=== PATIENT | female | born 1970 | race Caucasian/White ===

== ENCOUNTER → 2020-07-13 14:25 | Outpatient (BNVA) | payer OTHER, SELFPAY | PROVIDERS: PCP Internal Medicine; Visit Provider Physician Assistant | DX: Z76.89 Persons encountering health services in other specified circumstances (principal) ==

== ENCOUNTER → 2020-08-09 13:21 | Outpatient (BNVA) | payer OTHER, SELFPAY | PROVIDERS: PCP Internal Medicine; Referring Provider Internal Medicine; Visit Provider Dietitian, Registered | DX: Z76.89 Persons encountering health services in other specified circumstances (principal) ==

== ENCOUNTER 2020-08-15 14:36 | Outpatient (REF) | payer OTHER, SELFPAY | END 2020-08-15 14:37 | disposition home or self-care (01) | LOC: HO.LAB 14:36 | PROVIDERS: PCP Nurse Anesthetist, Certified Registered; Visit Provider Internal Medicine | DX: Z20.828 Contact with and (suspected) exposure to other viral communicable diseases (principal) | CPT/HCPCS: C9803; U0003 ==

== ENCOUNTER → 2020-08-30 13:36 | Outpatient (BNVA) | payer OTHER, SELFPAY | PROVIDERS: Absent Provider Physician Assistant; PCP Internal Medicine; Referring Provider Internal Medicine; Visit Provider Physician Assistant | DX: Z76.89 Persons encountering health services in other specified circumstances (principal) ==

== ENCOUNTER → 2020-09-20 08:12 | Outpatient (BNVA) | payer OTHER, SELFPAY | PROVIDERS: PCP Internal Medicine; Visit Provider Physician Assistant | DX: Z76.89 Persons encountering health services in other specified circumstances (principal) ==

== ENCOUNTER 2021-04-27 12:58 | Inpatient (IN) | payer OTHER, SELFPAY ==
[2021-04-27] VITALS (7 sets, daily range): BP systolic 129; BP diastolic 90; PULSE 88–105; RESP 20; TEMP 35.7; O2SAT 91–98; BMI 46.4
--- NOTE | ~2021-04-27 | XR_ITS ---
EXAMINATION: XR CHEST CLINICAL INFORMATION: Cough, SOB and chest pain. COMPARISON: Chest 12/03/2018 CT chest 02/05/2018 TECHNIQUE: 2 views of the chest were obtained. FINDINGS: There is right upper lobe opacification likely atelectasis with ipsilateral mediastinal shift. Otherwise visualized right lung and the left lung is clear. No pleural effusion seen. The diaphragms are symmetrical and seen in position as previously visualized. Heart size and vascularity is normal. No gross bony abnormality. XR/XR chest 2V IMPRESSION: Loss of right lung volume secondary to right upper lobe atelectasis. Similar findings were seen on the CT chest 02/05/2018. Correlate with clinical exam.
--- NOTE | ~2021-04-27 | CT_ITS ---
EXAMINATION: CT ANGIOGRAM OF THE CHEST WITH AND WITHOUT CONTRAST (CT PULMONARY ANGIOGRAM FOR PE) CLINICAL INFORMATION: Chest pain, shortness of breath. Leukocytosis. Cough. Evaluate for pulmonary embolism. COMPARISON: Most recent chest radiograph dated 03/28/2021. Chest CT dated 02/05/2018. TECHNIQUE: Prior to contrast administration, noncontrast localization images were obtained. Subsequently, multidetector volumetric imaging was performed from the thoracic inlet to below the diaphragms following the administration of 71 mL Omnipaque 350 intravenous contrast. No contrast reaction reported Sagittal, coronal, and MIP oblique sagittal reformatted images were obtained on the CT workstation, uploaded to PACS, and reviewed. This CT examination was performed using dose optimization techniques as appropriate, variously including the following: *Automated exposure control *Adjustment of mA and/or kV according to patient size (this includes techniques or standardized protocols for targeted exams where dose is matched to indication/reason for exam; i.e. extremities or head) *Use of iterative reconstruction technique Total exam dose-length product 406 mGy-cm FINDINGS: QUALITY OF STUDY/CONTRAST BOLUS: Satisfactory. PULMONARY ARTERIES: No central or segmental pulmonary emboli. THORACIC AORTA: No aneurysm or dissection. LUNG: Complete collapse of the right upper lobe is redemonstrated with associated atelectasis. Compensatory expansion of the right middle and lower lobes. No new airspace consolidation. No pulmonary nodule or mass. PLEURA: No pleural effusion or pneumothorax. MEDIASTINUM: Normal heart size. No pericardial effusion. No hilar or mediastinal lymphadenopathy. No evidence of septal bowing or right heart strain. CHEST WALL/AXILLA: No axillary or internal mammary lymphadenopathy. OSSEOUS STRUCTURES: No acute or suspicious osseous abnormality. UPPER ABDOMEN: Unremarkable. No reflux of contrast into the hepatic veins to suggest elevated right heart pressures. CT/CT angio chest PE protocol IMPRESSION: 1. No central or segmental pulmonary embolism. 2. Complete collapse of the right upper lobe is redemonstrated, unchanged when compared to prior examinations. 3. No new pulmonary nodule, mass, or airspace consolidation. VTE: negative
--- NOTE | 2021-04-27 13:14 | ECG_ITS ---
Test Reason : SOB Blood Pressure : / mmHG Vent. Rate : 095 BPM Atrial Rate : 095 BPM P-R Int : 142 ms QRS Dur : 084 ms QT Int : 378 ms P-R-T Axes : 066 076 062 degrees QTc Int : 475 ms Normal sinus rhythm Normal ECG When compared with ECG of 03-DEC-2018 11:46, No significant change was found Referred By: Aimee Paez Electronically Signed By:Markie Gambino
--- NOTE | 2021-04-27 13:26 | ED.SOB ---
HPI - SOB/Dyspnea General Chief Complaint: Dyspnea Stated Complaint: chest pain, sob Time Seen by Provider: 04/27/21 13:09 Source: patient Mode of arrival: ambulatory History of Present Illness HPI Narrative: 50-year-old female with a past medical history of asthma, COPD, DVT, PE, to the ED complaining of worsening exertional SOB x1 week. Also reports productive cough, and chest tightness. Was seen at PCP yesterday prescribed 10 mg of prednisone b.i.d. and Zithromax and without relief. Denies fever, chills, recent travel, LE edema, calf pain, abdominal pain MD elicited complaint: shortness of breath and cough Related Data Home Medications Medication Instructions Recorded Confirmed albuterol sulfate 90 mcg/actuation 2 puff INHALATION Q6H PRN 07/12/20 04/27/21 aerosol inhaler metformin 500 mg/5 mL oral solution 1,000 mg PO BID ml 07/12/20 04/27/21 azithromycin 1 tab PO DIRECTED 04/27/21 04/27/21 empagliflozin [Jardiance] 1 tab PO DAILY 04/27/21 04/27/21 bizkybmmiyr-sxcwtkcyl-tgtzhwyx 1 puff PO DAILY 04/27/21 04/27/21 [Trelegy Ellipta] furosemide 1 tab PO DAILY PRN 04/27/21 04/27/21 montelukast 1 tab PO DAILY 04/27/21 04/27/21 prednisone 1 tab PO BID 04/27/21 04/27/21 Allergies Allergy/AdvReac Type Severity Reaction Status Date / Time onion Allergy Unknown Itching Uncoded 07/12/20 08:23 strawberry Allergy Unknown Hives Uncoded 07/12/20 08:23 bee AdvReac Severe Anaphylaxis Uncoded 07/13/20 15:22 Review of Systems Review of Systems: Constitutional: No Fever, No Chills, No Fatigue, No Malaise ENT/Mouth: No Ear Pain, No Nasal Congestion, No sore throat, No Rhinorrhea Eyes: No Eye Pain, No Swelling, No Redness, No Discharge, No Vision Changes Cardiovascular: + Chest Pain, + SOB, + Dyspnea on Exertion, No Orthopnea, No Edema Respiratory: + Cough, + Sputum, + Wheezing, No Dyspnea Gastrointestinal: No Nausea, No Vomiting, No Abdominal pain Genitourinary: No Dysuria, No Urinary Frequency, No Hematuria Musculoskeletal: No joint pain, No Myalgias, No Joint Swelling Skin: No Skin Lesions, No rash Neuro: No Weakness, No Numbness, No Headache Yes all other systems are reviewed and are negative [facility] Past Medical History Attestation statement: The following information was validated with the patient. Medical History (Updated 04/27/21 @ 17:21 by RONY Leyva) Asthma COPD (chronic obstructive pulmonary disease) DVT (deep venous thrombosis) Pulmonary embolism VTE (venous thromboembolism) Surgical History Hx of section Hx of section Family History Family History Father No problems noted. Mother No problems noted. Son No problems noted. Son No problems noted. Daughter No problems noted. Daughter No problems noted. Sister No problems noted. Social History Social History (Updated 07/13/20 @ 15:38 by Holly Quach PA-C) Alcohol intake: current Alcohol intake frequency: a few times a week Smoked in Last 30 Days: Yes Use of substances other than those prescribed or required for medical reasons: No Advance Directives: Yes Advance Directives Information Provided: Yes Advance Directives on File: No Physical Exam Vital Signs: Vital Signs: Last Vital Signs Temp 96.3 F L 04/27/21 13:00 Pulse 93 04/27/21 16:00 Resp 20 04/27/21 16:00 BP 129/90 H 04/27/21 13:00 Pulse Ox 98 04/27/21 16:00 Body Mass Index 46.4 Const: General: cooperative, healthy appearing, alert and awake Orientation/consciousness: patient oriented x3 Limitations: no limitations HENMT: Head: Yes normal to inspection Ears: hearing grossly normal bilaterally General nose exam: Normal external nose present Face and sinus: Yes normal facial exam Eyes: General: appearance normal, both eyes and all related structures EOM: EOMs intact bilaterally Neck: Neck: Yes normal visual inspection and Yes no meningeal signs Resp: Effort & Inspection: normal respiratory effort Auscultation: wheezes expiratory wheezes and throughout Cardio: Rate: regular rate Heart sounds: S1 normal heart sound present and S2 normal heart sound present GI: Inspection: Yes normal to inspection Palpation (GI): Soft to palpation and nontender Skin: Rashes: no rashes Wounds: no wounds Neuro: General: patient oriented x3 and no meningeal signs Gait exam (Neuro): Normal gait present Extrem: General: Yes normal to inspection, Yes no pedal edema and Yes no calf tenderness Course Course Course Narrative: XR chest 2V IMPRESSION: Loss of right lung volume secondary to right upper lobe atelectasis. Similar findings were seen on the CT chest 02/05/2018. Correlate with clinical exam. -1425--leukocytosis of 18.9 likely from prednisone > Still low concern for severe sepsis. Will obtain lactic/blood cultures and CTA to r/o PE/underlying infectious etiology as has only been on prednisone x 1 day. - troponin/BNP negative -1536-lactic 3.1 likely from albuterol use. Empiric IV Ceftriaxone ordered -1700--on re-evaluation patient satting 88-89% on RA. Reports does have p.r.n. O2 at home 2.5 L. Now satting 91% on NC. Still diffuse expiatory wheeze throughout. Additional hour long neb ordered, plan to admit. 175-CT angio chest PE protocol IMPRESSION: 1. No central or segmental pulmonary embolism. 2. Complete collapse of the right upper lobe is redemonstrated, unchanged when compared to prior examinations. 3. No new pulmonary nodule, mass, or airspace consolidation. VTE: negative -1800--pt admitted for further management MDM - SOB/Dyspnea MDM Narrative Medical decision making narrative: 50-year-old female with a past medical history of asthma, COPD, DVT, PE, to the ED complaining of worsening exertional SOB x1 week. Also reports productive cough, and chest tightness. On exam mildly tachycardic likely from albuterol use, NAD, nontoxic appearing, expiratory wheeze throughout, no pedal edema or calf tenderness. Concern for asthma/COPD exacerbation vs pneumonia. Rule out ACS. Lower concern for PE/DVT. Low concern for severe sepsis Plan: EKG, labs, CXR, DuoNeb, Solu-Medrol, magnesium, reassess Medical Records Attestation: I reviewed the patient's medical records. Lab Data Attestation: I reviewed the patient's lab results. Result diagrams: 04/27/21 13:33 07/17/21 13:33 Labs: Lab Results 04/27/21 04/27/21 04/27/21 Range/Units 13:33 13:33 13:33 WBC 18.9 H (4.8-10.8) X10*3/uL RBC 5.66 H (4.20-5.50) X10*6/uL Hgb 14.5 (12.0-16.0) g/dl Hct 43.8 (37-47) % MCV 77.4 L (80-98) fL MCH 25.6 L (27.0-33.0) pg MCHC 33.1 (31.0-35.0) g/dl RDW 14.2 (11.0-16.0) % Plt Count 506 H (160-400) X10*3/uL MPV 9.9 (9.4-12.3) fL Immature Gran % (Auto) 0.5 H (0.0-0.4) % Neut % (Auto) 67.6 (45-73) % Lymph % (Auto) 25.9 (20-40) % Carolina % (Auto) 5.4 (2-11) % Eos % (Auto) 0.3 (0-4) % Baso % (Auto) 0.3 (0-2) % Lymph # (Auto) 4.9 (1.2-4.9) X10*3/uL [place] # (Auto) 1.0 (0.1-1.2) X10*3/uL Eos # (Auto) 0.1 (0.0-0.4) X10*3/uL Baso # (Auto) 0.1 (0.0-0.2) X10*3/uL Abs Immat Gran (auto) 0.10 H (0.00-0.03) X10*3/uL Absolute Neuts (auto) 12.7 H (2.0-8.3) X10*3/uL Absolute Nucleated RBC 0.000 (0.0-0.012) X10*3/uL Nucleated RBC % (auto) 0.0 (0.0-0.2) /100WBC PT (9.9-13.0) SEC INR (0.9-1.1) APTT (24.1-38.0) SEC D-Dimer NG/ML Sodium 135 (135-145) mmol/L Potassium 4.1 (3.3-5.1) mmol/L Chloride 98 (96-108) mmol/L Carbon Dioxide 19 L (22-29) mmol/L Anion Gap 22 H (12-20) BUN 19 H (9-16) mg/dL Creatinine 0.96 (0.5-1.4) mg/dL Estim Creat Clear Calc 75.7 Estimated GFR > 60 Random Glucose 262 H (60-115) mg/dL Lactic Acid (0.5-2.0) mmol/L Lactic Acid Fup @ 2Hr (0.5-2.0) mmol/L Calcium 10.3 H (8.4-10.2) mg/dL Magnesium 2.1 (1.6-2.6) mg/dL Total Bilirubin 0.6 (0.0-1.0) mg/dL Direct Bilirubin 0.2 (0.0-0.5) mg/dL AST 7 (5-31) U/L ALT 10 (0-31) U/L Alkaline Phosphatase 119 H (39-117) U/L Troponin I High Sens < 3.5 (<3.5-17.0) ng/L B-Natriuretic Peptide < 10 (<100) pg/mL Total Protein 8.1 H (6.5-8.0) g/dL Albumin 4.4 (3.5-5.0) g/dL COVID-19 (ALEJANDRA) (Negative) COVID-19 Clin Com 04/27/21 04/27/21 04/27/21 Range/Units 13:33 14:48 14:48 WBC (4.8-10.8) X10*3/uL RBC (4.20-5.50) X10*6/uL Hgb (12.0-16.0) g/dl Hct (37-47) % MCV (80-98) fL MCH (27.0-33.0) pg MCHC (31.0-35.0) g/dl RDW (11.0-16.0) % Plt Count (160-400) X10*3/uL MPV (9.4-12.3) fL Immature Gran % (Auto) (0.0-0.4) % Neut % (Auto) (45-73) % Lymph % (Auto) (20-40) % Carolina % (Auto) (2-11) % Eos % (Auto) (0-4) % Baso % (Auto) (0-2) % Lymph # (Auto) (1.2-4.9) X10*3/uL Carolina # (Auto) (0.1-1.2) X10*3/uL Eos # (Auto) (0.0-0.4) X10*3/uL Baso # (Auto) (0.0-0.2) X10*3/uL Abs Immat Gran (auto) (0.00-0.03) X10*3/uL Absolute Neuts (auto) (2.0-8.3) X10*3/uL Absolute Nucleated RBC (0.0-0.012) X10*3/uL Nucleated RBC % (auto) (0.0-0.2) /100WBC PT 12.2 (9.9-13.0) SEC INR 1.1 (0.9-1.1) APTT 35.2 (24.1-38.0) SEC D-Dimer < 200 NG/ML Sodium (135-145) mmol/L Potassium (3.3-5.1) mmol/L Chloride (96-108) mmol/L Carbon Dioxide (22-29) mmol/L Anion Gap (12-20) BUN (9-16) mg/dL Creatinine (0.5-1.4) mg/dL Estim Creat Clear Calc Estimated GFR Random Glucose (60-115) mg/dL Lactic Acid 3.1 H* (0.5-2.0) mmol/L Lactic Acid Fup @ 2Hr (0.5-2.0) mmol/L Calcium (8.4-10.2) mg/dL Magnesium (1.6-2.6) mg/dL Total Bilirubin (0.0-1.0) mg/dL Direct Bilirubin (0.0-0.5) mg/dL AST (5-31) U/L ALT (0-31) U/L Alkaline Phosphatase (39-117) U/L Troponin I High Sens (<3.5-17.0) ng/L B-Natriuretic Peptide (<100) pg/mL Total Protein (6.5-8.0) g/dL Albumin (3.5-5.0) g/dL COVID-19 (ALEJANDRA) Negative (Negative) COVID-19 Clin Com See Note 04/27/21 Range/Units 17:36 WBC (4.8-10.8) X10*3/uL RBC (4.20-5.50) X10*6/uL Hgb (12.0-16.0) g/dl Hct (37-47) % MCV (80-98) fL MCH (27.0-33.0) pg MCHC (31.0-35.0) g/dl RDW (11.0-16.0) % Plt Count (160-400) X10*3/uL MPV (9.4-12.3) fL Immature Gran % (Auto) (0.0-0.4) % Neut % (Auto) (45-73) % Lymph % (Auto) (20-40) % Carolina % (Auto) (2-11) % Eos % (Auto) (0-4) % Baso % (Auto) (0-2) % Lymph # (Auto) (1.2-4.9) X10*3/uL Carolina # (Auto) (0.1-1.2) X10*3/uL Eos # (Auto) (0.0-0.4) X10*3/uL Baso # (Auto) (0.0-0.2) X10*3/uL Abs Immat Gran (auto) (0.00-0.03) X10*3/uL Absolute Neuts (auto) (2.0-8.3) X10*3/uL Absolute Nucleated RBC (0.0-0.012) X10*3/uL Nucleated RBC % (auto) (0.0-0.2) /100WBC PT (9.9-13.0) SEC INR (0.9-1.1) APTT (24.1-38.0) SEC D-Dimer NG/ML Sodium (135-145) mmol/L Potassium (3.3-5.1) mmol/L Chloride (96-108) mmol/L Carbon Dioxide (22-29) mmol/L Anion Gap (12-20) BUN (9-16) mg/dL Creatinine (0.5-1.4) mg/dL Estim Creat Clear Calc Estimated GFR Random Glucose (60-115) mg/dL Lactic Acid (0.5-2.0) mmol/L Lactic Acid Fup @ 2Hr 1.9 (0.5-2.0) mmol/L Calcium (8.4-10.2) mg/dL Magnesium (1.6-2.6) mg/dL Total Bilirubin (0.0-1.0) mg/dL Direct Bilirubin (0.0-0.5) mg/dL AST (5-31) U/L ALT (0-31) U/L Alkaline Phosphatase (39-117) U/L Troponin I High Sens (<3.5-17.0) ng/L B-Natriuretic Peptide (<100) pg/mL Total Protein (6.5-8.0) g/dL Albumin (3.5-5.0) g/dL COVID-19 (ALEJANDRA) (Negative) COVID-19 Clin Com ECG Data Attestation: I personally reviewed and interpreted this ECG as follows: ECG interpretation date: 04/27/21 ECG interpretation time: 13:28 Interpretation: EKG normal sinus rhythm with a rate of 92, T-wave inversions in leads 3 and AVF. Nonischemic/no STEMI Discharge Plan Discharge Clinical Impression: Acute exacerbation of chronic obstructive airways disease Patient Disposition: Admitted As Inpatient
[2021-04-27] MEDS: methylPREDNISolone Sod Succ 125 MG/2 ML VIAL IVPUSH (13:38)
[2021-04-27] MEDS: Magnesium Sulfate/H2O 2 GM/50 ML PIGGYBACK IV (13:40)
[2021-04-27 13:41] LABS: MANUAL DIFF FLAG NO
[2021-04-27 13:42] LABS: Basophils Absolute Auto 0.1 X10*3/uL (0.0-0.2); Basophils Percent Auto 0.3 % (0-2); Eosinophils Absolute Auto 0.1 X10*3/uL (0.0-0.4); Eosinophils Percent Auto 0.3 % (0-4); Hematocrit 43.8 % (37-47); Hemoglobin 14.5 g/dl (12.0-16.0); Imm Gran Pct Auto 0.5 % (0.0-0.4); Lymphocytes Absolute Auto 4.9 X10*3/uL (1.2-4.9); Lymphocytes Percent Auto 25.9 % (20-40); Mean Corpuscular HGB Conc 33.1 g/dl (31.0-35.0); Mean Corpuscular Hemoglobin 25.6 pg (27.0-33.0); Mean Corpuscular Volume 77.4 fL (80-98); Mean Platelet Volume 9.9 fL (9.4-12.3); Monocytes Percent Auto 5.4 % (2-11); Neutrophils Absolute Auto 12.7 X10*3/uL (2.0-8.3); Neutrophils Percent Auto 67.6 % (45-73); Platelet Count 506 X10*3/uL (160-400); Red Blood Count 5.66 X10*6/uL (4.20-5.50); Red Cell Distribution Width 14.2 % (11.0-16.0); White Blood Count 18.9 X10*3/uL (4.8-10.8)
[2021-04-27] MEDS: Albuterol/Iprat 2.5/0.5MG 3 ML AMPUL.NEB INHALE (13:57)
[2021-04-27 13:59] LABS: COVID-19 Test Negative (Negative); IDNOW Serial# 9DD0AD1C
[2021-04-27 14:20] LABS: B Type Natriuretic Peptide < 10 pg/mL (<100); Troponin-I High Sensitivity < 3.5 ng/L (<3.5-17.0)
[2021-04-27 14:25] LABS: Alanine Aminotransferase 10 U/L (0-31); Albumin Level 4.4 g/dL (3.5-5.0); Alkaline Phosphatase 119 U/L (39-117); Anion Gap 22 (12-20); Aspartate Amino Transferase 7 U/L (5-31); Bilirubin Direct 0.2 mg/dL (0.0-0.5); Bilirubin Total 0.6 mg/dL (0.0-1.0); Blood Urea Nitrogen 19 mg/dL (9-16); Calcium 10.3 mg/dL (8.4-10.2); Carbon Dioxide 19 mmol/L (22-29); Chloride 98 mmol/L (96-108); Creatinine Clr Calc Pharmacy 75.7; Estimated Glomerular Filt Rate > 60; Glucose Random 262 mg/dL (60-115); Magnesium 2.1 mg/dL (1.6-2.6); Potassium 4.1 mmol/L (3.3-5.1); Sodium 135 mmol/L (135-145); Total Protein 8.1 g/dL (6.5-8.0)
[2021-04-27 15:14] LABS: INTERNATIONAL NORM RATIO 1.1 (0.9-1.1); Prothrombin Time 12.2 SEC (9.9-13.0)
[2021-04-27 15:17] LABS: Partial Thromboplastin Time 35.2 SEC (24.1-38.0)
[2021-04-27] MEDS: Albuterol Sulfate (0.083%) 2.5 MG/3 ML VIAL.NEB 10 MG INHALE (15:17)
[2021-04-27 15:22] LABS: D Dimer < 200 NG/ML
[2021-04-27 15:29] LABS: Lactic Acid 3.1 mmol/L (0.5-2.0)
[2021-04-27] MEDS: cefTRIAXone sodium 1 GM in 0.9 % Sodium Chloride 50 ML IV (15:59)
[2021-04-27 17:04] LABS: Reflex Lactate? Lactic Acid Added
[2021-04-27] MEDS: iohexoL 350 MG/ML 100 ML INFUS..BTL IV (17:18)
[2021-04-27 18:01] LABS: ~Lactic Acid-LAB USE ONLY 1.9 mmol/L (0.5-2.0)
[2021-04-27] MEDS: Albuterol Sulfate (0.083%) 2.5 MG/3 ML VIAL.NEB INHALE (18:29)
[2021-04-28] VITALS (11 sets, daily range): BP systolic 114–149; BP diastolic 61–92; PULSE 83–104; RESP 18–20; TEMP 36–36.8; O2SAT 91–96; BMI 46.5
[2021-04-28] MEDS: 0.9 % Sodium Chloride Flush 3 ML SYRINGE IVFLUSH ×4 (00:29→21:40)
[2021-04-28] MEDS: methylPREDNISolone Sod Succ 40 MG/ML VIAL IVPUSH ×3 (00:29→23:08)
[2021-04-28] MEDS: Enoxaparin Sodium 40 MG/0.4 ML SYRINGE SUBCUT (00:29)
[2021-04-28 01:00] LABS: Glucose, Whole Blood 356 mg/dL (60-115)
[2021-04-28] MEDS: Insulin Lispro 100 UNIT/ML 3 ML VIAL SUBCUT ×5 (03:52→21:39)
[2021-04-28 03:53] LABS: Glucose, Whole Blood 276 mg/dL (60-115)
[2021-04-28 05:16] LABS: MANUAL DIFF FLAG NO
[2021-04-28 05:24] LABS: Basophils Percent Auto 0.1 % (0-2); Hematocrit 43.4 % (37-47); Hemoglobin 14.2 g/dl (12.0-16.0); Imm Gran Abs Auto 0.08 X10*3/uL (0.00-0.03); Imm Gran Pct Auto 0.5 % (0.0-0.4); Lymphocytes Absolute Auto 1.8 X10*3/uL (1.2-4.9); Mean Corpuscular HGB Conc 32.7 g/dl (31.0-35.0); Mean Corpuscular Hemoglobin 25.5 pg (27.0-33.0); Mean Corpuscular Volume 77.9 fL (80-98); Mean Platelet Volume 10.3 fL (9.4-12.3); Monocytes Absolute Auto 0.2 X10*3/uL (0.1-1.2); Monocytes Percent Auto 1.5 % (2-11); Neutrophils Absolute Auto 14.4 X10*3/uL (2.0-8.3); Neutrophils Percent Auto 86.9 % (45-73); Platelet Count 494 X10*3/uL (160-400); Red Blood Count 5.57 X10*6/uL (4.20-5.50); Red Cell Distribution Width 14.4 % (11.0-16.0); White Blood Count 16.5 X10*3/uL (4.8-10.8)
--- NOTE | 2021-04-28 05:44 | P.HPHOSP_ITS ---
History of Present Illness Date of Service: 04/27/21 Chief Complaint: Shortness of breath This is a 50-year-old female with past medical history of COPD/asthma, diabetes, history of PE DVT, not on anticoagulation, presents to the hospital with complaints of shortness of breath. Patient reports that her symptoms started about a week ago. Patient was treated with prednisone and azithromycin by her PCP with no relief. Patient is coughing, bringing minimal phlegm, denies any fever but has chills, denies any headache change in vision chest pain, no abdominal pain nausea but has some diarrhea about 1-2 days 1 episode daily. Has significant wheezing. She is also complaining of urinary frequency with no urgency or dysuria. Patient denies any lower extremity edema. On arrival to the ED patient vitals significant for temp of 96.3?, heart rate of 105, respiratory rate of 20, blood pressure 129/90, satting 92% on 3 L of nasal cannula patient reports that she is usually on p.r.n. oxygen 2 L at home but was not using it much previous to this episode. Labs on arrival significant for WBC count of 18.9, lactic acid of 3.1 that resolved, otherwise unremarkable Patient received methylprednisone in the ED and will be admitted for further management [facility] Medical History Asthma COPD (chronic obstructive pulmonary disease) DVT (deep venous thrombosis) Pulmonary embolism VTE (venous thromboembolism) Family History Father No problems noted. Mother No problems noted. Son No problems noted. Son No problems noted. Daughter No problems noted. Daughter No problems noted. Sister No problems noted. Surgical History Hx of section Hx of section Social History Household Members: Children Housing: House Do you presently have visiting nurse or other home services: No Alcohol intake: current Alcohol intake frequency: a few times a week Patient Tobacco Use Status: Current everyday Tobacco user Tobacco use type: Cigarette Cigarette Packs Per Day: 0.5 Cigarettes Per Day: 4 Years Smoked: 30 Smoked in Last 30 Days: Yes e-Cigarette/Vaping Use: Never Used Patient Interested in Nicotine Replacement: No Patient Given Instructions on How to Stop Smoking: No Second Hand Smoke Exposure: No Use of substances other than those prescribed or required for medical reasons: Yes Substance Use Type: Marijuana Substance Use Frequency: Recent Binge Last Used Substance: Days (ago) Currently Displaying Signs/Symptoms of Drug Intoxication Withdrawal: No Any prior treatment program specific to substance use: No Have you been hit, kicked, punched, or otherwise hurt by someone within the past year? If so, by whom?: No Do you feel safe in your current relationship?: No Current Relationship Is there a partner from a previous relationship who is making you feel unsafe now?: No Are you made to feel afraid or neglected: No Spiritual Healthcare Practices: no Gnosticism Healthcare Practices: no Cultural Healthcare Practices: no Advance Directives: Yes Advance Directives Information Provided: Yes Advance Directives on File: No Advance Directives Date on File: 04/28/21 Do you have thoughts of harming others: None Do you have a plan to hurt others: No Plan Recently lost weight without trying: No Eating poorly because of decreased appetite: Yes Nutrition Risks: No Nutritional Risk Patient : No : No Poor oral hygiene: No Meds Allergies Allergy/AdvReac Type Severity Reaction Status Date / Time onion Allergy Unknown Itching Uncoded 07/12/20 08:23 strawberry Allergy Unknown Hives Uncoded 07/12/20 08:23 bee AdvReac Severe Anaphylaxis Uncoded 07/13/20 15:22 Active Medications: Current Medications Generic Name Dose Route Start Last Admin Trade Name Freq PRN Reason Stop Dose Admin Acetaminophen 650 mg 04/27/21 21:38 Acetaminophen 325 Mg Tablet PO Q6H PRN Pain, Mild (Pain Scale 1-3) Albuterol/Ipratropium 3 ml 04/28/21 08:00 Albuterol/Iprat 2.5/0.5mg 3 Ml Ampul.Neb INHALE RQ4H WHILE AWAKE ERIC Albuterol/Ipratropium 3 ml 04/27/21 21:38 Albuterol/Iprat 2.5/0.5mg 3 Ml Ampul.Neb INHALE RQ4H PRN Shortness of Breath/Wheezing Docusate Sodium 100 mg 04/27/21 21:38 Docusate Sodium 100 Mg Capsule PO DAILY PRN Constipation Enoxaparin Sodium 40 mg 04/27/21 22:00 04/28/21 00:29 Enoxaparin Sodium 40 Mg/0.4 Ml Syringe SUBCUT 40 mg Q24H ERIC Administration Furosemide 20 mg 04/27/21 21:38 Furosemide 20 Mg Tablet PO DAILY PRN Edema Protocol Insulin Human Lispro 0 unit 04/28/21 07:30 04/28/21 03:52 Insulin Lispro 100 Unit/Ml 3 Ml Vial SUBCUT 6 unit QIDACHS ERIC Administration Protocol Methylprednisolone Sodium Succinate 40 mg 04/27/21 23:00 04/28/21 00:29 Methylprednisolone Sod Succ 40 Mg/Ml Vial IVPUSH 40 mg Q12H ERIC Administration Montelukast Sodium 10 mg 04/28/21 09:00 Montelukast Sodium 10 Mg Tablet PO DAILY [facility] Nicotine 7 mg 04/28/21 09:00 Nicotine 7 Mg Patch.Td24 TRANSDERMA DAILY [facility] Sodium Chloride 3 ml 04/28/21 00:00 04/28/21 00:29 0.9 % Sodium Chloride Flush 3 Ml Syringe IVFLUSH 3 ml QSHIFT [facility] Administration Home Medications Medication Instructions Recorded Confirmed Last Taken Type albuterol sulfate 90 mcg/actuation 2 puff INHALATION Q6H PRN 07/12/20 04/27/21 Unknown History aerosol inhaler metformin 500 mg/5 mL oral solution 1,000 mg PO BID ml 07/12/20 04/27/21 Unknown History azithromycin 1 tab PO DIRECTED 04/27/21 04/27/21 Unknown History empagliflozin [Jardiance] 1 tab PO DAILY 04/27/21 04/27/21 Unknown History kcgwhckzluh-wpnwfcsqc-cnqaavau 1 puff PO DAILY 04/27/21 04/27/21 Unknown History [Trelegy Ellipta] furosemide 1 tab PO DAILY PRN 04/27/21 04/27/21 Unknown History montelukast 1 tab PO DAILY 04/27/21 04/27/21 Unknown History prednisone 1 tab PO BID 04/27/21 04/27/21 Unknown History Physical Exam Vital Signs and Narrative: Vital Signs: Last Vital Signs Temp 98.2 F 04/28/21 03:54 Pulse 102 H 04/28/21 03:54 Resp 18 04/28/21 03:54 BP 145/88 H 04/28/21 03:54 Pulse Ox 91 L 04/28/21 03:54 Body Mass Index 46.5 Const: General: cooperative and no acute distress Orientation/consciousness: patient oriented x3 Eyes: General: appearance normal, both eyes and all related structures Resp: Other: Patient sitting up in bed, has tachypnea Cardio: Rate: regular rate Rhythm: regular rhythm GI: Palpation (GI): Soft to palpation Auscultation: normal bowel sounds Skin: General skin exam: no rashes or lesions noted Neuro: General: patient oriented x3 Cognition (Neuro): normal cognition Extrem: General: Yes normal to inspection and Yes no pedal edema Results Labs CBC and Chem 7: 04/28/21 04:16 04/27/21 13:33 Labs: Laboratory Results - last 24 hr 04/27/21 04/27/21 04/27/21 13:33 13:33 13:33 MCV 77.4 L MCH 25.6 L MCHC 33.1 RDW 14.2 Plt Count 506 H MPV 9.9 Immature Gran % (Auto) 0.5 H Neut % (Auto) 67.6 Lymph % (Auto) 25.9 [place] % (Auto) 5.4 Eos % (Auto) 0.3 Baso % (Auto) 0.3 Lymph # (Auto) 4.9 [place] # (Auto) 1.0 Eos # (Auto) 0.1 Baso # (Auto) 0.1 Abs Immat Gran (auto) 0.10 H Absolute Neuts (auto) 12.7 H Absolute Nucleated RBC 0.000 Nucleated RBC % (auto) 0.0 PT INR APTT D-Dimer Anion Gap 22 H Estim Creat Clear Calc 75.7 Estimated GFR > 60 POC Glucose Random Glucose 262 H Lactic Acid Lactic Acid Fup @ 2Hr Calcium 10.3 H Magnesium 2.1 Total Bilirubin 0.6 Direct Bilirubin 0.2 AST 7 ALT 10 Alkaline Phosphatase 119 H Troponin I High Sens < 3.5 B-Natriuretic Peptide < 10 Total Protein 8.1 H Albumin 4.4 COVID-19 (ALEJANDRA) COVID-19 Clin Com 04/27/21 04/27/21 04/27/21 13:33 14:48 14:48 MCV MCH MCHC RDW Plt Count MPV Immature Gran % (Auto) Neut % (Auto) Lymph % (Auto) [place] % (Auto) Eos % (Auto) Baso % (Auto) Lymph # (Auto) [place] # (Auto) Eos # (Auto) Baso # (Auto) Abs Immat Gran (auto) Absolute Neuts (auto) Absolute Nucleated RBC Nucleated RBC % (auto) PT 12.2 INR 1.1 APTT 35.2 D-Dimer < 200 Anion Gap Estim Creat Clear Calc Estimated GFR POC Glucose Random Glucose Lactic Acid 3.1 H* Lactic Acid Fup @ 2Hr Calcium Magnesium Total Bilirubin Direct Bilirubin AST ALT Alkaline Phosphatase Troponin I High Sens B-Natriuretic Peptide Total Protein Albumin COVID-19 (ALEJANDRA) Negative COVID-19 Clin Com See Note 04/27/21 04/28/21 04/28/21 17:36 00:56 03:49 MCV MCH MCHC RDW Plt Count MPV Immature Gran % (Auto) Neut % (Auto) Lymph % (Auto) [place] % (Auto) Eos % (Auto) Baso % (Auto) Lymph # (Auto) [place] # (Auto) Eos # (Auto) Baso # (Auto) Abs Immat Gran (auto) Absolute Neuts (auto) Absolute Nucleated RBC Nucleated RBC % (auto) PT INR APTT D-Dimer Anion Gap Estim Creat Clear Calc Estimated GFR POC Glucose 356 H* 276 H Random Glucose Lactic Acid Lactic Acid Fup @ 2Hr 1.9 Calcium Magnesium Total Bilirubin Direct Bilirubin AST ALT Alkaline Phosphatase Troponin I High Sens B-Natriuretic Peptide Total Protein Albumin COVID-19 (ALEJANDRA) COVID-19 Clin Com 04/28/21 04:16 MCV 77.9 L MCH 25.5 L MCHC 32.7 RDW 14.4 Plt Count 494 H MPV 10.3 Immature Gran % (Auto) 0.5 H Neut % (Auto) 86.9 H Lymph % (Auto) 11.0 L [place] % (Auto) 1.5 L Eos % (Auto) 0.0 Baso % (Auto) 0.1 Lymph # (Auto) 1.8 [place] # (Auto) 0.2 Eos # (Auto) 0.0 Baso # (Auto) 0.0 Abs Immat Gran (auto) 0.08 H Absolute Neuts (auto) 14.4 H Absolute Nucleated RBC 0.000 Nucleated RBC % (auto) 0.0 PT INR APTT D-Dimer Anion Gap Estim Creat Clear Calc Estimated GFR POC Glucose Random Glucose Lactic Acid Lactic Acid Fup @ 2Hr Calcium Magnesium Total Bilirubin Direct Bilirubin AST ALT Alkaline Phosphatase Troponin I High Sens B-Natriuretic Peptide Total Protein Albumin COVID-19 (ALEJANDRA) COVID-19 Clin Com Imaging Radiologist's Impressions: Impressions Chest X-Ray 04/27/21 13:13 IMPRESSION: Loss of right lung volume secondary to right upper lobe atelectasis. Similar findings were seen on the CT chest 02/05/2018. Correlate with clinical exam. Chest CTA 04/27/21 14:28 IMPRESSION: 1. No central or segmental pulmonary embolism. 2. Complete collapse of the right upper lobe is redemonstrated, unchanged when compared to prior examinations. 3. No new pulmonary nodule, mass, or airspace consolidation. VTE: negative Assessment and Plan (1) Asthma with COPD with exacerbation: Status: Acute (2) Lactic acidosis: Status: Acute (3) Acute respiratory failure with hypoxia: Status: Acute This is a 50-year-old female with past medical history of COPD/asthma presents the hospital with shortness of breath # asthma/COPD exacerbation - failed outpatient therapy with prednisone and azithromycin - has minimal sputum production, no evidence of pneumonia, COVID-19 negative - will start her on IV Solu-Medrol 40 b.i.d. - DuoNeb p.r.n. and scheduled - monitor respiratory status # acute hypoxic respiratory failure - most likely secondary to COPD/asthma exacerbation - no evidence of pneumonia, less likely to be PE, no COVID infection - patient on 3 L of oxygen - titrate oxygen as required # lactic acidosis - most likely secondary to hypoxia - resolved with IV fluids # leukocytosis - most likely secondary to prednisone use - patient does not have any evidence of infection, minimal sputum production, received azithromycin for COPD - will not start her on antibiotics - follow CBC # urinary frequency - most likely secondary to her diabetes - UA with reflex culture # diabetes - hold oral anti hyperglycemic - start low-dose sliding scale - diabetic diet DVT prophylaxis: Lovenox Quality Stroke Does the patient have a stroke diagnosis?: No VTE Prior VTE?: No VTE Risk Level:: Medical - moderate - high VTE Device Contraindication: Treatment Not Indicated VTE Drug Contraindication: N/A - Med Ordered
[2021-04-28 05:56] LABS: Anion Gap 19 (12-20); Blood Urea Nitrogen 18 mg/dL (9-16); Calcium 9.5 mg/dL (8.4-10.2); Carbon Dioxide 18 mmol/L (22-29); Chloride 103 mmol/L (96-108); Creatinine Clr Calc Pharmacy 93.2; Estimated Glomerular Filt Rate > 60; Glucose Random 259 mg/dL (60-115); Sodium 135 mmol/L (135-145)
[2021-04-28] MEDS: Montelukast Sodium 10 MG TABLET PO (07:25)
[2021-04-28] MEDS: Acetaminophen 325 MG TABLET 650 MG PO (07:25)
[2021-04-28 07:30] LABS: Glucose, Whole Blood 195 mg/dL (60-115)
[2021-04-28] MEDS: Albuterol/Iprat 2.5/0.5MG 3 ML AMPUL.NEB INHALE ×4 (07:52→19:44)
[2021-04-28 09:01] LABS: Glucose Urine UA >=1000 MG/DL (NEG); Leukocyte Esterase Urine NEG (NEG); Nitrite Urine NEG (NEG); Urine Blood NEG (NEG); Urine Ketones 5 MG/DL (NEG); Urine Protein NEG (NEG-TRACE)
--- NOTE | 2021-04-28 09:02 | HO.PM.IMPN ---
Subjective Subjective Date of Service: 04/28/21 Interval History: sob Review of Systems Shortness of breath seems to be improving, has some dry cough otherwise denies any chest pain. Still feeling short of breath with sentnces ,also sob with mild walking Physical Exam Vital Signs: Vital Signs: Last Vital Signs Temp 96.8 F 04/28/21 07:05 Pulse 93 04/28/21 07:58 Resp 20 04/28/21 07:05 BP 125/88 04/28/21 07:05 Pulse Ox 93 04/28/21 07:05 Body Mass Index 46.5 Physical exam: Cvs: rrr, [id number] , no murmur res: breath sound diminshed at bases ,has wheezing abd: no rebound or guarding ,nt, bs present. ext pulses present , no cyanosis neuro: axo3 , nonfocal. Objective Data Current Medications Generic Name Dose Route Start Last Admin Trade Name Freq PRN Reason Stop Dose Admin Acetaminophen 650 mg 04/27/21 21:38 04/28/21 07:25 Acetaminophen 325 Mg Tablet PO 650 mg Q6H PRN Administration Pain, Mild (Pain Scale 1-3) Albuterol/Ipratropium 3 ml 04/28/21 08:00 04/28/21 07:52 Albuterol/Iprat 2.5/0.5mg 3 Ml Ampul.Neb INHALE 3 ml RQ4H WHILE AWAKE ERIC Administration Albuterol/Ipratropium 3 ml 04/27/21 21:38 Albuterol/Iprat 2.5/0.5mg 3 Ml Ampul.Neb INHALE RQ4H PRN Shortness of Breath/Wheezing Docusate Sodium 100 mg 04/27/21 21:38 Docusate Sodium 100 Mg Capsule PO DAILY PRN Constipation Enoxaparin Sodium 40 mg 04/27/21 22:00 04/28/21 00:29 Enoxaparin Sodium 40 Mg/0.4 Ml Syringe SUBCUT 40 mg Q24H ERIC Administration Furosemide 20 mg 04/27/21 21:38 Furosemide 20 Mg Tablet PO DAILY PRN Edema Protocol Insulin Human Lispro 0 unit 04/28/21 07:30 04/28/21 07:36 Insulin Lispro 100 Unit/Ml 3 Ml Vial SUBCUT 2 unit QIDACHS ERIC Administration Protocol Methylprednisolone Sodium Succinate 40 mg 04/27/21 23:00 04/28/21 00:29 Methylprednisolone Sod Succ 40 Mg/Ml Vial IVPUSH 40 mg Q12H ERIC Administration Montelukast Sodium 10 mg 04/28/21 09:00 04/28/21 07:25 Montelukast Sodium 10 Mg Tablet PO 10 mg DAILY ERIC Administration Nicotine 7 mg 04/28/21 09:00 Nicotine 7 Mg Patch.Td24 TRANSDERMA DAILY [facility] Sodium Chloride 3 ml 04/28/21 00:00 04/28/21 07:38 0.9 % Sodium Chloride Flush 3 Ml Syringe IVFLUSH 3 ml QSHIFT ERIC Administration Labs CBC & Chem 7: 04/28/21 04:16 04/28/21 04:16 Labs: Laboratory Results - last 24 hr 04/27/21 04/27/21 04/27/21 13:33 13:33 13:33 WBC 18.9 H RBC 5.66 H Hgb 14.5 Hct 43.8 MCV 77.4 L MCH 25.6 L MCHC 33.1 RDW 14.2 Plt Count 506 H MPV 9.9 Immature Gran % (Auto) 0.5 H Neut % (Auto) 67.6 Lymph % (Auto) 25.9 [place] % (Auto) 5.4 Eos % (Auto) 0.3 Baso % (Auto) 0.3 Lymph # (Auto) 4.9 [place] # (Auto) 1.0 Eos # (Auto) 0.1 Baso # (Auto) 0.1 Abs Immat Gran (auto) 0.10 H Absolute Neuts (auto) 12.7 H Absolute Nucleated RBC 0.000 Nucleated RBC % (auto) 0.0 PT INR APTT D-Dimer Sodium 135 Potassium 4.1 Chloride 98 Carbon Dioxide 19 L Anion Gap 22 H BUN 19 H Creatinine 0.96 Estim Creat Clear Calc 75.7 Estimated GFR > 60 POC Glucose Random Glucose 262 H Lactic Acid Lactic Acid Fup @ 2Hr Calcium 10.3 H Magnesium 2.1 Total Bilirubin 0.6 Direct Bilirubin 0.2 AST 7 ALT 10 Alkaline Phosphatase 119 H Troponin I High Sens < 3.5 B-Natriuretic Peptide < 10 Total Protein 8.1 H Albumin 4.4 COVID-19 (ALEJANDRA) COVID-19 Clin Com 04/27/21 04/27/21 04/27/21 13:33 14:48 14:48 WBC RBC Hgb Hct MCV MCH MCHC RDW Plt Count MPV Immature Gran % (Auto) Neut % (Auto) Lymph % (Auto) [place] % (Auto) Eos % (Auto) Baso % (Auto) Lymph # (Auto) [place] # (Auto) Eos # (Auto) Baso # (Auto) Abs Immat Gran (auto) Absolute Neuts (auto) Absolute Nucleated RBC Nucleated RBC % (auto) PT 12.2 INR 1.1 APTT 35.2 D-Dimer < 200 Sodium Potassium Chloride Carbon Dioxide Anion Gap BUN Creatinine Estim Creat Clear Calc Estimated GFR POC Glucose Random Glucose Lactic Acid 3.1 H* Lactic Acid Fup @ 2Hr Calcium Magnesium Total Bilirubin Direct Bilirubin AST ALT Alkaline Phosphatase Troponin I High Sens B-Natriuretic Peptide Total Protein Albumin COVID-19 (ALEJANDRA) Negative COVID-19 [employer] Com See Note 04/27/21 04/28/21 04/28/21 17:36 00:56 03:49 WBC RBC Hgb Hct MCV MCH MCHC RDW Plt Count MPV Immature Gran % (Auto) Neut % (Auto) Lymph % (Auto) [place] % (Auto) Eos % (Auto) Baso % (Auto) Lymph # (Auto) [place] # (Auto) Eos # (Auto) Baso # (Auto) Abs Immat Gran (auto) Absolute Neuts (auto) Absolute Nucleated RBC Nucleated RBC % (auto) PT INR APTT D-Dimer Sodium Potassium Chloride Carbon Dioxide Anion Gap BUN Creatinine Estim Creat Clear Calc Estimated GFR POC Glucose 356 H* 276 H Random Glucose Lactic Acid Lactic Acid Fup @ 2Hr 1.9 Calcium Magnesium Total Bilirubin Direct Bilirubin AST ALT Alkaline Phosphatase Troponin I High Sens B-Natriuretic Peptide Total Protein Albumin COVID-19 (ALEJANDRA) COVID-19 [employer] Com 04/28/21 04/28/21 04/28/21 04:16 04:16 07:05 WBC 16.5 H RBC 5.57 H Hgb 14.2 Hct 43.4 MCV 77.9 L MCH 25.5 L MCHC 32.7 RDW 14.4 Plt Count 494 H MPV 10.3 Immature Gran % (Auto) 0.5 H Neut % (Auto) 86.9 H Lymph % (Auto) 11.0 L [place] % (Auto) 1.5 L Eos % (Auto) 0.0 Baso % (Auto) 0.1 Lymph # (Auto) 1.8 [place] # (Auto) 0.2 Eos # (Auto) 0.0 Baso # (Auto) 0.0 Abs Immat Gran (auto) 0.08 H Absolute Neuts (auto) 14.4 H Absolute Nucleated RBC 0.000 Nucleated RBC % (auto) 0.0 PT INR APTT D-Dimer Sodium 135 Potassium 5.0 D Chloride 103 Carbon Dioxide 18 L Anion Gap 19 BUN 18 H Creatinine 0.78 Estim Creat Clear Calc 93.2 Estimated GFR > 60 POC Glucose 195 H Random Glucose 259 H Lactic Acid Lactic Acid Fup @ 2Hr Calcium 9.5 D Magnesium Total Bilirubin Direct Bilirubin AST ALT Alkaline Phosphatase Troponin I High Sens B-Natriuretic Peptide Total Protein Albumin COVID-19 (ALEJANDRA) COVID-19 Clin Com Quality Stroke Does the patient have a stroke diagnosis?: No VTE Prior VTE?: No VTE Risk Level:: Medical - moderate - high VTE Device Contraindication: Treatment Not Indicated VTE Drug Contraindication: N/A - Med Ordered Assessment and Plan (1) Acute respiratory failure with hypoxia: Status: Acute (2) Asthma with COPD with exacerbation: Status: Acute Assessment and Plan: 50-year-old female with past medical history of COPD/asthma presents the hospital with shortness of breath 1. asthma/COPD exacerbation- failed outpatient therapy with prednisone and azithromycin has minimal sputum production, no evidence of pneumonia, COVID-19 negative continue on IV Solu-Medrol 40 b.i.d., DuoNeb p.r.n. and scheduled monitor respiratory status 2. acute hypoxic respiratory failure- most likely secondary to COPD/asthma exacerbation - no evidence of pneumonia, less likely to be PE, no COVID infection - patient on 3 L of oxygen - titrate oxygen as required 3. leukocytosis: improving - most likely secondary to prednisone use - patient does not have any evidence of infection, minimal sputum production, received azithromycin for COPD blood culture ending , ua neg 4. urinary frequency - most likely secondary to her diabetes - UA neg 5. diabetes: uncontrolled sec to steriod? - hold oral anti hyperglycemic - start sliding scale - diabetic diet
[2021-04-28 09:03] LABS: Appearance Urine CLEAR; Color Urine YELLOW
[2021-04-28 09:17] LABS: RBC Urine 0 /HPF (0); Squamous Epithelial Cell Urine 2+ /LPF; WBC Urine 0 /HPF (0-4)
[2021-04-28 11:24] LABS: Glucose, Whole Blood 272 mg/dL (60-115)
--- NOTE | 2021-04-28 12:24 | MHC.CM.PN ---
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 PT REPORTS SHE DOES HAVE AN O2 CONCENTRATOR AT HOME AND WEARS THE OXYGEN AT NIGHT. PT DENIES ANY OTHER DME AND STATES SHE HAS NO HOME SERVICES. PT COMPLETED A HCP TODAY NAMING HER DAUGHTER, CINTHIA DOW ([phone]) AND HER SON, MONTY KELLY ([phone]) HER PRIMARY AND ALTERNATE AGENTS RESPECTIVELY. PT CONFIRMS THE PCP LISTED, ADAM PERAZA, IS ACCURATE. CURRENT DC PLAN IS HOME WITH NO SERVICES PT WILL SELF ARRANGE TRANSPORT HOME
[2021-04-28 16:13] LABS: Glucose, Whole Blood 303 mg/dL (60-115)
[2021-04-28 20:18] LABS: Glucose, Whole Blood 377 mg/dL (60-115)
[2021-04-29] VITALS (10 sets, daily range): BP systolic 125–160; BP diastolic 75–85; PULSE 82–111; RESP 18–22; TEMP 36.3–36.6; O2SAT 93–95
[2021-04-29] MEDS: Albuterol/Iprat 2.5/0.5MG 3 ML AMPUL.NEB INHALE ×4 (07:21→20:07)
[2021-04-29 07:22] LABS: Glucose, Whole Blood 241 mg/dL (60-115)
[2021-04-29] MEDS: Insulin Lispro 100 UNIT/ML 3 ML VIAL SUBCUT ×4 (09:07→21:21)
[2021-04-29] MEDS: Montelukast Sodium 10 MG TABLET PO (09:07)
[2021-04-29] MEDS: 0.9 % Sodium Chloride Flush 3 ML SYRINGE IVFLUSH ×3 (09:08→21:23)
[2021-04-29] MEDS: predniSONE 20 MG TABLET 40 MG PO (09:16)
[2021-04-29 11:19] LABS: Glucose, Whole Blood 294 mg/dL (60-115)
[2021-04-29] MEDS: Magnesium Sulfate/D5W 1 GM/100 ML PIGGYBACK IV (13:33)
[2021-04-29] MEDS: LORazepam 0.5 MG TABLET PO (14:42)
--- NOTE | 2021-04-29 15:15 | MHC.CM.PN ---
per rounds dc plan home no services no anticipated dc date at this time
[2021-04-29 16:10] LABS: ABG HCO3 21 mmol/L (22-26); ABG pCO2 34 mmHg (32-45); ABG pCO2 TC 34 mmHg (32-45); ABG pO2 81 mmHg (83-108); ABG pO2 TC 82 (83-108)
[2021-04-29 16:13] LABS: Glucose, Whole Blood 264 mg/dL (60-115)
--- NOTE | 2021-04-29 17:27 | HO.PM.IMPN ---
Subjective Subjective Date of Service: 04/29/21 Interval History: Still short of breath, denies any chest pain or abdominal pain . Review of Systems Asthma exacerbation Physical Exam Vital Signs: Vital Signs: Last Vital Signs Temp 97.8 F 04/29/21 15:30 Pulse 111 H 04/29/21 15:30 Resp 22 H 04/29/21 15:30 BP 143/85 H 04/29/21 15:30 Pulse Ox 93 04/29/21 15:30 Body Mass Index 46.5 physical exam: Cvs: rrr, [id number] , no murmur res: breath sound diminshed at bases ,has wheezing abd: no rebound or guarding ,nt, bs present. ext pulses present , no cyanosis neuro: axo3 , nonfoca Objective Data Current Medications Generic Name Dose Route Start Last Admin Trade Name Freq PRN Reason Stop Dose Admin Acetaminophen 650 mg 04/27/21 21:38 04/28/21 07:25 Acetaminophen 325 Mg Tablet PO 650 mg Q6H PRN Administration Pain, Mild (Pain Scale 1-3) Albuterol/Ipratropium 3 ml 04/28/21 08:00 04/29/21 14:52 Albuterol/Iprat 2.5/0.5mg 3 Ml Ampul.Neb INHALE 3 ml RQ4H WHILE AWAKE ERIC Administration Albuterol/Ipratropium 3 ml 04/27/21 21:38 Albuterol/Iprat 2.5/0.5mg 3 Ml Ampul.Neb INHALE RQ4H PRN Shortness of Breath/Wheezing Docusate Sodium 100 mg 04/27/21 21:38 Docusate Sodium 100 Mg Capsule PO DAILY PRN Constipation Enoxaparin Sodium 40 mg 04/27/21 22:00 04/28/21 21:40 Enoxaparin Sodium 40 Mg/0.4 Ml Syringe SUBCUT Not Given Q24H ERIC Furosemide 20 mg 04/27/21 21:38 Furosemide 20 Mg Tablet PO DAILY PRN Edema Protocol Insulin Human Lispro 0 unit 04/28/21 07:30 04/29/21 16:40 Insulin Lispro 100 Unit/Ml 3 Ml Vial SUBCUT 6 unit QIDACHS ERIC Administration Protocol Methylprednisolone Sodium Succinate 40 mg 04/29/21 18:00 Methylprednisolone Sod Succ 40 Mg/Ml Vial IVPUSH Q12H ERIC Montelukast Sodium 10 mg 04/28/21 09:00 04/29/21 09:07 Montelukast Sodium 10 Mg Tablet PO 10 mg DAILY ERIC Administration Nicotine 7 mg 04/28/21 09:00 04/29/21 09:10 Nicotine 7 Mg Patch.Td24 TRANSDERMA Not Given DAILY [facility] Sodium Chloride 3 ml 04/28/21 00:00 04/29/21 14:43 0.9 % Sodium Chloride Flush 3 Ml Syringe IVFLUSH 3 ml QSHIFT ERIC Administration Labs CBC & Chem 7: 04/28/21 04:16 04/28/21 04:16 Labs: Laboratory Results - last 24 hr 04/28/21 04/29/21 04/29/21 20:09 07:18 11:09 O2 Saturation ABG pH at Pt Temp ABG pH (Temp Correct) ABG pCO2 at Pt Temp ABG pCO2 (Temp Corrct ABG pO2 at Pt Temp ABG pO2 (Temp Correct ABG HCO3 ABG Base Excess (Actual) POC Glucose 377 H* 241 H 294 H 04/29/21 04/29/21 16:00 16:09 O2 Saturation 95.0 ABG pH at Pt Temp 7.40 ABG pH (Temp Correct) 7.40 ABG pCO2 at Pt Temp 34 ABG pCO2 (Temp Corrct 34 ABG pO2 at Pt Temp 81 L ABG pO2 (Temp Correct 82 L ABG HCO3 21 L ABG Base Excess (Actual) -2.0 POC Glucose 264 H Microbiology Microbiology Results: Microbiology 04/27/21 14:48 Blood Culture - Preliminary Blood - Venous No growth after 48 hours. 04/27/21 15:32 Blood Culture - Preliminary Blood - Venous No growth after 24 hours. Quality Stroke Does the patient have a stroke diagnosis?: No VTE Prior VTE?: No VTE Risk Level:: Medical - moderate - high VTE Device Contraindication: Treatment Not Indicated VTE Drug Contraindication: N/A - Med Ordered Assessment and Plan (1) Acute respiratory failure with hypoxia: Status: Acute (2) Asthma with COPD with exacerbation: Status: Acute Assessment and Plan: 50-year-old female with past medical history of COPD/asthma presents the hospital with shortness of breath 1. asthma/COPD exacerbation- failed outpatient therapy with prednisone and azithromycin has minimal sputum production, no evidence of pneumonia, COVID-19 negative continue on IV Solu-Medrol 40 b.i.d., DuoNeb p.r.n. and scheduled, add magnesiu, , incentive spirometry, chest physio. monitor respiratory status 2. acute hypoxic respiratory failure- most likely secondary to COPD/asthma exacerbation - no evidence of pneumonia, less likely to be PE, no COVID infection - patient on 3 L of oxygen - titrate oxygen as required 3. leukocytosis: improving - most likely secondary to prednisone use - patient does not have any evidence of infection, minimal sputum production, received azithromycin for COPD blood culture ending , ua neg 4. urinary frequency - most likely secondary to her diabetes - UA neg 5. diabetes: uncontrolled sec to steriod? - hold oral anti hyperglycemic - start sliding scale - diabetic diet
[2021-04-29 18:19] LABS: ABG Refer to POC result
[2021-04-29] MEDS: methylPREDNISolone Sod Succ 40 MG/ML VIAL IVPUSH (18:20)
[2021-04-29 20:58] LABS: Glucose, Whole Blood 342 mg/dL (60-115)
[2021-04-29] MEDS: Enoxaparin Sodium 40 MG/0.4 ML SYRINGE SUBCUT (21:21)
[2021-04-30] VITALS (9 sets, daily range): BP systolic 126–148; BP diastolic 68–86; PULSE 84–114; RESP 16–20; TEMP 36.1–36.9; O2SAT 91–94
[2021-04-30] MEDS: methylPREDNISolone Sod Succ 40 MG/ML VIAL IVPUSH (06:21)
[2021-04-30 07:23] LABS: Glucose, Whole Blood 208 mg/dL (60-115)
--- NOTE | 2021-04-30 08:03 | P.PNIM_ITS ---
Subjective Subjective Date of Service: 04/30/21 Interval History: asthma exacerbation, parainfluenza infection Review of Systems Has Shortness of breath, cough Denies any chest pain or abdominal pain or nausea or vomiting. Denies any urinary complaints Physical Exam Vital Signs: Vital Signs: Last Vital Signs Temp 97.2 F 04/30/21 07:49 Pulse 90 04/30/21 07:49 Resp 20 04/30/21 07:49 BP 140/86 H 04/30/21 07:49 Pulse Ox 92 04/30/21 07:49 Body Mass Index 46.5 Physical exam: Constitutional: Still short of breath talking in short sentences, short of breath with minimal talking. Cvs: rrr, [id number] , no murmur res: breath sound diminshed at bases ,has wheezing abd: no rebound or guarding ,nt, bs present. ext pulses present , no cyanosis neuro: axo3 , nonfoca Objective Data Current Medications Generic Name Dose Route Start Last Admin Trade Name Freq PRN Reason Stop Dose Admin Acetaminophen 650 mg 04/27/21 21:38 04/28/21 07:25 Acetaminophen 325 Mg Tablet PO 650 mg Q6H PRN Administration Pain, Mild (Pain Scale 1-3) Albuterol/Ipratropium 3 ml 04/28/21 08:00 04/29/21 20:07 Albuterol/Iprat 2.5/0.5mg 3 Ml Ampul.Neb INHALE 3 ml RQ4H WHILE AWAKE ERIC Administration Albuterol/Ipratropium 3 ml 04/27/21 21:38 Albuterol/Iprat 2.5/0.5mg 3 Ml Ampul.Neb INHALE RQ4H PRN Shortness of Breath/Wheezing Docusate Sodium 100 mg 04/27/21 21:38 Docusate Sodium 100 Mg Capsule PO DAILY PRN Constipation Enoxaparin Sodium 40 mg 04/27/21 22:00 04/29/21 21:21 Enoxaparin Sodium 40 Mg/0.4 Ml Syringe SUBCUT 40 mg Q24H ERIC Administration Furosemide 20 mg 04/27/21 21:38 Furosemide 20 Mg Tablet PO DAILY PRN Edema Protocol Insulin Human Lispro 0 unit 04/28/21 07:30 04/29/21 21:21 Insulin Lispro 100 Unit/Ml 3 Ml Vial SUBCUT 8 unit QIDACHS ERIC Administration Protocol Methylprednisolone Sodium Succinate 40 mg 04/29/21 18:00 04/30/21 06:21 Methylprednisolone Sod Succ 40 Mg/Ml Vial IVPUSH 40 mg Q12H ERIC Administration Montelukast Sodium 10 mg 04/28/21 09:00 04/29/21 09:07 Montelukast Sodium 10 Mg Tablet PO 10 mg DAILY ERIC Administration Nicotine 7 mg 04/28/21 09:00 04/29/21 09:10 Nicotine 7 Mg Patch.Td24 TRANSDERMA Not Given DAILY [facility] Sodium Chloride 3 ml 04/28/21 00:00 04/29/21 21:23 0.9 % Sodium Chloride Flush 3 Ml Syringe IVFLUSH 3 ml QSHIFT [facility] Administration Labs CBC & Chem 7: 04/28/21 04:16 04/28/21 04:16 Labs: Laboratory Results - last 24 hr 04/29/21 04/29/21 04/29/21 11:09 16:00 16:09 O2 Saturation 95.0 ABG pH at Pt Temp 7.40 ABG pH (Temp Correct) 7.40 ABG pCO2 at Pt Temp 34 ABG pCO2 (Temp Corrct 34 ABG pO2 at Pt Temp 81 L ABG pO2 (Temp Correct 82 L ABG HCO3 21 L ABG Base Excess (Actual) -2.0 POC Glucose 294 H 264 H 04/29/21 04/30/21 20:52 07:14 O2 Saturation ABG pH at Pt Temp ABG pH (Temp Correct) ABG pCO2 at Pt Temp ABG pCO2 (Temp Corrct ABG pO2 at Pt Temp ABG pO2 (Temp Correct ABG HCO3 ABG Base Excess (Actual) POC Glucose 342 H 208 H Microbiology Microbiology Results: Microbiology 04/27/21 15:32 Blood Culture - Preliminary Blood - Venous No growth after 48 hours. 04/27/21 14:48 Blood Culture - Preliminary Blood - Venous No growth after 48 hours. Quality Stroke Does the patient have a stroke diagnosis?: No VTE Prior VTE?: No VTE Risk Level:: Medical - moderate - high VTE Device Contraindication: Treatment Not Indicated VTE Drug Contraindication: N/A - Med Ordered Assessment and Plan (1) Acute respiratory failure with hypoxia: Status: Acute (2) Asthma with COPD with exacerbation: Status: Acute Assessment and Plan: Day-3 50-year-old female with past medical history of COPD/asthma presents the [facility] with shortness of breath 1. asthma/COPD exacerbation- failed outpatient therapy with prednisone and azithromycin has minimal sputum production, no evidence of pneumonia, COVID-19 negative. parainfluenza continue on IV Solu-Medrol 40 b.i.d., DuoNeb p.r.n. and scheduled, incentive spirometry, chest physio. monitor respiratory status 2. acute hypoxic respiratory failure- most likely secondary to COPD/asthma exacerbation - no evidence of pneumonia, less likely to be PE, no COVID infection - patient on 3 L of oxygen - titrate oxygen as required 3. leukocytosis: improving - most likely secondary to prednisone use - patient does not have any evidence of infection, minimal sputum production, received azithromycin for COPD blood culture neg@48hrs , ua neg 4. urinary frequency - most likely secondary to her diabetes - UA neg 5. diabetes: uncontrolled sec to steriod? - hold oral anti hyperglycemic - start sliding scale - diabetic diet will adjust fs , give 1 dose lantus , Hba1c levels
[2021-04-30] MEDS: Albuterol/Iprat 2.5/0.5MG 3 ML AMPUL.NEB INHALE ×3 (08:16→19:43)
[2021-04-30] MEDS: Insulin Lispro 100 UNIT/ML 3 ML VIAL SUBCUT ×5 (08:34→21:49)
[2021-04-30] MEDS: 0.9 % Sodium Chloride Flush 3 ML SYRINGE IVFLUSH ×3 (08:35→21:51)
[2021-04-30] MEDS: Montelukast Sodium 10 MG TABLET PO (08:35)
[2021-04-30] MEDS: Albuterol Sulfate (0.083%) 2.5 MG/3 ML VIAL.NEB 10 MG INHALE (09:12)
[2021-04-30] MEDS: Magnesium Sulfate/H2O 2 GM/50 ML PIGGYBACK IV (10:14)
[2021-04-30] MEDS: Doxycycline Hyclate 100 MG in 0.9 % Sodium Chloride 250 ML 166.67 MG IV ×2 (10:14→21:49)
[2021-04-30] MEDS: methylPREDNISolone Sod Succ 40 MG/ML VIAL 80 MG IVPUSH ×2 (10:15→16:57)
[2021-04-30 11:11] LABS: Adenovirus PCR Not Detected (Not Detect.); Bordetella parapertussis PCR Not Detected (Not Detect.); Bordetella pertussis PCR Not Detected (Not Detect.); Chlamydia pneumoniae PCR Not Detected (Not Detect.); Coronavirus 229E PCR Not Detected (Not Detect.); Coronavirus HKU1 PCR Not Detected (Not Detect.); Coronavirus NL63 PCR Not Detected (Not Detect.); Coronavirus OC43 PCR Not Detected (Not Detect.); Human metapneumovirus PCR Not Detected (Not Detect.); Influenza A PCR Not Detected (Not Detect.); Influenza B PCR Not Detected (Not Detect.); Mycoplasma pneumoniae PCR Not Detected (Not Detect.); Parainfluenza 1 PCR Not Detected (Not Detect.); Parainfluenza 2 PCR Not Detected (Not Detect.); RSV PCR Not Detected (Not Detect.); Rhino/Enterovirus PCR Not Detected (Not Detect.); SARS-CoV-2 PCR Not Detected (Not Detect.)
[2021-04-30 11:22] LABS: Glucose, Whole Blood 354 mg/dL (60-115)
--- NOTE | 2021-04-30 12:15 | PM.CNPUL ---
History of Present Illness History of Present Illness Consult date: 04/30/21 Chief complaint: COPD Exacerbation Narrative: This is a 50-year-old female with past medical history of COPD/asthma, diabetes, history of PE DVT, not on anticoagulation, presents to the hospital with complaints of shortness of breath. Patient reports that her symptoms started about a week ago. Patient was treated with prednisone and azithromycin by her PCP with no relief. Patient is coughing, bringing minimal phlegm, denies any fever but has chills, denies any headache change in vision chest pain, no abdominal pain nausea but has some diarrhea about 1-2 days 1 episode daily. Has significant wheezing. She is also complaining of urinary frequency with no urgency or dysuria. Patient denies any lower extremity edema. On arrival to the ED patient vitals significant for temp of 96.3?, heart rate of 105, respiratory rate of 20, blood pressure 129/90, satting 92% on 3 L of nasal cannula patient reports that she is usually on p.r.n. oxygen 2 L at home but was not using it much previous to this episode. She had a CTA that was personally reviewed by me demonstrating a persistent right upper lobe apical segment atelectasis of unclear etiology. Otherwise no evidence of any thromboembolic disease or parenchymal involvement. The patient has been on Solu-Medrol and nebulized therapy for the last several days and she has not seen any significant improvement. She continues on the oxygen supplementation. At this point she continues to show evidence of respiratory distress using accessory muscles and significant wheezing throughout. Review of Systems Constitutional: Constitutional: Reports fatigue, Denies fever(s) and Denies night sweats ENT: Denies change in voice, Denies lip swelling, Denies mouth pain, Reports nasal congestion, Reports nasal discharge and Denies tongue swelling Cardiovascular: Cardiovascular: Denies chest pain and Reports dyspnea Respiratory: Respiratory: Reports chest congestion, Reports cough, Denies hemoptysis, Reports dyspnea and Reports wheezing Gastrointestinal: Gastrointestinal: Denies abdominal pain Musculoskeletal: Musculoskeletal: Denies no additional musculoskeletal complaints Neurologic: Denies Neuro-related abnormal movements Psychiatric: Psychiatric: Denies no additional psychiatric complaints Endocrine: Endocrine: Reports fatigue Hematologic/Lymphatic: Hematologic/Lymphatic: Denies easy bleeding and Denies lymphadenopathy Allergic/Immunologic: Allergic/Immunologic: Denies lip swelling, Denies tongue swelling and Reports wheezing [facility] Past Medical History Medical History (Updated 04/30/21 @ 12:20 by Jack Elizalde MD) Asthma Atelectasis COPD (chronic obstructive pulmonary disease) DVT (deep venous thrombosis) Pulmonary embolism VTE (venous thromboembolism) Family History Family History Father No problems noted. Mother No problems noted. Son No problems noted. Son No problems noted. Daughter No problems noted. Daughter No problems noted. Sister No problems noted. Surgical History Surgical History Hx of section Hx of section Social History Social History Household Members: Children Housing: House Do you presently have visiting nurse or other home services: No Alcohol intake: current Alcohol intake frequency: a few times a week Patient Tobacco Use Status: Current everyday Tobacco user Tobacco use type: Cigarette Cigarette Packs Per Day: 0.5 Cigarettes Per Day: 4 Years Smoked: 30 Smoked in Last 30 Days: Yes e-Cigarette/Vaping Use: Never Used Patient Interested in Nicotine Replacement: No Patient Given Instructions on How to Stop Smoking: No Second Hand Smoke Exposure: No Use of substances other than those prescribed or required for medical reasons: Yes Substance Use Type: Marijuana Substance Use Frequency: Recent Binge Last Used Substance: Days (ago) Currently Displaying Signs/Symptoms of Drug Intoxication Withdrawal: No Any prior treatment program specific to substance use: No Have you been hit, kicked, punched, or otherwise hurt by someone within the past year? If so, by whom?: No Do you feel safe in your current relationship?: No Current Relationship Is there a partner from a previous relationship who is making you feel unsafe now?: No Are you made to feel afraid or neglected: No Spiritual Healthcare Practices: no Restorationist Healthcare Practices: no Cultural Healthcare Practices: no Advance Directives: Yes Advance Directives Information Provided: Yes Advance Directives on File: No Advance Directives Date on File: 04/28/21 Do you have thoughts of harming others: None Do you have a plan to hurt others: No Plan Recently lost weight without trying: No Eating poorly because of decreased appetite: Yes Nutrition Risks: No Nutritional Risk Patient : No : No Poor oral hygiene: No service: No Current occupational status: employed Meds Allergies Allergy/AdvReac Type Severity Reaction Status Date / Time onion Allergy Unknown Itching Uncoded 07/12/20 08:23 strawberry Allergy Unknown Hives Uncoded 07/12/20 08:23 bee AdvReac Severe Anaphylaxis Uncoded 07/13/20 15:22 Active Medications: Current Medications Generic Name Dose Route Start Last Admin Trade Name Freq PRN Reason Stop Dose Admin Acetaminophen 650 mg 04/27/21 21:38 04/28/21 07:25 Acetaminophen 325 Mg Tablet PO 650 mg Q6H PRN Administration Pain, Mild (Pain Scale 1-3) Albuterol/Ipratropium 3 ml 04/28/21 08:00 04/30/21 11:00 Albuterol/Iprat 2.5/0.5mg 3 Ml Ampul.Neb INHALE Not Given RQ4H WHILE AWAKE [facility] Albuterol/Ipratropium 3 ml 04/27/21 21:38 Albuterol/Iprat 2.5/0.5mg 3 Ml Ampul.Neb INHALE RQ4H PRN Shortness of Breath/Wheezing Docusate Sodium 100 mg 04/27/21 21:38 Docusate Sodium 100 Mg Capsule PO DAILY PRN Constipation Enoxaparin Sodium 40 mg 04/27/21 22:00 04/29/21 21:21 Enoxaparin Sodium 40 Mg/0.4 Ml Syringe SUBCUT 40 mg Q24H ERIC Administration Furosemide 20 mg 04/27/21 21:38 Furosemide 20 Mg Tablet PO DAILY PRN Edema Protocol Doxycycline Hyclate 100 mg/ 250 mls @ 166.67 mls/hr 04/30/21 08:45 04/30/21 11:51 Sodium Chloride IV Infused Q12H ERIC Infusion Insulin Human Lispro 0 unit 04/28/21 07:30 04/30/21 11:28 Insulin Lispro 100 Unit/Ml 3 Ml Vial SUBCUT 10 unit QIDACHS ERIC Administration Protocol Methylprednisolone Sodium Succinate 80 mg 04/30/21 08:45 04/30/21 10:15 Methylprednisolone Sod Succ 40 Mg/Ml Vial IVPUSH 80 mg Q8H ERIC Administration Montelukast Sodium 10 mg 04/28/21 09:00 04/30/21 08:35 Montelukast Sodium 10 Mg Tablet PO 10 mg DAILY ERIC Administration Nicotine 7 mg 04/28/21 09:00 04/30/21 09:19 Nicotine 7 Mg Patch.Td24 TRANSDERMA Not Given DAILY [facility] Sodium Chloride 3 ml 04/28/21 00:00 04/30/21 08:35 0.9 % Sodium Chloride Flush 3 Ml Syringe IVFLUSH 3 ml QSHIFT [facility] Administration Home Medications Medication Instructions Recorded Confirmed Last Taken Type albuterol sulfate 90 mcg/actuation 2 puff INHALATION Q6H PRN 07/12/20 04/27/21 Unknown History aerosol inhaler metformin 500 mg/5 mL oral solution 1,000 mg PO BID ml 07/12/20 04/27/21 Unknown History azithromycin 1 tab PO DIRECTED 04/27/21 04/27/21 Unknown History empagliflozin [Jardiance] 1 tab PO DAILY 04/27/21 04/27/21 Unknown History ssayumzzcfa-qenqukvng-doahhtsj 1 puff PO DAILY 04/27/21 04/27/21 Unknown History [Trelegy Ellipta] furosemide 1 tab PO DAILY PRN 04/27/21 04/27/21 Unknown History montelukast 1 tab PO DAILY 04/27/21 04/27/21 Unknown History prednisone 1 tab PO BID 04/27/21 04/27/21 Unknown History Physical Exam Vital Signs: Vital Signs: Last Vital Signs Temp 97.4 F 04/30/21 11:29 Pulse 114 H 04/30/21 11:29 Resp 20 04/30/21 11:29 BP 139/81 04/30/21 11:29 Pulse Ox 91 L 04/30/21 11:29 Body Mass Index 46.5 Const: General: alert and in distress mild Neck: Neck: Yes normal visual inspection, Yes full ROM and Yes no lymphadenopathy Chest: Chest palpation & inspection: normal inspection of the chest Resp: Auscultation: rhonchi, wheezes and diminished lung sounds Cardio: Rate: regular rate Rhythm: regular rhythm Heart sounds: S1 normal heart sound present and S2 normal heart sound present GI: Palpation (GI): Soft to palpation and nontender Auscultation: normal bowel sounds Skin: General skin exam: rashes and/or lesions noted Results Laboratory Findings CBC and BMP: 04/28/21 04:16 04/28/21 04:16 ABG, PT/INR, D-dimer: PT/INR, D-dimer PT 12.2 SEC (9.9-13.0) 04/27/21 14:48 INR 1.1 (0.9-1.1) 04/27/21 14:48 D-Dimer < 200 NG/ML 04/27/21 14:48 Abnormal lab findings: Abnormal Labs 04/27/21 04/27/21 04/27/21 13:33 13:33 14:48 WBC 18.9 H RBC 5.66 H MCV 77.4 L MCH 25.6 L Plt Count 506 H Immature Gran % (Auto) 0.5 H Neut % (Auto) Lymph % (Auto) [place] % (Auto) Abs Immat Gran (auto) 0.10 H Absolute Neuts (auto) 12.7 H ABG pO2 at Pt Temp ABG pO2 (Temp Correct ABG HCO3 Carbon Dioxide 19 L Anion Gap 22 H BUN 19 H POC Glucose Random Glucose 262 H Lactic Acid 3.1 H* Calcium 10.3 H Alkaline Phosphatase 119 H Total Protein 8.1 H Urine Glucose (UA) 04/28/21 04/28/21 04/28/21 00:56 03:49 04:16 WBC 16.5 H RBC 5.57 H MCV 77.9 L MCH 25.5 L Plt Count 494 H Immature Gran % (Auto) 0.5 H Neut % (Auto) 86.9 H Lymph % (Auto) 11.0 L [place] % (Auto) 1.5 L Abs Immat Gran (auto) 0.08 H Absolute Neuts (auto) 14.4 H ABG pO2 at Pt Temp ABG pO2 (Temp Correct ABG HCO3 Carbon Dioxide Anion Gap BUN POC Glucose 356 H* 276 H Random Glucose Lactic Acid Calcium Alkaline Phosphatase Total Protein Urine Glucose (UA) 04/28/21 04/28/21 04/28/21 04:16 07:05 08:52 WBC RBC MCV MCH Plt Count Immature Gran % (Auto) Neut % (Auto) Lymph % (Auto) [place] % (Auto) Abs Immat Gran (auto) Absolute Neuts (auto) ABG pO2 at Pt Temp ABG pO2 (Temp Correct ABG HCO3 Carbon Dioxide 18 L Anion Gap BUN 18 H POC Glucose 195 H Random Glucose 259 H Lactic Acid Calcium Alkaline Phosphatase Total Protein Urine Glucose (UA) >=1000 H 04/28/21 04/28/21 04/28/21 11:04 16:05 20:09 WBC RBC MCV MCH Plt Count Immature Gran % (Auto) Neut % (Auto) Lymph % (Auto) [place] % (Auto) Abs Immat Gran (auto) Absolute Neuts (auto) ABG pO2 at Pt Temp ABG pO2 (Temp Correct ABG HCO3 Carbon Dioxide Anion Gap BUN POC Glucose 272 H 303 H 377 H* Random Glucose Lactic Acid Calcium Alkaline Phosphatase Total Protein Urine Glucose (UA) 04/29/21 04/29/21 04/29/21 07:18 11:09 16:00 WBC RBC MCV MCH Plt Count Immature Gran % (Auto) Neut % (Auto) Lymph % (Auto) [place] % (Auto) Abs Immat Gran (auto) Absolute Neuts (auto) ABG pO2 at Pt Temp 81 L ABG pO2 (Temp Correct 82 L ABG HCO3 21 L Carbon Dioxide Anion Gap BUN POC Glucose 241 H 294 H Random Glucose Lactic Acid Calcium Alkaline Phosphatase Total Protein Urine Glucose (UA) 04/29/21 04/29/21 04/30/21 16:09 20:52 07:14 WBC RBC MCV MCH Plt Count Immature Gran % (Auto) Neut % (Auto) Lymph % (Auto) [place] % (Auto) Abs Immat Gran (auto) Absolute Neuts (auto) ABG pO2 at Pt Temp ABG pO2 (Temp Correct ABG HCO3 Carbon Dioxide Anion Gap BUN POC Glucose 264 H 342 H 208 H Random Glucose Lactic Acid Calcium Alkaline Phosphatase Total Protein Urine Glucose (UA) 04/30/21 11:13 WBC RBC MCV MCH Plt Count Immature Gran % (Auto) Neut % (Auto) Lymph % (Auto) [place] % (Auto) Abs Immat Gran (auto) Absolute Neuts (auto) ABG pO2 at Pt Temp ABG pO2 (Temp Correct ABG HCO3 Carbon Dioxide Anion Gap BUN POC Glucose 354 H* Random Glucose Lactic Acid Calcium Alkaline Phosphatase Total Protein Urine Glucose (UA) Microbiology: Microbiology 04/27/21 15:32 Blood - Venous Blood Culture - Preliminary No growth after 48 hours. 04/27/21 14:48 Blood - Venous Blood Culture - Preliminary No growth after 48 hours. Assessment and Plan (1) Acute respiratory failure with hypoxia: Status: Acute (2) Asthma with COPD with exacerbation: Status: Acute (3) Bronchitis: Status: Acute (4) Atelectasis: Status: Acute Increase Solumedrol Start Doxy 1 hr neb treatment Magnesium 2gm x 1 Continue Duone q4 hours respiratory viral panel Will need to have an outpt bronchoscopy to address RUL atelectasis Procedures Date of Service Date of Service: 04/30/21
[2021-04-30 12:24] LABS: Parainfluenza 4 PCR Not Detected (Not Detect.)
[2021-04-30 12:29] LABS: Parainfluenza 3 PCR Detected (Not Detect.)
[2021-04-30] MEDS: Insulin Glargine,Hum.rec.anlog 100 UNIT/ML 10 ML VIAL 8 UNIT SUBCUT (15:13)
[2021-04-30 16:25] LABS: Glucose, Whole Blood 287 mg/dL (60-115)
[2021-04-30 20:20] LABS: Glucose, Whole Blood 416 mg/dL (60-115)
[2021-04-30] MEDS: Enoxaparin Sodium 40 MG/0.4 ML SYRINGE SUBCUT (21:49)
[2021-05-01] VITALS (10 sets, daily range): BP systolic 114–155; BP diastolic 62–91; PULSE 86–115; RESP 18–20; TEMP 36.1–36.8; O2SAT 87–95
[2021-05-01] MEDS: methylPREDNISolone Sod Succ 40 MG/ML VIAL 80 MG IVPUSH ×3 (01:42→16:23)
[2021-05-01 06:57] LABS: Anion Gap 15 (12-20); Blood Urea Nitrogen 17 mg/dL (9-16); Calcium 9.8 mg/dL (8.4-10.2); Carbon Dioxide 24 mmol/L (22-29); Chloride 101 mmol/L (96-108); Creatinine Clr Calc Pharmacy 93.2; Estimated Glomerular Filt Rate > 60; Glucose Random 307 mg/dL (60-115); Potassium 5.5 mmol/L (3.3-5.1); Sodium 134 mmol/L (135-145)
[2021-05-01] MEDS: Albuterol/Iprat 2.5/0.5MG 3 ML AMPUL.NEB INHALE ×4 (07:09→18:33)
[2021-05-01 07:18] LABS: Glucose, Whole Blood 295 mg/dL (60-115)
[2021-05-01] MEDS: Insulin Lispro 100 UNIT/ML 3 ML VIAL SUBCUT ×6 (07:45→19:56)
[2021-05-01 08:13] LABS: Estimated Average Glucose 272 mg/dL; Hemoglobin A1c % 11.1 %
--- NOTE | 2021-05-01 08:43 | P.PNPL_ITS ---
Subjective Subjective Date of Service: 05/01/21 Principal diagnosis: copd excarbation Interval history: Patient is gradually improving, but still not back to baseline . During the night she had increased shortness of breath on getting out of bed and walking. Still dependent on oxygen. Has been afebrile. Cough mostly nonproductive. Objective Data Labs CBC & Chem 7: 04/28/21 04:16 05/01/21 05:22 Labs: Laboratory Results - last 24 hr 04/30/21 04/30/21 04/30/21 10:49 11:13 16:09 Sodium Potassium Chloride Carbon Dioxide Anion Gap BUN Creatinine Estim Creat Clear Calc Estimated GFR POC Glucose 354 H* 287 H Random Glucose Estimat Average Glucose Hemoglobin A1c % Calcium Respiratory Panel [place] See Note Adenovirus (Rapid PCR) Not Detected B.pert (TEM-PCR) Not Detected B.parapertussis DNA PCR Not Detected C. pneumoniae DNA (PCR) Not Detected Coronavirus OC43 (PCR) Not Detected Coronavirus HKU1 (PCR) Not Detected Coronavirus 229E (PCR) Not Detected Coronavirus NL63 (PCR) Not Detected Human Metapneumovir PCR Not Detected Influenza A (RT-PCR) Not Detected Influenza B (RT-PCR) Not Detected M. pneumoniae (PCR) Not Detected Parainfluenza 1 (PCR) Not Detected Parainfluenza 2 (PCR) Not Detected Parainfluenza 3 (PCR) Detected A Parainfluenza 4 (PCR) Not Detected RSV (PCR) Not Detected Entero/Rhino (PCR) Not Detected SARS-CoV-2 RNA (RT-PCR) Not Detected 04/30/21 05/01/21 05/01/21 20:15 05:22 05:22 Sodium 134 L Potassium 5.5 H Chloride 101 Carbon Dioxide 24 Anion Gap 15 BUN 17 H Creatinine 0.78 Estim Creat Clear Calc 93.2 Estimated GFR > 60 POC Glucose 416 H* Random Glucose 307 H Estimat Average Glucose 272 Hemoglobin A1c % 11.1 Calcium 9.8 Respiratory Panel [place] Adenovirus (Rapid PCR) B.pert (TEM-PCR) B.parapertussis DNA PCR C. pneumoniae DNA (PCR) Coronavirus OC43 (PCR) Coronavirus HKU1 (PCR) Coronavirus 229E (PCR) Coronavirus NL63 (PCR) Human Metapneumovir PCR Influenza A (RT-PCR) Influenza B (RT-PCR) M. pneumoniae (PCR) Parainfluenza 1 (PCR) Parainfluenza 2 (PCR) Parainfluenza 3 (PCR) Parainfluenza 4 (PCR) RSV (PCR) Entero/Rhino (PCR) SARS-CoV-2 RNA (RT-PCR) 05/01/21 06:59 Sodium Potassium Chloride Carbon Dioxide Anion Gap BUN Creatinine Estim Creat Clear Calc Estimated GFR POC Glucose 295 H Random Glucose Estimat Average Glucose Hemoglobin A1c % Calcium Respiratory Panel [place] Adenovirus (Rapid PCR) B.pert (TEM-PCR) B.parapertussis DNA PCR C. pneumoniae DNA (PCR) Coronavirus OC43 (PCR) Coronavirus HKU1 (PCR) Coronavirus 229E (PCR) Coronavirus NL63 (PCR) Human Metapneumovir PCR Influenza A (RT-PCR) Influenza B (RT-PCR) M. pneumoniae (PCR) Parainfluenza 1 (PCR) Parainfluenza 2 (PCR) Parainfluenza 3 (PCR) Parainfluenza 4 (PCR) RSV (PCR) Entero/Rhino (PCR) SARS-CoV-2 RNA (RT-PCR) Microbiology Microbiology Results: Microbiology 04/27/21 15:32 Blood - Venous Blood Culture - Preliminary No growth after 48 hours. 04/27/21 14:48 Blood - Venous Blood Culture - Preliminary No growth after 48 hours. Review of Systems Review of Systems Yes all other systems are reviewed and are negative Physical Exam Vital Signs: Vital Signs: Last Vital Signs Temp 97.0 F 05/01/21 08:00 Pulse 115 H 05/01/21 08:00 Resp 20 05/01/21 08:00 BP 142/91 H 05/01/21 08:00 Pulse Ox 92 05/01/21 08:00 Body Mass Index 46.5 Const: General: comfortable, no acute distress, alert and awake Orientation/consciousness: patient oriented x3 HENMT: Head: Yes normal to inspection General nose exam: No nasal polyps present and No nasal discharge present Face and sinus: Yes sinuses nontender Mouth: oropharynx normal Throat: Yes posterior oropharynx normal Eyes: General: appearance normal, both eyes and all related structures Neck: Neck: Yes normal visual inspection, Yes no lymphadenopathy, Yes trachea midline and Yes no JVD Thyroid: Thyroid normal Chest: Chest palpation & inspection: normal inspection of the chest, normal palpation of entire chest wall and no tenderness Resp: Effort & Inspection: prolonged expiratory phase Auscultation: wheezes (still has a few exp. wheewzes , especially over the Lt chest ) and diminished lung sounds Cardio: Palpation: normal PMI Rate: regular rate Rhythm: regular rhythm Heart sounds: no gallops and no murmurs Peripheral pulses: Peripheral pulses 2+ throughout GI: Palpation (GI): Soft to palpation, nontender, No hepatosplenomegaly present and no masses Auscultation: normal bowel sounds Back/Spine/Pelvis: Thoracic/Lumbar Spine: thoracic and lumbar spine normal to inspection Skin: General skin exam: no rashes or lesions noted Neuro: General: patient oriented x3 and no focal motor deficits Cranial nerves: Yes CN's II-XII intact bilaterally Extrem: General: Yes normal to inspection, Yes no clubbing, cyanosis or edema and Yes no calf tenderness Psych: Appearance: grossly normal and well kempt Speech and movement: N ormal speech and movement present Insight: Fair insight present (Psych) Procedures Date of Service Date of Service: 05/01/21 Assessment and Plan Assessment and plan (1) Asthma with COPD with exacerbation: Problem details: Patient is being treated for acute exacerbation of COPD. Status: Acute Assessment and Plan: Patient is gradually improving but not back to her baseline yet, Recommend that Solu-Medrol may be reduced to 40 mg q.8 hours today, and change to oral prednisone by tomorrow. Wean off O2 as tolerated, but should be assessed for home oxygen before discharge. She should have outpatient follow-up after the discharge. Time Spent With Patient Time: Total time spent is greater than 50% in coordination of care (as documented) at patient's floor/unit and/or counseling patient: Time with patient: 15 - 24 minutes Progress Note: Quality Stroke Does the patient have a stroke diagnosis?: No
[2021-05-01] MEDS: 0.9 % Sodium Chloride Flush 3 ML SYRINGE IVFLUSH ×3 (09:11→19:56)
[2021-05-01] MEDS: Montelukast Sodium 10 MG TABLET PO (09:11)
[2021-05-01] MEDS: Doxycycline Hyclate 100 MG in 0.9 % Sodium Chloride 250 ML 166.67 MG IV ×2 (09:12→19:55)
[2021-05-01 11:56] LABS: Glucose, Whole Blood 371 mg/dL (60-115)
--- NOTE | 2021-05-01 13:38 | HO.PM.IMPN ---
Subjective Subjective Date of Service: 05/01/21 Interval History: still sob Cardiovascular Cardiovascular: Reports no additional cardiovascular complaints Gastrointestinal Gastrointestinal: Reports no additional gastrointestinal complaints Physical Exam Vital Signs: Vital Signs: Last Vital Signs Temp 97.1 F 05/01/21 12:00 Pulse 101 H 05/01/21 12:00 Resp 20 05/01/21 12:00 BP 119/78 05/01/21 12:00 Pulse Ox 93 05/01/21 12:00 Body Mass Index 46.5 General: AO X 3, no acute distress Resp: wheeze CVS: S1,S2,RRR GI: soft, non tender, non distended Neuro: motor grossly intact Psych: appropriate affect Objective Data Current Medications Generic Name Dose Route Start Last Admin Trade Name Freq PRN Reason Stop Dose Admin Acetaminophen 650 mg 04/27/21 21:38 04/28/21 07:25 Acetaminophen 325 Mg Tablet PO 650 mg Q6H PRN Administration Pain, Mild (Pain Scale 1-3) Albuterol/Ipratropium 3 ml 04/28/21 08:00 05/01/21 10:59 Albuterol/Iprat 2.5/0.5mg 3 Ml Ampul.Neb INHALE 3 ml RQ4H WHILE AWAKE ERIC Administration Albuterol/Ipratropium 3 ml 04/27/21 21:38 Albuterol/Iprat 2.5/0.5mg 3 Ml Ampul.Neb INHALE RQ4H PRN Shortness of Breath/Wheezing Docusate Sodium 100 mg 04/27/21 21:38 Docusate Sodium 100 Mg Capsule PO DAILY PRN Constipation Enoxaparin Sodium 40 mg 04/27/21 22:00 04/30/21 21:49 Enoxaparin Sodium 40 Mg/0.4 Ml Syringe SUBCUT 40 mg Q24H ERIC Administration Furosemide 20 mg 04/27/21 21:38 Furosemide 20 Mg Tablet PO DAILY PRN Edema Protocol Doxycycline Hyclate 100 mg/ 250 mls @ 166.67 mls/hr 04/30/21 08:45 05/01/21 11:19 Sodium Chloride IV Infused Q12H ERIC Infusion Insulin Human Lispro 0 unit 04/28/21 07:30 05/01/21 12:20 Insulin Lispro 100 Unit/Ml 3 Ml Vial SUBCUT 10 unit QIDACHS ERIC Administration Protocol Methylprednisolone Sodium Succinate 80 mg 04/30/21 08:45 07/21/21 09:12 Methylprednisolone Sod Succ 40 Mg/Ml Vial IVPUSH 80 mg Q8H ERIC Administration Montelukast Sodium 10 mg 04/28/21 09:00 05/01/21 09:11 Montelukast Sodium 10 Mg Tablet PO 10 mg DAILY ERIC Administration Nicotine 7 mg 04/28/21 09:00 05/01/21 09:27 Nicotine 7 Mg Patch.Td24 TRANSDERMA Not Given DAILY [facility] Sodium Chloride 3 ml 04/28/21 00:00 05/01/21 09:11 0.9 % Sodium Chloride Flush 3 Ml Syringe IVFLUSH 3 ml QSHIFT ERIC Administration Labs CBC & Chem 7: 04/28/21 04:16 05/01/21 05:22 Labs: Laboratory Results - last 24 hr 04/30/21 04/30/21 05/01/21 16:09 20:15 05:22 Sodium 134 L Potassium 5.5 H Chloride 101 Carbon Dioxide 24 Anion Gap 15 BUN 17 H Creatinine 0.78 Estim Creat Clear Calc 93.2 Estimated GFR > 60 POC Glucose 287 H 416 H* Random Glucose 307 H Estimat Average Glucose Hemoglobin A1c % Calcium 9.8 05/01/21 05/01/21 05/01/21 05:22 06:59 11:30 Sodium Potassium Chloride Carbon Dioxide Anion Gap BUN Creatinine Estim Creat Clear Calc Estimated GFR POC Glucose 295 H 371 H* Random Glucose Estimat Average Glucose 272 Hemoglobin A1c % 11.1 Calcium Quality Stroke Does the patient have a stroke diagnosis?: No VTE Prior VTE?: No VTE Risk Level:: Medical - moderate - high VTE Device Contraindication: Treatment Not Indicated VTE Drug Contraindication: N/A - Med Ordered Assessment and Plan (1) Acute respiratory failure with hypoxia: Status: Acute (2) Asthma with COPD with exacerbation: Status: Acute Assessment and Plan: 50-year-old female with past medical history of COPD/asthma presents the hospital with shortness of breath acute hypoxic respiratory failure due to copd exacerbation due to paraflu continue steroids, bronchodilators, doxy, wean o2 atelectasis - pulm following, plan for outpatient bronch diabetes: uncontrolled insulin
[2021-05-01] MEDS: Insulin Glargine,Hum.rec.anlog 100 UNIT/ML 10 ML VIAL 10 UNIT SUBCUT (13:55)
[2021-05-01 16:22] LABS: Glucose, Whole Blood 330 mg/dL (60-115)
[2021-05-01] MEDS: Docusate Sodium 100 MG CAPSULE PO (18:53)
[2021-05-01 19:43] LABS: Glucose, Whole Blood 425 mg/dL (60-115)
[2021-05-01] MEDS: Enoxaparin Sodium 40 MG/0.4 ML SYRINGE SUBCUT (19:54)
[2021-05-02] VITALS (10 sets, daily range): BP systolic 124–159; BP diastolic 71–83; PULSE 72–114; RESP 18–20; TEMP 36.1–36.6; O2SAT 90–95
[2021-05-02] MEDS: methylPREDNISolone Sod Succ 40 MG/ML VIAL 80 MG IVPUSH ×3 (00:19→16:45)
[2021-05-02 06:57] LABS: Hematocrit 47.1 % (37-47); Hemoglobin 15.1 g/dl (12.0-16.0); Mean Corpuscular HGB Conc 32.1 g/dl (31.0-35.0); Mean Corpuscular Hemoglobin 25.3 pg (27.0-33.0); Mean Corpuscular Volume 78.8 fL (80-98); Mean Platelet Volume 10.5 fL (9.4-12.3); Platelet Count 459 X10*3/uL (160-400); Red Blood Count 5.98 X10*6/uL (4.20-5.50); Red Cell Distribution Width 14.6 % (11.0-16.0); White Blood Count 17.4 X10*3/uL (4.8-10.8)
[2021-05-02 07:12] LABS: Glucose, Whole Blood 332 mg/dL (60-115)
[2021-05-02 07:14] LABS: Anion Gap 15 (12-20); Blood Urea Nitrogen 23 mg/dL (9-16); Carbon Dioxide 25 mmol/L (22-29); Chloride 101 mmol/L (96-108); Creatinine Clr Calc Pharmacy 88.7; Estimated Glomerular Filt Rate > 60; Glucose Fasting 344 mg/dL (60-99); Potassium 5.4 mmol/L (3.3-5.1); Sodium 136 mmol/L (135-145)
[2021-05-02] MEDS: Doxycycline Hyclate 100 MG in 0.9 % Sodium Chloride 250 ML 166.67 MG IV ×2 (07:34→21:40)
[2021-05-02] MEDS: Insulin Glargine,Hum.rec.anlog 100 UNIT/ML 10 ML VIAL 10 UNIT SUBCUT (07:35)
[2021-05-02] MEDS: 0.9 % Sodium Chloride Flush 3 ML SYRINGE IVFLUSH ×2 (07:35→16:49)
[2021-05-02] MEDS: Insulin Lispro 100 UNIT/ML 3 ML VIAL SUBCUT ×5 (07:36→21:42)
[2021-05-02] MEDS: Montelukast Sodium 10 MG TABLET PO (07:37)
[2021-05-02] MEDS: Albuterol/Iprat 2.5/0.5MG 3 ML AMPUL.NEB INHALE ×4 (08:38→21:18)
[2021-05-02] MEDS: bisacodyL 5 MG TABLET.DR 10 MG PO (10:02)
[2021-05-02] MEDS: polyethylene glycoL 3350 17 GM POWD.PACK PO (10:03)
[2021-05-02 11:17] LABS: Glucose, Whole Blood 402 mg/dL (60-115)
--- NOTE | 2021-05-02 11:25 | HO.PM.IMPN ---
Subjective Subjective Date of Service: 05/02/21 Interval History: sob Cardiovascular Cardiovascular: Reports no additional cardiovascular complaints Respiratory Respiratory: Reports no additional respiratory complaints Physical Exam Vital Signs: Vital Signs: Last Vital Signs Temp 97.0 F 05/02/21 11:13 Pulse 108 H 05/02/21 11:13 Resp 20 05/02/21 11:13 BP 124/75 05/02/21 11:13 Pulse Ox 92 05/02/21 11:13 Body Mass Index 46.5 General: AO X 3, sob Resp: wheeze CVS: S1,S2,RRR GI: soft, non tender, non distended Neuro: motor grossly intact Psych: appropriate affect Objective Data Current Medications Generic Name Dose Route Start Last Admin Trade Name Freq PRN Reason Stop Dose Admin Acetaminophen 650 mg 04/27/21 21:38 04/28/21 07:25 Acetaminophen 325 Mg Tablet PO 650 mg Q6H PRN Administration Pain, Mild (Pain Scale 1-3) Albuterol/Ipratropium 3 ml 04/28/21 08:00 05/02/21 11:23 Albuterol/Iprat 2.5/0.5mg 3 Ml Ampul.Neb INHALE 3 ml RQ4H WHILE AWAKE ERIC Administration Albuterol/Ipratropium 3 ml 04/27/21 21:38 Albuterol/Iprat 2.5/0.5mg 3 Ml Ampul.Neb INHALE RQ4H PRN Shortness of Breath/Wheezing Docusate Sodium 100 mg 04/27/21 21:38 05/01/21 18:53 Docusate Sodium 100 Mg Capsule PO 100 mg DAILY PRN Administration Constipation Enoxaparin Sodium 40 mg 04/27/21 22:00 05/01/21 19:54 Enoxaparin Sodium 40 Mg/0.4 Ml Syringe SUBCUT 40 mg Q24H ERIC Administration Furosemide 20 mg 04/27/21 21:38 Furosemide 20 Mg Tablet PO DAILY PRN Edema Protocol Doxycycline Hyclate 100 mg/ 250 mls @ 166.67 mls/hr 04/30/21 08:45 05/02/21 09:47 Sodium Chloride IV Infused Q12H ERIC Infusion Insulin Glargine 10 unit 05/01/21 13:45 05/02/21 07:35 Insulin Glargine,Hum.Rec.Anlog 100 Unit/Ml 10 Ml Vial SUBCUT 10 unit DAILY ERIC Administration Insulin Human Lispro 0 unit 04/28/21 07:30 05/02/21 07:36 Insulin Lispro 100 Unit/Ml 3 Ml Vial SUBCUT 4 unit QIDACHS [facility] Administration Protocol Insulin Human Lispro 5 unit 05/01/21 16:30 05/02/21 07:36 Insulin Lispro 100 Unit/Ml 3 Ml Vial SUBCUT 5 unit QIDAS [facility] Administration Methylprednisolone Sodium Succinate 80 mg 04/30/21 08:45 05/02/21 07:33 Methylprednisolone Sod Succ 40 Mg/Ml Vial IVPUSH 80 mg Q8H ERIC Administration Montelukast Sodium 10 mg 04/28/21 09:00 05/02/21 07:37 Montelukast Sodium 10 Mg Tablet PO 10 mg DAILY ERIC Administration Nicotine 7 mg 04/28/21 09:00 05/02/21 07:37 Nicotine 7 Mg Patch.Td24 TRANSDERMA Not Given DAILY [facility] Sodium Chloride 3 ml 04/28/21 00:00 05/02/21 07:35 0.9 % Sodium Chloride Flush 3 Ml Syringe IVFLUSH 3 ml QSHIFT [facility] Administration Labs CBC & Chem 7: 05/02/21 05:30 05/02/21 05:30 Labs: Laboratory Results - last 24 hr 05/01/21 05/01/21 05/01/21 11:30 16:16 19:36 WBC RBC Hgb Hct MCV MCH MCHC RDW Plt Count MPV Absolute Nucleated RBC Nucleated RBC % (auto) Sodium Potassium Chloride Carbon Dioxide Anion Gap BUN Creatinine Estim Creat Clear Calc Estimated GFR POC Glucose 371 H* 330 H 425 H* Fasting Glucose Calcium 05/02/21 05/02/21 05/02/21 05:30 05:30 07:00 WBC 17.4 H RBC 5.98 H Hgb 15.1 Hct 47.1 H MCV 78.8 L MCH 25.3 L MCHC 32.1 RDW 14.6 Plt Count 459 H MPV 10.5 Absolute Nucleated RBC 0.000 Nucleated RBC % (auto) 0.0 Sodium 136 Potassium 5.4 H Chloride 101 Carbon Dioxide 25 Anion Gap 15 BUN 23 H Creatinine 0.82 Estim Creat Clear Calc 88.7 Estimated GFR > 60 POC Glucose 332 H Fasting Glucose 344 H Calcium 10.0 05/02/21 11:10 WBC RBC Hgb Hct MCV MCH MCHC RDW Plt Count MPV Absolute Nucleated RBC Nucleated RBC % (auto) Sodium Potassium Chloride Carbon Dioxide Anion Gap BUN Creatinine Estim Creat Clear Calc Estimated GFR POC Glucose 402 H* Fasting Glucose Calcium Quality Stroke Does the patient have a stroke diagnosis?: No VTE Prior VTE?: No VTE Risk Level:: Medical - moderate - high VTE Device Contraindication: Treatment Not Indicated VTE Drug Contraindication: N/A - Med Ordered Assessment and Plan (1) Acute respiratory failure with hypoxia: Status: Acute (2) Asthma with COPD with exacerbation: Status: Acute Assessment and Plan: 50-year-old female with past medical history of COPD/asthma presents the hospital with shortness of breath acute hypoxic respiratory failure due to copd exacerbation due to paraflu still sob and wheezing continue steroids, bronchodilators, doxy, wean o2 atelectasis - pulm following, plan for outpatient bronch diabetes: uncontrolled basal bolus insulin
[2021-05-02 16:21] LABS: Glucose, Whole Blood 342 mg/dL (60-115)
[2021-05-02] MEDS: Insulin Lispro 100 UNIT/ML 3 ML VIAL 7 UNIT SUBCUT ×2 (16:44→21:42)
[2021-05-02 19:44] LABS: Glucose, Whole Blood 345 mg/dL (60-115)
[2021-05-02] MEDS: Enoxaparin Sodium 40 MG/0.4 ML SYRINGE SUBCUT (21:40)
[2021-05-02] MEDS: Insulin Glargine,Hum.rec.anlog 100 UNIT/ML 10 ML VIAL 15 UNIT SUBCUT (21:41)
[2021-05-03] VITALS (7 sets, daily range): BP systolic 108–160; BP diastolic 67–86; PULSE 72–112; RESP 18–20; TEMP 35.9–36.7; O2SAT 91–94
[2021-05-03 06:24] LABS: Hematocrit 45.7 % (37-47); Hemoglobin 14.8 g/dl (12.0-16.0); Mean Corpuscular HGB Conc 32.4 g/dl (31.0-35.0); Mean Corpuscular Hemoglobin 25.4 pg (27.0-33.0); Mean Corpuscular Volume 78.4 fL (80-98); Mean Platelet Volume 10.2 fL (9.4-12.3); Platelet Count 414 X10*3/uL (160-400); Red Blood Count 5.83 X10*6/uL (4.20-5.50); Red Cell Distribution Width 14.5 % (11.0-16.0); White Blood Count 18.5 X10*3/uL (4.8-10.8)
[2021-05-03 06:54] LABS: Anion Gap 16 (12-20); Blood Urea Nitrogen 17 mg/dL (9-16); Calcium 9.8 mg/dL (8.4-10.2); Carbon Dioxide 26 mmol/L (22-29); Chloride 102 mmol/L (96-108); Creatinine Clr Calc Pharmacy 94.4; Estimated Glomerular Filt Rate > 60; Glucose Fasting 269 mg/dL (60-99); Potassium 4.8 mmol/L (3.3-5.1); Sodium 139 mmol/L (135-145)
[2021-05-03] MEDS: Albuterol/Iprat 2.5/0.5MG 3 ML AMPUL.NEB INHALE ×4 (07:21→19:56)
[2021-05-03 07:30] LABS: Glucose, Whole Blood 240 mg/dL (60-115)
[2021-05-03] MEDS: Insulin Lispro 100 UNIT/ML 3 ML VIAL 7 UNIT SUBCUT ×4 (07:40→21:01)
[2021-05-03] MEDS: Insulin Lispro 100 UNIT/ML 3 ML VIAL SUBCUT ×4 (07:40→20:50)
[2021-05-03] MEDS: 0.9 % Sodium Chloride Flush 3 ML SYRINGE IVFLUSH ×2 (08:21→17:29)
[2021-05-03] MEDS: Doxycycline Hyclate 100 MG in 0.9 % Sodium Chloride 250 ML 166.67 MG IV ×2 (08:40→20:47)
[2021-05-03] MEDS: Insulin Glargine,Hum.rec.anlog 100 UNIT/ML 10 ML VIAL 15 UNIT SUBCUT ×2 (08:44→20:51)
[2021-05-03] MEDS: Montelukast Sodium 10 MG TABLET PO (08:44)
[2021-05-03] MEDS: methylPREDNISolone Sod Succ 40 MG/ML VIAL 80 MG IVPUSH ×2 (08:45→16:40)
--- NOTE | 2021-05-03 10:54 | P.PNIM_ITS ---
Subjective Subjective Date of Service: 05/03/21 Interval History: still sob Cardiovascular Cardiovascular: Reports no additional cardiovascular complaints Gastrointestinal Gastrointestinal: Reports no additional gastrointestinal complaints Physical Exam Vital Signs: Vital Signs: Last Vital Signs Temp 96.8 F 05/03/21 10:48 Pulse 112 H 05/03/21 10:48 Resp 20 05/03/21 10:48 BP 147/69 H 05/03/21 10:48 Pulse Ox 92 05/03/21 10:48 Body Mass Index 46.5 General: AO X 3, sob Resp: wheeze CVS: S1,S2,RRR GI: soft, non tender, non distended Neuro: motor grossly intact Psych: appropriate affect Objective Data Current Medications Generic Name Dose Route Start Last Admin Trade Name Freq PRN Reason Stop Dose Admin Acetaminophen 650 mg 04/27/21 21:38 04/28/21 07:25 Acetaminophen 325 Mg Tablet PO 650 mg Q6H PRN Administration Pain, Mild (Pain Scale 1-3) Albuterol/Ipratropium 3 ml 04/28/21 08:00 05/03/21 07:21 Albuterol/Iprat 2.5/0.5mg 3 Ml Ampul.Neb INHALE 3 ml RQ4H WHILE AWAKE ERIC Administration Albuterol/Ipratropium 3 ml 04/27/21 21:38 Albuterol/Iprat 2.5/0.5mg 3 Ml Ampul.Neb INHALE RQ4H PRN Shortness of Breath/Wheezing Docusate Sodium 100 mg 04/27/21 21:38 05/01/21 18:53 Docusate Sodium 100 Mg Capsule PO 100 mg DAILY PRN Administration Constipation Enoxaparin Sodium 40 mg 04/27/21 22:00 05/02/21 21:40 Enoxaparin Sodium 40 Mg/0.4 Ml Syringe SUBCUT 40 mg Q24H ERIC Administration Furosemide 20 mg 04/27/21 21:38 Furosemide 20 Mg Tablet PO DAILY PRN Edema Protocol Doxycycline Hyclate 100 mg/ 250 mls @ 166.67 mls/hr 04/30/21 08:45 05/03/21 08:40 Sodium Chloride IV 166.67 mls/hr Q12H ERIC Administration Insulin Glargine 15 unit 05/02/21 21:00 05/03/21 08:44 Insulin Glargine,Hum.Rec.Anlog 100 Unit/Ml 10 Ml Vial SUBCUT 15 unit BID ERCI Administration Insulin Human Lispro 0 unit 04/28/21 07:30 05/03/21 07:40 Insulin Lispro 100 Unit/Ml 3 Ml Vial SUBCUT 4 unit QIDACHS REPLACED BY [facility] Administration Protocol Insulin Human Lispro 7 unit 05/02/21 16:30 05/03/21 07:40 Insulin Lispro 100 Unit/Ml 3 Ml Vial SUBCUT 7 unit QIDAS REPLACED BY [facility] Administration Methylprednisolone Sodium Succinate 80 mg 04/30/21 08:45 05/03/21 08:45 Methylprednisolone Sod Succ 40 Mg/Ml Vial IVPUSH 80 mg Q8H ERIC Administration Montelukast Sodium 10 mg 04/28/21 09:00 05/03/21 08:44 Montelukast Sodium 10 Mg Tablet PO 10 mg DAILY ERIC Administration Nicotine 7 mg 04/28/21 09:00 05/03/21 09:55 Nicotine 7 Mg Patch.Td24 TRANSDERMA Not Given DAILY REPLACED BY [facility] Sodium Chloride 3 ml 04/28/21 00:00 05/03/21 08:21 0.9 % Sodium Chloride Flush 3 Ml Syringe IVFLUSH 3 ml QSHIFT REPLACED BY [facility] Administration Labs CBC & Chem 7: 05/03/21 05:49 05/03/21 05:49 Labs: Laboratory Results - last 24 hr 05/02/21 05/02/21 05/02/21 11:10 16:17 19:38 WBC RBC Hgb Hct MCV MCH MCHC RDW Plt Count MPV Absolute Nucleated RBC Nucleated RBC % (auto) Sodium Potassium Chloride Carbon Dioxide Anion Gap BUN Creatinine Estim Creat Clear Calc Estimated GFR POC Glucose 402 H* 342 H 345 H Fasting Glucose Calcium 05/03/21 05/03/21 05/03/21 05:49 05:49 07:12 WBC 18.5 H RBC 5.83 H Hgb 14.8 Hct 45.7 MCV 78.4 L MCH 25.4 L MCHC 32.4 RDW 14.5 Plt Count 414 H MPV 10.2 Absolute Nucleated RBC 0.000 Nucleated RBC % (auto) 0.0 Sodium 139 Potassium 4.8 Chloride 102 Carbon Dioxide 26 Anion Gap 16 BUN 17 H Creatinine 0.77 Estim Creat Clear Calc 94.4 Estimated GFR > 60 POC Glucose 240 H Fasting Glucose 269 H Calcium 9.8 Microbiology Microbiology Results: Microbiology 04/27/21 15:32 Blood Culture - Final Blood - Venous No growth after 5 days. 04/27/21 14:48 Blood Culture - Final Blood - Venous No growth after 5 days. Quality Stroke Does the patient have a stroke diagnosis?: No VTE Prior VTE?: No VTE Risk Level:: Medical - moderate - high VTE Device Contraindication: Treatment Not Indicated VTE Drug Contraindication: N/A - Med Ordered Assessment and Plan (1) Acute respiratory failure with hypoxia: Status: Acute (2) Asthma with COPD with exacerbation: Status: Acute Assessment and Plan: 50-year-old female with past medical history of COPD/asthma presents the hospital with shortness of breath acute hypoxic respiratory failure due to copd exacerbation due to paraflu still sob and wheezing continue steroids, bronchodilators, doxy, wean o2 atelectasis - pulm following, plan for outpatient bronch pulm following diabetes: uncontrolled basal bolus insulin
[2021-05-03 11:30] LABS: Glucose, Whole Blood 331 mg/dL (60-115)
[2021-05-03 16:24] LABS: Glucose, Whole Blood 285 mg/dL (60-115)
[2021-05-03 20:12] LABS: Glucose, Whole Blood 348 mg/dL (60-115)
[2021-05-03] MEDS: Enoxaparin Sodium 40 MG/0.4 ML SYRINGE SUBCUT (20:49)
[2021-05-04] VITALS (10 sets, daily range): BP systolic 115–137; BP diastolic 68–84; PULSE 82–111; RESP 16–19; TEMP 36–37; O2SAT 90–96
[2021-05-04] MEDS: 0.9 % Sodium Chloride Flush 3 ML SYRINGE IVFLUSH ×2 (00:17→08:12)
[2021-05-04] MEDS: methylPREDNISolone Sod Succ 40 MG/ML VIAL 80 MG IVPUSH ×2 (00:17→08:03)
[2021-05-04] MEDS: Albuterol/Iprat 2.5/0.5MG 3 ML AMPUL.NEB INHALE ×4 (07:10→19:52)
[2021-05-04 07:48] LABS: Glucose, Whole Blood 280 mg/dL (60-115)
[2021-05-04] MEDS: Montelukast Sodium 10 MG TABLET PO (08:03)
[2021-05-04] MEDS: Insulin Lispro 100 UNIT/ML 3 ML VIAL 7 UNIT SUBCUT ×4 (08:04→21:53)
[2021-05-04] MEDS: Insulin Lispro 100 UNIT/ML 3 ML VIAL SUBCUT ×4 (08:04→21:52)
[2021-05-04] MEDS: Insulin Glargine,Hum.rec.anlog 100 UNIT/ML 10 ML VIAL 15 UNIT SUBCUT (08:04)
[2021-05-04] MEDS: Doxycycline Hyclate 100 MG in 0.9 % Sodium Chloride 250 ML 166.67 MG IV ×2 (09:30→21:52)
--- NOTE | 2021-05-04 10:13 | HO.PM.IMPN ---
Subjective Subjective Date of Service: 05/04/21 Interval History: much improved, still wheezy and sob on minimal exertion Cardiovascular Cardiovascular: Reports no additional cardiovascular complaints Gastrointestinal Gastrointestinal: Reports no additional gastrointestinal complaints Physical Exam Vital Signs: Vital Signs: Last Vital Signs Temp 97.8 F 05/04/21 08:00 Pulse 111 H 05/04/21 08:00 Resp 16 05/04/21 08:00 BP 115/75 05/04/21 08:00 Pulse Ox 92 05/04/21 08:00 Body Mass Index 46.5 General: AO X 3, sob Resp: wheeze CVS: S1,S2,RRR GI: soft, non tender, non distended Neuro: motor grossly intact Psych: appropriate affect Objective Data Current Medications Generic Name Dose Route Start Last Admin Trade Name Rockyq PRN Reason Stop Dose Admin Acetaminophen 650 mg 04/27/21 21:38 04/28/21 07:25 Acetaminophen 325 Mg Tablet PO 650 mg Q6H PRN Administration Pain, Mild (Pain Scale 1-3) Albuterol/Ipratropium 3 ml 04/28/21 08:00 05/04/21 07:10 Albuterol/Iprat 2.5/0.5mg 3 Ml Ampul.Neb INHALE 3 ml RQ4H WHILE AWAKE ERIC Administration Albuterol/Ipratropium 3 ml 04/27/21 21:38 Albuterol/Iprat 2.5/0.5mg 3 Ml Ampul.Neb INHALE RQ4H PRN Shortness of Breath/Wheezing Docusate Sodium 100 mg 04/27/21 21:38 05/01/21 18:53 Docusate Sodium 100 Mg Capsule PO 100 mg DAILY PRN Administration Constipation Enoxaparin Sodium 40 mg 04/27/21 22:00 05/03/21 20:49 Enoxaparin Sodium 40 Mg/0.4 Ml Syringe SUBCUT 40 mg Q24H ERIC Administration Furosemide 20 mg 04/27/21 21:38 Furosemide 20 Mg Tablet PO DAILY PRN Edema Protocol Doxycycline Hyclate 100 mg/ 250 mls @ 166.67 mls/hr 04/30/21 08:45 05/04/21 09:30 Sodium Chloride IV 166.67 mls/hr Q12H ERIC Administration Insulin Glargine 15 unit 05/02/21 21:00 05/04/21 08:04 Insulin Glargine,Hum.Rec.Anlog 100 Unit/Ml 10 Ml Vial SUBCUT 15 unit BID ERIC Administration Insulin Human Lispro 0 unit 04/28/21 07:30 05/04/21 08:04 Insulin Lispro 100 Unit/Ml 3 Ml Vial SUBCUT 6 unit QIDACHS [facility] Administration Protocol Insulin Human Lispro 7 unit 05/02/21 16:30 05/04/21 08:04 Insulin Lispro 100 Unit/Ml 3 Ml Vial SUBCUT 7 unit QIDAS [facility] Administration Methylprednisolone Sodium Succinate 80 mg 04/30/21 08:45 05/04/21 08:03 Methylprednisolone Sod Succ 40 Mg/Ml Vial IVPUSH 80 mg Q8H ERIC Administration Montelukast Sodium 10 mg 04/28/21 09:00 05/04/21 08:03 Montelukast Sodium 10 Mg Tablet PO 10 mg DAILY ERIC Administration Nicotine 7 mg 04/28/21 09:00 05/04/21 08:11 Nicotine 7 Mg Patch.Td24 TRANSDERMA Not Given DAILY [facility] Sodium Chloride 3 ml 04/28/21 00:00 05/04/21 08:12 0.9 % Sodium Chloride Flush 3 Ml Syringe IVFLUSH 3 ml QSHIFT [facility] Administration Labs CBC & Chem 7: 05/03/21 05:49 05/03/21 05:49 Labs: Laboratory Results - last 24 hr 05/03/21 05/03/21 05/03/21 11:05 16:09 20:04 POC Glucose 331 H 285 H 348 H 05/04/21 07:15 POC Glucose 280 H Quality Stroke Does the patient have a stroke diagnosis?: No VTE Prior VTE?: No VTE Risk Level:: Medical - moderate - high VTE Device Contraindication: Treatment Not Indicated VTE Drug Contraindication: N/A - Med Ordered Assessment and Plan (1) Acute respiratory failure with hypoxia: Status: Acute (2) Asthma with COPD with exacerbation: Status: Acute Assessment and Plan: 50-year-old female with past medical history of COPD/asthma presents the hospital with shortness of breath acute hypoxic respiratory failure due to copd exacerbation due to paraflu still wheezy but improving continue steroids - will change to prednisone, bronchodilators, doxy, wean o2 atelectasis - pulm following, plan for outpatient bronch diabetes: uncontrolled basal bolus insulin
[2021-05-04 11:41] LABS: Glucose, Whole Blood 273 mg/dL (60-115)
[2021-05-04 17:12] LABS: Glucose, Whole Blood 310 mg/dL (60-115)
[2021-05-04 20:15] LABS: Glucose, Whole Blood 390 mg/dL (60-115)
[2021-05-04] MEDS: Enoxaparin Sodium 40 MG/0.4 ML SYRINGE SUBCUT (21:52)
[2021-05-04] MEDS: Insulin Glargine,Hum.rec.anlog 100 UNIT/ML 10 ML VIAL 20 UNIT SUBCUT (21:53)
[2021-05-04] MEDS: Docusate Sodium 100 MG CAPSULE PO (22:05)
[2021-05-05] VITALS: BP 121/71; PULSE 95; RESP 16; TEMP 36.1; O2SAT 95
[2021-05-05 04:00] VITALS: BP 117/64; PULSE 82; RESP 16; TEMP 36; O2SAT 95
[2021-05-05] MEDS: Albuterol/Iprat 2.5/0.5MG 3 ML AMPUL.NEB INHALE ×2 (07:06→13:32)
[2021-05-05 07:09] VITALS: PULSE 90; O2SAT 94
[2021-05-05 07:50] LABS: Glucose, Whole Blood 170 mg/dL (60-115)
[2021-05-05 08:00] VITALS: BP 98/67; PULSE 102; RESP 17; TEMP 36.1; O2SAT 95
[2021-05-05] MEDS: Insulin Glargine,Hum.rec.anlog 100 UNIT/ML 10 ML VIAL 20 UNIT SUBCUT (08:24)
[2021-05-05] MEDS: Insulin Lispro 100 UNIT/ML 3 ML VIAL 7 UNIT SUBCUT ×2 (08:25→12:10)
[2021-05-05] MEDS: Insulin Lispro 100 UNIT/ML 3 ML VIAL SUBCUT ×2 (08:25→12:09)
[2021-05-05] MEDS: 0.9 % Sodium Chloride Flush 3 ML SYRINGE IVFLUSH ×2 (08:26)
[2021-05-05] MEDS: predniSONE 20 MG TABLET 40 MG PO (08:27)
[2021-05-05] MEDS: Montelukast Sodium 10 MG TABLET PO (08:27)
[2021-05-05] MEDS: Doxycycline Hyclate 100 MG in 0.9 % Sodium Chloride 250 ML 166.67 MG IV (08:46)
--- NOTE | 2021-05-05 09:36 | PM.DS ---
DS: Providers Provider Date of Service: 05/05/21 Date of admission: 04/27/21 21:35 Primary care physician: Paramjit Marr MD Consults: 04/30/21 08:02 Consult to Pulmonology Routine Consulting Provider: Chetna Armando Reason for consultation: Acute hypoxemic respiratory failure due to asthma exacerbation. Has provider been notified: No DS: Diagnosis Discharge Diagnosis (1) Acute respiratory failure with hypoxia: Status: Acute (2) Asthma with COPD with exacerbation: Status: Acute DS: Medications Discharge Medications Home Medications: Home Medications Medication Instructions Recorded Confirmed albuterol sulfate 90 mcg/actuation 2 puff INHALATION Q6H PRN 07/12/20 04/27/21 aerosol inhaler metformin 500 mg/5 mL oral solution 1,000 mg PO BID ml 07/12/20 04/27/21 Jardiance 1 tab PO DAILY 04/27/21 04/27/21 Trelegy Ellipta 1 puff PO DAILY 04/27/21 04/27/21 furosemide 1 tab PO DAILY PRN 04/27/21 04/27/21 montelukast 1 tab PO DAILY 04/27/21 04/27/21 Previous Rx's Medication Instructions Recorded doxycycline hyclate 100 mg PO BID #6 tab 05/05/21 prednisone 40 mg PO DAILY #10 tab 05/05/21 DS: Summary Hospital Course Hospital Course: patient was admitted for acute hypoxic repsiratory failure due to copd/asthma exacerbation due to parainfluenza infection. she was given sterdoids, bronchodilators, and doxycyline. patients symptoms slowly improved over the next several days. she is now feeling much better and will be discharged on 3 more days of doxycyline and 5 days of prednisone. patient normally uses oxygen at night only, but at time of discharge she is requiring 2L continuos. Time Spent with Patient Time attestation: Total time spent providing and/or coordinating discharge services: Discharge coordination time: Greater than 30 minutes Quality: Stroke Does the patient have a stroke diagnosis?: No Physical Exam Vital Signs: Vital Signs: Last Vital Signs Temp 96.9 F 05/05/21 08:00 Pulse 102 H 05/05/21 08:00 Resp 17 05/05/21 08:00 BP 98/67 05/05/21 08:00 Pulse Ox 95 05/05/21 08:00 Body Mass Index 46.5 General: AO X 3, no acute distress Resp: mild wheeze CVS: S1,S2,RRR GI: soft, non tender, non distended Neuro: motor grossly intact Psych: appropriate affect DS: Data Data Completed and Pending Labs on day of discharge: Laboratory Results - last 24 hr 05/04/21 05/04/21 05/04/21 11:15 17:08 19:47 POC Glucose 273 H 310 H 390 H* 05/05/21 07:44 POC Glucose 170 H Discharge Plan Discharge Patient Disposition: Home Health Service Discharge Diagnosis: copd Referrals: Paramjit Marr MD [Primary Care Provider] - 1 Week Discharge Medications: New doxycycline hyclate 100 mg tablet 100 mg PO BID Qty: 6 RF: 0 prednisone 20 mg tablet 40 mg PO DAILY Qty: 10 RF: 0 Continued montelukast 10 mg tablet 1 tab PO DAILY RF: 0 furosemide 20 mg tablet 1 tab PO DAILY PRN (Reason: Edema) RF: 0 Jardiance 10 mg tablet 1 tab PO DAILY RF: 0 Trelegy Ellipta 100-62.5-25 mcg blister with device 1 puff PO DAILY RF: 0 metformin 500 mg/5 mL solution 1,000 mg PO BID RF: 0 albuterol sulfate [ProAir HFA] 90 mcg/actuation HFA aerosol inhaler 2 puff inhalation Q6H PRN (Reason: Wheezing) RF: 0 Discontinued azithromycin 250 mg tablet 1 tab PO DIRECTED RF: 0 prednisone 20 mg tablet 1 tab PO BID RF: 0 Discharge Orders: Discharge Order (Routine); Ordered 05/05/21 Ordered By: Vivek Huffman Diet: advance to usual diet Activity on Discharge: As tolerated Stand Alone Forms: Patient Portal Discharge page Care Plan Goals: recovery Health Concerns: copd Plan of Treatment: jason gaffney Assessment: see above
[2021-05-05 10:04] VITALS: PULSE 107; O2SAT 90
[2021-05-05 11:44] LABS: Glucose, Whole Blood 245 mg/dL (60-115)
[2021-05-05 12:00] VITALS: RESP 18
--- NOTE | 2021-05-05 12:16 | MHC.CM.PN ---
PT CLEARED TO DC HOME TODAY WITH VNA AND CONTINUOUS OXYGEN. PT REPORTS SHE WOULD LIKE A REFERRAL TO [facility]. SHE HAS A PORTABLE O2 TANK IN THE ROOM PROVIDED BY RT. PTS CAR IS IN THE ED PARKING LOT.
== END 2021-05-05 14:34 | disposition home health service (06) | DRG 140 ==
LOC: HO.ED 17:21 → HO.EDOVER 21:55 → HO.IMC 22:16 → HO.S3 05-03 17:24
PROVIDERS: Hospitalist; Internal Medicine; Physician Assistant; Admitting Provider Internal Medicine; Emergency Provider Emergency Medicine; PCP Internal Medicine; Visit Provider Internal Medicine
DX: J44.1 Chronic obstructive pulmonary disease with (acute) exacerbation (principal); J96.01 Acute respiratory failure with hypoxia; E87.2 Acidosis; J45.901 Unspecified asthma with (acute) exacerbation; Z99.81 Dependence on supplemental oxygen; B34.8 Other viral infections of unspecified site; D72.829 Elevated white blood cell count, unspecified; J44.0 Chronic obstructive pulmonary disease with (acute) lower respiratory infection; J20.9 Acute bronchitis, unspecified; J98.11 Atelectasis; Z20.822 Contact with and (suspected) exposure to COVID-19; Z86.711 Personal history of pulmonary embolism; Z86.718 Personal history of other venous thrombosis and embolism; Z79.52 Long term (current) use of systemic steroids; Z79.84 Long term (current) use of oral hypoglycemic drugs; Z79.899 Other long term (current) drug therapy
CPT/HCPCS: 36415; 36600; 71046; 71275; 80048; 80076; 81001; 81003; 82803; 82947; 83036; 83605; 83735; 83880; 84484; 85025; 85027; 85379; 85610; 85730; 87040; 87633; 87635; 93005; 94640; 94644; 99285; J0696; J1650; J2920; J2930; J3475; Q9967

== ENCOUNTER → 2021-05-07 13:26 | Outpatient (BNVA) | payer OTHER, SELFPAY | PROVIDERS: PCP Internal Medicine; Visit Provider Internal Medicine ==

== ENCOUNTER 2021-05-08 15:11 | Inpatient (IN) | payer OTHER, SELFPAY ==
--- NOTE | ~2021-05-08 | XR_ITS ---
EXAMINATION: XR CHEST CLINICAL INFORMATION: Shortness of breath COMPARISON: April 27, 2021 TECHNIQUE: AP portable view of the chest was obtained. FINDINGS: There is again noted to be consolidation of the right upper lobe with loss of volume and mediastinal shift to the right. No other focus of disease is appreciated. Heart normal size. No evidence of pulmonary edema. No pneumothorax or pleural effusion. XR/XR chest 1V IMPRESSION: Continued right upper lobe collapse.
[2021-05-08 15:24] VITALS: BP 125/84; PULSE 114; RESP 22; TEMP 37; O2SAT 96; BMI 42.2
--- NOTE | 2021-05-08 15:27 | ECG_ITS ---
Test Reason : SOB Blood Pressure : / mmHG Vent. Rate : 107 BPM Atrial Rate : 107 BPM P-R Int : 120 ms QRS Dur : 080 ms QT Int : 352 ms P-R-T Axes : 080 077 064 degrees QTc Int : 469 ms Sinus tachycardia Otherwise normal ECG When compared with ECG of 27-APR-2021 14:07, No significant change was found Referred By: Aimee Paez Electronically Signed By:MIKA REDMAN
--- NOTE | 2021-05-08 15:31 | ED_ITS ---
HPI - SOB/Dyspnea General Chief Complaint: Dyspnea Stated Complaint: DIFF BREATHING Time Seen by Provider: 05/08/21 15:15 Source: patient Mode of arrival: ambulatory History of Present Illness HPI Narrative: 50-year-old female with a past medical history of asthma, COPD, DVT, PE, recently discharged from our facility for acute hypoxic respiratory failure due to COPD/asthma exacerbation due to parainfluenza infection currently on 40 mg prednisone daily presenting to the ED c/o persistent/worsening SOB requiring 4L NC continuously. At baseline patient uses O2 at night only. Patient had follow-up with pulmonology yesterday, is scheduled for bronchoscopy tomorrow at 8:00 a.m. patient reports productive cough of phlegm and exertional dyspnea. Denies fever, chills, chest pain, abdominal pain, LE edema, calf pain MD elicited complaint: shortness of breath Related Data Home Medications Medication Instructions Recorded Confirmed albuterol sulfate 90 mcg/actuation 2 puff INHALATION Q6H PRN 07/12/20 05/08/21 aerosol inhaler (ProAir HFA) empagliflozin 10 mg tablet 1 tab PO DAILY 04/27/21 05/08/21 (Jardiance) fluticasone fur. 100 mcg-umeclid 1 puff PO DAILY 04/27/21 05/08/21 62.5 mcg-vilant 25 mcg inhalat.powder (Trelegy Ellipta) furosemide 20 mg tablet 1 tab PO DAILY PRN 04/27/21 05/08/21 montelukast 10 mg tablet 1 tab PO DAILY 04/27/21 05/08/21 metformin 500 mg tablet 2 tab PO BID 05/08/21 05/08/21 Previous Rx's Medication Instructions Recorded prednisone 20 mg tablet 40 mg PO DAILY #10 tab 05/05/21 ipratropium 0.5 mg-albuterol 3 mg 3 ml INHALATION Q4-6H PRN 14 Days 05/07/21 (2.5 mg base)/3 mL nebulization #180 ml soln Allergies Allergy/AdvReac Type Severity Reaction Status Date / Time onion Allergy Unknown Itching Uncoded 07/12/20 08:23 strawberry Allergy Unknown Hives Uncoded 07/12/20 08:23 bee AdvReac Severe Anaphylaxis Uncoded 07/13/20 15:22 Review of Systems Review of Systems: Constitutional: No Fever, No Chills, No Fatigue, No Malaise ENT/Mouth: No Ear Pain, No Nasal Congestion, No sore throat, No Rhinorrhea Cardiovascular: No Chest Pain, + SOB, + Dyspnea on Exertion, No Orthopnea, No Edema, No Palpitations Respiratory: + Cough, + Sputum, + Wheezing, + Dyspnea Gastrointestinal: No Nausea, No Vomiting, No Diarrhea, No Constipation, No Abdominal pain Genitourinary: No Dysuria, No Urinary Frequency Musculoskeletal: No joint pain, No Myalgias Skin: No Skin Lesions, No rash Neuro: No Weakness, No Numbness, No Paresthesias, No Dizziness, No Headache PMFSH Past Medical History Attestation statement: The following information was validated with the patient. Medical History (Updated 05/07/21 @ 14:03 by Chetna Armando MD) Asthma Atelectasis COPD (chronic obstructive pulmonary disease) Diabetes mellitus DVT (deep venous thrombosis) Pulmonary embolism VTE (venous thromboembolism) Surgical History Hx of section Hx of section Family History Family History Father No problems noted. Mother No problems noted. Son No problems noted. Son No problems noted. Daughter No problems noted. Daughter No problems noted. Sister No problems noted. Social History Social History Household Members: Children Housing: House Do you presently have visiting nurse or other home services: No Alcohol intake: current Alcohol intake frequency: a few times a week Patient Tobacco Use Status: Current everyday Tobacco user Tobacco use type: Cigarette Cigarette Packs Per Day: 0.5 Cigarettes Per Day: 4 Years Smoked: 30 e-Cigarette/Vaping Use: Never Used Second Hand Smoke Exposure: No Substance Use Type: Marijuana Advance Directives: Yes Advance Directives on File: Yes Advance Directives Date on File: 04/28/21 service: No Current occupational status: employed Physical Exam Vital Signs: Vital Signs: Last Vital Signs Temp 98.6 F 05/08/21 15:24 Pulse 101 H 05/08/21 16:54 Resp 22 H 05/08/21 15:24 BP 125/84 05/08/21 15:24 Pulse Ox 96 05/08/21 15:24 Oxygen Flow Rate 4 05/08/21 15:24 Body Mass Index 42.2 Const: General: cooperative Orientation/consciousness: patient oriented x3 Limitations: no limitations HENMT: Head: Yes normal to inspection Ears: hearing grossly normal bilaterally General nose exam: Normal external nose present Face and sinus: Yes normal facial exam Eyes: General: appearance normal, both eyes and all related structures EOM: EOMs intact bilaterally Neck: Neck: Yes normal visual inspection Resp: Effort & Inspection: tachypneic Auscultation: wheezes expiratory wheezes, inspiratory wheezes and throughout Cardio: Rate: regular rate and tachycardic Heart sounds: S1 normal heart sound present and S2 normal heart sound present GI: Inspection: Yes normal to inspection Palpation (GI): Soft to palpation, nontender, no guarding and not rigid Skin: Rashes: no rashes Wounds: no wounds Neuro: General: patient oriented x3 and tone normal Extrem: General: Yes normal to inspection, Yes no pedal edema and Yes no calf tenderness Course Course Course Narrative: -1705--leukocytosis of 28.1 and a likely from prednisone use 2.8 likely from albuterol. Still low concern for severe sepsis. -glucose elevated at 498 > IVF, subcu insulin, and acetone ordered, no AG -troponin negative XR chest 1V IMPRESSION: Continued right upper lobe collapse MDM - SOB/Dyspnea MDM Narrative Medical decision making narrative: 50-year-old female with a past medical history of asthma, COPD, DVT, PE, recently discharged from our facility for acute hypoxic respiratory failure due to COPD/asthma exacerbation due to parainfluenza infection currently on 40 mg prednisone daily presenting to the ED c/o persistent/worsening SOB requiring 4L NC continuously. On exam tachycardic, tachypneic, diffuse inspiratory and expiratory wheeze throughout, no pedal edema/calf tenderness. Concern for acute on chronic respiratory failure due to asthma/COPD exacerbation vs pneumonia vs viral syndrome. Lower concern for PE/CHF. Low concern for severe sepsis Plan: EKG, labs, CXR, COVID-19 testing, magnesium, DuoNebs, admission Differential Diagnosis Differential diagnosis: Likely acute exacerbation of chronic obstructive airways disease, congestive heart failure and asthma with exacerbation Medical Records Attestation: I reviewed the patient's medical records. Lab Data Attestation: I reviewed the patient's lab results. Result diagrams: 05/08/21 16:14 05/08/21 16:14 Labs: Lab Results 05/08/21 05/08/21 05/08/21 Range/Units 16:13 16:14 16:14 WBC 20.1 H (4.8-10.8) X10*3/uL RBC 5.53 H (4.20-5.50) X10*6/uL Hgb 14.2 (12.0-16.0) g/dl Hct 43.4 (37-47) % MCV 78.5 L (80-98) fL MCH 25.7 L (27.0-33.0) pg MCHC 32.7 (31.0-35.0) g/dl RDW 14.3 (11.0-16.0) % Plt Count 310 D (160-400) X10*3/uL MPV 11.4 (9.4-12.3) fL Immature Gran % (Auto) 1.1 H (0.0-0.4) % Neut % (Auto) 77.0 H (45-73) % Lymph % (Auto) 17.7 L (20-40) % Mcduffie % (Auto) 3.9 (2-11) % Eos % (Auto) 0.1 (0-4) % Baso % (Auto) 0.2 (0-2) % Lymph # (Auto) 3.6 (1.2-4.9) X10*3/uL Mcduffie # (Auto) 0.8 (0.1-1.2) X10*3/uL Eos # (Auto) 0.0 (0.0-0.4) X10*3/uL Baso # (Auto) 0.0 (0.0-0.2) X10*3/uL Abs Immat Gran (auto) 0.22 H (0.00-0.03) X10*3/uL Absolute Neuts (auto) 15.5 H (2.0-8.3) X10*3/uL Absolute Nucleated RBC 0.000 (0.0-0.012) X10*3/uL Nucleated RBC % (auto) 0.0 (0.0-0.2) /100WBC PT 11.8 (9.9-13.0) SEC INR 1.0 (0.9-1.1) Sodium (135-145) mmol/L Potassium (3.3-5.1) mmol/L Chloride (96-108) mmol/L Carbon Dioxide (22-29) mmol/L Anion Gap (12-20) BUN (9-16) mg/dL Creatinine (0.5-1.4) mg/dL Estim Creat Clear Calc Estimated GFR Random Glucose (60-115) mg/dL Lactic Acid (0.5-2.0) mmol/L Calcium (8.4-10.2) mg/dL Magnesium (1.6-2.6) mg/dL Total Bilirubin (0.0-1.0) mg/dL Direct Bilirubin (0.0-0.5) mg/dL AST (5-31) U/L ALT (0-31) U/L Alkaline Phosphatase (39-117) U/L Troponin I High Sens 3.9 (<3.5-17.0) ng/L B-Natriuretic Peptide < 10 (<100) pg/mL Total Protein (6.5-8.0) g/dL Albumin (3.5-5.0) g/dL 05/08/21 05/08/21 Range/Units 16:14 16:14 WBC (4.8-10.8) X10*3/uL RBC (4.20-5.50) X10*6/uL Hgb (12.0-16.0) g/dl Hct (37-47) % MCV (80-98) fL MCH (27.0-33.0) pg MCHC (31.0-35.0) g/dl RDW (11.0-16.0) % Plt Count (160-400) X10*3/uL MPV (9.4-12.3) fL Immature Gran % (Auto) (0.0-0.4) % Neut % (Auto) (45-73) % Lymph % (Auto) (20-40) % Mcduffie % (Auto) (2-11) % Eos % (Auto) (0-4) % Baso % (Auto) (0-2) % Lymph # (Auto) (1.2-4.9) X10*3/uL Mcduffie # (Auto) (0.1-1.2) X10*3/uL Eos # (Auto) (0.0-0.4) X10*3/uL Baso # (Auto) (0.0-0.2) X10*3/uL Abs Immat Gran (auto) (0.00-0.03) X10*3/uL Absolute Neuts (auto) (2.0-8.3) X10*3/uL Absolute Nucleated RBC (0.0-0.012) X10*3/uL Nucleated RBC % (auto) (0.0-0.2) /100WBC PT (9.9-13.0) SEC INR (0.9-1.1) Sodium 135 (135-145) mmol/L Potassium 4.0 (3.3-5.1) mmol/L Chloride 101 (96-108) mmol/L Carbon Dioxide 22 (22-29) mmol/L Anion Gap 16 (12-20) BUN 17 H (9-16) mg/dL Creatinine 0.81 (0.5-1.4) mg/dL Estim Creat Clear Calc 88.1 Estimated GFR > 60 Random Glucose 498 H* (60-115) mg/dL Lactic Acid 2.8 H* (0.5-2.0) mmol/L Calcium 8.9 D (8.4-10.2) mg/dL Magnesium 2.6 (1.6-2.6) mg/dL Total Bilirubin 0.6 (0.0-1.0) mg/dL Direct Bilirubin 0.3 (0.0-0.5) mg/dL AST 10 D (5-31) U/L ALT 31 (0-31) U/L Alkaline Phosphatase 85 D (39-117) U/L Troponin I High Sens (<3.5-17.0) ng/L B-Natriuretic Peptide (<100) pg/mL Total Protein 6.2 L D (6.5-8.0) g/dL Albumin 3.6 (3.5-5.0) g/dL ECG Data Attestation: I personally reviewed and interpreted this ECG as follows: ECG interpretation date: 05/08/21 ECG interpretation time: 15:47 Prior ECG tracings: available for review Interpretation: EKG sinus tachycardia rate of 107. Nonischemic/no STEMI. QTC 469 Discharge Plan Discharge Prescriptions: No Action montelukast 10 mg tablet 1 tab PO DAILY RF: 0 furosemide 20 mg tablet 1 tab PO DAILY PRN (Reason: Edema) RF: 0 Jardiance 10 mg tablet 1 tab PO DAILY RF: 0 Trelegy Ellipta 100-62.5-25 mcg blister with device 1 puff PO DAILY RF: 0 prednisone 20 mg tablet 40 mg PO DAILY Qty: 10 RF: 0 metformin 500 mg tablet 2 tab PO BID RF: 0 albuterol sulfate [ProAir HFA] 90 mcg/actuation HFA aerosol inhaler 2 puff inhalation Q6H PRN (Reason: Wheezing) RF: 0 ipratropium-albuterol 0.5 mg-3 mg(2.5 mg base)/3 mL solution for nebulization 3 ml inhalation Q4-6H PRN (Reason: wheezing/resp distress) 14 Days Qty: 180 RF: 4
[2021-05-08] MEDS: Magnesium Sulfate/H2O 2 GM/50 ML PIGGYBACK IV (15:43)
--- NOTE | 2021-05-08 15:56 | PHA.MEDREC ---
Pharmacy Consult ? Medication Reconciliation Pharmacy has completed the medication reconciliation. Patient does not have a recent fill history for Jardiance, last filled 07/2020 for a 90 day supply. She reports still taking it but did not take it the morning. Thank you, Naomi Dillard
[2021-05-08 16:22] LABS: MANUAL DIFF FLAG NO
[2021-05-08 16:28] LABS: Basophils Percent Auto 0.2 % (0-2); Eosinophils Percent Auto 0.1 % (0-4); Hematocrit 43.4 % (37-47); Hemoglobin 14.2 g/dl (12.0-16.0); Imm Gran Abs Auto 0.22 X10*3/uL (0.00-0.03); Imm Gran Pct Auto 1.1 % (0.0-0.4); Lymphocytes Absolute Auto 3.6 X10*3/uL (1.2-4.9); Lymphocytes Percent Auto 17.7 % (20-40); Mean Corpuscular HGB Conc 32.7 g/dl (31.0-35.0); Mean Corpuscular Hemoglobin 25.7 pg (27.0-33.0); Mean Corpuscular Volume 78.5 fL (80-98); Mean Platelet Volume 11.4 fL (9.4-12.3); Monocytes Absolute Auto 0.8 X10*3/uL (0.1-1.2); Monocytes Percent Auto 3.9 % (2-11); Neutrophils Absolute Auto 15.5 X10*3/uL (2.0-8.3); Platelet Count 310 X10*3/uL (160-400); Red Blood Count 5.53 X10*6/uL (4.20-5.50); Red Cell Distribution Width 14.3 % (11.0-16.0); White Blood Count 20.1 X10*3/uL (4.8-10.8)
[2021-05-08 16:34] LABS: Prothrombin Time 11.8 SEC (9.9-13.0)
[2021-05-08] MEDS: Albuterol/Iprat 2.5/0.5MG 3 ML AMPUL.NEB INHALE (16:49)
[2021-05-08 16:54] VITALS: PULSE 101; O2SAT 92
[2021-05-08 16:59] LABS: B Type Natriuretic Peptide < 10 pg/mL (<100); Troponin-I High Sensitivity 3.9 ng/L (<3.5-17.0)
[2021-05-08 17:01] LABS: Alanine Aminotransferase 31 U/L (0-31); Albumin Level 3.6 g/dL (3.5-5.0); Alkaline Phosphatase 85 U/L (39-117); Anion Gap 16 (12-20); Aspartate Amino Transferase 10 U/L (5-31); Bilirubin Direct 0.3 mg/dL (0.0-0.5); Bilirubin Total 0.6 mg/dL (0.0-1.0); Blood Urea Nitrogen 17 mg/dL (9-16); Calcium 8.9 mg/dL (8.4-10.2); Carbon Dioxide 22 mmol/L (22-29); Chloride 101 mmol/L (96-108); Creatinine Clr Calc Pharmacy 88.1; Estimated Glomerular Filt Rate > 60; Glucose Random 498 mg/dL (60-115); Lactic Acid 2.8 mmol/L (0.5-2.0); Magnesium 2.6 mg/dL (1.6-2.6); Sodium 135 mmol/L (135-145); Total Protein 6.2 g/dL (6.5-8.0)
[2021-05-08] MEDS: Albuterol Sulfate (0.083%) 2.5 MG/3 ML VIAL.NEB 5 MG INHALE (17:10)
[2021-05-08] MEDS: 0.9 % Sodium Chloride 1,000 ML 999 ML IVCONT (17:15)
[2021-05-08 17:17] VITALS: BP 117/73; PULSE 110; RESP 26; O2SAT 98
[2021-05-08] MEDS: Insulin Lispro 100 UNIT/ML 3 ML VIAL SUBCUT ×2 (17:21→20:04)
[2021-05-08 17:25] LABS: Influenza A PCR NEGATIVE (Negative); Influenza B PCR NEGATIVE (Negative); Resp Syncy Virus RNA Qual PCR NEGATIVE (Negative); SARS COV2 PCR INHOUSE NEGATIVE (Negative)
[2021-05-08 17:59] LABS: Acetone, serum QL Negative (Negative)
[2021-05-08 18:18] LABS: Glucose, Whole Blood 353 mg/dL (60-115)
[2021-05-08 18:19] LABS: Reflex Lactate? Lactic Acid Added
[2021-05-08 19:02] VITALS: BP 113/69; PULSE 106; RESP 18; TEMP 37.4; O2SAT 90
[2021-05-08 19:10] LABS: ~Lactic Acid-LAB USE ONLY 1.3 mmol/L (0.5-2.0)
[2021-05-08 20:59] LABS: Glucose, Whole Blood 336 mg/dL (60-115)
[2021-05-08 21:18] VITALS: BP 117/78; PULSE 99; RESP 20; O2SAT 92
[2021-05-09] VITALS (17 sets, daily range): BP systolic 110–136; BP diastolic 63–92; PULSE 84–110; RESP 16–24; TEMP 35.9–37.1; O2SAT 92–98
--- NOTE | 2021-05-09 06:53 | P.HPHOSP_ITS ---
History of Present Illness Date of Service: 05/08/21 Chief Complaint: Shortness of breath This is a 50-year-old female with past medical history of , diabetes, history of PE/DVT, presents to the hospital with complaints of shortness of breath. Patient reports that after her discharge on 05/05 she remained short of breath, did not feel that her symptoms improved at all, she was in the kitchen today, had a significant bout of coughing and that caused her significant dizziness, her family was concerned and sent her to the ED. She is planned for bronchoscopy at 7:00 a.m. this morning. Denies any fever or chills, chest pain, no abdominal pain nausea or vomiting, no diarrhea constipation, no urinary symptoms and no lower extremity edema. On arrival to the ED patient hemodynamically stable, satting 94% on her baseline 3 L of oxygen Labs are significant for WBC count of 20, glucose of 498, lactic acid of 2.8 which resolved after fluids, otherwise unremarkable. Chest x-ray shows continued upper lobe collapse Admitted for further management Review of Systems Review of Systems: Review of system otherwise negative except as mentioned above FOR[facility]LY [facility] Medical History Asthma Atelectasis COPD (chronic obstructive pulmonary disease) Diabetes mellitus DVT (deep venous thrombosis) Pulmonary embolism VTE (venous thromboembolism) Family History Father No problems noted. Mother No problems noted. Son No problems noted. Son No problems noted. Daughter No problems noted. Daughter No problems noted. Sister No problems noted. Surgical History Hx of section Hx of section Social History Household Members: Children Housing: House Do you presently have visiting nurse or other home services: No Alcohol intake: current Alcohol intake frequency: a few times a week Patient Tobacco Use Status: Current everyday Tobacco user Tobacco use type: Cigarette Cigarette Packs Per Day: 0.5 Cigarettes Per Day: 4 Years Smoked: 30 e-Cigarette/Vaping Use: Never Used Second Hand Smoke Exposure: No Substance Use Type: Marijuana Advance Directives: Yes Advance Directives on File: Yes Advance Directives Date on File: 04/28/21 service: No Current occupational status: employed Meds Allergies Allergy/AdvReac Type Severity Reaction Status Date / Time onion Allergy Unknown Itching Uncoded 07/12/20 08:23 strawberry Allergy Unknown Hives Uncoded 07/12/20 08:23 bee AdvReac Severe Anaphylaxis Uncoded 07/13/20 15:22 Active Medications: Current Medications Generic Name Dose Route Start Last Admin Trade Name Freq PRN Reason Stop Dose Admin Pharmacy Consult 1 each 05/08/21 15:27 Consult Rx Perform Med Rec MISCELLANE ONCE PRN Consult order Home Medications Medication Instructions Recorded Confirmed Last Taken Type albuterol sulfate 90 mcg/actuation 2 puff INHALATION Q6H PRN 07/12/20 05/08/21 05/08/21 History aerosol inhaler (ProAir HFA) empagliflozin 10 mg tablet 1 tab PO DAILY 04/27/21 05/08/21 Unknown History (Jardiance) fluticasone fur. 100 mcg-umeclid 1 puff PO DAILY 04/27/21 05/08/21 05/08/21 History 62.5 mcg-vilant 25 mcg inhalat.powder (Trelegy Ellipta) furosemide 20 mg tablet 1 tab PO DAILY PRN 04/27/21 05/08/21 05/08/21 History montelukast 10 mg tablet 1 tab PO DAILY 04/27/21 05/08/21 05/08/21 History metformin 500 mg tablet 2 tab PO BID 05/08/21 05/08/21 05/08/21 History Physical Exam Vital Signs and Narrative: Vital Signs: Last Vital Signs Temp 98.7 F 05/09/21 03:16 Pulse 87 05/09/21 04:22 Resp 16 05/09/21 04:22 BP 136/76 05/09/21 04:22 Pulse Ox 94 05/09/21 04:22 Oxygen Flow Rate 4 05/08/21 15:24 Body Mass Index 42.2 Const: General: cooperative and no acute distress Orientation/consciousness: patient oriented x3 Eyes: General: appearance normal, both eyes and all related structures Resp: Other: Has significant wheezing, continuous cough Effort & Inspection: normal respiratory effort and able to speak in complete sentences Cardio: Rate: regular rate Rhythm: regular rhythm GI: Palpation (GI): Soft to palpation Auscultation: normal bowel sounds Skin: General skin exam: no rashes or lesions noted Neuro: General: patient oriented x3 Cognition (Neuro): normal cognition Extrem: General: Yes normal to inspection and Yes no pedal edema Results Labs CBC and Chem 7: 05/08/21 16:14 05/08/21 16:14 Labs: Laboratory Results - last 24 hr 05/08/21 05/08/21 05/08/21 16:13 16:14 16:14 MCV 78.5 L MCH 25.7 L MCHC 32.7 RDW 14.3 Plt Count 310 D MPV 11.4 Immature Gran % (Auto) 1.1 H Neut % (Auto) 77.0 H Lymph % (Auto) 17.7 L Foster % (Auto) 3.9 Eos % (Auto) 0.1 Baso % (Auto) 0.2 Lymph # (Auto) 3.6 Foster # (Auto) 0.8 Eos # (Auto) 0.0 Baso # (Auto) 0.0 Abs Immat Gran (auto) 0.22 H Absolute Neuts (auto) 15.5 H Absolute Nucleated RBC 0.000 Nucleated RBC % (auto) 0.0 PT 11.8 INR 1.0 Anion Gap Estim Creat Clear Calc Estimated GFR POC Glucose Random Glucose Lactic Acid Lactic Acid Fup @ 2Hr Calcium Magnesium Total Bilirubin Direct Bilirubin AST ALT Alkaline Phosphatase Troponin I High Sens 3.9 B-Natriuretic Peptide < 10 Total Protein Albumin Acetone, Qual Coronavirus (PCR) Influenza Type A (PCR) Influenza Type B (PCR) RSV RNA Qual (PCR) 05/08/21 05/08/21 05/08/21 16:14 16:14 16:14 MCV MCH MCHC RDW Plt Count MPV Immature Gran % (Auto) Neut % (Auto) Lymph % (Auto) Foster % (Auto) Eos % (Auto) Baso % (Auto) Lymph # (Auto) Foster # (Auto) Eos # (Auto) Baso # (Auto) Abs Immat Gran (auto) Absolute Neuts (auto) Absolute Nucleated RBC Nucleated RBC % (auto) PT INR Anion Gap 16 Estim Creat Clear Calc 88.1 Estimated GFR > 60 POC Glucose Random Glucose 498 H* Lactic Acid 2.8 H* Lactic Acid Fup @ 2Hr Calcium 8.9 D Magnesium 2.6 Total Bilirubin 0.6 Direct Bilirubin 0.3 AST 10 D ALT 31 Alkaline Phosphatase 85 D Troponin I High Sens B-Natriuretic Peptide Total Protein 6.2 L D Albumin 3.6 Acetone, Qual Negative Coronavirus (PCR) NEGATIVE Influenza Type A (PCR) NEGATIVE Influenza Type B (PCR) NEGATIVE RSV RNA Qual (PCR) NEGATIVE 05/08/21 05/08/21 05/08/21 18:09 18:28 20:55 MCV MCH MCHC RDW Plt Count MPV Immature Gran % (Auto) Neut % (Auto) Lymph % (Auto) Foster % (Auto) Eos % (Auto) Baso % (Auto) Lymph # (Auto) Foster # (Auto) Eos # (Auto) Baso # (Auto) Abs Immat Gran (auto) Absolute Neuts (auto) Absolute Nucleated RBC Nucleated RBC % (auto) PT INR Anion Gap Estim Creat Clear Calc Estimated GFR POC Glucose 353 H* 336 H Random Glucose Lactic Acid Lactic Acid Fup @ 2Hr 1.3 Calcium Magnesium Total Bilirubin Direct Bilirubin AST ALT Alkaline Phosphatase Troponin I High Sens B-Natriuretic Peptide Total Protein Albumin Acetone, Qual Coronavirus (PCR) Influenza Type A (PCR) Influenza Type B (PCR) RSV RNA Qual (PCR) ECG Interpretation: Sinus tachycardia with no abnormal findings Imaging Radiologist's Impressions: Impressions Chest X-Ray 05/08/21 15:27 IMPRESSION: Continued right upper lobe collapse. Assessment and Plan (1) Acute exacerbation of chronic obstructive airways disease: Status: Acute (2) Hyperglycemia due to diabetes mellitus: Status: Acute (3) Leukocytosis: Status: Acute (4) Lactic acidosis: Status: Acute This is a 50-year-old female with past medical history of COPD/asthma presents the hospital with shortness of breath after being discharged on 05/05 # asthma/COPD exacerbation - recently discharged from hospital on 05/05 - was sent home on prednisone and doxy which pt reports compliance with - no evidence of pneumonia on today's CXR, COVID-19 negative - will start her on IV Solu-Medrol 40 b.i.d. - DuoNeb p.r.n. and scheduled - Bronchoscopy this AM # acute hypoxic respiratory failure - most likely secondary to COPD/asthma exacerbation - no evidence of pneumonia, less likely to be PE, no COVID infection - No elevated BNP - patient on 3 L of oxygen which is the O2 she was discharged with # lactic acidosis - most likely secondary to hypoxia - resolved with IV fluids # leukocytosis - most likely secondary to steroids - patient does not have any evidence of infection - follow CBC # urinary frequency - most likely secondary to her diabetes - UA with reflex culture # hyperglycemia due to dm - hold oral anti hyperglycemic - start low-dose sliding scale - diabetic diet DVT Ppx: lovenox Quality Stroke Does the patient have a stroke diagnosis?: No VTE Prior VTE?: No VTE Risk Level:: Medical - moderate - high VTE Device Contraindication: Treatment Not Indicated VTE Drug Contraindication: N/A - Med Ordered
--- NOTE | 2021-05-09 07:23 | PC.NURSE ---
pt changed into all hospital clothing in prep for sss, poc 251 awaiting to hear from sss
[2021-05-09 07:24] LABS: Glucose, Whole Blood 251 mg/dL (60-115)
--- NOTE | 2021-05-09 07:30 | PC.NURSE ---
Patient is sitting up on side of bed in no acute distress. Respirations are even and nonlabored. Pt remains on oxygen via nc at 3L per minute. Pt does have audible expiratory wheezing. pt denies any pain currently
--- NOTE | 2021-05-09 07:50 | P.CONAN_ITS ---
HPI - Anesthesia Eval Consult details Narrative: 50yo female patient for fiberoptic bronchoscopy. Electively scheduled for today but admitted to ER yesterday for acute SOB and low sats with ?acute exacerbation of COPD. Evaluated by Dr Elizalde pre-op. States OK to proceed. Patient was on admission 04/27/21-05/05/21. Discharged home on doxycycline and prednisone. Home O2 2-3L by [place] prn PMFSH Active Problems Active Problems: All Active Problems (Updated 05/09/21 @ 06:58 by Chris Elam MD) Leukocytosis (Acute) Hyperglycemia due to diabetes mellitus (Acute) Acute exacerbation of chronic obstructive airways disease (Acute) Diabetes mellitus (Acute) Atelectasis (Acute) Bronchitis (Acute) Acute respiratory failure with hypoxia (Acute) Lactic acidosis (Acute) Asthma with COPD with exacerbation (Acute) Morbid obesity (Acute) COPD (chronic obstructive pulmonary disease) (Acute) Asthma (Acute) Past Medical History Medical History (Updated 05/09/21 @ 09:18 by Ghada Messina) Asthma Atelectasis COPD (chronic obstructive pulmonary disease) Diabetes mellitus DVT (deep venous thrombosis) Pulmonary embolism VTE (venous thromboembolism) Family History Family History Father No problems noted. Mother No problems noted. Son No problems noted. Son No problems noted. Daughter No problems noted. Daughter No problems noted. Sister No problems noted. Family history of problems with anesthesia: No Surgical History Surgical History Hx of section Hx of section History of Problems with Anesthesia: No Social History Social History Household Members: Children Housing: House Do you presently have visiting nurse or other home services: No Alcohol intake: current Alcohol intake frequency: a few times a week Patient Tobacco Use Status: Former Tobacco user Tobacco use type: Cigarette Cigarette Packs Per Day: 0.5 Cigarettes Per Day: 4 Years Smoked: 30 e-Cigarette/Vaping Use: Never Used Second Hand Smoke Exposure: No Use of substances other than those prescribed or required for medical reasons: No Substance Use Type: Marijuana Are you DNR?: No Advance Directives: Yes Advance Directives on File: Yes Advance Directives Date on File: 04/28/21 service: No Current occupational status: employed Meds Allergies Allergy/AdvReac Type Severity Reaction Status Date / Time onion Allergy Intermediate Itching Uncoded 05/09/21 08:13 strawberry Allergy Intermediate Hives Uncoded 05/09/21 08:13 bee AdvReac Severe Anaphylaxis Uncoded 05/09/21 08:13 Active Medications: Current Medications Generic Name Dose Route Start Last Admin Trade Name Freq PRN Reason Stop Dose Admin Acetaminophen 650 mg 05/09/21 07:38 Acetaminophen 325 Mg Tablet PO Q6H PRN Pain, Mild (Pain Scale 1-3) Albuterol/Ipratropium 3 ml 05/09/21 08:00 Albuterol/Iprat 2.5/0.5mg 3 Ml Ampul.Neb INHALE RQ4H WHILE AWAKE ERIC Albuterol/Ipratropium 3 ml 05/09/21 07:38 Albuterol/Iprat 2.5/0.5mg 3 Ml Ampul.Neb INHALE RQ4H PRN Shortness of Breath/Wheezing Docusate Sodium 100 mg 05/09/21 07:38 Docusate Sodium 100 Mg Capsule PO DAILY PRN Constipation Enoxaparin Sodium 40 mg 05/09/21 07:38 Enoxaparin Sodium 40 Mg/0.4 Ml Syringe SUBCUT Q24H ERIC Furosemide 20 mg 05/09/21 07:38 Furosemide 20 Mg Tablet PO DAILY PRN Edema Protocol Guaifenesin/Dextromethorphan 5 ml 05/09/21 06:57 Guaifenesin Dm 100/10/5 Ml 5 Ml Syrup PO Q6H PRN Cough Sodium Chloride 1,000 mls @ 100 mls/hr 05/09/21 07:38 Ns IVCONT .Q10H ERIC Methylprednisolone Sodium Succinate 40 mg 05/09/21 07:38 Methylprednisolone Sod Succ 40 Mg/Ml Vial IVPUSH Q12H ERIC Montelukast Sodium 10 mg 05/09/21 21:00 Montelukast Sodium 10 Mg Tablet PO BEDTIME ERIC Ondansetron HCl 4 mg 05/09/21 07:38 Ondansetron Hcl 4 Mg/2 Ml Vial IVPUSH Q8H PRN Nausea and Vomiting Pharmacy Consult 1 each 05/08/21 15:27 Consult Rx Perform Med Rec MISCELLANE ONCE PRN Consult order Sodium Chloride 3 ml 05/09/21 07:38 0.9 % Sodium Chloride Flush 3 Ml Syringe IVFLUSH QSHIFT [facility] Home Medications Medication Instructions Recorded Confirmed Last Taken Type albuterol sulfate 90 mcg/actuation 2 puff INHALATION Q6H PRN 07/12/20 05/08/21 05/08/21 History aerosol inhaler (ProAir HFA) empagliflozin 10 mg tablet 1 tab PO DAILY 04/27/21 05/08/21 Unknown History (Jardiance) fluticasone fur. 100 mcg-umeclid 1 puff PO DAILY 04/27/21 05/08/21 05/08/21 History 62.5 mcg-vilant 25 mcg inhalat.powder (Trelegy Ellipta) furosemide 20 mg tablet 1 tab PO DAILY PRN 04/27/21 05/08/21 05/08/21 History montelukast 10 mg tablet 1 tab PO DAILY 04/27/21 05/08/21 05/08/21 History metformin 500 mg tablet 2 tab PO BID 05/08/21 05/08/21 05/08/21 History Exam Exam Date and Time: May 09, 2021 0750 Height,Weight and Vital Signs: Height 5 ft Weight 97.976 kg Vital Signs Temp Pulse Resp BP Pulse Ox 05/09/21 08:14 98.3 F 96 24 H 126/92 H 93 05/09/21 07:25 110 H 18 05/09/21 04:22 87 16 136/76 94 05/09/21 03:16 98.7 F 97 21 H 121/63 95 05/08/21 21:18 99 20 117/78 92 05/08/21 19:02 99.3 F 106 H 18 113/69 90 L 05/08/21 17:17 110 H 26 H 117/73 98 05/08/21 16:54 101 H 05/08/21 15:24 98.6 F 114 H 22 H 125/84 96 Last Vital Signs Temp 98.7 F 05/09/21 03:16 Pulse 110 H 05/09/21 07:25 Resp 18 05/09/21 07:25 BP 136/76 05/09/21 04:22 Pulse Ox 94 05/09/21 04:22 Oxygen Flow Rate 4 05/08/21 15:24 Pertinent Lab Results Pertinent Lab Results: Laboratory Tests 07/05/08/21 05/08/21 16:13 16:14 16:14 WBC 20.1 H RBC 5.53 H Hgb 14.2 Hct 43.4 MCV 78.5 L MCH 25.7 L MCHC 32.7 RDW 14.3 Plt Count 310 D MPV 11.4 Immature Gran % (Auto) 1.1 H Neut % (Auto) 77.0 H Lymph % (Auto) 17.7 L [place] % (Auto) 3.9 Eos % (Auto) 0.1 Baso % (Auto) 0.2 Lymph # (Auto) 3.6 [place] # (Auto) 0.8 Eos # (Auto) 0.0 Baso # (Auto) 0.0 Abs Immat Gran (auto) 0.22 H Absolute Neuts (auto) 15.5 H Absolute Nucleated RBC 0.000 Nucleated RBC % (auto) 0.0 PT 11.8 INR 1.0 Sodium Potassium Chloride Carbon Dioxide Anion Gap BUN Creatinine Estim Creat Clear Calc Estimated GFR POC Glucose Random Glucose Lactic Acid Lactic Acid Fup @ 2Hr Calcium Magnesium Total Bilirubin Direct Bilirubin AST ALT Alkaline Phosphatase Troponin I High Sens 3.9 B-Natriuretic Peptide < 10 Total Protein Albumin Acetone, Qual Coronavirus (PCR) Influenza Type A (PCR) Influenza Type B (PCR) RSV RNA Qual (PCR) 05/08/21 05/08/21 05/08/21 16:14 16:14 16:14 WBC RBC Hgb Hct MCV MCH MCHC RDW Plt Count MPV Immature Gran % (Auto) Neut % (Auto) Lymph % (Auto) [place] % (Auto) Eos % (Auto) Baso % (Auto) Lymph # (Auto) [place] # (Auto) Eos # (Auto) Baso # (Auto) Abs Immat Gran (auto) Absolute Neuts (auto) Absolute Nucleated RBC Nucleated RBC % (auto) PT INR Sodium 135 Potassium 4.0 Chloride 101 Carbon Dioxide 22 Anion Gap 16 BUN 17 H Creatinine 0.81 Estim Creat Clear Calc 88.1 Estimated GFR > 60 POC Glucose Random Glucose 498 H* Lactic Acid 2.8 H* Lactic Acid Fup @ 2Hr Calcium 8.9 D Magnesium 2.6 Total Bilirubin 0.6 Direct Bilirubin 0.3 AST 10 D ALT 31 Alkaline Phosphatase 85 D Troponin I High Sens B-Natriuretic Peptide Total Protein 6.2 L D Albumin 3.6 Acetone, Qual Negative Coronavirus (PCR) NEGATIVE Influenza Type A (PCR) NEGATIVE Influenza Type B (PCR) NEGATIVE RSV RNA Qual (PCR) NEGATIVE 05/08/21 05/08/21 05/08/21 18:09 18:28 20:55 WBC RBC Hgb Hct MCV MCH MCHC RDW Plt Count MPV Immature Gran % (Auto) Neut % (Auto) Lymph % (Auto) [place] % (Auto) Eos % (Auto) Baso % (Auto) Lymph # (Auto) [place] # (Auto) Eos # (Auto) Baso # (Auto) Abs Immat Gran (auto) Absolute Neuts (auto) Absolute Nucleated RBC Nucleated RBC % (auto) PT INR Sodium Potassium Chloride Carbon Dioxide Anion Gap BUN Creatinine Estim Creat Clear Calc Estimated GFR POC Glucose 353 H* 336 H Random Glucose Lactic Acid Lactic Acid Fup @ 2Hr 1.3 Calcium Magnesium Total Bilirubin Direct Bilirubin AST ALT Alkaline Phosphatase Troponin I High Sens B-Natriuretic Peptide Total Protein Albumin Acetone, Qual Coronavirus (PCR) Influenza Type A (PCR) Influenza Type B (PCR) RSV RNA Qual (PCR) 05/09/21 07:20 WBC RBC Hgb Hct MCV MCH MCHC RDW Plt Count MPV Immature Gran % (Auto) Neut % (Auto) Lymph % (Auto) [place] % (Auto) Eos % (Auto) Baso % (Auto) Lymph # (Auto) [place] # (Auto) Eos # (Auto) Baso # (Auto) Abs Immat Gran (auto) Absolute Neuts (auto) Absolute Nucleated RBC Nucleated RBC % (auto) PT INR Sodium Potassium Chloride Carbon Dioxide Anion Gap BUN Creatinine Estim Creat Clear Calc Estimated GFR POC Glucose 251 H Random Glucose Lactic Acid Lactic Acid Fup @ 2Hr Calcium Magnesium Total Bilirubin Direct Bilirubin AST ALT Alkaline Phosphatase Troponin I High Sens B-Natriuretic Peptide Total Protein Albumin Acetone, Qual Coronavirus (PCR) Influenza Type A (PCR) Influenza Type B (PCR) RSV RNA Qual (PCR) Narrative Narrative: Patient received albuterol treatment. Still with bilateral wheezing but Sats increased to 95%. Airway Mallampati Class: II TM Dist: >3cm Neck ROM: Full Loose/Missing/Broken Teeth: Yes (No teeth bottom, few teeth top-broken/ loose) Heart: RRR Lungs: Bilateral wheezing Assessment and Plan Final Anesthetic Review Family History of Problems with Anesthesia: No History of Problems with Anesthesia: No NPO: Yes ASA Class: III Final Preanesthetic Review: No Changes in Pt Med Stat, Meds/Allgs Chart Reviewed, Consent Obtained/Reviewed and Anes Risks/Benef Reviewed Patient Risk: Intermediate Procedure Risk: Low Assessment/Block/Sedation in SS: Assess/Block/Sedation-SS Anesthetic Plan Anesthetic Plan: GA Disposition: Standard PACU
[2021-05-09 08:03] LABS: UPreg QC Valid YES; Urine Pregnancy NEGATIVE (NEGATIVE)
--- NOTE | 2021-05-09 08:19 | MHC.SHP ---
Pre-Procedural Eval Section A Date of Service: 05/09/21 Section B Chief Complaint: COPD excerbation Allergies: Allergies Allergy/AdvReac Type Severity Reaction Status Date / Time onion Allergy Intermediate Itching Uncoded 05/09/21 08:13 strawberry Allergy Intermediate Hives Uncoded 05/09/21 08:13 bee AdvReac Severe Anaphylaxis Uncoded 05/09/21 08:13 Plan I have reviewed the history and physical and performed a pertinent physical examination on my patient. No changes have occurred unless specified.
[2021-05-09] MEDS: Albuterol Sulfate (0.083%) 2.5 MG/3 ML VIAL.NEB INHALE (08:49)
[2021-05-09] MEDS: Lactated Ringers 1,000 ML 50 ML IVCONT (08:49)
[2021-05-09 10:13] LABS: Basophils Percent Auto 0.1 % (0-2); Eosinophils Absolute Auto 0.1 X10*3/uL (0.0-0.4); Eosinophils Percent Auto 0.4 % (0-4); Hematocrit 44.5 % (37-47); Hemoglobin 14.1 g/dl (12.0-16.0); Imm Gran Abs Auto 0.22 X10*3/uL (0.00-0.03); Imm Gran Pct Auto 1.2 % (0.0-0.4); Lymphocytes Absolute Auto 5.8 X10*3/uL (1.2-4.9); Lymphocytes Percent Auto 30.6 % (20-40); MANUAL DIFF FLAG SCAN; Mean Corpuscular HGB Conc 31.7 g/dl (31.0-35.0); Mean Corpuscular Hemoglobin 25.2 pg (27.0-33.0); Mean Corpuscular Volume 79.5 fL (80-98); Mean Platelet Volume 10.8 fL (9.4-12.3); Monocytes Percent Auto 5.2 % (2-11); Neutrophils Absolute Auto 11.9 X10*3/uL (2.0-8.3); Neutrophils Percent Auto 62.5 % (45-73); Platelet Count 317 X10*3/uL (160-400); Red Cell Distribution Width 14.4 % (11.0-16.0); SCAN SMEAR FLAG 1
[2021-05-09 10:30] LABS: Anion Gap 13 (12-20); Blood Urea Nitrogen 16 mg/dL (9-16); Calcium 8.8 mg/dL (8.4-10.2); Carbon Dioxide 26 mmol/L (22-29); Chloride 104 mmol/L (96-108); Creatinine Clr Calc Pharmacy 106.6; Estimated Glomerular Filt Rate > 60; Glucose Random 243 mg/dL (60-115); Potassium 4.3 mmol/L (3.3-5.1); Sodium 139 mmol/L (135-145)
[2021-05-09 10:38] LABS: SLIDE REVIEW VERIFIED
[2021-05-09] MEDS: Enoxaparin Sodium 40 MG/0.4 ML SYRINGE SUBCUT (10:54)
[2021-05-09] MEDS: methylPREDNISolone Sod Succ 40 MG/ML VIAL IVPUSH ×2 (10:54→21:22)
[2021-05-09] MEDS: Albuterol/Iprat 2.5/0.5MG 3 ML AMPUL.NEB INHALE ×3 (11:40→20:34)
--- NOTE | 2021-05-09 12:35 | P.BOP_ITS ---
Brief Operative Note Date of Service: 05/09/21 Pre-op diagnosis: atelectasis Post-op diagnosis: other (Bronchopneumonia) Procedure: bronchoscopy with therapeutic suctioning, brushings, washing Surgeon: Jack Elizalde MD Was an [employer] Super[employer] used for this Procedure?: No Estimated blood loss (mL): 0 Condition: stable Disposition: floor
--- NOTE | 2021-05-09 12:48 | P.CONPL_ITS ---
History of Present Illness History of Present Illness Consult date: 05/09/21 Chief complaint: COPD excerbation Narrative: [id number] [place] [address] Internal Med History&Physical Signed Patient: Sonam Pino MR#: [id number] : 1970 Acct:[id number] Age/Sex: 50 / F Loc: [facility] [id number] ?? ? Chief Complaint: Shortness of breath This is a 50-year-old female with past medical history of , diabetes, history of PE/DVT, in addition to asthma who recently was admitted to the hospital with an asthma exacerbation and acute on chronic hypoxic respiratory failure secondary to parainfluenza. The patient was treated and subsequently discharged from the hospital. She did follow-up with Pulmonary. She was noted to be dyspneic when she was evaluated and a chest x-rays again demonstrated a chronic right upper lobe atelectatic area. Therefore she was scheduled for bronchoscopy today. However, last night she felt dizzy short of breath she noted to be more hypoxic down to the 70s. She became very pale and weak. At that point she decided to call EMS and she was brought to the emergency department when she was admitted to the hospital. She is currently on oxygen supplementation. The patient did undergo the bronchoscopy this morning demonstrating extensive mucus plugging in evidence of bronchopneumonia. Most likely due to a postviral bacterial infection. Review of Systems Constitutional: Constitutional: Reports fatigue, Denies fever(s), Denies night sweats and Reports weakness ENT: Denies change in voice, Denies lip swelling, Denies mouth pain, Reports nasal congestion, Reports nasal discharge and Denies tongue swelling Cardiovascular: Cardiovascular: Denies chest pain and Reports dyspnea Respiratory: Respiratory: Reports chest congestion, Reports cough, Denies hemoptysis, Reports dyspnea and Reports wheezing Gastrointestinal: Gastrointestinal: Denies abdominal pain Musculoskeletal: Musculoskeletal: Denies no additional musculoskeletal comp laints Neurologic: Denies Neuro-related abnormal movements and Reports weakness Psychiatric: Psychiatric: Denies no additional psychiatric complaints Endocrine: Endocrine: Reports fatigue Hematologic/Lymphatic: Hematologic/Lymphatic: Denies easy bleeding and Denies lymphadenopathy Allergic/Immunologic: Allergic/Immunologic: Denies lip swelling, Denies tongue swelling and Reports wheezing PMFSH Past Medical History Medical History Asthma Atelectasis COPD (chronic obstructive pulmonary disease) Diabetes mellitus DVT (deep venous thrombosis) Pulmonary embolism VTE (venous thromboembolism) Family History Family History Father No problems noted. Mother No problems noted. Son No problems noted. Son No problems noted. Daughter No problems noted. Daughter No problems noted. Sister No problems noted. Surgical History Surgical History Hx of section Hx of section Social History Social History Household Members: Family and Children Housing: Apartment Do you presently have visiting nurse or other home services: No Alcohol intake: current Alcohol intake frequency: a few times a week Patient Tobacco Use Status: Former Tobacco user Tobacco use type: Cigarette Cigarette Packs Per Day: 0.5 Cigarettes Per Day: 4 Years Smoked: 30 e-Cigarette/Vaping Use: Never Used Second Hand Smoke Exposure: No Use of substances other than those prescribed or required for medical reasons: No Substance Use Type: Marijuana Have you been hit, kicked, punched, or otherwise hurt by someone within the past year? If so, by whom?: No Do you feel safe in your current relationship?: Yes Is there a partner from a previous relationship who is making you feel unsafe now?: No Are you DNR?: No Advance Directives: Yes Advance Directives on File: Yes Advance Directives Date on File: 04/28/21 Do you have thoughts of harming others: None Do you have a plan to hurt others: No Plan Recently lost weight without trying: No Eating poorly because of decreased appetite: No Patient : No : No service: No Current occupational status: employed Meds Allergies Allergy/AdvReac Type Severity Reaction Status Date / Time onion Allergy Intermediate Itching Uncoded 05/09/21 08:13 strawberry Allergy Intermediate Hives Uncoded 05/09/21 08:13 bee AdvReac Severe Anaphylaxis Uncoded 05/09/21 08:13 Active Medications: Current Medications Generic Name Dose Route Start Last Admin Trade Name Freq PRN Reason Stop Dose Admin Acetaminophen 650 mg 05/09/21 07:38 Acetaminophen 325 Mg Tablet PO Q6H PRN Pain, Mild (Pain Scale 1-3) Albuterol/Ipratropium 3 ml 05/09/21 08:00 05/09/21 11:40 Albuterol/Iprat 2.5/0.5mg 3 Ml Ampul.Neb INHALE 3 ml RQ4H WHILE AWAKE ERIC Administration Albuterol/Ipratropium 3 ml 05/09/21 07:38 Albuterol/Iprat 2.5/0.5mg 3 Ml Ampul.Neb INHALE RQ4H PRN Shortness of Breath/Wheezing Docusate Sodium 100 mg 05/09/21 07:38 Docusate Sodium 100 Mg Capsule PO DAILY PRN Constipation Enoxaparin Sodium 40 mg 05/09/21 07:38 05/09/21 10:54 Enoxaparin Sodium 40 Mg/0.4 Ml Syringe SUBCUT 40 mg Q24H ERIC Administration Furosemide 20 mg 05/09/21 07:38 Furosemide 20 Mg Tablet PO DAILY PRN Edema Protocol Guaifenesin/Dextromethorphan 5 ml 05/09/21 06:57 Guaifenesin Dm 100/10/5 Ml 5 Ml Syrup PO Q6H PRN Cough Methylprednisolone Sodium Succinate 40 mg 05/09/21 07:38 05/09/21 10:54 Methylprednisolone Sod Succ 40 Mg/Ml Vial IVPUSH 40 mg Q12H ERIC Administration Montelukast Sodium 10 mg 05/09/21 21:00 Montelukast Sodium 10 Mg Tablet PO BEDTIME [facility] Ondansetron HCl 4 mg 05/09/21 07:38 Ondansetron Hcl 4 Mg/2 Ml Vial IVPUSH Q8H PRN Nausea and Vomiting Ondansetron HCl 4 mg 05/09/21 09:51 Ondansetron Hcl 4 Mg/2 Ml Vial IVPUSH ONCE PRN Nausea and Vomiting Pharmacy Consult 1 each 05/08/21 15:27 Consult Rx Perform Med Rec MISCELLANE ONCE PRN Consult order Sodium Chloride 3 ml 05/09/21 07:38 05/09/21 10:50 0.9 % Sodium Chloride Flush 3 Ml Syringe IVFLUSH Not Given QSHIFT [facility] Home Medications Medication Instructions Recorded Confirmed Last Taken Type albuterol sulfate 90 mcg/actuation 2 puff INHALATION Q6H PRN 07/12/20 05/08/21 05/08/21 History aerosol inhaler (ProAir HFA) empagliflozin 10 mg tablet 1 tab PO DAILY 04/27/21 05/08/21 Unknown History (Jardiance) fluticasone fur. 100 mcg-umeclid 1 puff PO DAILY 04/27/21 05/08/21 05/08/21 History 62.5 mcg-vilant 25 mcg inhalat.powder (Trelegy Ellipta) furosemide 20 mg tablet 1 tab PO DAILY PRN 04/27/21 05/08/21 05/08/21 History montelukast 10 mg tablet 1 tab PO DAILY 04/27/21 05/08/21 05/08/21 History metformin 500 mg tablet 2 tab PO BID 05/08/21 05/08/21 05/08/21 History Physical Exam 2 Vital Signs: Vital Signs: Last Vital Signs Temp 97.3 F 05/09/21 10:41 Pulse 100 05/09/21 11:43 Resp 18 05/09/21 10:41 BP 130/74 05/09/21 10:41 Pulse Ox 96 05/09/21 10:41 Oxygen Flow Rate 4 05/08/21 15:24 Body Mass Index 42.2 Const: General: alert Neck: Neck: Yes normal visual inspection, Yes full ROM and Yes no lymphadeno sohan Chest: Chest palpation & inspection: normal inspection of the chest Resp: Auscultation: wheezes and diminished lung sounds Cardio: Rate: regular rate Rhythm: regular rhythm Heart sounds: S1 normal heart sound present and S2 normal heart sound present GI: Palpation (GI): Soft to palpation and nontender Auscultation: normal bowel sounds Skin: General skin exam: rashes and/or lesions noted Results Laboratory Findings CBC and BMP: 05/09/21 09:52 05/09/21 09:52 ABG, PT/INR, D-dimer: PT/INR, D-dimer PT 11.8 SEC (9.9-13.0) 05/08/21 16:14 INR 1.0 (0.9-1.1) 05/08/21 16:14 Abnormal lab findings: Abnormal Labs 05/08/21 05/08/21 05/08/21 16:14 16:14 16:14 WBC 20.1 H RBC 5.53 H MCV 78.5 L MCH 25.7 L Immature Gran % (Auto) 1.1 H Neut % (Auto) 77.0 H Lymph % (Auto) 17.7 L Lymph # (Auto) Abs Immat Gran (auto) 0.22 H Absolute Neuts (auto) 15.5 H BUN 17 H POC Glucose Random Glucose 498 H* Lactic Acid 2.8 H* Total Protein 6.2 L D 05/08/21 05/08/21 05/09/21 18:09 20:55 07:20 WBC RBC MCV MCH Immature Gran % (Auto) Neut % (Auto) Lymph % (Auto) Lymph # (Auto) Abs Immat Gran (auto) Absolute Neuts (auto) BUN POC Glucose 353 H* 336 H 251 H Random Glucose Lactic Acid Total Protein 05/09/21 05/09/21 09:52 09:52 WBC 19.0 H RBC 5.60 H MCV 79.5 L MCH 25.2 L Immature Gran % (Auto) 1.2 H Neut % (Auto) Lymph % (Auto) Lymph # (Auto) 5.8 H Abs Immat Gran (auto) 0.22 H Absolute Neuts (auto) 11.9 H BUN POC Glucose Random Glucose 243 H D Lactic Acid Total Protein Assessment and Plan (1) Acute exacerbation of chronic obstructive airways disease: Status: Acute (2) Atelectasis: Status: Acute (3) Bronchopneumonia: Status: Acute Awaiting cultures from the bronchoscopy this morning Start antibiotics broad-spectrum until cultures Are available continue Solu-Medrol Continue oxygen supplementation to maintain a pulse ox above 92% CPT with flutter valve Continue nebulized therapy Procedures Date of Service Date of Service: 05/09/21
--- NOTE | 2021-05-09 15:43 | MHC.CM.PN ---
[facility] ([phone] IS UNABLE TO ACCOMMODATE [facility] ([phone]) IS UNABLE TO ACCOMMODATE [facility] IS UNABLE TO ACCEPT PATIENT FROM [facility] TO HOME. PLAN IS [facility] ([phone]) TO PICK PATIENT UP. WHEN [facility] ARRIVES, PATIENT CAN BE BROUGHT OUT TO [facility]. PLAN IS FINALIZED WITH MATIAS RN, DARREL ([phone]).
--- NOTE | 2021-05-09 15:44 | HO.PM.IMPN ---
Subjective Subjective Date of Service: 05/09/21 Interval History: Patient feels significantly better after bronchoscopy done this morning, denies shortness of breath, no fever, chills since admission, feels hungry Review of Systems General no headache, no dizziness ,no fever chills. CVS no chest pain, no palpitation. Respiratory no cough, no sob. Gastrointestinal no nausea, no vomiting, no abdominal pain Physical Exam Vital Signs: Vital Signs: Last Vital Signs Temp 97.0 F 05/09/21 15:30 Pulse 97 05/09/21 15:30 Resp 18 05/09/21 15:30 BP 122/68 05/09/21 15:30 Pulse Ox 92 05/09/21 15:30 Oxygen Flow Rate 4 05/08/21 15:24 Body Mass Index 42.2 Const: Other: General no acute distress. Neck supple no JVD. CVS regular rate rhythm, Respiratory lungs coarse breath sound, no respiratory distress, no wheeze, no rhonchi. Gastrointestinal abdomen soft, nontender, bowel sounds audible, no guarding , no rigidity. Extremities no clubbing cyanosis or edema. Neuro nonfocal , speech clear. Skin no rash Objective Data Current Medications Generic Name Dose Route Start Last Admin Trade Name Freq PRN Reason Stop Dose Admin Acetaminophen 650 mg 05/09/21 07:38 Acetaminophen 325 Mg Tablet PO Q6H PRN Pain, Mild (Pain Scale 1-3) Albuterol/Ipratropium 3 ml 05/09/21 08:00 05/09/21 11:40 Albuterol/Iprat 2.5/0.5mg 3 Ml Ampul.Neb INHALE 3 ml RQ4H WHILE AWAKE ERIC Administration Albuterol/Ipratropium 3 ml 05/09/21 07:38 Albuterol/Iprat 2.5/0.5mg 3 Ml Ampul.Neb INHALE RQ4H PRN Shortness of Breath/Wheezing Docusate Sodium 100 mg 05/09/21 07:38 Docusate Sodium 100 Mg Capsule PO DAILY PRN Constipation Enoxaparin Sodium 40 mg 05/09/21 07:38 05/09/21 10:54 Enoxaparin Sodium 40 Mg/0.4 Ml Syringe SUBCUT 40 mg Q24H ERIC Administration Furosemide 20 mg 05/09/21 07:38 Furosemide 20 Mg Tablet PO DAILY PRN Edema Protocol Guaifenesin/Dextromethorphan 5 ml 05/09/21 06:57 Guaifenesin Dm 100/10/5 Ml 5 Ml Syrup PO Q6H PRN Cough Methylprednisolone Sodium Succinate 40 mg 05/09/21 07:38 05/09/21 10:54 Methylprednisolone Sod Succ 40 Mg/Ml Vial IVPUSH 40 mg Q12H ERIC Administration Montelukast Sodium 10 mg 05/09/21 21:00 Montelukast Sodium 10 Mg Tablet PO BEDTIME ERIC Ondansetron HCl 4 mg 05/09/21 07:38 Ondansetron Hcl 4 Mg/2 Ml Vial IVPUSH Q8H PRN Nausea and Vomiting Ondansetron HCl 4 mg 05/09/21 09:51 Ondansetron Hcl 4 Mg/2 Ml Vial IVPUSH ONCE PRN Nausea and Vomiting Pharmacy Consult 1 each 05/08/21 15:27 Consult Rx Perform Med Rec MISCELLANE ONCE PRN Consult order Sodium Chloride 3 ml 05/09/21 07:38 05/09/21 10:50 0.9 % Sodium Chloride Flush 3 Ml Syringe IVFLUSH Not Given QSHIFT [facility] Labs CBC & Chem 7: 05/09/21 09:52 05/09/21 09:52 Labs: Laboratory Results - last 24 hr 05/08/21 05/08/21 05/08/21 16:13 16:14 16:14 MCV 78.5 L MCH 25.7 L MCHC 32.7 RDW 14.3 Plt Count 310 D MPV 11.4 Immature Gran % (Auto) 1.1 H Neut % (Auto) 77.0 H Lymph % (Auto) 17.7 L [place] % (Auto) 3.9 Eos % (Auto) 0.1 Baso % (Auto) 0.2 Lymph # (Auto) 3.6 [place] # (Auto) 0.8 Eos # (Auto) 0.0 Baso # (Auto) 0.0 Abs Immat Gran (auto) 0.22 H Absolute Neuts (auto) 15.5 H Absolute Nucleated RBC 0.000 Nucleated RBC % (auto) 0.0 Smear Tech's Comments PT 11.8 INR 1.0 Anion Gap Estim Creat Clear Calc Estimated GFR POC Glucose Random Glucose Lactic Acid Lactic Acid Fup @ 2Hr Calcium Magnesium Total Bilirubin Direct Bilirubin AST ALT Alkaline Phosphatase Troponin I High Sens 3.9 B-Natriuretic Peptide < 10 Total Protein Albumin Urine Test Acetone, Qual Coronavirus (PCR) Influenza Type A (PCR) Influenza Type B (PCR) RSV RNA Qual (PCR) 05/08/21 05/08/21 05/08/21 16:14 16:14 16:14 MCV MCH MCHC RDW Plt Count MPV Immature Gran % (Auto) Neut % (Auto) Lymph % (Auto) [place] % (Auto) Eos % (Auto) Baso % (Auto) Lymph # (Auto) [place] # (Auto) Eos # (Auto) Baso # (Auto) Abs Immat Gran (auto) Absolute Neuts (auto) Absolute Nucleated RBC Nucleated RBC % (auto) Smear Tech's Comments PT INR Anion Gap 16 Estim Creat Clear Calc 88.1 Estimated GFR > 60 POC Glucose Random Glucose 498 H* Lactic Acid 2.8 H* Lactic Acid Fup @ 2Hr Calcium 8.9 D Magnesium 2.6 Total Bilirubin 0.6 Direct Bilirubin 0.3 AST 10 D ALT 31 Alkaline Phosphatase 85 D Troponin I High Sens B-Natriuretic Peptide Total Protein 6.2 L D Albumin 3.6 Urine Test Acetone, Qual Negative Coronavirus (PCR) NEGATIVE Influenza Type A (PCR) NEGATIVE Influenza Type B (PCR) NEGATIVE RSV RNA Qual (PCR) NEGATIVE 05/08/21 05/08/21 05/08/21 18:09 18:28 20:55 MCV MCH MCHC RDW Plt Count MPV Immature Gran % (Auto) Neut % (Auto) Lymph % (Auto) [place] % (Auto) Eos % (Auto) Baso % (Auto) Lymph # (Auto) [place] # (Auto) Eos # (Auto) Baso # (Auto) Abs Immat Gran (auto) Absolute Neuts (auto) Absolute Nucleated RBC Nucleated RBC % (auto) Smear Tech's Comments PT INR Anion Gap Estim Creat Clear Calc Estimated GFR POC Glucose 353 H* 336 H Random Glucose Lactic Acid Lactic Acid Fup @ 2Hr 1.3 Calcium Magnesium Total Bilirubin Direct Bilirubin AST ALT Alkaline Phosphatase Troponin I High Sens B-Natriuretic Peptide Total Protein Albumin Urine Test Acetone, Qual Coronavirus (PCR) Influenza Type A (PCR) Influenza Type B (PCR) RSV RNA Qual (PCR) 05/09/21 05/09/21 05/09/21 07:20 07:46 09:52 MCV 79.5 L MCH 25.2 L MCHC 31.7 RDW 14.4 Plt Count 317 MPV 10.8 Immature Gran % (Auto) 1.2 H Neut % (Auto) 62.5 Lymph % (Auto) 30.6 [place] % (Auto) 5.2 Eos % (Auto) 0.4 Baso % (Auto) 0.1 Lymph # (Auto) 5.8 H [place] # (Auto) 1.0 Eos # (Auto) 0.1 Baso # (Auto) 0.0 Abs Immat Gran (auto) 0.22 H Absolute Neuts (auto) 11.9 H Absolute Nucleated RBC 0.000 Nucleated RBC % (auto) 0.0 Smear Tech's Comments VERIFIED PT INR Anion Gap Estim Creat Clear Calc Estimated GFR POC Glucose 251 H Random Glucose Lactic Acid Lactic Acid Fup @ 2Hr Calcium Magnesium Total Bilirubin Direct Bilirubin AST ALT Alkaline Phosphatase Troponin I High Sens B-Natriuretic Peptide Total Protein Albumin Urine Test NEGATIVE Acetone, Qual Coronavirus (PCR) Influenza Type A (PCR) Influenza Type B (PCR) RSV RNA Qual (PCR) 05/09/21 09:52 MCV MCH MCHC RDW Plt Count MPV Immature Gran % (Auto) Neut % (Auto) Lymph % (Auto) [place] % (Auto) Eos % (Auto) Baso % (Auto) Lymph # (Auto) [place] # (Auto) Eos # (Auto) Baso # (Auto) Abs Immat Gran (auto) Absolute Neuts (auto) Absolute Nucleated RBC Nucleated RBC % (auto) Smear Tech's Comments PT INR Anion Gap 13 Estim Creat Clear Calc 106.6 Estimated GFR > 60 POC Glucose Random Glucose 243 H D Lactic Acid Lactic Acid Fup @ 2Hr Calcium 8.8 Magnesium Total Bilirubin Direct Bilirubin AST ALT Alkaline Phosphatase Troponin I High Sens B-Natriuretic Peptide Total Protein Albumin Urine Test Acetone, Qual Coronavirus (PCR) Influenza Type A (PCR) Influenza Type B (PCR) RSV RNA Qual (PCR) Microbiology Microbiology Results: Microbiology 05/09/21 Unknown Gram Stain - Final Washing - Wash, bilateral Assessment and Plan (1) Bronchopneumonia: Status: Acute (2) Leukocytosis: Status: Acute (3) Hyperglycemia due to diabetes mellitus: Status: Acute (4) Acute exacerbation of chronic obstructive airways disease: Status: Acute Assessment and Plan: 50-year-old female with past medical history of COPD/asthma presents the hospital with shortness of breath after being discharged on 05/05 # acute hypoxic respiratory failure due to asthma/COPD exacerbation - recently discharged from hospital on 05/05, was sent home on prednisone and doxy which pt reports compliance with, COVID-19 negative - underwent bronchoscopy this morning that showed extensive mucus plugging with evidence of bronchopneumonia likely developed postviral bacterial infection. Will place on IV Zosyn, continue IV Solu-Medrol 40 b.i.d and DuoNeb p.r.n. and scheduled Gradually wean oxygen, patient was recently placed on 3 L of oxygen, DC IV fluid # bronchopneumonia patient started on IV antibiotics follow cultures # lactic acidosis - most likely secondary to Albuterol updraft/ hypoxia, and due to metformin, resolved with IV fluids, no evidence of sepsis # leukocytosis - most likely secondary to steroids and pneumonia will follow blood cultures and bronchoscopy culture, follow CBC # urinary frequency - most likely secondary to her diabetes will check UA with reflex culture # hyperglycemia due to dm noted to have elevated blood sugars, will place on insulin sliding scale and diabetic diet DVT Ppx: lovenox Quality Stroke Does the patient have a stroke diagnosis?: No VTE Prior VTE?: No VTE Risk Level:: Medical - moderate - high VTE Device Contraindication: Treatment Not Indicated VTE Drug Contraindication: N/A - Med Ordered
[2021-05-09] MEDS: Piperacillin Sodium/Tazobactam 3.375 GM in 0.9 % Sodium Chloride 50 ML IV ×2 (16:18→21:23)
[2021-05-09] MEDS: 0.9 % Sodium Chloride Flush 3 ML SYRINGE IVFLUSH ×2 (16:18→23:19)
[2021-05-09 16:41] LABS: Glucose, Whole Blood 438 mg/dL (60-115)
[2021-05-09] MEDS: Insulin Lispro 100 UNIT/ML 3 ML VIAL SUBCUT ×2 (16:46→21:23)
[2021-05-09] MEDS: levoFLOXacin/D5W 500 MG/100 ML PIGGYBACK 100 MG IV (17:59)
[2021-05-09 20:36] LABS: Glucose, Whole Blood 471 mg/dL (60-115)
[2021-05-09] MEDS: Insulin Lispro 100 UNIT/ML 3 ML VIAL 10 UNIT SUBCUT (21:22)
[2021-05-09] MEDS: Montelukast Sodium 10 MG TABLET PO (21:22)
[2021-05-09 22:03] LABS: Glucose Urine UA >=1000 MG/DL (NEG); Leukocyte Esterase Urine NEG (NEG); Nitrite Urine NEG (NEG); Urine Blood NEG (NEG); Urine Ketones NEG (NEG); Urine Protein NEG (NEG-TRACE)
[2021-05-09 22:15] LABS: Appearance Urine CLEAR; Color Urine DARK YELLOW
[2021-05-09 22:27] LABS: RBC Urine 0 /HPF (0); Squamous Epithelial Cell Urine TRACE /LPF; WBC Urine 0-2 /HPF (0-4)
[2021-05-09 22:28] LABS: Uric Acid Crystals Urine TRACE /LPF
--- NOTE | 2021-05-10 00:13 | PC.NURSE ---
Pt c/o copious amounts of cottage cheese vaginal discharge and pruritus. UA collected and showed trace yeast. Dr. Elam notified, Diflucan 150mg PO ordered x1.
[2021-05-10] MEDS: Fluconazole 150 MG TABLET PO ×2 (01:08→11:44)
[2021-05-10 03:40] VITALS: BP 119/67; PULSE 81; RESP 18; TEMP 36.4; O2SAT 96
[2021-05-10] MEDS: Piperacillin Sodium/Tazobactam 3.375 GM in 0.9 % Sodium Chloride 50 ML IV (05:04)
[2021-05-10 06:25] LABS: MANUAL DIFF FLAG NO
--- NOTE | 2021-05-10 06:30 | PM.EVENT ---
Event Note Date of Service: 05/10/21 Event Note: Patient complaining of vaginal itchiness, discharge, UA positive for you -given 1 dose of Diflucan for vaginal candidiasis
[2021-05-10 06:45] LABS: Basophils Percent Auto 0.1 % (0-2); Hematocrit 40.2 % (37-47); Hemoglobin 12.9 g/dl (12.0-16.0); Imm Gran Abs Auto 0.22 X10*3/uL (0.00-0.03); Imm Gran Pct Auto 1.3 % (0.0-0.4); Lymphocytes Absolute Auto 2.4 X10*3/uL (1.2-4.9); Lymphocytes Percent Auto 13.8 % (20-40); Mean Corpuscular HGB Conc 32.1 g/dl (31.0-35.0); Mean Corpuscular Hemoglobin 25.2 pg (27.0-33.0); Mean Corpuscular Volume 78.7 fL (80-98); Mean Platelet Volume 11.1 fL (9.4-12.3); Monocytes Absolute Auto 0.5 X10*3/uL (0.1-1.2); Monocytes Percent Auto 3.1 % (2-11); Neutrophils Absolute Auto 14.4 X10*3/uL (2.0-8.3); Neutrophils Percent Auto 81.7 % (45-73); Platelet Count 296 X10*3/uL (160-400); Red Blood Count 5.11 X10*6/uL (4.20-5.50); Red Cell Distribution Width 14.4 % (11.0-16.0); White Blood Count 17.6 X10*3/uL (4.8-10.8)
[2021-05-10] MEDS: Albuterol/Iprat 2.5/0.5MG 3 ML AMPUL.NEB INHALE ×2 (07:26→11:43)
[2021-05-10 07:27] VITALS: PULSE 76
[2021-05-10 07:37] VITALS: BP 118/82; PULSE 97; RESP 18; TEMP 36.6; O2SAT 92
[2021-05-10 07:50] LABS: Glucose, Whole Blood 284 mg/dL (60-115)
[2021-05-10] MEDS: Insulin Lispro 100 UNIT/ML 3 ML VIAL SUBCUT ×2 (08:07→11:42)
[2021-05-10] MEDS: methylPREDNISolone Sod Succ 40 MG/ML VIAL IVPUSH (08:08)
[2021-05-10] MEDS: 0.9 % Sodium Chloride Flush 3 ML SYRINGE IVFLUSH (08:08)
[2021-05-10] MEDS: Enoxaparin Sodium 40 MG/0.4 ML SYRINGE SUBCUT (08:08)
--- NOTE | 2021-05-10 09:04 | MHC.CM.PN ---
PATIENT IS INDEPENDENT WITH HER ADLS. NO DME OR VNA SERVICES SHE HAS A HCP ON FILE AND VERIFIED (HER 2 ADULT CHILDREN) PATIENT IS REQUESTING DIABETIC MANAGEMENT TEACHING PRIOR TO DC. HOSPITALIST WILL BE MADE AWARE OF REFERRAL REQUEST FOR [facility]. [facility] WILL PROVIDE TRANSPORT HOME. SHE IS HOPING TO BE DC EARLY TODAY.
--- NOTE | 2021-05-10 09:37 | MHC.CM.PN ---
PATIENT WILL RECEIVE A CALL FROM [facility] DURING THE FOLLOWING WEEK. PATIENT HAS BEEN INFORMED, AND WHEN THEY CALL, THE RN WILL IDENTIFY SELF 'NURSE NAVIG[facility] PATIENT AWARE TO AGREE TO THIS CALL AND START THE PROCESS OF EDUCATION/HEALTH MANAGEMENT.
[2021-05-10 09:51] VITALS: O2SAT 94
--- NOTE | 2021-05-10 11:03 | P.DS_ITS ---
DS: Providers Provider Date of Service: 05/10/21 Date of admission: 05/08/21 21:33 Primary care physician: Zaire Marshall CRNA Consults: 05/08/21 22:02 Consult to Pulmonology Routine Consulting Provider: Chetna Armando Reason for consultation: sched op bronchoscopy at 7am DS: Diagnosis Discharge Diagnosis (1) Bronchopneumonia: Status: Acute (2) Leukocytosis: Status: Acute (3) Hyperglycemia due to diabetes mellitus: Status: Acute (4) Acute exacerbation of chronic obstructive airways disease: Status: Acute DS: Medications Discharge Medications Home Medications: Home Medications Medication Instructions Recorded Confirmed albuterol sulfate 90 mcg/actuation 2 puff INHALATION Q6H PRN 07/12/20 05/08/21 aerosol inhaler (ProAir HFA) empagliflozin 10 mg tablet 1 tab PO DAILY 04/27/21 05/08/21 (Jardiance) fluticasone fur. 100 mcg-umeclid 1 puff PO DAILY 04/27/21 05/08/21 62.5 mcg-vilant 25 mcg inhalat.powder (Trelegy Ellipta) furosemide 20 mg tablet 1 tab PO DAILY PRN 04/27/21 05/08/21 montelukast 10 mg tablet 1 tab PO DAILY 04/27/21 05/08/21 metformin 500 mg tablet 2 tab PO BID 05/08/21 05/08/21 Previous Rx's Medication Instructions Recorded ipratropium 0.5 mg-albuterol 3 mg 3 ml INHALATION Q4-6H PRN 14 Days 05/07/21 (2.5 mg base)/3 mL nebulization #180 ml soln levofloxacin 500 mg tablet 500 mg PO DAILY 5 Days #5 tab 05/10/21 DS: Summary Hospital Course Hospital Course: History of presenting illness Chief Complaint: Shortness of breath This is a 50-year-old female with past medical history of , diabetes, history of PE/DVT, presents to the hospital with complaints of shortness of breath.? Patient reports that after her discharge on 05/05 she remained short of breath, did not feel that her symptoms improved at all, she was in the kitchen today, had a significant bout of coughing and that caused her significant dizziness, her family was concerned and sent her to the ED.? She is planned for bronchoscopy at 7:00 a.m. this morning.? Denies any fever or chills, chest pain, no abdominal pain nausea or vomiting, no diarrhea constipation, no urinary symptoms and no lower extremity edema. On arrival to the ED patient hemodynamically stable, satting 94% on her baseline 3 L of oxygen Labs are significant for WBC count of 20, glucose of 498, lactic acid of 2.8 which resolved after fluids, otherwise unremarkable.? Chest x-ray shows continued upper lobe collapse Hospital course 50-year-old female with past medical history of COPD/asthma presents the hospit al with shortness of breath after being discharged on 05/05 with diagnosis of acute hypoxic respiratory failure due to asthma/COPD exacerbation and underwent bronchoscopy by Dr Elizalde on 05/09/21 that showed extensive mucus plugging with evidence of bronchopneumonia likely developed postviral bacterial infection, patient treated with IV steroids, scheduled and as needed updraft treatment and IV antibiotics patient responded well to above treatment, currently has no shortness of breath oxygenation is stable on room air lungs are clear to auscultation therefore being discharged home on by mouth Levaquin for 5 more days recommend to continue updraft treatment 4 times a day patient does not need to continue on home oxygen and does not need steroids , patient complained of vaginal itching therefore treated with Diflucan, urinalysis was unremarkable, on admission noted to have lactic acidosis likely due to use of albuterol, metformin and hypoxia, repeat lactic level normalized, leukocytosis is likely related to steroids, and infection,wbc trending down. She has been recommended to have outpatient follow-up with primary care physician and pulmonology and recommended to continue all home medications, and to follow low-calorie diet due to morbid obesity and diabetes Time Spent with Patient Time attestation: Total time spent providing and/or coordinating discharge services: Discharge coordination time: Greater than 30 minutes Quality: Stroke Does the patient have a stroke diagnosis?: No Physical Exam Vital Signs: Vital Signs: Last Vital Signs Temp 97.9 F 05/10/21 07:37 Pulse 97 05/10/21 07:37 Resp 18 05/10/21 07:37 BP 118/82 05/10/21 07:37 Pulse Ox 94 05/10/21 09:51 Oxygen Flow Rate 4 05/08/21 15:24 Body Mass Index 42.2 General no acute distress.? Neck? supple no JVD. CVS? regular rate rhythm, Respiratory lungs clear, no respiratory distress, no wheeze, no rhonchi. Gastrointestinal abdomen soft, nontender, bowel sounds audible,? no guarding , no rigidity. Extremities no clubbing cyanosis or edema. Neuro nonfocal , speech clear. Skin no rash DS: Data Data Completed and Pending Pending studies at discharge: Pending at discharge 05/09/21 09:39 Cytology [PTH] Routine Labs on day of discharge: Laboratory Results - last 24 hr 05/09/21 05/09/21 05/09/21 16:37 20:22 21:43 WBC RBC Hgb Hct MCV MCH MCHC RDW Plt Count MPV Immature Gran % (Auto) Neut % (Auto) Lymph % (Auto) [place] % (Auto) Eos % (Auto) Baso % (Auto) Lymph # (Auto) [place] # (Auto) Eos # (Auto) Baso # (Auto) Abs Immat Gran (auto) Absolute Neuts (auto) Absolute Nucleated RBC Nucleated RBC % (auto) POC Glucose 438 H* 471 H* Urine Color DARK YELLOW Urine Appearance CLEAR Urine pH 6.0 Ur Specific [place] 1.010 Urine Protein NEG Urine Glucose (UA) >=1000 H Urine Ketones NEG Urine Blood NEG Urine Nitrite NEG Ur Leukocyte Esterase NEG Urine RBC 0 Urine WBC 0-2 Ur Squamous Epith Cells TRACE Uric Acid Crystals TRACE Urine Bacteria NONE Urine Yeast TRACE 05/10/21 05/10/21 06:12 07:32 WBC 17.6 H RBC 5.11 Hgb 12.9 Hct 40.2 MCV 78.7 L MCH 25.2 L MCHC 32.1 RDW 14.4 Plt Count 296 MPV 11.1 Immature Gran % (Auto) 1.3 H Neut % (Auto) 81.7 H Lymph % (Auto) 13.8 L [place] % (Auto) 3.1 Eos % (Auto) 0.0 Baso % (Auto) 0.1 Lymph # (Auto) 2.4 [place] # (Auto) 0.5 Eos # (Auto) 0.0 Baso # (Auto) 0.0 Abs Immat Gran (auto) 0.22 H Absolute Neuts (auto) 14.4 H Absolute Nucleated RBC 0.000 Nucleated RBC % (auto) 0.0 POC Glucose 284 H Urine Color Urine Appearance Urine pH Ur Specific [place] Urine Protein Urine Glucose (UA) Urine Ketones Urine Blood Urine Nitrite Ur Leukocyte Esterase Urine RBC Urine WBC Ur Squamous Epith Cells Uric Acid Crystals Urine Bacteria Urine Yeast Preliminary micro results at discharge 05/09/21 Unknown Routine Culture - Preliminary Washing - Wash, bilateral Culture in progress. 05/08/21 16:38 Blood Culture - Preliminary Blood - Venous No growth after 24 hours. 05/08/21 16:13 Blood Culture - Preliminary Blood - Venous No growth after 24 hours. Discharge Plan Discharge Patient Disposition: Home, Self-Care Discharge Diagnosis: Acute respiratory failure with hypoxia COPD exacerbation Bronchopneumonia Referrals: Paramjit Marr MD [Physician] - 05/21/21 9:30 am (You have a primary care follow up appointment on May 21 at 9:30 am. Please call your doctor's office if you need to reschedule.) Discharge Medications: New levofloxacin 500 mg tablet 500 mg PO DAILY 5 Days Qty: 5 RF: 0 Continued montelukast 10 mg tablet 1 tab PO DAILY RF: 0 furosemide 20 mg tablet 1 tab PO DAILY PRN (Reason: Edema) RF: 0 Jardiance 10 mg tablet 1 tab PO DAILY RF: 0 Trelegy Ellipta 100-62.5-25 mcg blister with device 1 puff PO DAILY RF: 0 metformin 500 mg tablet 2 tab PO BID RF: 0 albuterol sulfate [ProAir HFA] 90 mcg/actuation HFA aerosol inhaler 2 puff inhalation Q6H PRN (Reason: Wheezing) RF: 0 ipratropium-albuterol 0.5 mg-3 mg(2.5 mg base)/3 mL solution for nebulization 3 ml inhalation Q4-6H PRN (Reason: wheezing/resp distress) 14 Days Qty: 180 RF: 4 Discontinued prednisone 20 mg tablet 40 mg PO DAILY Qty: 10 RF: 0 Discharge Orders: Discharge Order (Routine); Ordered 05/10/21 Ordered By: Earl Miller Diet: diabetic diet Activity on Discharge: As tolerated Stand Alone Forms: Patient Portal Discharge page Care Plan Goals: Take Levaquin 500 mg once a day for 5 days, use DuoNeb updraft treatment Health Concerns: Diabetes/COPD/obesity strongly recommend to follow diabetic and low-calorie diet Plan of Treatment: Outpatient follow-up with primary care physician and pulmonology in 1-2 weeks Assessment: As above
[2021-05-10 11:43] VITALS: PULSE 72; O2SAT 94
[2021-05-10 11:44] LABS: Glucose, Whole Blood 315 mg/dL (60-115)
[2021-05-10 12:00] VITALS: BP 99/48; PULSE 74; RESP 18; TEMP 37; O2SAT 93
--- NOTE | 2021-05-10 13:55 | HO.POSTANES ---
Post Anesthesia Evaluation Post Anesthesia Evaluation Vital Signs: Vital Signs Temp Pulse Resp BP Pulse Ox 05/10/21 12:00 98.6 F 74 18 99/48 L 93 05/10/21 11:43 72 05/10/21 09:51 94 05/10/21 07:37 97.9 F 97 18 118/82 92 05/10/21 07:27 76 05/10/21 03:40 97.5 F 81 18 119/67 96 Anesthesia: General Endotracheal-GETA Mental Status: Awake Pain Control: Satisfactory Nausea/Vomiting: None Hydration: Adequate Anesthesia-Related Issues: No Anes. Related Issues
--- NOTE | 2021-05-23 13:21 | OP_ITS ---
SURGEON: Jack Elizalde MD PREOPERATIVE DIAGNOSIS: POSTOPERATIVE DIAGNOSIS: Bronchopneumonia. PROCEDURE PERFORMED: Bronchoscopy with therapeutic suctioning, [id number], status post brushings and washings. ESTIMATED BLOOD LOSS: COMPLICATIONS: ANESTHESIA: The patient received anesthesia via endotracheal intubation. ASSISTANTS: SPECIMENS: INDICATION: Atelectasis. DESCRIPTION OF PROCEDURE: After the patient was adequately sedated, the flexible digital bronchoscope was inserted over the ET tube to the level of the main cait. Endotracheal mucosa and bronchial mucosa appeared to be inflamed, especially in the right upper lobe area. Difficult to assess the apical segment of the right upper lobe due to the location and the limited flexion of the bronchoscope. Still the area looked edematous. There was significant mucus plugging with significant purulent secretions throughout. The mucus was discolored, yellowish and grayish in color. The mucus was thick and the bronchoscope had to be removed multiple times to remove the plugs from the scope. The right upper lobe mucus was actually darker in color, appeared to be more hemosiderin like or brown. It was removed with some difficulties. Bronchial washings were provided and therapeutic cleaning of the airways was successful. Bronchial washings were sent from bilateral lungs to microbiology and cytology. Also, microscopic brush was also introduced and sent for additional testing. The bronchoscope was then removed. The total endoscopic time approximately 20 minutes. The patient tolerated the procedure well. Vital signs were stable throughout the procedure. INTERPRETATION: Successful therapeutic cleaning of the airways, [id number] and status post bronchial washings. MD CRESCENCIO Gamble/MEL / [phone]
== END 2021-05-10 12:00 | disposition home or self-care (01) | DRG 140 ==
LOC: HO.ED 17:53 → HO.EDOVER 22:14 → HO.S3 05-09 09:12
PROVIDERS: Anesthesiology; Hospitalist; Physician Assistant; Admitting Provider Internal Medicine; Emergency Provider Emergency Medicine; PCP Nurse Anesthetist, Certified Registered; Visit Provider Hospitalist
PROC: 0BJ08ZZ Inspection of Tracheobronchial Tree, Via Natural or Artificial Opening Endoscopic (ICD-10-PCS; CPT 31622; principal; 2021-05-09 08:30)
DX: J44.1 Chronic obstructive pulmonary disease with (acute) exacerbation (principal); J18.0 Bronchopneumonia, unspecified organism; E87.2 Acidosis; E11.65 Type 2 diabetes mellitus with hyperglycemia; D72.829 Elevated white blood cell count, unspecified; J98.11 Atelectasis; E66.01 Morbid (severe) obesity due to excess calories; Z68.41 Body mass index [BMI] 40.0-44.9, adult; Z79.84 Long term (current) use of oral hypoglycemic drugs; Z79.899 Other long term (current) drug therapy
CPT/HCPCS: 0241U; 36415; 71045; 80048; 80076; 81001; 81025; 82009; 82947; 83605; 83735; 83880; 84484; 85025; 85610; 87040; 87071; 87102; 87116; 87205; 88112; 88305; 93005; 94640; 94644; 99285; J0171; J0330; J1100; J1650; J1956; J2250; J2405; J2543; J2920; J3010; J3475

== ENCOUNTER 2021-05-20 10:08 | Outpatient (REF) | payer OTHER, SELFPAY ==
--- NOTE | ~2021-05-20 | XR_ITS ---
EXAMINATION: XR CHEST CLINICAL INFORMATION: Atelectasis. COMPARISON: 05/08/2021 TECHNIQUE: Two views of the chest were obtained. FINDINGS: Mild left basilar atelectasis. Mild right basilar plate-like atelectasis laterally. The mid to upper lung zones are grossly clear. The cardiac silhouette is within normal limits. The hilar structures do not appear to be pathologically enlarged. Small left-sided effusion. XR/XR chest 2V IMPRESSION: Small left-sided effusion with bilateral atelectasis, left greater than right base.
== END 2021-05-20 10:09 | disposition home or self-care (01) ==
LOC: HO.XRAY 10:08
PROVIDERS: PCP Internal Medicine; Visit Provider Internal Medicine
DX: J44.9 Chronic obstructive pulmonary disease, unspecified (principal); J98.11 Atelectasis; Z79.899 Other long term (current) drug therapy
CPT/HCPCS: 71046

== ENCOUNTER → 2021-06-20 15:46 | Outpatient (BNVA) | payer OTHER, SELFPAY | PROVIDERS: PCP Internal Medicine; Visit Provider Internal Medicine | DX: J98.11 Atelectasis (principal); J44.9 Chronic obstructive pulmonary disease, unspecified ==

== ENCOUNTER 2021-07-08 15:42 | Outpatient (REF) | payer OTHER, SELFPAY ==
--- NOTE | 2021-07-08 16:57 | PFT_ITS ---
FLOWS: FEV1 77% of predicted at 1.86 L. FVC 90% of predicted at 4.96 L. FEV1 to FVC ratio of 0.63. Positive bronchodilator response. LUNG VOLUMES: Total lung capacity 120% of predicted at 5.36 L. Residual volume 152% of predicted at 2.43 L. Slow vital capacity 102% of predicted at 2.94 L. Expiratory reserve volume 61% of predicted at 0.54 L. Diffusion capacity is normal. IMPRESSION: Mild obstructive ventilatory defect with positive bronchodilator response. Increased total lung capacity suggests hyperinflation. Increased residual volume suggests air trapping. Ayan Mojica MD AP/MODL / [id number]
== END 2021-07-08 15:43 | disposition home or self-care (01) ==
LOC: HO.RESP 15:42
PROVIDERS: PCP Internal Medicine; Visit Provider Internal Medicine
DX: J44.9 Chronic obstructive pulmonary disease, unspecified (principal); J45.909 Unspecified asthma, uncomplicated; J98.4 Other disorders of lung
CPT/HCPCS: 94060; 94727; 94729

== ENCOUNTER 2021-12-27 10:09 | Emergency (ER) | payer OTHER, SELFPAY ==
[2021-12-27 10:17] VITALS: BP 129/82; PULSE 97; RESP 20; TEMP 36.8; O2SAT 98; BMI 48.4
--- NOTE | 2021-12-27 10:48 | ED.GENADULT ---
HPI - General Adult General Chief complaint: Eye Problems Stated complaint: Eye pain Time Seen by Provider: 12/27/21 10:48 Source: patient Mode of arrival: ambulatory Limitations: no limitations History of Present Illness HPI narrative: Patient is a 51 year old female presenting to the emergency department today with a right eye growth. Patient states that the growth appeared 2 days ago and seems to be getting bigger. Patient denies any dizziness, lightheadedness, abdominal pain, nausea, vomiting, fever, chills, blurry vision, double vision, loss of vision, chest pain, difficulty breathing, shortness of breath, back pain, night sweats, pain with urination, increased urinary frequency, increased urinary urgency, blood in his urine or stool, syncope or a near syncopal episode, recent trauma or falls, bowel incontinence, bladder incontinence, bowel retention, bladder retention, or any other complaints at this time. Onset (ago): day(s) (2) Location: eyes Radiation: non-radiation Severity: mild Severity scale (1-10): 3 Quality: dull Pain Consistency: constant Relieving factors: none Exacerbating factors: none Associated symptoms: denies other symptoms Treatments prior to arrival: none Related Data Home Medications Medication Instructions Recorded Confirmed albuterol sulfate 90 mcg/actuation 2 puff INHALATION Q6H PRN 07/12/20 05/08/21 aerosol inhaler (ProAir HFA) empagliflozin 10 mg tablet 1 tab PO DAILY 04/27/21 05/08/21 (Jardiance) fluticasone fur. 100 mcg-umeclid 1 puff PO DAILY 04/27/21 05/08/21 62.5 mcg-vilant 25 mcg inhalat.powder (Trelegy Ellipta) furosemide 20 mg tablet 1 tab PO DAILY PRN 04/27/21 05/08/21 montelukast 10 mg tablet 1 tab PO DAILY 04/27/21 05/08/21 metformin 500 mg tablet 2 tab PO BID 05/08/21 05/08/21 Previous Rx's Medication Instructions Recorded ipratropium 0.5 mg-albuterol 3 mg 3 ml INHALATION Q4-6H PRN 14 Days 05/07/21 (2.5 mg base)/3 mL nebulization #180 ml soln erythromycin 5 mg/gram (0.5 %) eye 1 appl OPHTHALMIC (EYE) Q6H #3.5 g 12/27/21 ointment Allergies Allergy/AdvReac Type Severity Reaction Status Date / Time onion Allergy Intermediate Itching Uncoded 05/09/21 08:13 strawberry Allergy Intermediate Hives Uncoded 05/09/21 08:13 bee AdvReac Severe Anaphylaxis Uncoded 05/09/21 08:13 Review of Systems Constitutional: Constitutional: Reports no additional constitutional complaints, Denies chills, Denies fever(s) and Denies night sweats Eyes: Eyes: Reports no additional eye complaints, Denies blurry vision, Denies change in vision, Denies diplopia, Denies eye discharge, Denies loss of vision and Denies eye pain Comments: growth to the right eye ENT: Denies dizziness Cardiovascular: Cardiovascular: Reports no additional cardiovascular complaints, Denies chest pain, Denies lightheadedness, Denies Loss of Consciousness and Denies dyspnea Respiratory: Respiratory: Reports no additional respiratory complaints and Denies dyspnea Gastrointestinal: Gastrointestinal: Reports no additional gastrointestinal complaints, Denies abdominal pain, Denies melena, Denies hematochezia, Denies change in bowel habits and Denies change in stool character Genitourinary: Genitourinary: Denies hematuria, Denies urinary frequency, Denies dysuria, Denies urinary incontinence, Denies urinary hesitancy and Denies urinary urgency Musculoskeletal: Musculoskeletal: Reports no additional musculoskeletal complaints, Denies numbness and Denies tingling Neurologic: Denies dizziness, Denies loss of vision, Denies numbness and Denies tingling Psychiatric: Psychiatric: Reports no additional psychiatric complaints Endocrine: Endocrine: Reports no additional endocrine complaints Hematologic/Lymphatic: Hematologic/Lymphatic: Reports no additional hematologic/lymphatic complaints Allergic/Immunologic: Allergic/Immunologic: Reports no additional allergic/immunologic complaints [facility] Past Medical History Attestation statement: The following information was validated with the patient. Medical History Asthma Atelectasis Atelectasis of right lung COPD (chronic obstructive pulmonary disease) Diabetes mellitus DVT (deep venous thrombosis) Pulmonary embolism VTE (venous thromboembolism) Surgical History Hx of section Hx of section Family History Family History Father No problems noted. Mother No problems noted. Son No problems noted. Son No problems noted. Daughter No problems noted. Daughter No problems noted. Sister No problems noted. Social History Social History Household Members: Family and Children Housing: Apartment Do you presently have visiting nurse or other home services: No Alcohol intake: current Alcohol intake frequency: a few times a week Patient Tobacco Use Status: Former Tobacco user Tobacco use type: Cigarette Cigarette Packs Per Day: 0.5 Cigarettes Per Day: 4 Years Smoked: 30 e-Cigarette/Vaping Use: Never Used Second Hand Smoke Exposure: No Substance Use Type: Marijuana Advance Directives: Yes Advance Directives on File: Yes Advance Directives Date on File: 04/28/21 Patient : No service: No Current occupational status: employed Physical Exam ED Vital Signs: Vital Signs - 24 hr 12/27/21 10:17 Temperature 98.2 F Pulse Rate 97 Respiratory Rate 20 Blood Pressure 129/82 Pulse Oximetry 98 BMI result Body Mass Index 48.4 Const General: cooperative, no acute distress, alert and awake Nutritional Appearance: well nourished Orientation/consciousness: patient oriented x3 Limitations: no limitations HENMT Head: Yes normal to inspection and Yes atraumatic Ears: hearing grossly normal bilaterally and external ears normal General nose exam: Normal external nose present, no nasal discharge noted and no epistaxis Face and sinus: Yes normal facial exam, No abrasion and No laceration Mouth: Normal oral and palatal mucosa present, no drooling and no muffled voice Eyes Other: small growth to the right lower eyelid present with minimal erythema and no active drainage Conjunctivae: conjunctivae normal Pupils: Equal, round and reactive pupils present EOM: EOMs intact bilaterally Neck Neck: Yes normal visual inspection, Yes full ROM and Yes no lymphadenopathy Chest Chest palpation & inspection: normal inspection of the chest Resp Effort & Inspection: normal respiratory effort and able to speak in complete sentences Auscultation: clear to auscultation bilaterally Cardio Rate: regular rate Rhythm: regular rhythm GI Inspection: Yes normal to inspection Neuro General: patient oriented x3 and moves all extremities Cranial nerves: Yes Equal, round and reactive pupils present Cognition (Neuro): normal cognition Motor exam (neuro): 5/5 motor strength present throughout Sensory Exam: Normal double simultaneous stimulation for sensation Coordination: [id number] test normal Extrem General: Yes normal to inspection, Yes full ROM and Yes capillary refill normal Psych Appearance: grossly normal Mental Status: mental status grossly normal Affect: normal affect Attitude: cooperative Thought process: Normal thought process present Thought content: Normal thought content present Insight: Good insight present (Psych) Medical Decision Making MDM Narrative Medical decision making narrative: Patient is a 51 year old female presenting to the emergency department today with a growth on the right eye. Patient's physical exam showed a very small growth to the lower right eyelid with minimal erythema. I explained to the patient that his is likely a hordeolum and warm compresses to the affected area is the best management. Patient verbalized understanding of this and stated she came today because she wanted something more than that, something like an antibiotic. I reviewed in great detail with the patient the risks vs. benefit of using local antibiotic creams for a hordeolum. The patient verbalized understanding and insisted on an antibiotic ointment. I answered all questions asked by the patient. I stressed the importance of the patient taking her medication as prescribed. I stressed the importance of the patient following up with her primary care provider and an redeye gunner. I stressed the importance of the patient returning to the emergency department immediately if her symptoms were to worsen or if she were to develop any dizziness, shortness of breath, difficulty breathing, chest pain, blurry vision, loss of vision, nausea, vomiting, abdominal pain, fever, chills, back pain, or any other complaints. Patient verbalized agreement and understanding with this treatment plan and discharge. Differential Diagnosis Differential Diagnosis: Chalazion, hordeolum Medical Records Medical records reviewed: Yes I reviewed the patient's medical records. Discharge Plan Discharge Clinical Impression: Chalazion, Hordeolum Patient Disposition: Home, Self-Care Instructions: Raghu (ED) Additional Instructions: Follow up with your primary care provider. Return to the emergency department immediately if your symptoms worsen or if you develop any dizziness, shortness of breath, difficulty breathing, chest pain, blurry vision, loss of vision, nausea, vomiting, abdominal pain, fever, chills, back pain, or any other complaints. Prescriptions: New erythromycin 5 mg/gram (0.5 %) ointment 1 appl ophthalmic (eye) Q6H Qty: 3.5 0RF Rx Instructions: Apply to RIGHT eye No Action montelukast 10 mg tablet 1 tab PO DAILY 0RF furosemide 20 mg tablet 1 tab PO DAILY PRN (Reason: Edema) 0RF Jardiance 10 mg tablet 1 tab PO DAILY 0RF Trelegy Ellipta 100-62.5-25 mcg blister with device 1 puff PO DAILY 0RF metformin 500 mg tablet 2 tab PO BID 0RF albuterol sulfate [ProAir HFA] 90 mcg/actuation HFA aerosol inhaler 2 puff inhalation Q6H PRN (Reason: Wheezing) 0RF ipratropium-albuterol 0.5 mg-3 mg(2.5 mg base)/3 mL solution for nebulization 3 ml inhalation Q4-6H PRN (Reason: wheezing/resp distress) 14 Days Qty: 180 4RF Referrals: Paramjit Marr MD [Primary Care Provider] - 2 days Brian Carrillo [Physician] - 2 days Stand Alone Forms: Work/School Release Interventions: ED Discharge Assessment Last Done: 12/27/21 11:17 Discharge Date/Time: 12/27/21 11:19 Print Language: Maori
== END 2021-12-27 11:19 | disposition home or self-care (01) ==
PROVIDERS: Emergency Provider Emergency Medicine; PCP Internal Medicine
DX: H00.12 Chalazion right lower eyelid (principal); H00.012 Hordeolum externum right lower eyelid; H57.11 Ocular pain, right eye
CPT/HCPCS: 99283

== ENCOUNTER 2022-08-12 08:15 | Outpatient (REF) | payer OTHER, SELFPAY ==
--- NOTE | ~2022-08-12 | FL_ITS ---
EXAMINATION: FL UPPER GI SERIES CLINICAL INFORMATION: Bariatric service evaluation, E66.01. COMPARISON: CT chest 04/27/2021 TECHNIQUE: Upper GI series is performed using fluoroscopic evaluation in addition to multiple fluoroscopic spot views. The patient is imaged both upright and prone and using both thick and thin barium sulfate along with effervescent granules. Fluoroscopy time: 2.8 minutes DAP: 35.471 Gycm2 Fluoroscopic spot images: 31 FINDINGS: There is normal esophageal motility. There is no obstruction, stricture, ulceration, or hernia. No gastroesophageal reflux is demonstrated. The stomach shows no thickened folds or ulcer crater or outlet obstruction. The duodenal bulb is pliable and shows no ulcer crater or scarring. There is irritable duodenal loop with prompt peristalsis but no associated thickening of folds, ulcer crater, stricture, or tethering. Upper jejunal mucosal pattern are unremarkable. FL/FL upper GI w air IMPRESSION: -No hiatal hernia or reflux demonstrated. -Stomach and duodenal bulb unremarkable. -Nonspecific irritable duodenal loop with prominent peristalsis but otherwise unremarkable. Upper jejunal mucosal pattern are normal.
--- NOTE | ~2022-08-12 | US_ITS ---
EXAMINATION: US COMPLETE ABDOMEN WITH LIVER ELASTOGRAPHY CLINICAL INFORMATION: Obesity COMPARISON: None. TECHNIQUE: Real-time imaging of the abdominal viscera. Noninvasive ultrasound liver fibrosis assessment is performed using Armand ElastPQ point quantification shear wave elastography (2D-SWE) with a C5-2 MHz transducer. Multiple elastography samples are obtained. FINDINGS: PANCREAS: Not well visualized due to bowel gas. ABDOMINAL AORTA: The proximal, middle, and distal aortic segments are normal in caliber. INFERIOR VENA CAVA: Visualized portions are normal. LIVER: The liver is enlarged. Liver echotexture is increased. Liver contour is normal. No focal liver lesion or biliary duct dilatation. The right lobe measures 23 cm in length. The left lobe measures 16 cm in length. Portal flow is normal/hepatopedal Shear wave liver elastography median stiffness is 1.3 m/s (reference: normal median stiffness is 1.3 m/s or less). IQR/median stiffness to assess sampling precision is 0.08 (reference: good quality data set is IQR/median stiffness of 0.15 or less). GALLBLADDER: Normal. The gallbladder is physiologically distended without evidence of stones, sludge, polyps, wall thickening or pericholecystic fluid. COMMON BILE DUCT: Not well visualized. The visualized common bile duct is normal in caliber measuring 0.3 cm in diameter. RIGHT KIDNEY: Normal. No hydronephrosis. No renal calculi or focal parenchymal lesions. The kidney measures 11.5 cm in maximum dimension. LEFT KIDNEY: Left kidney is larger than the right.. No hydronephrosis. No renal calculi or focal parenchymal lesions. The kidney measures 13.7 cm in maximum dimension. SPLEEN: Normal. The spleen measures 10 cm in maximum dimension. FREE FLUID: None. US/US abdomen comp w elastography IMPRESSION: 1. Impression: Enlarged echogenic liver suggestive of fatty infiltration. Limited visualization of the pancreas and common bile duct. 2. Liver elastography: Adequate liver sampling. In the absence of other known clinical signs, rules out compensated advanced chronic liver disease. REFERENCE: Society of Radiologists in Ultrasound Liver Stiffness Thresholds (2020): LIVER STIFFNESS THRESHOLDS: *Liver Stiffness equal or less than 1.3 m/s: High probability of being normal. *Liver Stiffness less than 1.7 m/s: In the absence of other known clinical signs, rules out compensated advanced chronic liver disease. *Liver Stiffness 1.7-2.1 m/s: Suggestive of compensated advanced chronic liver disease but need further test for confirmation. *Liver Stiffness over 2.1 m/s: Rules in compensated advanced chronic liver disease. *Liver Stiffness over 2.4 m/s: Suggestive of clinically significant portal hypertension. QUALITY OF DATA SET: *IQR/Median value equal or less than 0.15 implies a quality data set. *IQR/Median value over 0.15 implies a poor quality data set. SIGNIFICANT CHANGE FROM PRIOR EXAM: Significant change if liver stiffness measurement is 10% or greater from prior exam. OTHER CONSIDERATIONS: The stage of liver fibrosis may be overestimated in the setting of acute hepatitis, liver inflammation, elevated liver function tests, hepatic vascular congestion, obstructive cholestasis, non-fasting state, and infiltrative diseases such as amyloidosis and lymphoma. In some patients with NAFLD, the liver stiffness thresholds for compensated advanced chronic liver disease may be lower. In causes other than viral hepatitis and NAFLD, liver stiffness thresholds are not well established.
[2022-08-12 08:23] LABS: MANUAL DIFF FLAG NO
[2022-08-12 08:44] LABS: Basophils Absolute Auto 0.1 X10*3/uL (0.0-0.2); Basophils Percent Auto 0.7 % (0-2); Eosinophils Absolute Auto 0.2 X10*3/uL (0.0-0.4); Eosinophils Percent Auto 2.7 % (0-4); Hematocrit 41.6 % (37.0-47.0); Hemoglobin 13.1 g/dl (12.0-16.0); Imm Gran Abs Auto 0.03 X10*3/uL (0.00-0.03); Imm Gran Pct Auto 0.3 % (0.0-0.4); Lymphocytes Absolute Auto 3.1 X10*3/uL (1.2-4.9); Lymphocytes Percent Auto 35.7 % (20-40); Mean Corpuscular HGB Conc 31.5 g/dl (31.0-35.0); Mean Corpuscular Hemoglobin 24.3 pg (27.0-33.0); Mean Corpuscular Volume 77.2 fL (80.0-98.0); Mean Platelet Volume 10.2 fL (9.4-12.3); Monocytes Absolute Auto 0.4 X10*3/uL (0.1-1.2); Monocytes Percent Auto 4.5 % (2-11); Neutrophils Absolute Auto 4.9 x10*3/uL (2.0-8.3); Neutrophils Percent Auto 56.1 % (45-73); Platelet Count 408 X10*3/uL (160-400); Red Blood Count 5.39 X10*6/uL (4.20-5.50); Red Cell Distribution Width 15.4 % (11.0-16.0); White Blood Count 8.7 X10*3/uL (4.8-10.8)
[2022-08-12 08:55] LABS: Estimated Average Glucose 223 mg/dL; Hemoglobin A1c % 9.4 %
[2022-08-12 09:27] LABS: Alanine Aminotransferase 16 U/L (0-31); Albumin Level 4.1 g/dL (3.5-5.0); Alkaline Phosphatase 114 U/L (39-117); Anion Gap 18 (12-20); Aspartate Amino Transferase 10 U/L (5-31); Bilirubin Total 0.5 mg/dL (0.0-1.0); Blood Urea Nitrogen 13 mg/dL (9-16); C Reactive Protein 3.92 mg/dL (< or = 0.50); Calcium 9.3 mg/dL (8.4-10.2); Carbon Dioxide 20 mmol/L (22-29); Chloride 106 mmol/L (96-108); Cholesterol 165 mg/dL; Estimated Glomerular Filt Rate > 60; Glucose Random 185 mg/dL (60-115); HDL Cholesterol 48 mg/dL; Iron 52 mcg/dL (30-160); LDL Cholesterol Calculated 97 mg/dl; Percent Iron Saturation 13 % (15-50); Potassium 4.6 mmol/L (3.3-5.1); Sodium 139 mmol/L (135-145); Total Iron Binding Capacity 392 mcg/dL (228-428); Total Protein 7.2 g/dL (6.5-8.0); Triglycerides 104 mg/dL; Unsaturated Iron Binding 340 ug/dL
[2022-08-12 09:53] LABS: Ferritin 37 ng/mL (10-250); TSH reflex Free T4 3.05 uIU/mL (0.32-4.0); Vitamin D 25-OH Total 29.6 ng/mL (>30)
[2022-08-12 09:57] LABS: Vitamin B12 601 pg/mL (200-900)
[2022-08-12 10:23] LABS: Insulin 13 uU/mL (2-29)
[2022-08-13 13:22] LABS: Calcium (PTHI) 9.4 mg/dL (8.6-10.4); PTHI 76 pg/mL (16-77)
[2022-08-15 04:56] LABS: Zinc 102 mcg/dL (60-130)
[2022-08-16 16:51] LABS: Vitamin A 64 mcg/dL (38-98)
[2022-08-17 06:42] LABS: Vitamin B1 12 nmol/L (8-30)
== END 2022-08-12 08:16 | disposition home or self-care (01) ==
LOC: HO.US 08:15
PROVIDERS: PCP Internal Medicine; Visit Provider Physician Assistant Surgical
DX: E66.01 Morbid (severe) obesity due to excess calories (principal)
CPT/HCPCS: 36415; 74246; 76705; 76981; 80053; 80061; 82306; 82607; 82728; 82746; 83036; 83525; 83540; 83970; 84425; 84443; 84590; 84630; 85025; 86140

== ENCOUNTER 2023-07-29 10:37 | Emergency (ER) | payer OTHER, SELFPAY ==
--- NOTE | ~2023-07-29 | XR_ITS ---
EXAMINATION: XR KNEE, RIGHT CLINICAL INFORMATION: Pain in the right knee as well COMPARISON: None available. TECHNIQUE: Four views of the right knee. FINDINGS: There is narrowing cough medial compartment of right knee joint and marginal spurring at the medial and lateral femoral condyles and tibial plateaus. There is no fracture or subluxation. There is mild varus deformity of right knee. There is no joint effusion seen. There is prepatellar soft tissue swelling. XR/XR knee RT 4V IMPRESSION: Tricompartmental degenerative changes more prominent medially. Prepatellar soft tissue swelling.
--- NOTE | ~2023-07-29 | US_ITS ---
EXAMINATION: US VENOUS ULTRASOUND WITH DOPPLER LOWER EXTREMITY, RIGHT CLINICAL INFORMATION: Question of Hill's cyst with history of prior DVT COMPARISON: None available. TECHNIQUE: Ultrasound of the deep veins is performed from the hip to the calf with compression sonography and color and pulse Doppler assessment. Spectral analysis with color-flow imaging is performed. FINDINGS: There is normal venous compression and respiratory variation and augmented flow. The visualized common femoral vein, superficial femoral vein, profunda femoral vein, popliteal vein, and the trifurcation region shows no evidence of deep venous thrombosis. There is a 4.2 x 0.9 x 1.0 cm Hill's cyst present. A small joint effusion is seen. If the patient's symptoms persist, followup ultrasound in 5 days 7 days might be of value to exclude proximal propagation from a non-visualized calf vein. US/US venous duplex LE RT IMPRESSION: No DVT demonstrated in the right lower extremity. A small Hill's cyst and joint effusion is present.
[2023-07-29 11:01] VITALS: BP 147/84; PULSE 94; RESP 16; TEMP 35.9; O2SAT 96; BMI 46.9
--- NOTE | 2023-07-29 11:01 | ED_ITS ---
HPI - Extremity Injury (Lower) General Chief Complaint: Extremity Problem Stated Complaint: R knee swelling/pain Time Seen by Provider: 07/29/23 11:15 Source: patient Mode of arrival: ambulatory Limitations: no limitations History of Present Illness HPI Narrative: 53 year old female with pmhx significant for obesity, DM, COPD, asthma, PNA, hx DVT no longer on anticoagulation presents to the ED today with complaint of atraumatic right knee pain and swelling upon waking 2 days ago. Pain is located to the anterior medial aspect of the right knee. Pain is worse with standing/ walking. She is able to ambulate without assistive device. Has been taking Tylenol at home without relief of symptoms. Denies injury, fall, or trauma to the knee. No known history of gout or arthritis. Denies fever, chills, dizziness, syncope, CP, SOB, right knee or ankle pain, tingling/numbness/weakness to the lower extremities. Related Data Home Medications Medication Instructions Recorded Confirmed albuterol sulfate 90 mcg/actuation 2 puff inhalation Q6H PRN Wheezing 07/12/20 06/24/22 aerosol inhaler (ProAir HFA) empagliflozin 10 mg tablet 1 tab PO DAILY 04/27/21 06/24/22 (Jardiance) fluticasone fur. 100 mcg-umeclid 1 puff PO DAILY 04/27/21 06/24/22 62.5 mcg-vilant 25 mcg inhalat.powder (Trelegy Ellipta) furosemide 20 mg tablet 1 tab PO DAILY PRN Edema 04/27/21 06/24/22 metformin 500 mg tablet 2 tab PO BID 05/08/21 06/24/22 Previous Rx's Medication Instructions Recorded ipratropium 0.5 mg-albuterol 3 mg 3 ml inhalation Q4-6H PRN 05/07/21 (2.5 mg base)/3 mL nebulization wheezing/resp distress 14 days soln #180 mL naproxen 500 mg tablet 500 mg PO BID PRN pain (scale 07/29/23 score 4-6) #10 tabs prednisone 20 mg tablet 20 mg PO DAILY 5 days #5 tabs 07/29/23 Allergies Allergy/AdvReac Type Severity Reaction Status Date / Time onion Allergy Intermediate Itching Uncoded 05/09/21 08:13 strawberry Allergy Intermediate Hives Uncoded 05/09/21 08:13 bee AdvReac Severe Anaphylaxis Uncoded 05/09/21 08:13 Review of Systems Review of Systems: Constitutional: No fever, chills, fatigue, night sweats, weight changes ENT/Mouth: No ear pain, hearing loss, nasal congestion, sinus pain, rhinorrhea, sore throat Eyes: No eye pain, swelling, redness, vision changes, discharge Cardio: No chest pain, palpitations, LAI, orthopnea, peripheral edema Pulm: No SOB, cough, sputum, wheezing, dyspnea, hemoptysis GI: No nausea, vomiting, hematemesis, abdominal pain, diarrhea, constipation, hematochezia, melena : No irregular bleeding, dysuria, frequency, urgency, hesitancy, hematuria, flank pain MSK: No back pain, neck pain, +joint pain, No myalgias Skin: No lesions, rashes Neuro: No weakness, numbness, paresthesias, LOC, dizziness, headache All other systems reviewed and are negative. [facility] Past Medical History Attestation statement: The following information was validated with the patient. Source: old records reviewed and nursing notes reviewed Medical History Atelectasis of right lung Diabetes mellitus Atelectasis Asthma COPD (chronic obstructive pulmonary disease) VTE (venous thromboembolism) Pulmonary embolism DVT (deep venous thrombosis) Surgical History Hx of section Hx of section Family History Family History Father No problems noted. Mother No problems noted. Son No problems noted. Son No problems noted. Daughter No problems noted. Daughter No problems noted. Sister No problems noted. Social History Social History Household Members: Family and Children Housing: Apartment Do you presently have visiting nurse or other home services: No Alcohol intake: current Alcohol intake frequency: does not drink Patient Tobacco Use Status: Former Tobacco user Tobacco use type: Cigarette Cigarette Packs Per Day: 0.5 Cigarettes Per Day: 4 Years Smoked: 30 Smoked in Last 30 Days: No e-Cigarette/Vaping Use: Never Used Second Hand Smoke Exposure: No Use of substances other than those prescribed or required for medical reasons: No Substance Use Type: Marijuana Advance Directives: Yes Advance Directives on File: Yes Advance Directives Date on File: 04/28/21 service: No Current occupational status: employed Physical Exam Vital Signs: Vital Signs: Last Vital Signs Temp 96.6 F L 07/29/23 11:01 Pulse 94 07/29/23 11:01 Resp 16 07/29/23 11:01 BP 147/84 H 07/29/23 11:01 Pulse Ox 96 07/29/23 11:01 O2 Del Method Room Air 07/29/23 11:01 BMI result Body Mass Index 46.9 Vital signs stable. Const: General: cooperative, comfortable, no acute distress, alert and awake Nutritional Appearance: obese Orientation/consciousness: patient oriented x3 Limitations: no limitations HEENT: Head: Yes normal to inspection Ears: hearing grossly normal bilaterally General nose exam: Normal external nose present Eyes: General: appearance normal, both eyes and all related structures Conjunctivae: conjunctivae normal Sclerae: sclerae normal Pupils: Equal, round and reactive pupils present EOM: EOMs intact bilaterally Resp: Effort & Inspection: normal respiratory effort Auscultation: clear to auscultation bilaterally Cardio: Rate: regular rate Rhythm: regular rhythm Peripheral pulses: radial pulses present Back/Spine/Pelvis: Other: + No midline spinous tenderness. No para spinal muscle tenderness. No step off deformity. Skin: General skin exam: no rashes or lesions noted Neuro: General: patient oriented x3, gait normal and moves all extremities Cranial nerves: Yes CN's II-XII intact bilaterally and Yes Equal, round and reactive pupils present Extrem: Other: +Right knee with minimal amount of edema . No overlying erythema, skin changes, or deformity. No warmth. There is tenderness to palpation over the anterior/medical aspect of the right knee without palpable deformity. Negative anterior or posterior drawer test. Negative Lenora. Negative valgus/varus test. No high-riding patella. Negative Homans sign bilaterally. Ambulating with steady gait. + 2+ DP/ PT pulses bilaterally. Capillar y refill normal throughout. Course Course Course Narrative: RME - 53 yo female with history of obesity, DM, COPD, asthma, PNA, hx DVT no longer on anticoagulation who presents to the ER for evaluation of right knee pain and swelling for the last 2 days. No known injury. +limited ROM. No improvement w/ ice and elevation Plan: X-ray, +/- LE Doppler Reevaluation(s) Reevaluation #1: 1330-- X-ray of right knee showing degenerative changes and prepatellar soft tissue swelling. There is no fracture or subluxation. Venous Doppler ultrasound of right lower extremity showing a small Hill's cyst and joint effusion without evidence of DVT. > Patient's symptoms are consistent with arthritic changes and small Hill cyst. I discussed results with patient. I will provide her with an Yonathan wrap for discomfort/ swelling. I offered to provide her with crutches however she declines at this time. She states that she can walk. She is ambulating with a steady gait. I will send her a 5 day course of prednisone, along with naproxen. Will also provide her with a referral to orthopedics. Discussed strict return precautions. All questions answered at this time. Patient agreeable with disposition in stable for discharge. Medications Administered Discontinued Medications Generic Name Dose Route Start Last Admin Trade Name Boni PRN Reason Stop Dose Admin Ketorolac Tromethamine 30 mg 07/29/23 11:39 07/29/23 11:44 Ketorolac Tromethamine 30 Mg/Ml Vial IM 07/29/23 11:40 30 mg ONCE ONE Administration Medical Decision Making Medical Decision Making MDM Narrative: 53 year old female with pmhx significant for obesity, DM, COPD, asthma, PNA, hx DVT no longer on anticoagulation presents to the ED today with complaint of atraumatic right knee pain and swelling upon waking 2 days ago. vital signs are stable. She is nontoxic appearing and in NAD. The right knee has minimal amount of edema. No overlying erythema, skin changes, or deformity. There is tenderness to palpation over the anterior/medical aspect of the right knee without palpable deformity. Negative anterior or posterior drawer test. Negative mcmurrays. Negative valgus/varus test. No high-riding patella. Negative Sam's sign bilaterally. Ambulating with steady gait. Clinical concern for osteoarthritis, msk sprain/strain, hill's cyst, DVT. Unlikely gout, septic arthritis, fracture, dislocation. X-ray right knee ordered in triage. Plan at this time is to order follow-up right lower extremity Doppler ultrasound, pain control, and re-evaluation. Differential Diagnosis Differential Diagnoses: The differential diagnosis associated with the pr esentation includes As above. Admission/Observation Not indicated. Independent Interpretation I performed an independent interpretation of an: Plain X-Ray and Ultrasound Interpretation: X-ray of the right knee without acute fracture subluxation, agree with radiologist's interpretation. Ultrasound right lower extremity with a small Hill cyst, agree with radiologist's interpretation. Radiology Impression Discussion of test interpretation with radiology: I have reviewed the radiologist's reading. Radiologist Impression: XR knee RT 4V IMPRESSION: Tricompartmental degenerative changes more prominent medially. Prepatellar soft tissue swelling. US venous duplex LE RT IMPRESSION: No DVT demonstrated in the right lower extremity. A small Hill's cyst and joint effusion is present. External Record Review External record reviewed: Inpatient record Tests considered The following testing was considered but not selected: I considered ordering labs however presentation not consistent with gout or septic joint. Prescription Management I considered prescription management with: Pain Medication Chronic Conditions Patient?s care impacted by: Diabetes and Other (VTE) Social Determinants Patient?s care significantly limited by Social Determinants of Health including: Other Social Determinant of Health Procedures Orthopedic Splinting/Casting Injury #1: Side: left Lower Extremity Injury Location: knee Lower Extremity Immobilizer: Yonathan wrap Critical Care Time Critical Care Time Critical Care Time: No Discharge Plan Discharge Clinical Impression: Hill's cyst of knee, Joint effusion of knee Patient Disposition: Home, Self-Care Instructions: Bakers Cyst (ED), Swollen Knee Joint (ED) Additional Instructions: The xray of your right knee did not show acute fracture. I did show a moderate amount of swelling in the knee and degenerative changes within the joint. The ultrasound of your right lower leg did not show acute clot. Your pain is likely musculoskeletal. Avoid bending, lifting, or twisting. Use ice several times per day for 20 minutes at a time for the next 48 hours and then change to heat. You were provided an yonathan wrap for the knee. Apply this as needed to help with swelling. Naproxen is an anti-inflammatory / pain medication. Take with food. Do not take this with Ibuprofen. A five day course of prednisone has been sent to your pharmacy. Take this as prescribed. In addition you may take Tylenol at home. You have also been provided with a referral to an orthopedist. You may call them to make an appointment. They will not call you. Follow up with your primary care provider as needed If your pain worsens, if you develop new numbness, tingling, weakness, loss of bowel or bladder function call 911 or return to the ER immediately for evaluation. Prescriptions: New prednisone 20 mg tablet 20 mg PO DAILY 5 Days Qty: 5 0RF naproxen 500 mg tablet 500 mg PO BID PRN (Reason: pain (scale score 4-6)) Qty: 10 0RF No Action furosemide 20 mg tablet 1 tab PO DAILY PRN (Reason: Edema) Jardiance 10 mg tablet 1 tab PO DAILY Trelegy Ellipta 100-62.5-25 mcg blister with device 1 puff PO DAILY metformin 500 mg tablet 2 tab PO BID albuterol sulfate [ProAir HFA] 90 mcg/actuation HFA aerosol inhaler 2 puff inhalation Q6H PRN (Reason: Wheezing) ipratropium-albuterol 0.5 mg-3 mg(2.5 mg base)/3 mL solution for nebulization 3 ml inhalation Q4-6H PRN (Reason: wheezing/resp distress) 14 Days Qty: 180 4RF Ref[place]: [facility] [place] [facility] [place] Group] Paramjit Marr MD [Primary Care Provider] - Stand Alone Forms: Work/School Release Interventions: ED Discharge Assessment Last Done: 07/29/23 13:59 Discharge Date/Time: 07/29/23 13:59
[2023-07-29] MEDS: Ketorolac Tromethamine 30 MG/ML VIAL IM (11:44)
== END 2023-07-29 13:59 | disposition home or self-care (01) ==
PROVIDERS: Emergency Provider Emergency Medicine Emergency Medical Services; PCP Internal Medicine
DX: M25.462 Effusion, left knee (principal); M71.22 Synovial cyst of popliteal space [Baker], left knee; M25.561 Pain in right knee; R60.0 Localized edema; Z87.891 Personal history of nicotine dependence; Z79.899 Other long term (current) drug therapy
CPT/HCPCS: 29505; 73564; 93971; 96372; 99284; J1885

== ENCOUNTER 2023-08-18 07:42 | Outpatient (AMB) | payer OTHER, SELFPAY ==
[2023-08-18 07:45] VITALS: BMI 46.9
--- NOTE | 2023-08-18 07:45 | A.OFFVIS_ITS ---
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 The patient states that she injured both of her knees several years ago. Since that time her symptoms have gotten worse. She states that both of her knees give out several times per day. She has tried Tylenol and anti-inflammatory medicines which gave her minimal relief. She has also done physical therapy for 12 weeks over the last 6 months which aggravated her pain. She has had cortisone injections in the past which gave her no relief. She has not had a viscosupplementation injection. She would like to hold off on surgery for as long as possible. Allergies onion Allergy (Intermediate, Uncoded 08/18/23 07:45) Itching strawberry Allergy (Intermediate, Uncoded 08/18/23 07:45) Hives bee Adverse Reaction (Severe, Uncoded 08/18/23 07:45) Anaphylaxis Medication List - Last Reconciled 08/18/23 by Daniel Arredondo MD albuterol sulfate 90 mcg/actuation (ProAir HFA) 2 puffs inhalation Q6H PRN empagliflozin (Jardiance) 1 tab PO DAILY lmoyugzhnyb-gshbetvol-nwhdseny 100-62.5-25 mcg (Trelegy Ellipta) 1 puff PO DAILY furosemide 1 tab PO DAILY PRN ipratropium-albuterol 0.5 mg-3 mg(2.5 mg base)/3 mL 3 mL inhalation Q4-6H PRN 14 days metformin 2 tabs PO BID naproxen 500 mg PO BID PRN prednisone 20 mg PO DAILY 5 days PFSH Medical History Atelectasis of right lung Diabetes mellitus Atelectasis Asthma COPD (chronic obstructive pulmonary disease) VTE (venous thromboembolism) Pulmonary embolism DVT (deep venous thrombosis) Surgical History Hx of section Hx of section Family History Father No problems noted. Mother No problems noted. Son No problems noted. Son No problems noted. Daughter No problems noted. Daughter No problems noted. Sister No problems noted. 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 Physical Exam Vital Signs: BMI result Body Mass Index 46.9 Const Other: Well-nourished well-developed very friendly female awake alert and oriented x3 in no acute distress Extrem Other: Bilateral lower extremity examination shows good capillary refill, no skin lesions noted, normal sensation light touch Bilateral knee examination shows minimal effusions, mild crepitus with range of motion, tenderness along her medial joint lines, no instability, negative Lenora's test Results Reviewed Results Reviewed: X-rays of the patient's bilateral knee show moderate diffuse joint space narrowing most significant in the medial compartments, no acute bony abnormalities Assessment & Plan Assessment & Plan (1) Arthritis of left knee: Code(s): M17.12 - Unilateral primary osteoarthritis, left knee Plan: Ms. Pino presents with bilateral knee pains and mechanical symptoms due to degenerative joint disease. I had a lengthy discussion with the patient regarding the treatment options. She wishes to hold off on surgery for as long as possible. I agree with this plan. I did have the patient fitted for bilateral knee braces to help with her symptoms of instability. I do feel that the knee braces are a medical necessity to help prevent falls. I will also see whether not the patient's insurance company will cover a viscosupplementation injection for both of her knees. I will see her back once the injections are available. If she fails continued non operative treatments we will further discuss the risks and benefits of surgical intervention. Feel free to call me at any time should questions regarding her orthopedic management arise. Thank you very much for asking me to see this very friendly patient. I spent 22 minutes in reviewing the patient's records and imaging studies, seeing the patient and documenting in the medical record. (2) Arthritis of right knee: Code(s): M17.11 - Unilateral primary osteoarthritis, right knee Coding Level of Care Code New Pt Level 2 (26916) Diagnoses Arthritis of left knee M17.12 Arthritis of right knee M17.11
== END 2023-08-18 08:20 | disposition home or self-care (01) ==
PROVIDERS: PCP Internal Medicine; Visit Provider Orthopaedic Surgery
DX: M17.0 Bilateral primary osteoarthritis of knee (principal)
CPT/HCPCS: 99202

== ENCOUNTER → 2023-08-18 07:42 | Outpatient (BNVA) | payer OTHER, SELFPAY | PROVIDERS: PCP Internal Medicine; Visit Provider Orthopaedic Surgery ==

== ENCOUNTER 2023-09-17 07:53 | Outpatient (AMB) | payer OTHER, SELFPAY ==
--- NOTE | 2023-09-17 07:57 | A.OFFVIS_ITS ---
Intake Vital Signs 09/17/23 07:58 Height 5 ft 1 in Intake Visit Reasons: Inj- B/L Knee Euflexxa Injection #1 Intake Note: Sonam is a 53 year old female who presnets today for Bilateral Knee Euflexxa #1 The patient presents with complaints of bilateral knee pains. She describes her pains as sharp in nature. She has had cortisone injections in the past which gave her minimal relief. She has also tried physical therapy exercises which aggravated her pain. She has tried Tylenol and anti-inflammatory medicines which gave her relief. Allergies onion Allergy (Intermediate, Uncoded 08/18/23 07:45) Itching strawberry Allergy (Intermediate, Uncoded 08/18/23 07:45) Hives bee Adverse Reaction (Severe, Uncoded 08/18/23 07:45) Anaphylaxis Medication List - Last Reconciled 09/17/23 by Daniel Arredondo MD albuterol sulfate 90 mcg/actuation (ProAir HFA) 2 puffs inhalation Q6H PRN empagliflozin (Jardiance) 1 tab PO DAILY bhsquqjyzaj-nqgmbtnbi-cllgdfnv 100-62.5-25 mcg (Trelegy Ellipta) 1 puff PO DAILY furosemide 1 tab PO DAILY PRN ipratropium-albuterol 0.5 mg-3 mg(2.5 mg base)/3 mL 3 mL inhalation Q4-6H PRN 14 days metformin 2 tabs PO BID naproxen 500 mg PO BID PRN prednisone 20 mg PO DAILY 5 days PFSH Medical History Atelectasis of right lung Diabetes mellitus Atelectasis Asthma COPD (chronic obstructive pulmonary disease) VTE (venous thromboembolism) Pulmonary embolism DVT (deep venous thrombosis) Surgical History Hx of section Hx of section Family History Father No problems noted. Mother No problems noted. Son No problems noted. Son No problems noted. Daughter No problems noted. Daughter No problems noted. Sister No problems noted. 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 Physical Exam Const Other: Well-nourished well-developed very friendly female awake alert and oriented x3 in no acute distress Extrem Other: Bilateral lower extremity examination shows good capillary refill, no skin lesions noted, normal sensation light touch Bilateral knee examination shows minimal effusions, palpable crepitus with range of motion, pain with range of motion, no instability Office Procedures Joint Injection/Drain Joint Injection/Drain Primary Site: left knee Prep: site was prepped using aseptic technique Injected: 20 mg of (Euflexxa) and 1% plain lidocaine Procedure: The patient tolerated the procedure well Coding 89956 - Large joint Procedure code (CPT) selection complete Joint Injection/Drain Joint Injection/Drain Primary Site: right knee Prep: site was prepped using aseptic technique Injected: 20 mg of (Euflexxa) and 1% plain lidocaine Procedure: The patient tolerated the procedure well Coding 30456 - Large joint Procedure code (CPT) selection complete Results Reviewed Results Reviewed: X-rays of the patient's bilateral knee show joint space narrowing, subchondral sclerosis, no acute bony abnormalities Assessment & Plan Assessment & Plan (1) Arthritis of left knee: Code(s): M17.12 - Unilateral primary osteoarthritis, left knee (2) Arthritis of right knee: Code(s): M17.11 - Unilateral primary osteoarthritis, right knee Plan Ms. Pino presents with bilateral knee pains due to degenerative joint disease. I had a lengthy discussion with the patient regarding the treatment options. She wishes to hold off on surgery for as long as possible. I agree with this plan. She has not gotten good relief from cortisone injections in the past. Thus, the risks and benefits of bilateral knee Euflexxa viscosupplementation injections were discussed with the patient. The patient wished to proceed. She tolerated the 1st set of injections well. She will continue with her activity modifications. She will follow up next week as scheduled. Feel free to call me at any time should questions regarding her orthopedic management arise. I spent 22 minutes in reviewing the patient's records and imaging studies, seeing the patient and documenting in the medical record. Orders: Orders AMB Joint Injection/Aspiration Today M17.12 - Unilateral primary osteoarthritis, left knee AMB Joint Injection/Aspiration Today M17.11 - Unilateral primary osteoarthritis, right knee Coding Level of Care Code Est Pt Level 2 (37356) Diagnoses Arthritis of left knee M17.12 Arthritis of right knee M17.11 CPT Codes Coding - 35167 Large joint: 51451 - Large joint ([id number]) Coding - 01619 Large joint: 45517 - Large joint ([id number])
== END 2023-09-17 08:16 | disposition home or self-care (01) ==
PROVIDERS: PCP Internal Medicine; Visit Provider Orthopaedic Surgery
DX: M17.0 Bilateral primary osteoarthritis of knee (principal)
CPT/HCPCS: 20610

== ENCOUNTER → 2023-09-17 07:53 | Outpatient (BNVA) | payer OTHER, SELFPAY | PROVIDERS: PCP Internal Medicine; Visit Provider Orthopaedic Surgery | DX: M17.0 Bilateral primary osteoarthritis of knee (principal) | CPT/HCPCS: 20610; J7323 ==

== ENCOUNTER 2023-09-24 07:52 | Outpatient (AMB) | payer OTHER, SELFPAY ==
--- NOTE | 2023-09-24 08:01 | A.OFFVIS_ITS ---
Intake Intake Visit Reasons: Inj- B/L Knee Euflexxa injection #2 Intake Note: Sonam is a 53 year old female who presents today for her bilateral euflexxa gel injection #2. She reports mild discomfort in both of her knees. She denies any fevers or chills. Allergies onion Allergy (Intermediate, Uncoded 08/18/23 07:45) Itching strawberry Allergy (Intermediate, Uncoded 08/18/23 07:45) Hives bee Adverse Reaction (Severe, Uncoded 08/18/23 07:45) Anaphylaxis Medication List - Last Reconciled 09/24/23 by Daniel Arredondo MD albuterol sulfate 90 mcg/actuation (ProAir HFA) 2 puffs inhalation Q6H PRN empagliflozin (Jardiance) 1 tab PO DAILY twcmkvfypwb-rftfebteb-hsebqpfq 100-62.5-25 mcg (Trelegy Ellipta) 1 puff PO DAILY furosemide 1 tab PO DAILY PRN ipratropium-albuterol 0.5 mg-3 mg(2.5 mg base)/3 mL 3 mL inhalation Q4-6H PRN 14 days metformin 2 tabs PO BID naproxen 500 mg PO BID PRN prednisone 20 mg PO DAILY 5 days PFSH Medical History Atelectasis of right lung Diabetes mellitus Atelectasis Asthma COPD (chronic obstructive pulmonary disease) VTE (venous thromboembolism) Pulmonary embolism DVT (deep venous thrombosis) Surgical History Hx of section Hx of section Family History Father No problems noted. Mother No problems noted. Son No problems noted. Son No problems noted. Daughter No problems noted. Daughter No problems noted. Sister No problems noted. 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 Physical Exam Extrem Other: Bilateral knee examination shows minimal effusions, mild crepitus with range of motion, pain with range of motion, no instability Office Procedures Joint Injection/Drain Joint Injection/Drain Primary Site: left knee Prep: site was prepped using aseptic technique Injected: 20 mg of (Euflexxa) and 1% plain lidocaine Procedure: The patient tolerated the procedure well Coding 74938 - Large joint Procedure code (CPT) selection complete Joint Injection/Drain Joint Injection/Drain Primary Site: right knee Injected: 20 mg of (Euflexxa) and 1% plain lidocaine Procedure: The patient tolerated the procedure well Coding 60125 - Large joint Procedure code (CPT) selection complete Results Reviewed Results Reviewed: X-rays of the patient's bilateral knees show joint space narrowing, subchondral sclerosis, no acute bony abnormalities Assessment & Plan Assessment & Plan (1) Arthritis of left knee: Code(s): M17.12 - Unilateral primary osteoarthritis, left knee (2) Arthritis of right knee: Code(s): M17.11 - Unilateral primary osteoarthritis, right knee Plan Ms. Pino presents for follow-up of her bilateral knee pains due to degenerative joint disease. The risks and benefits of a 2nd set of Euflexxa injections were discussed at length with the patient. The patient wished to proceed. She tolerated the injections well. She will continue with her activity modifications. She will follow up next week as scheduled. Feel free to call me at any time should questions regarding her orthopedic management arise. Orders: Orders AMB Joint Injection/Aspiration Today M17.12 - Unilateral primary osteoarthritis, left knee AMB Joint Injection/Aspiration Today M17.11 - Unilateral primary osteoarthritis, right knee Coding Level of Care Code Procedure Only Diagnoses Arthritis of left knee M17.12 Arthritis of right knee M17.11 CPT Codes Coding - 26559 Large joint: 83386 - Large joint ([id number]) Coding - 73792 Large joint: 68353 - Large joint ([id number])
== END 2023-09-24 08:12 | disposition home or self-care (01) ==
PROVIDERS: PCP Internal Medicine; Visit Provider Orthopaedic Surgery
DX: M17.0 Bilateral primary osteoarthritis of knee (principal)
CPT/HCPCS: 20610

== ENCOUNTER → 2023-09-24 07:52 | Outpatient (BNVA) | payer OTHER, SELFPAY | PROVIDERS: PCP Internal Medicine; Visit Provider Orthopaedic Surgery | DX: M17.0 Bilateral primary osteoarthritis of knee (principal) | CPT/HCPCS: 20610; J7323 ==

== ENCOUNTER 2023-10-01 07:46 | Outpatient (AMB) | payer OTHER, SELFPAY ==
--- NOTE | 2023-10-01 08:15 | A.OFFVIS_ITS ---
Intake Intake Visit Reasons: Inj- B/L Knee Euflexxa #3 Intake Note: The patient presents for follow-up of her bilateral knee pains. She states that she has gotten mild relief from the Euflexxa injections that she has gotten at her last 2 visits. She denies any fevers or chills. She continues with her home exercise program. Allergies onion Allergy (Intermediate, Uncoded 10/01/23 08:15) Itching strawberry Allergy (Intermediate, Uncoded 10/01/23 08:15) Hives bee Adverse Reaction (Severe, Uncoded 10/01/23 08:15) Anaphylaxis Medication List - Last Reconciled 10/01/23 by Daniel Arredondo MD albuterol sulfate 90 mcg/actuation (ProAir HFA) 2 puffs inhalation Q6H PRN dulaglutide (Trulicity) mg subcut ffpjtfivref-szyskjjpm-zkknegnr 100-62.5-25 mcg (Trelegy Ellipta) 1 puff PO DAILY furosemide 1 tab PO DAILY PRN ipratropium-albuterol 0.5 mg-3 mg(2.5 mg base)/3 mL 3 mL inhalation Q4-6H PRN 14 days metformin 2 tabs PO BID prednisone 20 mg PO DAILY 5 days PFSH Medical History Atelectasis of right lung Diabetes mellitus Atelectasis Asthma COPD (chronic obstructive pulmonary disease) VTE (venous thromboembolism) Pulmonary embolism DVT (deep venous thrombosis) Surgical History Hx of section Hx of section Family History Father No problems noted. Mother No problems noted. Son No problems noted. Son No problems noted. Daughter No problems noted. Daughter No problems noted. Sister No problems noted. 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 Physical Exam Extrem Other: Bilateral knee examination shows minimal effusions, palpable crepitus with range of motion, no instability Office Procedures Joint Injection/Drain Joint Injection/Drain Primary Site: left knee Prep: site was prepped using aseptic technique Injected: 20 mg of (Euflexxa) and 1% plain lidocaine Procedure: The patient tolerated the procedure well Coding - Large joint Procedure code (CPT) selection complete Joint Injection/Drain Joint Injection/Drain Primary Site: right knee Prep: site was prepped using aseptic technique Injected: 20 mg of (Euflexxa) and 1% plain lidocaine Procedure: The patient tolerated the procedure well Coding - Large joint Procedure code (CPT) selection complete Assessment & Plan Assessment & Plan (1) Arthritis of left knee: Code(s): M17.12 - Unilateral primary osteoarthritis, left knee (2) Arthritis of right knee: Code(s): M17.11 - Unilateral primary osteoarthritis, right knee Plan Ms. Pino presents with bilateral knee pains due to degenerative joint disease. The risks and benefits of a 3rd set of Euflexxa injections were discussed at length with the patient. The patient wished to proceed. She tolerated the bilateral knee viscosupplementation injections well. She will continue with her home exercise program. She will follow up with me on an as- needed basis should her symptoms not plateau at an unacceptable level over the next few months. Feel free to call me at any time should questions regarding her orthopedic management arise. Orders: Orders AMB Joint Injection/Aspiration Today M17.12 - Unilateral primary osteoarthritis, left knee AMB Joint Injection/Aspiration Today M17.11 - Unilateral primary osteoarthritis, right knee Coding Level of Care Code Procedure Only Diagnoses Arthritis of left knee M17.12 Arthritis of right knee M17.11 CPT Codes Coding - 58925 Large joint: 38066 - Large joint ([id number]) Coding - 75796 Large joint: 93175 - Large joint ([id number])
== END 2023-10-01 08:44 | disposition home or self-care (01) ==
PROVIDERS: PCP Internal Medicine; Visit Provider Orthopaedic Surgery
DX: M17.0 Bilateral primary osteoarthritis of knee (principal)
CPT/HCPCS: 20610

== ENCOUNTER → 2023-10-01 07:46 | Outpatient (BNVA) | payer OTHER, SELFPAY | PROVIDERS: PCP Internal Medicine; Visit Provider Orthopaedic Surgery | DX: M17.0 Bilateral primary osteoarthritis of knee (principal) | CPT/HCPCS: 20610; J7323 ==

== ENCOUNTER 2024-01-06 07:42 | Outpatient (AMB) | payer OTHER, SELFPAY ==
--- NOTE | 2024-01-06 07:44 | A.OFFVIS_ITS ---
Intake Intake Visit Reasons: OV- F/U B/L Knee Euflexxa last injection 10/01/23 Intake Note: Sonam is a 53 year old Female who presents for a follow up after her bilateral knee Euflexxa gel injections her last injection on 10/01/2023. The patient states that she got fairly good relief from the injections initially. Her pains have returned. She has taken Tylenol and anti-inflammatory medicines which gave her minimal relief. She has had cortisone injections in the past which gave her no relief. She has done physical therapy exercises which aggravated her pain. She wishes to hold off on total knee replacement surgery for as long as possible. Allergies onion Allergy (Intermediate, Uncoded 01/06/24 07:46) Itching strawberry Allergy (Intermediate, Uncoded 01/06/24 07:46) Hives bee Adverse Reaction (Severe, Uncoded 01/06/24 07:46) Anaphylaxis Medication List - Last Reconciled 01/06/24 by Daniel Arredondo MD albuterol sulfate 90 mcg/actuation (ProAir HFA) 2 puffs inhalation Q6H PRN dulaglutide (Trulicity) mg subcut hecsghpleux-pmcjrajzr-gnselwfz 100-62.5-25 mcg (Trelegy Ellipta) 1 puff PO DAILY furosemide 1 tab PO DAILY PRN ipratropium-albuterol 0.5 mg-3 mg(2.5 mg base)/3 mL 3 mL inhalation Q4-6H PRN 14 days metformin 2 tabs PO BID prednisone 20 mg PO DAILY 5 days PFSH Medical History (Reviewed 01/06/24 @ 07:46 by Cynthia Garcia [facility] [address]) Atelectasis of right lung Diabetes mellitus Atelectasis Asthma COPD (chronic obstructive pulmonary disease) VTE (venous thromboembolism) Pulmonary embolism DVT (deep venous thrombosis) Surgical History (Reviewed 01/06/24 @ 07:46 by Cynthia Garcia [facility]) Hx of section Hx of section Family History (Reviewed 01/06/24 @ 07:46 by Cynthia Garcia [facility]) Father No problems noted. Mother No problems noted. Son No problems noted. Son No problems noted. Daughter No problems noted. Daughter No problems noted. Sister No problems noted. Social History (Reviewed 01/06/24 @ 07:46 by Cynthia Garcia [facility]) Household Members: Family and Children Housing: Apartment Do you presently have visiting nurse or other home services: No Alcohol intake: current Alcohol intake frequency: does not drink Patient Tobacco Use Status: Former Tobacco user Tobacco use type: Cigarette Cigarette Packs Per Day: 0.5 Cigarettes Per Day: 4 Years Smoked: 30 e-Cigarette/Vaping Use: Never Used Second Hand Smoke Exposure: No Substance Use Type: Marijuana Advance Directives Date on File: 04/28/21 service: No Current occupational status: employed 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 Physical Exam Const Other: Well-nourished well-developed very friendly female awake alert and oriented x3 in no acute distress Extrem Other: Bilateral lower extremity examination shows good capillary refill, no skin lesions noted, normal sensation light touch Bilateral knee examination shows minimal effusions, palpable crepitus with range of motion, pain with range of motion, no instability Results Reviewed Results Reviewed: X-rays of the patient's bilateral knee show medial joint space narrowing, subchondral sclerosis, no acute bony abnormalities Assessment & Plan Assessment & Plan (1) Arthritis of right knee: Code(s): M17.11 - Unilateral primary osteoarthritis, right knee (2) Arthritis of left knee: Code(s): M17.12 - Unilateral primary osteoarthritis, left knee Plan Ms. Pino presents with bilateral knee pains due to degenerative joint disease. I had a lengthy discussion with the patient regarding the treatment options. She wishes to hold off on surgery for as long as possible. I agree with this plan. She has not gotten good relief from cortisone injections in the past. She did get good relief from the viscosupplementation injections given to her in September of 2023. Thus, I will see whether not the patient's insurance company will cover a another series of viscosupplementation injections for both of her knees. I will see her back once the injections are available. Feel free to call me at any time should questions regarding her orthopedic management arise. I spent 22 minutes in reviewing the patient's records and imaging studies, seeing the patient and documenting in the medical record. Coding Level of Care Code Est Pt Level 2 (60182) Diagnoses Arthritis of right knee M17.11 Arthritis of left knee M17.12
== END 2024-01-06 08:03 | disposition home or self-care (01) ==
PROVIDERS: PCP Internal Medicine; Visit Provider Orthopaedic Surgery
DX: M17.0 Bilateral primary osteoarthritis of knee (principal)
CPT/HCPCS: 99213

== ENCOUNTER → 2024-01-06 07:42 | Outpatient (BNVA) | payer OTHER, SELFPAY | PROVIDERS: PCP Internal Medicine; Visit Provider Orthopaedic Surgery ==

== ENCOUNTER 2024-03-08 07:43 | Outpatient (AMB) | payer OTHER, SELFPAY ==
[2024-03-08 07:50] VITALS: BMI 46.9
--- NOTE | 2024-03-08 07:50 | MHC.OFFVIS ---
Vital Signs 03/08/24 07:50 Height 5 ft 1 in Weight 248 lb BMI 46.9 Intake Visit Reasons: Bilateral Knee Euflexxa #1 Intake Note: Sonam is a 53 year old female who presents for her #1 bilateral knee Euflexxa gel injections. The patient describes her knee pains as sharp in nature. Her pains have gotten worse over the last few years in spite of continued non operative treatments. She has had cortisone injections which gave minimal relief. She has also tried Tylenol and anti-inflammatory medicines which gave her mild relief. She would like to hold off on surgery for as long as possible. Allergies onion Allergy (Intermediate, Uncoded 03/08/24 07:51) Itching strawberry Allergy (Intermediate, Uncoded 03/08/24 07:51) Hives bee Adverse Reaction (Severe, Uncoded 03/08/24 07:51) Anaphylaxis Medication List - Last Reconciled 03/08/24 by Daniel Arredondo MD albuterol sulfate 90 mcg/actuation (ProAir HFA) 2 puffs inhalation Q6H PRN dulaglutide (Trulicity) mg subcut auldxdmegbu-hyijlrojy-xbrujxub 100-62.5-25 mcg (Trelegy Ellipta) 1 puff PO DAILY furosemide 1 tab PO DAILY PRN ipratropium-albuterol 0.5 mg-3 mg(2.5 mg base)/3 mL 3 mL inhalation Q4-6H PRN 14 days metformin 2 tabs PO BID prednisone 20 mg PO DAILY 5 days PFSH Medical History Atelectasis of right lung Diabetes mellitus Atelectasis Asthma COPD (chronic obstructive pulmonary disease) VTE (venous thromboembolism) Pulmonary embolism DVT (deep venous thrombosis) Surgical History Hx of section Hx of section Family History Father No problems noted. Mother No problems noted. Son No problems noted. Son No problems noted. Daughter No problems noted. Daughter No problems noted. Sister No problems noted. 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 Physical Exam Vital Signs: BMI result Body Mass Index 46.9 Const Other: Well-nourished well-developed very friendly female awake alert and oriented x3 in no acute distress Extrem Other: Bilateral lower extremity examination shows good capillary refill, no skin lesions noted, normal sensation light touch Bilateral knee examination shows minimal effusions, palpable crepitus with range of motion, pain with range of motion, no instability Office Procedures Joint Injection/Drain Joint Injection/Drain Primary Site: left knee Prep: site was prepped using aseptic technique Injected: 20 mg of (Euflexxa viscosupplementation) and 1% plain lidocaine Procedure: The patient tolerated the procedure well Coding 82920 - Large joint Procedure code (CPT) selection complete Joint Injection/Drain Joint Injection/Drain Primary Site: right knee Prep: site was prepped using aseptic technique Injected: 20 mg of (Euflexxa viscosupplementation) and 1% plain lidocaine Procedure: The patient tolerated the procedure well Coding 26057 - Large joint Procedure code (CPT) selection complete Results Reviewed Results Reviewed: X-rays of the patient's bilateral knee show joint space narrowing, subchondral sclerosis, no acute bony abnormalities Assessment & Plan Assessment & Plan (1) Arthritis of left knee: Code(s): M17.12 - Unilateral primary osteoarthritis, left knee Category: Medical (2) Arthritis of right knee: Code(s): M17.11 - Unilateral primary osteoarthritis, right knee Category: Medical Plan Ms. Pino presents with bilateral knee pains due to degenerative joint disease. I had a lengthy discussion with the patient regarding the treatment options. She wishes to hold off on surgery for as long as possible. I agree with this plan. She has not gotten good relief from cortisone injections in the past. Thus, the risks and benefits of bilateral knee Euflexxa viscosupplementation injections were discussed at length with the patient. The patient wished to proceed. She tolerated the bilateral knee injections well. She will continue with her home exercise program. She will follow up next week as scheduled. Feel free to call me at any time should questions regarding her orthopedic management arise. I spent 22 minutes in reviewing the patient's records and imaging studies, seeing the patient and documenting in the medical record. Orders: Orders AMB Joint Injection/Aspiration Today M17.12 - Unilateral primary osteoarthritis, left knee AMB Joint Injection/Aspiration Today M17.11 - Unilateral primary osteoarthritis, right knee Coding Level of Care Code Est Pt Level 3 (19929) Diagnoses Arthritis of left knee M17.12 Arthritis of right knee M17.11 CPT Codes Coding - 11663 Large joint: 49906 - Large joint ([id number]) Coding - 71617 Large joint: 82485 - Large joint ([id number])
== END 2024-03-08 08:04 | disposition home or self-care (01) ==
PROVIDERS: PCP Internal Medicine; Visit Provider Orthopaedic Surgery
DX: M17.0 Bilateral primary osteoarthritis of knee (principal)
CPT/HCPCS: 20610; 99213

== ENCOUNTER → 2024-03-08 07:43 | Outpatient (BNVA) | payer OTHER, SELFPAY | PROVIDERS: PCP Internal Medicine; Visit Provider Orthopaedic Surgery | DX: M17.0 Bilateral primary osteoarthritis of knee (principal) | CPT/HCPCS: 20610; J7323 ==

== ENCOUNTER 2024-03-15 07:55 | Outpatient (AMB) | payer OTHER, SELFPAY ==
[2024-03-15 08:06] VITALS: BMI 46.9
--- NOTE | 2024-03-15 08:06 | MHC.OFFVIS ---
Vital Signs 03/15/24 08:06 Height 5 ft 1 in Weight 248 lb BMI 46.9 Intake Visit Reasons: Bilateral Knee Euflexxa #2 Intake Note: Sonam is a 53 year old female who presents for her #2 Bilateral knee Euflexxa gel injections. She reports mild relief from the 1st injections. She continues with her home exercise program. Allergies onion Allergy (Intermediate, Uncoded 03/15/24 08:07) Itching strawberry Allergy (Intermediate, Uncoded 03/15/24 08:07) Hives bee Adverse Reaction (Severe, Uncoded 03/15/24 08:07) Anaphylaxis Medication List - Last Reconciled 03/15/24 by Daniel Arredondo MD albuterol sulfate 90 mcg/actuation (ProAir HFA) 2 puffs inhalation Q6H PRN dulaglutide (Trulicity) mg subcut yvfxnxbibgl-smazhhcuc-ugjsxifr 100-62.5-25 mcg (Trelegy Ellipta) 1 puff PO DAILY furosemide 1 tab PO DAILY PRN ipratropium-albuterol 0.5 mg-3 mg(2.5 mg base)/3 mL 3 mL inhalation Q4-6H PRN 14 days metformin 2 tabs PO BID prednisone 20 mg PO DAILY 5 days PFSH Medical History Atelectasis of right lung Diabetes mellitus Atelectasis Asthma COPD (chronic obstructive pulmonary disease) VTE (venous thromboembolism) Pulmonary embolism DVT (deep venous thrombosis) Surgical History Hx of section Hx of section Family History Father No problems noted. Mother No problems noted. Son No problems noted. Son No problems noted. Daughter No problems noted. Daughter No problems noted. Sister No problems noted. 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 Physical Exam Vital Signs: BMI result Body Mass Index 46.9 Extrem Other: Bilateral knee examination shows minimal effusions, palpable crepitus with range of motion, pain with range motion, no instability Office Procedures Joint Injection/Drain Joint Injection/Drain Primary Site: left knee Prep: site was prepped using aseptic technique Injected: 20 mg of (Euflexxa viscosupplementation) and 1% plain lidocaine Procedure: The patient tolerated the procedure well Coding 99068 - Large joint Procedure code (CPT) selection complete Joint Injection/Drain Joint Injection/Drain Primary Site: right knee Prep: site was prepped using aseptic technique Injected: 20 mg of (Euflexxa viscosupplementation) and 1% plain lidocaine Procedure: The patient tolerated the procedure well Coding - Large joint Procedure code (CPT) selection complete Results Reviewed Results Reviewed: X-rays of the patient's bilateral knee show joint space narrowing, subchondral sclerosis, no acute bony abnormalities Assessment & Plan Assessment & Plan (1) Arthritis of left knee: Code(s): M17.12 - Unilateral primary osteoarthritis, left knee Category: Medical (2) Arthritis of right knee: Code(s): M17.11 - Unilateral primary osteoarthritis, right knee Category: Medical Plan Ms. Pino presents with bilateral knee pains due to degenerative joint disease. The risks and benefits of a 2nd set of Euflexxa injections were discussed at length with the patient. The patient wished to proceed. She tolerated the injections well. She will continue with her home exercise program. She will follow up next week as scheduled. Feel free to call me at any time should questions regarding her orthopedic management arise. Orders: Orders AMB Joint Injection/Aspiration Today M17.12 - Unilateral primary osteoarthritis, left knee AMB Joint Injection/Aspiration Today M17.11 - Unilateral primary osteoarthritis, right knee Coding Level of Care Code Procedure Only Diagnoses Arthritis of left knee M17.12 Arthritis of right knee M17.11 CPT Codes Coding - 40572 Large joint: 83485 - Large joint ([id number]) Coding - 76493 Large joint: 09057 - Large joint ([id number])
== END 2024-03-15 08:39 | disposition home or self-care (01) ==
PROVIDERS: PCP Internal Medicine; Visit Provider Orthopaedic Surgery
DX: M17.0 Bilateral primary osteoarthritis of knee (principal)
CPT/HCPCS: 20610

== ENCOUNTER → 2024-03-15 07:55 | Outpatient (BNVA) | payer OTHER, SELFPAY | PROVIDERS: PCP Internal Medicine; Visit Provider Orthopaedic Surgery | DX: M17.0 Bilateral primary osteoarthritis of knee (principal) | CPT/HCPCS: 20610; J7323 ==

== ENCOUNTER 2024-03-22 07:37 | Outpatient (AMB) | payer OTHER, SELFPAY ==
--- NOTE | 2024-03-22 07:53 | A.OFFVIS_ITS ---
Intake Visit Reasons: Bilateral Knee Euflexxa #3 Intake Note: Sonam is a 53 year old female who presents to the office today for bilateral knee Euflexxa injections #3. The patient states that she has gotten fairly good relief from the Euflexxa injections given to her in both of her knees at her last 2 visits. She denies any fevers or chills. She continues with her home exercise program. Allergies onion Allergy (Intermediate, Uncoded 03/15/24 08:07) Itching strawberry Allergy (Intermediate, Uncoded 03/15/24 08:07) Hives bee Adverse Reaction (Severe, Uncoded 03/15/24 08:07) Anaphylaxis Medication List - Last Reconciled 03/22/24 by Daniel Arredondo MD albuterol sulfate 90 mcg/actuation (ProAir HFA) 2 puffs inhalation Q6H PRN dulaglutide (Trulicity) mg subcut mffpadczyna-tgpfguypb-iggxjdpx 100-62.5-25 mcg (Trelegy Ellipta) 1 puff PO DAILY furosemide 1 tab PO DAILY PRN ipratropium-albuterol 0.5 mg-3 mg(2.5 mg base)/3 mL 3 mL inhalation Q4-6H PRN 14 days metformin 2 tabs PO BID prednisone 20 mg PO DAILY 5 days PFSH Medical History Atelectasis of right lung Diabetes mellitus Atelectasis Asthma COPD (chronic obstructive pulmonary disease) VTE (venous thromboembolism) Pulmonary embolism DVT (deep venous thrombosis) Surgical History Hx of section Hx of section Family History Father No problems noted. Mother No problems noted. Son No problems noted. Son No problems noted. Daughter No problems noted. Daughter No problems noted. Sister No problems noted. 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 Physical Exam Extrem Other: Bilateral knee examination shows minimal effusions, palpable crepitus with range of motion, pain with range of motion, no instability Office Procedures Joint Injection/Drain Joint Injection/Drain Primary Site: right knee Prep: site was prepped using aseptic technique Injected: 20 mg of (Euflexxa viscosupplementation) and 1% plain lidocaine Procedure: The patient tolerated the procedure well Coding 69335 - Large joint Procedure code (CPT) selection complete Joint Injection/Drain Joint Injection/Drain Primary Site: left knee Prep: site was prepped using aseptic technique Injected: 20 mg of (Euflexxa viscosupplementation) and 1% plain lidocaine Procedure: The patient tolerated the procedure well Coding - Large joint Procedure code (CPT) selection complete Results Reviewed Results Reviewed: X-rays of the patient's bilateral knee show joint space narrowing, subchondral sclerosis, no acute bony abnormalities Assessment & Plan Assessment & Plan (1) Arthritis of left knee: Code(s): M17.12 - Unilateral primary osteoarthritis, left knee Category: Medical (2) Arthritis of right knee: Code(s): M17.11 - Unilateral primary osteoarthritis, right knee Category: Medical Plan Ms. Pino presents with bilateral knee pains due to degenerative joint disease. The risks and benefits of a 3rd set of Euflexxa viscosupplementation injections were discussed at length with the patient. The patient wished to proceed. She tolerated the injections well. She will continue with her home exercise program. She will follow up with me on an as-needed basis should her symptoms not plateau at an unacceptable level over the next few months. Feel free to call me at any time should questions regarding her orthopedic management arise. Orders: Orders AMB Joint Injection/Aspiration Today M17.12 - Unilateral primary osteoarthritis, left knee AMB Joint Injection/Aspiration Today M17.11 - Unilateral primary osteoarthritis, right knee Coding Level of Care Code Procedure Only Diagnoses Arthritis of left knee M17.12 Arthritis of right knee M17.11 CPT Codes Coding - 63473 Large joint: 84105 - Large joint ([id number]) Coding - 64648 Large joint: 93556 - Large joint ([id number])
== END 2024-03-22 08:02 | disposition home or self-care (01) ==
PROVIDERS: PCP Internal Medicine; Visit Provider Orthopaedic Surgery
DX: M17.0 Bilateral primary osteoarthritis of knee (principal)
CPT/HCPCS: 20610

== ENCOUNTER → 2024-03-22 07:37 | Outpatient (BNVA) | payer OTHER, SELFPAY | PROVIDERS: PCP Internal Medicine; Visit Provider Orthopaedic Surgery | DX: M17.0 Bilateral primary osteoarthritis of knee (principal) | CPT/HCPCS: 20610; J7323 ==

== ENCOUNTER 2024-06-15 07:40 | Outpatient (AMB) | payer OTHER, SELFPAY ==
[2024-06-15 07:44] VITALS: BMI 46.9
--- NOTE | 2024-06-15 07:44 | A.OFFVIS_ITS ---
Vital Signs 06/15/24 07:44 Height 5 ft 1 in Weight 248 lb BMI 46.9 Intake Visit Reasons: Right knee pain Intake Note: Ms. Pino is a 54-year-old female who presents with complaints of progressively worsening right knee pain and giving way. The patient also has intermittent discomfort in her left knee. She states that her left knee discomfort is tolerable to her. Her right knee pain has gotten worse over the last few years in spite of continued non operative treatments. She states that her right knee will give out several times per day. She has had both cortisone injections and viscosupplementation injections which gave her only mild relief. She has failed the last 6 weeks of conservative treatment. She has done physical therapy exercises which aggravated her pain. Most of the pain is along the medial aspect of her right knee. She has tried Tylenol and anti- inflammatory medicines which gave her minimal relief. Allergies onion Allergy (Intermediate, Uncoded 03/15/24 08:07) Itching strawberry Allergy (Intermediate, Uncoded 03/15/24 08:07) Hives bee Adverse Reaction (Severe, Uncoded 03/15/24 08:07) Anaphylaxis Medication List - Last Reconciled 06/15/24 by Daniel Arredondo MD albuterol sulfate 90 mcg/actuation (ProAir HFA) 2 puffs inhalation Q6H PRN dulaglutide (Trulicity) mg subcut qtkkqpjyraw-deuhzqrcj-chlcfdgd 100-62.5-25 mcg (Trelegy Ellipta) 1 puff PO DAILY furosemide 1 tab PO DAILY PRN ipratropium-albuterol 0.5 mg-3 mg(2.5 mg base)/3 mL 3 mL inhalation Q4-6H PRN 14 days metformin 2 tabs PO BID prednisone 20 mg PO DAILY 5 days PFSH Medical History Atelectasis of right lung Diabetes mellitus Atelectasis Asthma COPD (chronic obstructive pulmonary disease) VTE (venous thromboembolism) Pulmonary embolism DVT (deep venous thrombosis) Surgical History Hx of section Hx of section Family History Father No problems noted. Mother No problems noted. Son No problems noted. Son No problems noted. Daughter No problems noted. Daughter No problems noted. Sister No problems noted. 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 Physical Exam Vital Signs: BMI result Body Mass Index 46.9 Const Other: Well-nourished well-developed very friendly female awake alert and oriented x3 in no acute distress Extrem Other: Bilateral lower extremity examination shows good capillary refill, no skin lesions noted, normal sensation light touch Right knee examination shows a minimal effusion, minimal crepitus with range of motion, tenderness along her medial joint line, positive Lenora's test, no instability Results Reviewed Results Reviewed: Standing full weight-bearing x-rays of the patient's right knee show mild diffuse joint space narrowing, no acute bony abnormalities Assessment & Plan Assessment & Plan (1) Right knee pain: Code(s): M25.561 - Pain in right knee Category: Medical Plan Ms. Pino presents with progressively worsening right knee pain and mechanical symptoms most likely due to a tear of her medial meniscus. Thus, I will send the patient for an MRI of her right knee for further evaluation. I will see her back once the MRI is completed to discuss the findings and treatment options. She will continue with her activity modifications in the meantime. Feel free to call me at any time should questions regarding her orthopedic management arise. I spent 20 minutes in reviewing the patient's records and imaging studies, seeing the patient and documenting in the medical record. Orders: Orders MR knee RT wo con Today M25.561 - Pain in right knee XR knee LT 3V Today M25.562 - Pain in left knee Coding Level of Care Code Est Pt Level 3 (62147) Complex EM visit Add On G2211 Diagnoses Right knee pain M25.561
== END 2024-06-15 07:58 | disposition home or self-care (01) ==
PROVIDERS: PCP Internal Medicine; Visit Provider Orthopaedic Surgery
DX: M25.561 Pain in right knee (principal)
CPT/HCPCS: 99213

== ENCOUNTER 2024-06-15 08:48 | Outpatient (REF) | payer OTHER, SELFPAY | END 2024-06-15 08:49 | disposition home or self-care (01) | LOC: HO.HOSX 08:48 | PROVIDERS: Visit Provider Orthopaedic Surgery | DX: Z13.89 Encounter for screening for other disorder (principal) ==

== ENCOUNTER 2024-07-05 19:52 | Outpatient (REF) | payer OTHER, SELFPAY ==
--- NOTE | ~2024-07-05 | MR_ITS ---
EXAMINATION: MR KNEE WITHOUT CONTRAST, RIGHT CLINICAL INFORMATION: Pain in the right knee. COMPARISON: X-ray of the right knee July 2023. TECHNIQUE: MRI of the knee without contrast was performed using routine sequences on a high-field scanner. FINDINGS: MENISCI: Medial Meniscus: There is diffuse signal abnormality and irregularity of the posterior root, posterior horn and body of the meniscus compatible with a complex macerated tear. There is a small 3 mm meniscal cyst abutting the periphery of the meniscus at the junction of the posterior horn and body. There is some outward extrusion of the body of the meniscus related to the tear. The anterior horn is intact. Lateral Meniscus: Intact LIGAMENTS: Cruciate: There is mucoid degeneration of the anterior cruciate ligament. PCL intact. Collateral: There is outward protrusion of the medial collateral ligament secondary to the meniscal protrusion. The ligament is otherwise intact. Minimal nonspecific edema extends along the length of the ligament. Lateral ligaments intact. EXTENSOR MECHANISM: Intact. ARTICULAR CARTILAGE/BONE: Patellofemoral Compartment: There is scattered cartilage heterogeneity and areas of up to full-thickness cartilage loss with subchondral cystic change in the median ridge in the lateral facet. Mild cartilage heterogeneity in the medial trochlea. Marginal osteophytes. Overall bluk-oi-ameiefbd patellofemoral arthrosis. Medial Compartment: There are prominent marginal osteophytes. There is a broad area of high-grade cartilage loss in the central weightbearing portion of compartment with associated subchondral cystic change and edema. Findings indicative of ykjotsos-hh-yqfecd osteoarthritis. Lateral Compartment: Tiny marginal osteophytes. Cartilage grossly intact. Overall minimal arthrosis. JOINT FLUID AND BURSAE: There is a mild joint effusion and synovitis with a small Hill's cyst. MR/MR knee RT wo con IMPRESSION: 1. Complex tear of the medial meniscus. 2. Tricompartmental osteoarthritis with degenerative changes most prominent in the medial compartment being moderate to severe. 3. Joint effusion and synovitis with a small Hill's cyst. 4. Mucoid degeneration of the anterior cruciate ligament. Electronically signed by: Kemar Velez MD 07/06/2024 03:00 PM EDT
== END 2024-07-05 19:53 | disposition home or self-care (01) ==
LOC: HO.MRI 19:52
PROVIDERS: PCP Internal Medicine; Visit Provider Orthopaedic Surgery
DX: M25.561 Pain in right knee (principal)
CPT/HCPCS: 73721

== ENCOUNTER 2024-08-03 07:34 | Outpatient (AMB) | payer OTHER, SELFPAY ==
--- NOTE | 2024-08-03 07:49 | MHC.OFFVIS ---
Intake Visit Reasons: Right knee pain and giving way Intake Note: Sonam is a 54-year-old female who presents with complaints of progressively worsening right knee pain and giving way. The patient states that she injured her knee several years ago while doing squats at the gym. She twisted her knee and had acute onset of pain. The patient states that she fell to the ground and had difficulty walking for several days. Since that time her symptoms have gotten worse. She has failed the last 6 weeks of conservative treatment. She has had multiple injections. The most recent injection gave her minimal relief. She also did physical therapy which aggravated her pain. She states that her right knee will give out several times per day. She has not been able to return to the gym because of her pain and instability. She has tried Tylenol and anti-inflammatory medicines which gave her minimal relief. Allergies onion Allergy (Intermediate, Uncoded 03/15/24 08:07) Itching strawberry Allergy (Intermediate, Uncoded 03/15/24 08:07) Hives bee Adverse Reaction (Severe, Uncoded 03/15/24 08:07) Anaphylaxis Medication List - Last Reconciled 08/03/24 by Daniel Arredondo MD albuterol sulfate 90 mcg/actuation (ProAir HFA) 2 puffs inhalation Q6H PRN dulaglutide (Trulicity) mg subcut fjozygbwdvl-lqezcajbt-knkuhqiw 100-62.5-25 mcg (Trelegy Ellipta) 1 puff PO DAILY furosemide 1 tab PO DAILY PRN ipratropium-albuterol 0.5 mg-3 mg(2.5 mg base)/3 mL 3 mL inhalation Q4-6H PRN 14 days metformin 2 tabs PO BID prednisone 20 mg PO DAILY 5 days PFSH Medical History Atelectasis of right lung Diabetes mellitus Atelectasis Asthma COPD (chronic obstructive pulmonary disease) VTE (venous thromboembolism) Pulmonary embolism DVT (deep venous thrombosis) Surgical History Hx of section Hx of section Family History Father No problems noted. Mother No problems noted. Son No problems noted. Son No problems noted. Daughter No problems noted. Daughter No problems noted. Sister No problems noted. 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 Physical Exam Const Other: Well-nourished well-developed very friendly female awake alert and oriented x3 in no acute distress Extrem Other: Bilateral lower extremity examination shows good capillary refill, no skin lesions noted, normal sensation light touch Right knee examination shows a minimal effusion, minimal crepitus with range of motion, tenderness along her medial joint line, positive Lenora's test, no instability Results Reviewed Results Reviewed: Standing full weight-bearing x-rays of the patient's right knee show mild diffuse joint space narrowing, no acute bony abnormalities MRI of the patient's right knee shows mild diffuse degenerative changes as well as a tear of the medial meniscus Assessment & Plan Assessment & Plan (1) Tear of medial meniscus of right knee: Code(s): S83.241A - Other tear of medial meniscus, current injury, right knee, initial encounter Category: Medical Plan Sonam presents with progressively worsening right knee pain and mechanical symptoms due to a tear of her medial meniscus. I had a lengthy discussion with the patient regarding the treatment options. At this point she has failed continued non operative treatments. The risks and benefits of right knee arthroscopic surgery were discussed at length with the patient. The patient wishes to proceed with surgery. Surgery will most likely involve right knee arthroscopic partial medial meniscectomy. She will be scheduled for next available date. She will follow-up as instructed. Feel free to call me at any time should questions regarding her orthopedic management arise. I spent 21 minutes in reviewing the patient's records and imaging studies, seeing the patient and documenting in the medical record. Coding Level of Care Code Est Pt Level 3 (46051) Complex EM visit Add On G2211 Diagnoses Tear of medial meniscus of right knee S87.650J
== END 2024-08-03 07:56 | disposition home or self-care (01) ==
PROVIDERS: PCP Internal Medicine; Visit Provider Orthopaedic Surgery
DX: S83.241A Other tear of medial meniscus, current injury, right knee, initial encounter (principal)
CPT/HCPCS: 99213

== ENCOUNTER → 2024-08-03 07:34 | Outpatient (BNVA) | payer OTHER, SELFPAY | PROVIDERS: PCP Internal Medicine; Visit Provider Orthopaedic Surgery ==

== ENCOUNTER 2024-08-13 19:06 | Emergency (ER) | payer OTHER, SELFPAY ==
--- NOTE | ~2024-08-13 | XR_ITS ---
EXAMINATION: XR WRIST, RIGHT CLINICAL INFORMATION: Pain. COMPARISON: None available. TECHNIQUE: PA, lateral, oblique, and scaphoid views of the right wrist. FINDINGS: There is no fracture. No dislocation. There is a benign-appearing cyst with sclerotic margin measuring 8 mm in the mid portion of the scaphoid. Joint spaces are normal. XR/XR wrist RT min 3V IMPRESSION: No acute abnormality. Electronically signed by: Chris Puentes MD 08/13/2024 08:12 PM EDT
[2024-08-13 19:09] VITALS: BP 151/66; PULSE 97; RESP 18; TEMP 36.6; O2SAT 96; BMI 48.5
--- NOTE | 2024-08-13 19:13 | ED.EXTPRO ---
HPI - Extremity Problem General Chief complaint: Extremity Injury, Upper Stated complaint: right wrist pain/swollen Time Seen by Provider: 08/13/24 19:24 Source: patient Mode of arrival: ambulatory Limitations: no limitations History of Present Illness ED Provider: Dr. Angela Shelton HPI Narrative: patient comes to the emergency room complaining of right wrist pain. According to the patient, she has not had any injuries. Has been hurting for the last 13-14 hours. Patient believes he is a bit more swollen than usual, no erythema. Patient states that she has had intermittent joint pains and swelling for the last few weeks. Patient did not take any medication prior to arrival Related Data Home Medications ?Medication ?Instructions ?Recorded ?Confirmed albuterol sulfate 90 mcg/actuation 2 puff inhalation Q6H PRN Wheezing 07/12/20 08/03/24 aerosol inhaler (ProAir HFA) fluticasone fur. 100 mcg-umeclid 1 puff PO DAILY 04/27/21 08/03/24 62.5 mcg-vilant 25 mcg inhalat.powder (Trelegy Ellipta) furosemide 20 mg tablet 1 tab PO DAILY PRN Edema 04/27/21 08/03/24 metformin 500 mg tablet 2 tab PO BID 05/08/21 08/03/24 dulaglutide 0.75 mg/0.5 mL mg subcut 10/01/23 08/03/24 subcutaneous pen injector (Trulicity) Previous Rx's ?Medication ?Instructions ?Recorded ipratropium 0.5 mg-albuterol 3 mg 3 ml inhalation Q4-6H PRN 05/07/21 (2.5 mg base)/3 mL nebulization wheezing/resp distress 14 days soln #180 mL prednisone 20 mg tablet 20 mg PO DAILY 5 days #5 tabs 07/29/23 ibuprofen 600 mg tablet 600 mg PO TID PRN fever or pain 08/13/24 #20 tabs Allergies Allergy/AdvReac Type Severity Reaction Status Date / Time onion Allergy Intermediate Itching Uncoded 08/13/24 19:10 strawberry Allergy Intermediate Hives Uncoded 08/13/24 19:10 bee AdvReac Severe Anaphylaxis Uncoded 08/13/24 19:10 Review of Systems Review of Systems: Constitutional : No Weight loss, No Fever, No Chills, No Night Sweats, No Fatigue, No Malaise ENT/Mouth : No Hearing loss, No Ear Pain, No Nasal Congestion, No Sinus Pain, No Hoarseness, No sore throat, No Rhinorrhea, No Swallowing Difficulty Eyes: No Eye Pain, No Swelling, No Redness, No Foreign Body, No Discharge, No Vision Changes Cardiovascular : No Chest Pain, No SOB, No Dyspnea on Exertion, No Orthopnea, No Edema, No Palpitations Respiratory : No Cough, No Sputum, No Wheezing, No Smoke Exposure, No Dyspnea Gastrointestinal : No Nausea, No Vomiting, No Diarrhea, No Constipation, No abdominal Pain, No Hematochezia, No Melena Genitourinary : no irregular bleeding, No Dysuria, No Urinary Frequency, No Hematuria, No Urinary Incontinence, No Urgency, No Flank Pain, No Urinary Flow Changes, No Hesitancy Musculoskeletal : complaining of right wrist pain No Myalgias, No Joint Swelling Skin : No Skin Lesions, No rash Neuro : No Weakness, No Numbness, No Paresthesias, No Loss of Consciousness, No Dizziness, No Headache Psych : No Anxiety/Panic, No Depression, No SI/HI/AH/VH, No Social Issues, Heme/Lymph: No Bruising, No Bleeding,No Lymphadenopathy Endocrine : No Polyuria, No Polydipsia, No Temperature Intolerance [facility] Past Medical History Medical History Atelectasis of right lung Diabetes mellitus Atelectasis Asthma COPD (chronic obstructive pulmonary disease) VTE (venous thromboembolism) Pulmonary embolism DVT (deep venous thrombosis) Surgical History Hx of section Hx of section Family History Family History Father No problems noted. Mother No problems noted. Son No problems noted. Son No problems noted. Daughter No problems noted. Daughter No problems noted. Sister No problems noted. Social History Social History Household Members: Family and Children Housing: Apartment Do you presently have visiting nurse or other home services: No Alcohol intake: current Alcohol intake frequency: does not drink Patient Tobacco Use Status: Former Tobacco user Tobacco use type: Cigarette Cigarette Packs Per Day: 0.5 Cigarettes Per Day: 4 Years Smoked: 30 e-Cigarette/Vaping Use: Never Used Second Hand Smoke Exposure: No Substance Use Type: Marijuana Advance Directives: No Advance Directives Information Provided: No Advance Directives Date on File: 04/28/21 Do you have a plan to hurt others: No Plan service: No Current occupational status: employed 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 Oriented X3. No acute distress. Eyes: Pupils equal, round and reactive to light. ENT: Pharynx normal. Neck: Normal inspection. Neck supple. No lymph nodes noted. No crepitus CVS: Normal heart rate and rhythm. Pulses normal. Normal S1 and S2 Respiratory: No respiratory distress. Breath sounds normal. No Wheezing. No rales Abdomen: Soft and nontender. No rigidity. No distention. Skin: Skin warm and dry. Normal skin color. Normal skin turgor. Extremities: No lower extremity edema. No Lacerations. No Rash, able to flex and extend the wrists, pain doing so in the right wrist: No erythema, no suspicion for septic joint Neuro: Oriented X 3. No motor deficit. No sensory deficit. Moving all extremities. No slurred speech. CN 2 through 12 grossly intact Psych: calm, cooperative, normal affect Course Course Course Narrative: This is an RME: Additional HPI, ROS, PE not included below will be deferred to primary provider. RME assessment and note performed by: Maxine Madison PA-C This is a 54-year-old female who presents emergency department with complaints of right wrist pain since this morning. No new injury or trauma. Plan: X-ray Medications Administered Discontinued Medications Generic Name Dose Route Start Last Admin Trade Name Freq PRN Reason Stop Dose Admin Ibuprofen 600 mg 08/13/24 20:20 08/13/24 20:36 Ibuprofen 600 Mg Tablet PO 08/13/24 20:21 600 mg ONCE ONE Administration Medical Decision Making Medical Decision Making [facility] Narrative: my interpretation of x-ray: No obvious abnormality deformity subluxation or fracture - given patient's history of intermittent joint pain and inflammation, patient may have arthritis. Patient will follow-up with her PCP. Ibuprofen given p.o. in the ED Independent Interpretation I performed an independent interpretation of an: Plain X-Ray Radiology Impression Discussion of test interpretation with radiology: I have reviewed the radiologist's reading. Radiologist Impression: There is no fracture. No dislocation. There is a benign-appearing cyst with sclerotic margin measuring 8 mm in the mid portion of the scaphoid. Joint spaces are normal. XR/XR wrist RT min 3V IMPRESSION: No acute abnormality. Discharge Plan Discharge Clinical Impression: Arthralgia of right wrist Patient Disposition: Home, Self-Care Instructions: Arthralgia (ED) Additional Instructions: Please follow-up with your primary care physician tomorrow. If you have any worsening or new symptoms, please return to the emergency room or call 911 Prescriptions: New ibuprofen 600 mg tablet 600 mg PO TID PRN (Reason: fever or pain) Qty: 20 0RF No Action furosemide 20 mg tablet 1 tab PO DAILY PRN (Reason: Edema) Trelegy Ellipta 100-62.5-25 mcg blister with device 1 puff PO DAILY metformin 500 mg tablet 2 tab PO BID prednisone 20 mg tablet 20 mg PO DAILY 5 Days Qty: 5 0RF albuterol sulfate [ProAir HFA] 90 mcg/actuation HFA aerosol inhaler 2 puff inhalation Q6H PRN (Reason: Wheezing) ipratropium-albuterol 0.5 mg-3 mg(2.5 mg base)/3 mL solution for nebulization 3 ml inhalation Q4-6H PRN (Reason: wheezing/resp distress) 14 Days Qty: 180 4RF Trulicity 0.75 mg/0.5 mL pen injector subcut Print Language: Arabic
[2024-08-13 19:59] VITALS: BP 115/88; PULSE 86; RESP 16; TEMP 36.3; O2SAT 95
[2024-08-13] MEDS: Ibuprofen 600 MG TABLET PO (20:36)
[2024-08-13 22:07] VITALS: BP 115/88; PULSE 86; RESP 16; TEMP 36.3; O2SAT 95
== END 2024-08-13 22:07 | disposition home or self-care (01) ==
PROVIDERS: Emergency Provider Emergency Medicine; PCP Internal Medicine
DX: M25.531 Pain in right wrist (principal); E11.9 Type 2 diabetes mellitus without complications; J45.909 Unspecified asthma, uncomplicated; Z86.718 Personal history of other venous thrombosis and embolism; Z86.711 Personal history of pulmonary embolism; Z79.84 Long term (current) use of oral hypoglycemic drugs; Z79.899 Other long term (current) drug therapy; Z87.891 Personal history of nicotine dependence
CPT/HCPCS: 73110; 99283; 99284

== ENCOUNTER 2024-09-29 | Outpatient (REF) | payer OTHER, SELFPAY ==
--- NOTE | 2024-09-29 | ECG_ITS ---
Test Reason : preop Blood Pressure : / mmHG Vent. Rate : 081 BPM Atrial Rate : 081 BPM P-R Int : 150 ms QRS Dur : 092 ms QT Int : 376 ms P-R-T Axes : 070 077 069 degrees QTc Int : 436 ms Normal sinus rhythm Normal ECG When compared with ECG of 08-MAY-2021 15:47, No significant change was found Referred By: Beth Snowden Electronically Signed By:MIKA REDMAN
[2024-09-29 12:02] VITALS: BP 125/70; PULSE 88; RESP 16; O2SAT 96; BMI 45.9
--- NOTE | 2024-09-29 12:20 | P.CONAN_ITS ---
HPI - Anesthesia Eval Consult details Narrative: 54yo F for Right Knee Arthroscopy,with partial medial meniscetomy, 10/21/23 Not medically optimized with A1C > 12 Slight nasal congestion, no cough, no fever No CP/LAI at baseline. None with 3rd floor stairs daily Asthma/COPD: Trelegy only, no albuterol, follows PCP only, chronic nonproductive cough. Reports using trelegy prn. Instructed to use daily until DOS. PE/DVT 2012, no anticoag now DM: FBS ~ 150 +STOP Bang Anesthesia Pre-Procedure Meds Is the patient on any of the following meds?: GLP1/DPP4 PMFSH Active Problems Active Problems: All Active Problems Tear of medial meniscus of right knee (Acute) Right knee pain (Acute) Left knee pain (Acute) Arthritis of right knee (Acute) Arthritis of left knee (Acute) Bronchopneumonia (Acute) Leukocytosis (Acute) Hyperglycemia due to diabetes mellitus (Acute) Bronchitis (Acute) Acute respiratory failure with hypoxia (Acute) Lactic acidosis (Acute) Asthma with COPD with exacerbation (Acute) Asthma (Acute) COPD (chronic obstructive pulmonary disease) (Acute) Morbid obesity (Acute) Atelectasis of right lung (Acute) Diabetes mellitus (Acute) Atelectasis (Acute) Past Medical History Medical History Wears dentures Back pain IUD (intrauterine device) in place Acid reflux Atelectasis of right lung Diabetes mellitus Atelectasis Asthma COPD (chronic obstructive pulmonary disease) VTE (venous thromboembolism) (~2011) Pulmonary embolism DVT (deep venous thrombosis) (~2011) Family History Family History Father No problems noted. Mother No problems noted. Son No problems noted. Son No problems noted. Daughter No problems noted. Daughter No problems noted. Sister No problems noted. Family history of problems with anesthesia: No Surgical History Surgical History History of bronchoscopy (~2019) Hx of section Hx of section History of Problems with Anesthesia: No Social History Social History Household Members: Family and Children Household Members Other:: son 26 yrs Housing: Apartment Are you a primary health care assistant to a significant other at home: No Do you presently have visiting nurse or other home services: No Alcohol intake: current Alcohol intake frequency: does not drink Patient Tobacco Use Status: Former Tobacco user Tobacco use type: Cigarette Cigarette Packs Per Day: 0.5 Cigarettes Per Day: 4 Years Smoked: 30 Smoked in Last 30 Days: Yes e-Cigarette/Vaping Use: Never Used Second Hand Smoke Exposure: No Use of substances other than those prescribed or required for medical reasons: No Have you been hit, kicked, punched, or otherwise hurt by someone within the past year? 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 100 mcg-umeclid 1 puff PO DAILY 04/27/21 10/13/24 05/08/21 History 62.5 mcg-vilant 25 mcg inhalat.powder (Trelegy Ellipta) metformin 500 mg tablet 2 tab PO DAILY 05/08/21 10/13/24 05/08/21 History atorvastatin 10 mg tablet 10 mg PO DAILY 09/29/24 10/13/24 Unknown History glimepiride 1 mg tablet 1 mg PO DAILY 09/29/24 10/13/24 Unknown History glimepiride 4 mg tablet 4 mg PO DAILY 09/29/24 10/13/24 Unknown History spironolactone 50 mg tablet 50 mg BID 09/29/24 10/13/24 Unknown History tirzepatide 5 mg/0.5 mL 5 mg subcut QWEEK 09/29/24 10/13/24 Unknown History subcutaneous pen injector (Nazanin) Exam Height,Weight and Vital Signs: Height 5 ft 1 in Weight 110.223 kg Last Vital Signs Pulse 88 09/29/24 12:02 Resp 16 09/29/24 12:02 BP 125/70 09/29/24 12:02 Pulse Ox 96 09/29/24 12:02 O2 Del Method Room Air 09/29/24 12:02 Airway Mallampati Class: III TM Dist: >3cm Neck ROM: Full Denture: Upper and Lower Heart: RRR Lungs: Faint inspiratory wheezes throughout Assessment and Plan Assessment Anesthesia Assessment: Anesthesia Plan Discussed and PAT Visit Final Anesthetic Review Family History of Problems with Anesthesia: No History of Problems with Anesthesia: No
== END 2024-09-29 00:01 | disposition home or self-care (01) ==
LOC: HO.PAT
PROVIDERS: PCP Internal Medicine; Visit Provider Orthopaedic Surgery
DX: Z01.818 Encounter for other preprocedural examination (principal); S83.241A Other tear of medial meniscus, current injury, right knee, initial encounter
CPT/HCPCS: 93005

== ENCOUNTER → 2024-09-29 12:33 | Outpatient (BNV) | payer OTHER, SELFPAY | PROVIDERS: PCP Internal Medicine; Visit Provider Internal Medicine | DX: Z01.810 Encounter for preprocedural cardiovascular examination (principal); S83.241A Other tear of medial meniscus, current injury, right knee, initial encounter | CPT/HCPCS: 93010 ==

== ENCOUNTER 2024-10-13 07:47 | Outpatient (AMB) | payer OTHER, SELFPAY ==
[2024-10-13 07:49] VITALS: BMI 48.5
--- NOTE | 2024-10-13 07:49 | A.OFFVIS_ITS ---
Vital Signs 10/13/24 07:49 Height 4 ft 11 in Weight 240 lb BMI 48.5 Intake Visit Reasons: Right knee pain and giving way Intake Note: Sonam is a 54-year-old female who presents with complaints of progressively worsening right knee pain and giving way. The patient states that she injured her knee several years ago while doing squats at the gym. She twisted her knee and had acute onset of pain. The patient states that she fell to the ground and had difficulty walking for several days. Since that time her symptoms have gotten worse. She has failed the last 6 weeks of conservative treatment. She has had multiple injections. The most recent injection gave her minimal relief. She also did physical therapy which aggravated her pain. She states that her right knee will give out several times per day. She has not been able to return to the gym because of her pain and instability. She has tried Tylenol and anti- inflammatory medicines which gave her minimal relief. Allergies onion Allergy (Intermediate, Uncoded 10/13/24 07:50) Itching strawberry Allergy (Intermediate, Uncoded 10/13/24 07:50) Hives bee Adverse Reaction (Severe, Uncoded 10/13/24 07:50) Anaphylaxis Medication List - Last Reconciled 10/13/24 by Daniel Arredondo MD albuterol sulfate 90 mcg/actuation (ProAir HFA) 2 puffs inhalation Q6H PRN atorvastatin 10 mg PO DAILY bktvbzamcrc-vkyuotxal-qtqrlefn 100-62.5-25 mcg (Trelegy Ellipta) 1 puff PO DAILY glimepiride 1 mg PO DAILY glimepiride 4 mg PO DAILY ibuprofen 600 mg PO TID PRN metformin 2 tabs PO DAILY spironolactone 50 mg BID tirzepatide (Mounjaro) 5 mg subcut QWEEK PFSH Medical History Wears dentures Back pain IUD (intrauterine device) in place Acid reflux Atelectasis of right lung Diabetes mellitus Atelectasis Asthma COPD (chronic obstructive pulmonary disease) VTE (venous thromboembolism) (~2011) Pulmonary embolism DVT (deep venous thrombosis) (~2011) Surgical History History of bronchoscopy (~2019) Hx of section Hx of section Family History Father No problems noted. Mother No problems noted. Son No problems noted. Son No problems noted. Daughter No problems noted. Daughter No problems noted. Sister No problems noted. Social History Household Members: Family and Children Household Members Other:: son 26 yrs Housing: Apartment Are you a primary senior resident care director to a significant other at home: No Do you presently have visiting nurse or other home services: No Alcohol intake: current Alcohol intake frequency: does not drink Patient Tobacco Use Status: Former Tobacco user Tobacco use type: Cigarette Cigarette Packs Per Day: 0.5 Cigarettes Per Day: 4 Years Smoked: 30 e-Cigarette/Vaping Use: Never Used Second Hand Smoke Exposure: No Advance Directives Date on File: 04/28/21 service: No Current occupational status: employed 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 Physical Exam Vital Signs: BMI result Body Mass Index 48.5 Const Other: Well-nourished well-developed very friendly female awake alert and oriented x3 in no acute distress Extrem Other: Bilateral lower extremity examination shows good capillary refill, no skin lesions noted, normal sensation light touch Right knee examination shows a minimal effusion, minimal crepitus with range of motion, tenderness along her medial joint line, positive Lenora's test, no instability Results Reviewed Results Reviewed: Standing full weight-bearing x-rays of the patient's right knee show mild diffuse joint space narrowing, no acute bony abnormalities MRI of the patient's right knee shows mild diffuse degenerative changes as well as a tear of the medial meniscus Assessment & Plan Assessment & Plan (1) Tear of medial meniscus of right knee: Code(s): S83.241A - Other tear of medial meniscus, current injury, right knee, initial encounter Category: Medical Plan Ms. Pino presents with progressively worsening right knee pain and mechanical symptoms due to a medial meniscus tear. At this point the patient has failed continued non operative treatments. The risks and benefits of right knee arthroscopic surgery were discussed at length with the patient. The patient wishes to proceed with surgery. She does understand that she may not get 100% relief of her symptoms depending on the severity of her degenerative changes. Surgery will most likely involve right knee arthroscopic partial medial meniscectomy. The patient was given a prescription for oxycodone at her preoperative appointment. She will follow-up as instructed. Feel free to call me at any time should questions regarding her orthopedic management arise. I spent 21 minutes in reviewing the patient's records and imaging studies, seeing the patient and documenting in the medical record. Medications: New oxycodone Partial Fill upon patient request. 5 mg PO Q6H PRN 20 tabs 0RF pain Coding Level of Care Code Est Pt Level 3 (56459) Complex EM visit Add On G2211 Diagnoses Tear of medial meniscus of right knee S83.241A
--- OUTSIDE RECORDS SUMMARY | 2024-10-13 07:50 | XMS_ITS | Continuity of Care Document ---
Author Organization [facility] [address] [place] [address] Phone [phone] Care Team Providers Care Fire Control System Installer Name Role Phone Paramjit Marr M.D. 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 08/22/2024 E66.01 Atorvastatin Dbripnq64ew Tablets Take 1 Tablet By Mouth Every Day 90tabs Christine julio M.D. 01/08/2024 Vlchwfumkfb5wn Tablets take 1 tablet by mouth every day 90tabs Christine julio M.D. 10/23/2023 Freestyle Jose 2/Sensor/Flash Glucose Monitoring Eoclts8Ynidaz Misc 1 sensor every 14 days dx: e11.9 3units E11.Louie julio M.D. 09/29/2023 Freestyle Jose 2/[place]/Flash Glucose Monitoring Extecv9Krghjc Device use as directed with sensors dx: e11.9 1units E11.Louie julio M.D. 09/29/2023 Metformin ZYP173gn Tablets Take 2 Tablets By Mouth Once A Day With Meals Paramjit Marr M.D. Montelukast Mjyuer09ac Tablets Take 1 Tablet By Mouth Every Day Paramjit Marr M.D. Vitamin D (Ergocalciferol)1.25m g (51962 Ut) Capsules Take 1 Capsule By Mouth Every Week For 16 Weeks Patricia Boogie History Medications Ucgwtpilr5de/0.5ML Solution Pen-Inject Inject 3MG Subcutaneously Once Weekly. Dx:E11.9 6ml E11.9 Christine Perez M.D. 02/11/2024 - 08/22/2024 E66.01 Trulicity4.5mg/0.5ML Solution Pen-Inject Inject 4.5 MG Subcutaneously Once Weekly. Dx:e11.9 2ml E11.9 Christine Perez M.D. 01/08/2024 - 02/11/2024 E66.01 Vital Signs Date Vital Result Comment 08/22/2024 8:28am BP Systolic 104 mmHg BP Diastolic 76 mmHg Heart Rate 100 /min Height 60 inches 5'0 Weight 239.50 lb BMI (Body Mass Index) 46.8 kg/m2 Results Test Acquired Date Facility Test Result H/L Range Note Laboratory test finding 08/22/2024 Inhouse Hemoglobin A1c 13.6% Glucose Fingerstick 306 Laboratory test finding 01/08/2024 Inhouse Hemoglobin A1c 10.6% Glucose Fingerstick 183 Comprehensive Metabolic Panl 12/07/2023 [facility] Glucose 205 mg/dL High (70-99) BUN 9 mg/dL (6-20) Creatinine 0.5 mg/dL (0.5-1.0 ) Sodium 137 mmol/L (133-145 ) Potassium 4.7 mmol/L (3.6-5.2 ) Chloride 101 mmol/L (98-107) Bicarbonate 21 mmol/L Low (22-29) Anion Gap 15 (4-17) Albumin 4.3 GM/DL (3.4-4.8 ) Calcium 9.4 mg/dL (8.6-10. 5) Bilirubin,Total 0.4 mg/dL (0-1.2 ) Total Protein 7.3 GM/DL (6.2-8.2 ) Ag Ratio 1.4 Ast 17 U/L (0-32) Alk Phos 121 U/L High (35-104) Alt 22 U/L (0-33) Estimated GFR Creatinine 112 ML/MIN/1. 73M2 1 Lipid Panel 12/07/2023 [facility] Cholesterol, Total 167 mg/dL (<200) Triglyceride 158 mg/dL High (<150) HDL Chol 45 mg/dL (>39) LDL Cholesterol , Calculated 90 mg/dL (0-130) Non HDL Cholesterol (Calc) 122 mg/dL (<160) Laboratory test finding 12/07/2023 Inhouse Glucose Fingerstick 231 Laboratory test finding 09/29/2023 [facility] Gad65 Autoantibodies <5.0 2 Comprehensive Metabolic Panl 09/29/2023 [facility] Glucose 269 mg/dL High (70-99) BUN 12 mg/dL (6-20) Creatinine 0.4 mg/dL Low (0.5-1.0 ) Sodium 139 mmol/L (133-145 ) Potassium 4.3 mmol/L (3.6-5.2 ) Chloride 104 mmol/L (98-107) Bicarbonate 22 mmol/L (22-29) Anion Gap 13 (4-17) Albumin 4.0 GM/DL (3.4-4.8 ) Calcium 9.4 mg/dL (8.6-10. 5) Bilirubin,Total 0.3 mg/dL (0-1.2 ) Total Protein 6.9 GM/DL (6.2-8.2 ) Ag Ratio 1.4 Ast 15 U/L (0-32) Alk Phos 117 U/L High (35-104) Alt 18 U/L (0-33) Estimated GFR Creatinine 116 ML/MIN/1. 73M2 3 Complete Abc With Diff 09/29/2023 [facility] WBC 10.0 K/MM3 (4.0-11. 0) RBC 5.12 M/MM3 (4.20-5. 40) HGB 12.6 GM/DL (11.7-15 .5) HCT 41.7 % (35.7-45 .8) MCV 81.4 FL (80.0-10 0.0) MCH 24.6 pg Low (27.0-34 .0) MCHC 30.2 g/dL Low (33.0-37 .0) PLT 462 K/MM3 High (150-460 ) RDW-SD 45.6 FL (<47.0) MPV 10.4 FL (9.4-12. 4) Automated NRBC 0.0 #/100WBC' S Abs. NRBC 0.0 K/MM3 Neut # 6.2 K/MM3 (1.3-7.0 ) Lymph # 3.1 K/MM3 (0.8-3.1 ) [place]# 0.4 K/MM3 (0.4-0.9 ) Eo # 0.1 K/MM3 (0.0-0.4 ) Baso # 0.1 K/MM3 (0.0-0.1 ) Abs. Imm Gran 0.0 K/MM3 Neut 62.6 % (44-76) Lymph 30.7 % (15-43) Monocyte 4.4 % Low (4.5-10. 5) Eo 1.4 % (0-6) Baso 0.5 % (0-2) Imm Gran 0.4 % Laboratory test finding 09/29/2023 [facility] Vitamin B12 723 pg/mL (232-124 5) Urinary Microalbumin 09/29/2023 [facility] Micro-Albumin 39.0 mg/L High (<20) 4 Malb/Creat Ratio 28.2 MG/GM High (0-20) Urine Creat For Micro Albumin 136.5 mg/dL Laboratory test finding 09/29/2023 Inhouse Hemoglobin A1c 11.2% Glucose Fingerstick 277 1 Creatinine based est imated glomerular filtration (eGFR) in adults is calculated using the National Kidney Foundation recommended 2020 CKD-EPI equation. Estimates GFR from serum creatinine, age and sex. 2 Reference range: 0.0 to 5.0 Unit: U/mL Test performed at [address] [address] 3 Creatinine based est imated glomerular filtration (eGFR) in adults is calculated using the National Kidney Foundation recommended 202 CKD-EPI equation. Estimates GFR from serum creatinine, age and sex. 4 The urine microalbum in test is designed to monitor renal function. When screening for Bence Joseph proteinuria, urine electrophoresis is recommended. Medical Devices Description No Information Available Encounters Type Date Location Provider Dx Diagnosis Office Visit 08/22/2024 8:15a Main Office RONY Mora E11.9 Type 2 diabet es mellitus without complications Assessments Date Code Description Provider 08/22/2024 E11.9 Type 2 diabetes mellitus wit hout complications RONY Mora Plan of Treatment Future Appointment(s):* 12/16/2024 8:15 am - RONY Mora at Main Office 01/08/2024 - RONY Mora* E11.9 Type 2 diabetes mellitus without complications * E78.5 Hyperlipidemia, unspecified * E66.01 Morbid (severe) obesity due to excess calories * Z68.42 Body mass index [BMI] 45.0-49.9, adult* New Medication:* Trulicity 4.5 mg/0.5ML Functional Status Description No Information Available Mental Status Description No Information Available Referrals Refer to Reason for Referral Status Appt Praful e [facility] Endocr[facility]ology & Diabetes DM2 WITHOUT COMPLICA TIONS Closed 02/17/2024 [address] [place] [address] [phone]
== END 2024-10-13 08:07 | disposition home or self-care (01) ==
PROVIDERS: PCP Internal Medicine; Visit Provider Orthopaedic Surgery
DX: S83.241A Other tear of medial meniscus, current injury, right knee, initial encounter (principal)
CPT/HCPCS: 99213

== ENCOUNTER → 2024-10-13 07:47 | Outpatient (BNVA) | payer OTHER, SELFPAY | PROVIDERS: PCP Internal Medicine; Visit Provider Orthopaedic Surgery ==

== ENCOUNTER 2025-04-20 07:54 | Outpatient (AMB) | payer OTHER, SELFPAY ==
[2025-04-20 07:56] VITALS: BMI 48.5
--- NOTE | 2025-04-20 07:56 | A.OFFVIS_ITS ---
Vital Signs 04/20/25 07:56 Height 4 ft 11 in Weight 240 lb BMI 48.5 Intake Visit Reasons: Right knee pain and giving way Intake Note: Sonam is a 54-year-old female who presents with complaints of progressively worsening right knee pain and giving way. The patient states that she injured her knee several years ago while doing squats at the gym. She twisted her knee and had acute onset of pain. The patient states that she fell to the ground and had difficulty walking for several days. Since that time her symptoms have gotten worse. She has failed the last 6 weeks of conservative treatment. She has had multiple injections. The most recent injection gave her minimal relief. She also did physical therapy which aggravated her pain. She states that her right knee will give out several times per day. She has not been able to return to the gym because of her pain and instability. She has tried Tylenol and anti- inflammatory medicines which gave her minimal relief. Allergies onion Allergy (Intermediate, Uncoded 10/13/24 07:50) Itching strawberry Allergy (Intermediate, Uncoded 10/13/24 07:50) Hives bee Adverse Reaction (Severe, Uncoded 10/13/24 07:50) Anaphylaxis Medication List - Last Reconciled 04/20/25 by Daniel Arredondo MD albuterol sulfate 90 mcg/actuation (ProAir HFA) 2 puffs inhalation Q6H PRN atorvastatin 10 mg PO DAILY dfephlsmzqp-wscotfpqx-mvbptyxl 100-62.5-25 mcg (Trelegy Ellipta) 1 puff PO DAILY glimepiride 1 mg PO DAILY glimepiride 4 mg PO DAILY ibuprofen 600 mg PO TID PRN metformin 2 tabs PO DAILY spironolactone 50 mg BID tirzepatide (Mounjaro) 5 mg subcut QWEEK PFSH Medical History Wears dentures Back pain IUD (intrauterine device) in place Acid reflux Atelectasis of right lung Diabetes mellitus Atelectasis Asthma COPD (chronic obstructive pulmonary disease) VTE (venous thromboembolism) (~2011) Pulmonary embolism DVT (deep venous thrombosis) (~2011) Surgical History History of bronchoscopy (~2019) Hx of section Hx of section Family History Father No problems noted. Mother No problems noted. Son No problems noted. Son No problems noted. Daughter No problems noted. Daughter No problems noted. Sister No problems noted. Social History Household Members: Family and Children Household Members Other:: son 26 yrs Housing: Apartment Are you a primary acute care physician to a significant other at home: No Do you presently have visiting nurse or other home services: No Alcohol intake: current Alcohol intake frequency: does not drink Patient Tobacco Use Status: Former Tobacco user Tobacco use type: Cigarette Cigarette Packs Per Day: 0.5 Cigarettes Per Day: 4 Years Smoked: 30 e-Cigarette/Vaping Use: Never Used Second Hand Smoke Exposure: No Advance Directives Date on File: 04/28/21 service: No Current occupational status: employed 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 Physical Exam Vital Signs: BMI result Body Mass Index 48.5 Const Other: Well-nourished well-developed very friendly female awake alert and oriented x3 in no acute distress Extrem Other: Right knee examination shows a minimal effusion, minimal crepitus with range of motion, tenderness along her medial joint line, positive Lenora's test, no instability Results Reviewed Results Reviewed: MRI of the patient's right knee shows mild diffuse degenerative changes as well as a medial meniscus tear Assessment & Plan Assessment & Plan (1) Tear of medial meniscus of right knee: Code(s): S83.241A - Other tear of medial meniscus, current injury, right knee, initial encounter Category: Medical Plan Ms. Pino presents with progressively worsening right knee pain and giving way due to a medial meniscus tear. I had a lengthy discussion with the patient regarding the treatment options. At this point she has failed continued non operative treatments. The risks and benefits of right knee arthroscopic surgery were discussed at length with the patient. The patient wishes to proceed. She does understand that she may not get 100% relief from the procedure depending on the severity of her degenerative changes. Surgery will involve right knee arthroscopic partial medial meniscectomy. The patient will be given a prescription for pain medicine at the time of her surgery. She will follow-up as instructed. Feel free to call me at any time should questions regarding her orthopedic management arise. I spent 20 minutes in reviewing the patient's records and imaging studies, seeing the patient and documenting in the medical record. Coding Level of Care Code Est Pt Level 3 (63851) Complex EM visit Add On G2211 Diagnoses Tear of medial meniscus of right knee S83.241A
--- OUTSIDE RECORDS SUMMARY | 2025-04-20 07:57 | XMS_ITS | Continuity of Care Document ---
Author Organization [facility] [address] [place] [address] Phone [phone] Care Team Providers Care Teletypewriter Installer Name Role Phone Paramjit Marr M.D. Care Team Information Receive r [phone] Problems Active Problems Provider Date Diabetes mellitus RONY Mora Onset: 09/11 Social History Type Date Description Comments Sex Female Sex Unknown Lives With Son 25 years old Occupation Co [employer] Work Status Full-Time Employment [...] e11.9 2ml E11.Louie Perez M.D. 02/03/2025 E66.01 Luofwmhrtqquy9kc Tablets 1 tablet by mouth at 11 pm 1oswald Perez M.D. 02/03/2025 Atorvastatin Sgfvwbd31kp Tablets Take 1 Tablet By Mouth Every Day 90tabs Christine Perez M.D. 01/08/2024 Ruxqalucmri1lt Tablets Take 1 Tablet By Mouth Every Day 90tabs Christine Perez M.D. 10/23/2023 Freestyle Jose 2/Sensor/Flash Glucose Monitoring Aodaai5Ekyimz Misc 1 sensor every 14 days dx: e11.9 3units E11.9 Christine Washburn-Rc, M.D. 09/29/2023 Freestyle Jose 2/Raven/Flash Glucose Monitoring Ebjmvm5Cwlsdy Device use as directed with sensors dx: e11.9 1units E11Roland Perez M.D. 09/29/2023 Metformin [id number] Tablets Take 2 Tablets By Mouth Once A Day With Meals Paramjit Marr M.D. Montelukast Qephkz08ji Tablets Take 1 Tablet By Mouth Every Day Paramjit Marr M.D. Vitamin D (Ergocalciferol)1.25mg (73642 Ut) Capsules Take 1 Capsule By Mouth Every Week For 16 Weeks Patricia Boogie History Medications Ilnjkjzv2le/0.5ML Solution Auto-Inject inject 5 mg subcutaneously once [...] Fausto 15 mg/dL 5-40 LDL Chol Calc ([facility]) 52 mg/dL 0-99 LDL Calc Comment: TNP Urinalysis, Complete 02/10/2025 [facility] Specific [place] 1.017 1.005-1.0 30 pH 6.5 5.0-7.5 Urine-Color [...] 0-29 3 Cortisol 02/10/2025 [facility] Cortisol 0.7 g/dL Low 6.2-19.4 4 Vitamin B12 02/10/2025 [facility] [...] Hemoglobin A1c 10.6% Comprehensive Metabolic Panl 12/07/2023 [facility] Glucose 205 mg/dL High [...] 112 ML/MIN/1. 73M2 5 Lipid Panel 12/07/2023 [facility] Cholesterol, Total 167 mg/dL (<200) Triglyceride 158 mg/dL High (<150) HDL Chol 45 mg/dL (>39) LDL Cholesterol , Calculated 90 mg/dL (0-130) Non HDL Cholesterol (Calc) 122 mg/dL (<160) Glucose Fingerstick 12/07/2023 Inhouse Glucose Fingerstick 231 Gad65 Autoantibodies 09/29/2023 [facility] Gad65 Autoantibodies <5.0 6 Comprehensive Metabolic Panl 09/29/2023 [facility] Glucose 269 mg/dL High [...] 73M2 7 Complete Abc With Diff 09/29/2023 [facility] WBC 10.0 K/MM3 (4.0-11.0 [...] K/MM3 (1.3-7.0) Lymph # 3.1 K/MM3 (0.8-3.1) Collin# 0.4 K/MM3 (0.4-0.9) Eo # 0.1 K/MM3 (0.0-0.4) Baso # 0.1 K/MM3 (0.0-0.1) Abs. Imm Gran 0.0 K/MM3 Neut 62.6 % (44-76) Lymph 30.7 % (15-43) Monocyte 4.4 % Low (4.5-10.5 ) Eo 1.4 % (0-6) Baso 0.5 % (0-2) Imm Gran 0.4 % Vitamin B12 09/29/2023 [facility] Vitamin B12 723 pg/mL (232-1245 ) Urinary Microalbumin 09/29/2023 [facility] Micro-Albumin 39.0 mg/L High [...] to 5.0 Unit: U/[place] [address] 7 Creatinine based est imated glomerular filtration [...] Reason for Referral Status Appt Praful e [facility] DM2 WITHOUT COMPLICA TIONS Closed 02/17/2024 [address] [place] [address] [phone]
== END 2025-04-20 08:11 | disposition home or self-care (01) ==
LOC: HO.HOS 07:56
PROVIDERS: PCP Internal Medicine; Visit Provider Orthopaedic Surgery
DX: S83.241A Other tear of medial meniscus, current injury, right knee, initial encounter (principal)
CPT/HCPCS: 99214; G2211

== ENCOUNTER 2025-04-28 07:13 | Day surgery (SDC) | payer OTHER, SELFPAY ==
--- OUTSIDE RECORDS SUMMARY | 2025-03-21 18:18 | XMS_ITS | Continuity of Care Document ---
Author Organization [facility] [address] [place] [address] Phone [phone] Care Team Providers Care Glass Lined Tank Repairer Name Role Phone Paarmjit Marr M.D. 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 02/06/2025 Mounjaro7.5mg/0.5M L Solution Auto-Inject inject 7.5 mg subcutaneously once a week dx: e11.9 2ml E11.Louie Perez M.D. 02/03/2025 E66.01 Nstomfxdisbut0gd Tablets 1 tablet by mouth at 11 pm 1oswald Perez M.D. 02/03/2025 Atorvastatin Savdnzf51pa Tablets Take 1 Tablet By Mouth Every Day 90tabs Christine Perez M.D. 01/08/2024 Esdpdnvnnep4gr Tablets Take 1 Tablet By Mouth Every Day 90tabs Christine Perez M.D. 10/23/2023 Freestyle Jose 2/Sensor/Flash Glucose Monitoring Mxaowe1Rcjxli Misc 1 sensor every 14 days dx: e11.9 3units E11.9 Christine Washburn-Rc, M.D. 09/29/2023 Freestyle Jose 2/[place]/Flash Glucose Monitoring Tfpgvf1Rignrj Device use as directed with sensors dx: e11.9 1units E11Roland Perez M.D. 09/29/2023 Metformin LZN145ad Tablets Take 2 Tablets By Mouth Once A Day With Meals Paramjit Marr M.D. Montelukast Apyogb56ud Tablets Take 1 Tablet By Mouth Every Day Paramjit Marr M.D. Vitamin D (Ergocalciferol)1.25mg (03736 Ut) Capsules Take 1 Capsule By Mouth Every Week For 16 Weeks Patricia Boogie History Medications Ludgtpfj3ed/0.5ML Solution Auto-Inject inject 5 mg subcutaneously once a week dx: e11.9 2ml E11Roland Perez M.D. 08/22/2024 - 02/03/2025 E66.01 Vital Signs Date Vital Result Comment 02/03/2025 8:00am BP Systolic 120 mmHg BP Diastolic 70 mmHg Heart Rate 90 /min Height 60 inches 5'0 Weight 240.00 lb BMI (Body Mass Index) 46.9 kg/m2 Results Test Acquired Date Facility Test Result H/L Range Note Lipid Panel 02/10/2025 [facility] Cholesterol, Total 110 mg/dL 100-199 Triglycerides 71 mg/dL 0-149 HDL Cholesterol 43 mg/dL >39 VLDL Cholestero l Fausto 15 mg/dL 5-40 LDL Chol Calc ([facility]) 52 mg/dL 0-99 LDL Calc Comment: TNP Urinalysis, Complete 02/10/2025 [facility] Specific [place] 1.017 1.005-1.0 30 pH 6.5 5.0-7.5 Urine-Color Yellow Yellow Appearance Clear Clear WBC Esterase Negative Negative Protein Negative Negative/ Trace Glucose Negative Negative Ketones Negative Negative Occult Blood Negative Negative Bilirubin Negative Negative Urobilinogen,Se m i-Qn 0.2 mg/dL 0.2-1.0 Nitrite, Urine Negative Negative Microscopic Examination See Comment: 1 Microscopic Examination See below: 2 WBC 0-5 /hpf 0 - 5 RBC None seen /hpf 0 - 2 Epithelial Cell s (non renal) >10 /hpf Abnormal 0 - 10 Epithelial Cell s (renal) TNP Casts None seen /lpf None seen Cast Type TNP Crystals TNP Crystal Type TNP Mucus Threads TNP Bacteria Moderate Abnormal None seen/Few Yeast TNP Trichomonas TNP Comment TNP Albumin/Creatini ne Ratio, Random Urine 02/10/2025 [facility] Creatinine, Urine 40.6 mg/dL Not Estab. Albumin, Urine 6.8 ug/mL Not Estab. Alb/Creat Ratio 17 mg/gcreat 0-29 3 Cortisol 02/10/2025 [facility] Cortisol 0.7 g /dL Low 6.2-19.4 4 Vitamin B12 02/10/2025 [facility] Vitamin B12 992 pg/mL 232-1245 Comp. Metabolic Panel (14) 02/10/2025 [facility] Glucose 257 mg/dL High 70-99 BUN 15 mg/dL 6-24 Creatinine 0.55 mg/dL Low 0.57-1.00 eGFR 110 mL/min/1. 73 >59 BUN/Creatinine Ratio 27 High 9-23 Sodium 137 mmol/L 134-144 Potassium 5.0 mmol/L 3.5-5.2 Chloride 101 mmol/L 96-106 Carbon Dioxide, Total 22 mmol/L 20-29 Calcium 9.7 mg/dL 8.7-10.2 Protein, Total 7.2 g/dL 6.0-8.5 Albumin 4.4 g/dL 3.8-4.9 Globulin, Total 2.8 g/dL 1.5-4.5 Bilirubin, Total 0.6 mg/dL 0.0-1 .2 Alkaline Phosphatase 135 IU/L High 44-121 Ast (Sgot) 11 IU/L 0-40 Alt (SGPT) 16 IU/L 0-32 Hemoglobin A1c 02/03/2025 Inhouse Hemoglobin A1c 9.9% Glucose Fingerstick 02/03/2025 Inhouse Glucose Fingerstick 209 Hemoglobin A1c 08/22/2024 Inhouse Hemoglobin A1c 13.6% Glucose Fingerstick 08/22/2024 Inhouse Glucose Fingerstick 306 Glucose Fingerstick 01/08/2024 Inhouse Glucose Fingerstick 183 Hemoglobin A1c 01/08/2024 Inhouse Hemoglobin A1c 10.6% Comprehensive Metabolic Panl 12/07/2023 [facility] Glucose 205 mg/dL High (70-99) BUN 9 mg/dL (6-20) Creatinine 0.5 mg/dL (0.5-1.0) Sodium 137 mmol/L (133-145) Potassium 4.7 mmol/L (3.6-5.2) Chloride 101 mmol/L (98-107) Bicarbonate 21 mmol/L Low (22-29) Anion Gap 15 (4-17) Albumin 4.3 GM/DL (3.4-4.8) Calcium 9.4 mg/dL (8.6-10.5 ) Bilirubin,Total 0.4 mg/dL (0-1.2 ) Total Protein 7.3 GM/DL (6.2-8.2 ) Ag Ratio 1.4 Ast 17 U/L (0-32) Alk Phos 121 U/L High (35-104) Alt 22 U/L (0-33) Estimated GFR Creatinine 112 ML/MIN/1. 73M2 5 Lipid Panel 12/07/2023 [facility] Cholesterol, Total 167 mg/dL (<200) Triglyceride 158 mg/dL High (<150) HDL Chol 45 mg/dL (>39) LDL Cholesterol , Calculated 90 mg/dL (0-130) Non HDL Cholesterol (Calc) 122 mg/dL (<160) Glucose Fingerstick 12/07/2023 Inhouse Glucose Fingerstick 231 Gad65 Autoantibodies 09/29/2023 [facility] Gad65 Autoantibodies <5.0 6 Comprehensive Metabolic Panl 09/29/2023 [facility] Glucose 269 mg/dL High (70-99) BUN 12 mg/dL (6-20) Creatinine 0.4 mg/dL Low (0.5-1.0) Sodium 139 mmol/L (133-145) Potassium 4.3 mmol/L (3.6-5.2) Chloride 104 mmol/L (98-107) Bicarbonate 22 mmol/L (22-29) Anion Gap 13 (4-17) Albumin 4.0 GM/DL (3.4-4.8) Calcium 9.4 mg/dL (8.6-10.5 ) Bilirubin,Total 0.3 mg/dL (0-1.2 ) Total Protein 6.9 GM/DL (6.2-8.2 ) Ag Ratio 1.4 Ast 15 U/L (0-32) Alk Phos 117 U/L High (35-104) Alt 18 U/L (0-33) Estimated GFR Creatinine 116 ML/MIN/1. 73M2 7 Complete Abc With Diff 09/29/2023 [facility] WBC 10.0 K/MM3 (4.0-11.0 ) RBC 5.12 M/MM3 (4.20-5.4 0) HGB 12.6 GM/DL (11.7-15. 5) HCT 41.7 % (35.7-45. 8) MCV 81.4 FL (80.0-100 .0) MCH 24.6 pg Low (27.0-34. 0) MCHC 30.2 g/dL Low (33.0-37. 0) PLT 462 K/MM3 High (150-460) RDW-SD 45.6 FL (<47.0) MPV 10.4 FL (9.4-12.4 ) Automated NRBC 0.0 #/100WBC' S Abs. NRBC 0.0 K/MM3 Neut # 6.2 K/MM3 (1.3-7.0) Lymph # 3.1 K/MM3 (0.8-3.1) Rooks# 0.4 K/MM3 (0.4-0.9) Eo # 0.1 K/MM3 (0.0-0.4) Baso # 0.1 K/MM3 (0.0-0.1) Abs. Imm Gran 0.0 K/MM3 Neut 62.6 % (44-76) Lymph 30.7 % (15-43) Monocyte 4.4 % Low (4.5-10.5 ) Eo 1.4 % (0-6) Baso 0.5 % (0-2) Imm Gran 0.4 % Vitamin B12 09/29/2023 [facility] Vitamin B12 723 pg/mL (232-1245 ) Urinary Microalbumin 09/29/2023 [facility] Micro-Albumin 39.0 mg/L High (<20) 8 Malb/Creat Ratio 28.2 MG/GM High (0-20) Urine Creat For Micro Albumin 136.5 mg/dL Hemoglobin A1c 09/29/2023 Inhouse Hemoglobin A1c 11.2% Glucose Fingerstick 09/29/2023 Inhouse Glucose Fingerstick 277 1 Microscopic follows if indicated. 2 Microscopic was ar cated and was performed. 3 Normal: 0 - 29 Moderately increased: 30 - 300 Severely increased: >300 4 Please Note: The ref erence interval and flagging for this test is for an AM collection. If this is a PM collection please use: Cortisol PM: 2.3-11.9 5 Creatinine based est imated glomerular filtration (eGFR) in adults is calculated using the National Kidney Foundation recommended 202 CKD-EPI equation. Estimates GFR from serum creatinine, age and sex. 6 Reference range: 0.0 to 5.0 Unit: U/[place] [address] 7 Creatinine based est imated glomerular filtration (eGFR) in adults is calculated using the National Kidney Foundation recommended 202 CKD-EPI equation. Estimates GFR from serum creatinine, age and sex. 8 The urine microalbum in test is designed to monitor renal function. When screening for Bence Joseph proteinuria, urine electrophoresis is recommended. Medical Devices Description No Information Available Encounters Type Date Location Provider Dx Diagnosis Office Visit 02/03/2025 8:00a Main Office RONY Mora E11.9 Type 2 diabet es mellitus without complications E66.01 Morbid (severe) obes ity due to excess calories Z68.42 Body mass index [BMI ] 45.0-49.9, adult Assessments Date Code Description Provider 02/03/2025 E11.9 Type 2 diabetes mellitus wit hout complications RONY Mora 02/03/2025 E66.01 Morbid (severe) obesity due to excess calories RONY Mora 02/03/2025 Z68.42 Body mass index [BMI] 45.0-4 9.9, adult RONY Mora Plan of Treatment Future Appointment(s):* 05/12/2025 8:00 am - Yolanda Swenson CNP at Main Office 01/08/2024 - RONY Mora* E11.9 Type 2 diabetes mellitus without complications * E78.5 Hyperlipidemia, unspecified * E66.01 Morbid (severe) obesity due to excess calories * Z68.42 Body mass index [BMI] 45.0-49.9, adult* New Medication:* Trulicity 4.5 mg/0.5ML Functional Status Description No Information Available Mental Status Description No Information Available Referrals Refer to Dr Reason for Referral Status Appt Praful e [facility]ology [facility] Diabetes DM2 WITHOUT COMPLICA TIONS Closed 02/17/2024 [address] [place] [address] [phone]
[2025-04-25 15:22] VITALS: BMI 48.5
--- NOTE | 2025-04-26 09:03 | HO.ANESPROP2 ---
Documented by User: Beth Snowden NP 04/26/25 10:52 HPI - Anesthesia Eval Consult details Narrative: 54yo F for Right Knee Arthroscopy,with partial medial meniscetomy Previously deemed not optimized d/t A1C >12. A1C down to 9.9 and OK to proceed per surgeon BMI 48.5 Per PAT 10/2024: Slight nasal congestion, no cough, no fever No CP/LAI at baseline. None with 3rd floor stairs daily Asthma/COPD: Trelegy only, no albuterol, follows PCP only, chronic nonproductive cough. Reports using trelegy prn. Instructed to use daily until DOS. PE/DVT 2012, no anticoag now DM: FBS ~ 150 +STOP Bang Anesthesia Pre-Procedure Meds Is the patient on any of the following meds?: GLP1/DPP4 PMFSH Active Problems Active Problems: All Active Problems Tear of medial meniscus of right knee (Acute) Right knee pain (Acute) Left knee pain (Acute) Arthritis of right knee (Acute) Arthritis of left knee (Acute) Bronchopneumonia (Acute) Leukocytosis (Acute) Hyperglycemia due to diabetes mellitus (Acute) Bronchitis (Acute) Acute respiratory failure with hypoxia (Acute) Lactic acidosis (Acute) Asthma with COPD with exacerbation (Acute) Asthma (Acute) COPD (chronic obstructive pulmonary disease) (Acute) Morbid obesity (Acute) Atelectasis of right lung (Acute) Diabetes mellitus (Acute) Atelectasis (Acute) Past Medical History Medical History Back pain IUD (intrauterine device) in place Acid reflux Atelectasis of right lung Diabetes mellitus Atelectasis Asthma COPD (chronic obstructive pulmonary disease) VTE (venous thromboembolism) (~2011) Pulmonary embolism DVT (deep venous thrombosis) (~2011) Family History Family History Father No problems noted. Mother No problems noted. Son No problems noted. Son No problems noted. Daughter No problems noted. Daughter No problems noted. Sister No problems noted. Family history of problems with anesthesia: No Surgical History Surgical History History of bronchoscopy (~2019) Hx of section Hx of section History of Problems with Anesthesia: No Social History Social History Household Members: Family and Children Household Members Other:: son 26 yrs Housing: Apartment Are you a primary clinical care leader to a significant other at home: No Do you presently have visiting nurse or other home services: No Alcohol intake: current Alcohol intake frequency: does not drink Patient Tobacco Use Status: Former Tobacco user Tobacco use type: Cigarette Cigarette Packs Per Day: 0.5 Cigarettes Per Day: 4 Years Smoked: 30 e-Cigarette/Vaping Use: Never Used Second Hand Smoke Exposure: No Use of substances other than those prescribed or required for medical reasons: No Have you been hit, kicked, punched, or otherwise hurt by someone within the past year? 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 Allergies Allergy/AdvReac Type Severity Reaction Status Date / Time onion Allergy Intermediate Itching Uncoded 04/28/25 08:00 strawberry Allergy Intermediate Hives Uncoded 04/28/25 08:00 bee AdvReac Severe Anaphylaxis Uncoded 04/28/25 08:00 Active Medications: Current Medications Cefazolin Sodium/Dextrose (Ancef) 2 gm in 50 mls @ 100 mls/hr IV PREOP ONE Stop: 04/28/25 05:54 Home Medications ?Medication ?Instructions ?Recorded ?Confirmed ?Last Taken ?Type albuterol sulfate 90 mcg/actuation 2 puff inhalation Q6H PRN Wheezing 07/12/20 04/25/25 05/08/21 History aerosol inhaler (ProAir HFA) fluticasone fur. 100 mcg-umeclid 1 puff PO DAILY 04/27/21 04/25/25 05/08/21 History 62.5 mcg-vilant 25 mcg inhalat.powder (Trelegy Ellipta) metformin 500 mg tablet 2 tab PO DAILY 05/08/21 04/25/25 05/08/21 History atorvastatin 10 mg tablet 10 mg PO DAILY 09/29/24 04/25/25 Unknown History glimepiride 1 mg tablet 1 mg PO DAILY 09/29/24 04/25/25 Unknown History glimepiride 4 mg tablet 4 mg PO DAILY 09/29/24 04/25/25 Unknown History spironolactone 50 mg tablet 50 mg BID 09/29/24 04/25/25 Unknown History tirzepatide 5 mg/0.5 mL 5 mg subcut QWEEK 09/29/24 04/28/25 04/16/25 History subcutaneous pen injector (Mounjaro) fluticasone fur. 100 mcg-umeclid 1 ea inhalation DAILY 04/25/25 04/25/25 04/28/25 History 62.5 mcg-vilant 25 mcg inhalat.powder (Trelegy Ellipta) Exam Height,Weight and Vital Signs: Height 4 ft 11 in Weight 108.862 kg Pertinent Lab Results Pertinent Lab Results: [facility] 02/2025 WNL - on chart Assessment and Plan Assessment Anesthesia Assessment: Chart Reviewed Final Anesthetic Review Family History of Problems with Anesthesia: No History of Problems with Anesthesia: No Documented by User: Cuca Quintana MD 04/28/25 08:57 [facility] Past Medical History Medical History Back pain IUD (intrauterine device) in place Acid reflux Atelectasis of right lung Diabetes mellitus Atelectasis Asthma COPD (chronic obstructive pulmonary disease) VTE (venous thromboembolism) (~2011) Pulmonary embolism DVT (deep venous thrombosis) (~2011) Family History Family History Father No problems noted. Mother No problems noted. Son No problems noted. Son No problems noted. Daughter No problems noted. Daughter No problems noted. Sister No problems noted. Surgical History Surgical History History of bronchoscopy (~2019) Hx of section Hx of section Social History Social History Household Members: Family and Children Household Members Other:: son 26 yrs Housing: Apartment Are you a primary clinical care leader to a significant other at home: No Do you presently have visiting nurse or other home services: No Alcohol intake: current Alcohol intake frequency: does not drink Patient Tobacco Use Status: Former Tobacco user Tobacco use type: Cigarette Cigarette Packs Per Day: 0.5 Cigarettes Per Day: 4 Years Smoked: 30 e-Cigarette/Vaping Use: Never Used Second Hand Smoke Exposure: No Use of substances other than those prescribed or required for medical reasons: No Have you been hit, kicked, punched, or otherwise hurt by someone within the past year? 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 100 mcg-umeclid 1 puff PO DAILY 04/27/21 04/25/25 05/08/21 History 62.5 mcg-vilant 25 mcg inhalat.powder (Trelegy Ellipta) metformin 500 mg tablet 2 tab PO DAILY 05/08/21 04/25/25 05/08/21 History atorvastatin 10 mg tablet 10 mg PO DAILY 09/29/24 04/25/25 Unknown History glimepiride 1 mg tablet 1 mg PO DAILY 09/29/24 04/25/25 Unknown History glimepiride 4 mg tablet 4 mg PO DAILY 09/29/24 04/25/25 Unknown History spironolactone 50 mg tablet 50 mg BID 09/29/24 04/25/25 Unknown History tirzepatide 5 mg/0.5 mL 5 mg subcut QWEEK 09/29/24 04/28/25 04/16/25 History subcutaneous pen injector (Mounjaro) fluticasone fur. 100 mcg-umeclid 1 ea inhalation DAILY 04/25/25 04/25/25 04/28/25 History 62.5 mcg-vilant 25 mcg inhalat.powder (Trelegy Ellipta) Exam Airway Mallampati Class: II TM Dist: >3cm Neck ROM: Full Heart: rrr Lungs: cta Assessment and Plan Assessment Anesthesia Assessment: Anesthesia Plan Discussed Final Anesthetic Review NPO: Yes ASA Class: III Final Preanesthetic Review: No Changes in Pt Med Stat, Meds/Allgs Chart Reviewed, Consent Obtained/Reviewed and Anes Risks/Benef Reviewed Patient Risk: Intermediate Procedure Risk: Low Anesthetic Plan Anesthetic Plan: GA Disposition: Standard PACU
[2025-04-28] VITALS (8 sets, daily range): BP systolic 111–146; BP diastolic 66–87; PULSE 71–88; RESP 12–18; TEMP 36.1–36.2; O2SAT 92–98; BMI 47.6
[2025-04-28 08:10] LABS: UPreg QC Valid YES
[2025-04-28 08:30] LABS: Glucose, Whole Blood 180 mg/dL (60-115)
[2025-04-28] MEDS: Lactated Ringers 1,000 ML 100 ML IVCONT (08:37)
--- NOTE | 2025-04-28 09:37 | PM.OP ---
Brief Operative Note Date of Service: 04/28/25 Pre-op diagnosis: Right knee medial meniscus tear, right knee degenerative joint disease Post-op diagnosis: same Procedure: Right knee arthroscopic partial medial meniscectomy, right knee arthroscopic chondroplasty of the undersurface of the patella as well as the medial femoral condyle Implants: none Surgeon: Daniel Arredondo MD Was an Fund Controller used for this Procedure?: No Estimated blood loss (mL): 10 Pathology: none sent Condition: stable Disposition: PACU
--- NOTE | 2025-04-28 09:38 | P.OP_ITS ---
Operative Note Operative Note Date of Service: 04/28/25 Narrative: After the patient was identified as Sonam Pino and her right knee was initialed by myself they were brought to the operating room where general anesthesia was induced by the anesthesiologist in routine fashion. The patient was given 2 g of IV Ancef for infection prophylaxis. A formal time-out was completed. The patient's right lower extremity was prepped and draped in sterile fashion. Marcaine with epinephrine was injected into the planned incision sites as well as their right knee joint. A # 11 scalpel blade was used to make an anterolateral portal 1 cm proximal to the joint line and 1 cm lateral to the patellar tendon. Blunt trocar technique was used into the suprapatellar pouch with the knee in extension. Diagnostic arthroscopy showed multiple bands of thickened plica which would be excised at the end of the procedure. There were no loose bodies or abnormalities found in either the medial or lateral gutters. There were diffuse grades 1 and 2 degenerative changes of the undersurface of the patella as well as grade 1 degenerative changes of the trochlear groove. The patient's knee was flexed to 45 degrees and a valgus force was placed upon it. The medial compartment was entered. An anteromedial portal was made 1 cm proximal to the joint line and 1 cm medial to the patellar tendon. Probing of the medial meniscus showed a radial tear of the posterior horn. A partial medial meniscectomy was performed using the arthroscopic shaver. Following the partial meniscectomy the remainder of the meniscus tissue was stable. There were diffuse grades 1 and 2 degenerative changes of the media l femoral condyle as well as diffuse grades 2 and 3 degenerative changes of the medial tibial plateau. The articular surface of the medial femoral condyle was made smooth using the arthroscopic shaver. The articular surface of the medial tibial plateau was already smooth so no chondroplasty was indicated. The patient's knee was then placed into a neutral position. There was no injury to the anterior cruciate ligament. The patient's knee was then placed into the figure of 4 position and the lateral compartment was entered. There were minimal degenerative changes of the lateral femoral condyle and lateral tibial plateau. There was no evidence of lateral meniscus tearing. The patient's knee was once again brought into extension and the suprapatellar pouch was entered. The arthroscopic shaver and the ArthroCare Wand were used to excise the thickened bands of plica. The undersurface of the patella was then made smooth using the arthroscopic shaver. The articular surface of the trochlear groove was already smooth so no chondroplasty was indicated. The knee joint was irrigated and then drained. All arthroscopic instruments were removed. The 2 portals were closed with 3-0 nylon interrupted suture. The knee joint was injected with Marcaine. Dry sterile dressing and Yonathan bandages were placed over the patient's knee. The patient was awoken and extubated in the operating room. They were transferred to the recovery room in stable condition.
== END 2025-04-28 10:32 | disposition home or self-care (01) ==
PROVIDERS: Anesthesiology; Visit Provider Orthopaedic Surgery
PROC: (CPT 29870; principal; 2025-04-28 09:00)
DX: S83.241A Other tear of medial meniscus, current injury, right knee, initial encounter (principal); M25.561 Pain in right knee; M23.51 Chronic instability of knee, right knee; M67.51 Plica syndrome, right knee; M17.11 Unilateral primary osteoarthritis, right knee; X50.1XXA Overexertion from prolonged static or awkward postures, initial encounter; Y93.B9 Activity, other involving muscle strengthening exercises; Y92.39 Other specified sports and athletic area as the place of occurrence of the external cause; Y99.9 Unspecified external cause status; M54.9 Dorsalgia, unspecified; J44.9 Chronic obstructive pulmonary disease, unspecified; E11.9 Type 2 diabetes mellitus without complications; K21.9 Gastro-esophageal reflux disease without esophagitis; J98.11 Atelectasis; Z87.891 Personal history of nicotine dependence; Z86.718 Personal history of other venous thrombosis and embolism; Z79.1 Long term (current) use of non-steroidal anti-inflammatories (NSAID); Z79.51 Long term (current) use of inhaled steroids; Z79.84 Long term (current) use of oral hypoglycemic drugs; Z79.85 Long-term (current) use of injectable non-insulin antidiabetic drugs; Z79.899 Other long term (current) drug therapy
CPT/HCPCS: 29881; 81025; 82947; J0131; J0165; J0690; J0696; J1100; J2003; J2250; J2405; J2704; J2795; J3010

== ENCOUNTER → 2025-04-28 07:13 | Outpatient (BNV) | payer OTHER, SELFPAY | PROVIDERS: Visit Provider Orthopaedic Surgery | DX: S83.241A Other tear of medial meniscus, current injury, right knee, initial encounter (principal) | CPT/HCPCS: 29881 ==

== ENCOUNTER 2025-05-11 08:09 | Outpatient (AMB) | payer OTHER, SELFPAY ==
--- OUTSIDE RECORDS SUMMARY | 2025-05-11 08:15 | XMS_ITS | Continuity of Care Document ---
Author Organization [facility] [address] [place] [address] Phone [phone] Care Team Providers Care After School Tutor Name Role Phone Paramjit Marr M.D. 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 02/03/2025 E66.01 Yeaqthfcagiwr8bl Tablets 1 tablet by mouth at 11 pm 1oswald Perez M.D. 02/03/2025 Atorvastatin Xmbquvs67lf Tablets Take 1 Tablet By Mouth Every Day 90tabs Christine Perez M.D. 01/08/2024 Rdoxxhmtrff5hq Tablets Take 1 Tablet By Mouth Every Day 90tabs Christine Perez M.D. 10/23/2023 Freestyle Jose 2/Sensor/Flash Glucose Monitoring Yuvqti3Kalnus Misc 1 sensor every 14 days dx: e11.9 3units E11.9 Christine Washburn-Rc, M.D. 09/29/2023 Freestyle Jose 2/[place]/Flash Glucose Monitoring Seltqc7Troswt Device use as directed with sensors dx: e11.9 1units E11Roland Perez M.D. 09/29/2023 Metformin WHW307vu Tablets Take 2 Tablets By Mouth Once A Day With Meals Paramjit Marr M.D. Montelukast Riuqiu92ke Tablets Take 1 Tablet By Mouth Every Day Paramjit Marr M.D. Vitamin D (Ergocalciferol)1.25mg (66326 Ut) Capsules Take 1 Capsule By Mouth Every Week For 16 Weeks Patricia Boogie History Medications Lwnuppkh8vu/0.5ML Solution Auto-Inject inject 5 mg subcutaneously once [...] Fausto 15 mg/dL 5-40 LDL Chol Calc ([facility]) 52 mg/dL 0-99 LDL Calc Comment: TNP Urinalysis, Complete 02/10/2025 [facility] Specific [place] 1.017 1.005-1.0 30 pH 6.5 5.0-7.5 Urine-Color [...] Hemoglobin A1c 10.6% Comprehensive Metabolic Panl 12/07/2023 [facility] Glucose 205 mg/dL High [...] 112 ML/MIN/1. 73M2 5 Lipid Panel 12/07/2023 [facility] Cholesterol, Total 167 mg/dL (<200) Triglyceride 158 mg/dL High (<150) HDL Chol 45 mg/dL (>39) LDL Cholesterol , Calculated 90 mg/dL (0-130) Non HDL Cholesterol (Calc) 122 mg/dL (<160) Glucose Fingerstick 12/07/2023 [facility] Glucose Fingerstick 231 Gad65 Autoantibodies 09/29/2023 [facility] Gad65 Autoantibodies <5.0 6 Comprehensive Metabolic Panl 09/29/2023 [facility] Glucose 269 mg/dL High [...] 73M2 7 Complete Abc With Diff 09/29/2023 [facility] WBC 10.0 K/MM3 (4.0-11.0 [...] K/MM3 (1.3-7.0) Lymph # 3.1 K/MM3 (0.8-3.1) Hickman# 0.4 K/MM3 (0.4-0.9) Eo # 0.1 K/MM3 (0.0-0.4) Baso # 0.1 K/MM3 (0.0-0.1) Abs. Imm Gran 0.0 K/MM3 Neut 62.6 % (44-76) Lymph 30.7 % (15-43) Monocyte 4.4 % Low (4.5-10.5 ) Eo 1.4 % (0-6) Baso 0.5 % (0-2) Imm Gran 0.4 % Vitamin B12 09/29/2023 [facility] Vitamin B12 723 pg/mL (232-1245 ) Urinary Microalbumin 09/29/2023 [facility] Micro-Albumin 39.0 mg/L High [...] to 5.0 Unit: U/[place] [address] 7 Creatinine based est imated glomerular filtration [...] Reason for Referral Status Appt [facility] DM2 WITHOUT COMPLICA TIONS Closed 02/17/2024 [address] [place] [address] [phone]
--- NOTE | 2025-05-11 08:18 | A.OFFVIS_ITS ---
Intake Visit Reasons: PO-Rt Knee 04/28/25 Intake Note: Sonam is a 54 year old female who presents today as a post op for Right Knee , 04/28/25. Patient states that she is doing well. She has continued swelling and stiffness since surgery, but it is slowly improving. Allergies onion Allergy (Intermediate, Uncoded 05/11/25 08:19) Itching strawberry Allergy (Intermediate, Uncoded 05/11/25 08:19) Hives bee Adverse Reaction (Severe, Uncoded 05/11/25 08:19) Anaphylaxis Medication List - Last Reconciled 05/11/25 by Daniel Arredondo MD albuterol sulfate 90 mcg/actuation (ProAir HFA) 2 puffs inhalation Q6H PRN atorvastatin 10 mg PO DAILY kqafobifegm-ffbkifjre-nkrdvjry 100-62.5-25 mcg (Trelegy Ellipta) 1 puff PO DAILY oxbbaivanvv-eiyaraisv-qyeuyqnr 100-62.5-25 mcg (Trelegy Ellipta) 1 ea inhalation DAILY glimepiride 1 mg PO DAILY glimepiride 4 mg PO DAILY ibuprofen 600 mg PO TID PRN metformin 2 tabs PO DAILY oxycodone 5 mg PO Q6H PRN spironolactone 50 mg BID tirzepatide (Mounjaro) 5 mg subcut QWEEK PFSH Medical History Back pain IUD (intrauterine device) in place Acid reflux Atelectasis of right lung Diabetes mellitus Atelectasis Asthma COPD (chronic obstructive pulmonary disease) VTE (venous thromboembolism) (~2011) Pulmonary embolism DVT (deep venous thrombosis) (~2011) Surgical History History of bronchoscopy (~2019) Hx of section Hx of section Family History Father No problems noted. Mother No problems noted. Son No problems noted. Son No problems noted. Daughter No problems noted. Daughter No problems noted. Sister No problems noted. Social History Household Members: Family and Children Household Members Other:: son 26 yrs Housing: Apartment Are you a primary health care facility administrator to a significant other at home: No Do you presently have visiting nurse or other home services: No Alcohol intake: current Alcohol intake frequency: does not drink Patient Tobacco Use Status: Former Tobacco user Tobacco use type: Cigarette Cigarette Packs Per Day: 0.5 Cigarettes Per Day: 4 Years Smoked: 30 e-Cigarette/Vaping Use: Never Used Second Hand Smoke Exposure: No Advance Directives Date on File: 04/28/21 service: No Current occupational status: employed 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 Pino is doing well after undergoing right knee arthroscopic surgery on 04/28/2025. Her sutures were removed and Steri-Strips placed over her incisions. She will gradually progress to activities as tolerated. I will clear her to return to work on her discomfort has improved. She will contact me prior to her follow-up appointment in 2 months should any questions or concerns arise. Feel free to call me at any time should questions regarding her orthopedic management arise. Coding Level of Care Code Global (87522) Diagnoses Right knee pain M25.561
== END 2025-05-11 08:28 | disposition home or self-care (01) ==
LOC: HO.HOS 08:09
PROVIDERS: PCP Internal Medicine; Visit Provider Orthopaedic Surgery
DX: M25.561 Pain in right knee (principal)
CPT/HCPCS: 99024

== ENCOUNTER 2025-06-21 08:08 | Outpatient (AMB) | payer OTHER, SELFPAY ==
--- OUTSIDE RECORDS SUMMARY | 2024-10-31 09:30 | XMS_ITS ---
Author Organization [facility] [place] Address [address] [place] [address] Care Team Providers Care Attendant [facility] Name Role Phone Migration, Provider Unavailable Unavailable REASON FOR VISIT Blood Draw Encounters Encounter Location Date Provider Diagnosis [facility], [address] [place] [phone] 10/31/2024 Provider Migration Plan Of Treatment Next Appt Details Provider Name:Beth Stein, 07/14/2025 09:00:00 AM, [address], [address], [place], [address], [phone] Progress Notes * JOEY FRYOB:1970 (55 yo F)Acc No.[id number]:10/31/2024 Progress Notes Patient: Contreras LAYTONKAELN Provider: Sukhi Perez :1970 A ge:54 Y S ex:Female Date:10/31/2024 Address:[address], [id number] Subjective: * Chief Complaints: * B lood Draw * Ocular Surgical History: Objective: Vision Examination: * Electronic signature of Prov ider Migration on 06/21/2025 at 09:06 AM EDT Sign off status: Pending * Provider: Sukhi valentin Migration Date: 0 10/31/2024 Generated for Estefany salinas/Vimal/eTransmitting on: 0 06/21/2025 09:06 AM EDT
--- OUTSIDE RECORDS SUMMARY | 2024-12-20 06:45 | XMS_ITS ---
Author Organization [facility] [place] Address [address] [place] [address] Care Team Providers Care Biology Research Assistant Name Role Phone Migration, Provider Unavailable Unavailable REASON FOR VISIT Nurse YVETTE visit Encounters Encounter Location Date Provider Diagnosis [facility], [address] [place] [phone] 12/20/2024 Provider Migration Plan Of Treatment Next Appt Details Provider Name:Beth Stein, 07/14/2025 09:00:00 AM, [address] [place] [address], [address], [place], [address], [phone] Progress Notes * JOEY FRYOB:1970 (55 yo F)Acc No.[id number]:12/20/2024 Progress Notes Patient: ANDREW GARCIA Provider: Sukhi Perez :1970 A ge:54 Y S ex:Female Date:12/20/2024 Address:[address] [id number] Subjective: * Chief Complaints: * N urse YVETTE visit * Ocular Surgical History: Objective: Vision Examination: * Electronic signature of Prov ider Migration on 06/21/2025 at 09:06 AM EDT Sign off status: Pending * Provider: Sukhi valentin Migration Date: 12/20/2024 Generated for Estefany salinas/Vimal/eTransmitting on: 0 06/21/2025 09:06 AM EDT
--- OUTSIDE RECORDS SUMMARY | 2025-03-31 05:00 | XMS_ITS ---
Author Organization [facility], [place] Address [address] [place] [address] Care Team Providers Care Agricultural Produce Packer Name Role Phone Kenny Becker Unavailable [phone] Allergies No Known Allergies REASON FOR VISIT [...] Active Encounters Encounter Location Date Provider Diagnosis [facility], [place] [address] [place] [address] 03/31/2025 Kenny Becker Plan Of Treatment Next Appt Details Provider Name:Beth Stein, 07/14/2025 09:00:00 AM, [address], [address], [place], [address], [phone] Progress Notes * JOEY FRYOB:1970 (55 yo F)Acc No.[id number]:03/31/2025 Progress Notes Patient: ANDREW GARCIA Provider: Kacie URIBE :1970 A ge:54 Y S ex:Female Date:03/31/2025 Address:[place] [address] Subjective: * Chief Complaints: * F ollow-up [...] Electronic signature of Nikolai Becker PA-C on 06/21/2025 at 09:06 AM EDT Sign off status: Pending * Provider: Kacie URIEB Date: 0 03/31/2025 Generated for Estefany salinas/Vimal/Nina on: 0 06/21/2025 09:06 AM EDT
--- OUTSIDE RECORDS SUMMARY | 2025-05-16 06:15 | XMS_ITS ---
Author Organization [facility], [place] Address [address] [place] [address] Care Team Providers Care Oracle Database Administrator Name Role Phone Beth Stein Unavailable [phone] REASON FOR VISIT f/u Medications Medication SIG [...] nknown Encounters Encounter Location Date Provider Diagnosis [facility] [address] [place] [address] 05/16/2025 Beth Stein Plan Of Treatment Next Appt Details Provider Name:Beth Sagriri, 07/14/2025 09:00:00 AM, [address], [address], [place], [address], [phone] Progress Notes * JOEY FRYOB:1970 (55 yo F)Acc No.[id number]:05/16/2025 Progress Notes Patient: ANDREW GARCIA Provider: Anita Stein :1970 A ge:54 Y S ex:Female Date:05/16/2025 Address:[place] [address] Subjective: * Chief Complaints: * F /u [...] * Electronic signature of Reyna Emil on 06/21/2025 at 09:06 AM EDT Sign off status: Pending * Provider: Anita Stein Date: 0 05/16/2025 Generated for Estefany salinas/Vimal/Nina on: 0 06/21/2025 09:06 AM EDT
--- OUTSIDE RECORDS SUMMARY | 2025-05-23 05:00 | XMS_ITS ---
Author Organization [facility], [place] Address [address] [place] [address] Care Team Providers Care Psychiatric Clinical Nurse Specialist Name Role Phone Beth Stein Unavailable [phone] Allergies Allergen (clinical drug ingredient) Drug/Non Drug Allergy documented on EMR Reaction Allergy Type Onset Date Status Hymenoptera Venom -Bee, Wasp, Yellow Jacket Stings anaphylaxis Allergy Active REASON FOR VISIT sick Medications Medication SIG (Take, Route, Frequency, Duration) Notes Start Date End Date Status Montelukast Sodium 10 MG Tablet 1 tablet Orally Once a day; Duration: 90 days Active Trelegy Ellipta 100-62.5-25 MCG/ACT Aerosol Powder Breath Activated 1 puff Inhalation Once a day; Duration: 90 days Active Mounjaro 10 MG/0.5ML Solution Auto-injector inject 10mg Subcutaneous once/week; Duration: 90 days 05/23/2025 Active Glimepiride 1 MG Tablet 1 tablet with br eakfast or the first main meal of the day Orally Once a day; Duration: 90 days 05/23/2025 Active Glimepiride 4 MG Tablet 1 tablet with br eakfast or the first main meal of the day Orally Once a day; Duration: 90 days 05/23/2025 Active metFORMIN HCl ER 500 MG Tablet Extended Release 24 Hour 3 tablets w/ evening meal Orally Once a day; Duration: 90 days 05/23/2025 Active Encounters Encounter Location Date Provider Diagnosis [facility], [address] [address] 05/23/2025 Beth Stein Plan Of Treatment Medication Medication Name Sig Start Date Stop Date Notes Montelukast Sodium 10 MG Tablet 1 tablet Orally Once a day; Duration: 90 days Trelegy Ellipta 100-62.5-25 MCG/ACT Aerosol Powder Breath Activated 1 puff Inhalation Once a day; Duration: 90 days Mounjaro 10 MG/0.5ML Solutio n Auto-injector inject 10mg Subcutaneous once/week; Duration: 90 days 05/23/2025 Glimepiride 1 MG Tablet 1 tablet with br eakfast or the first main meal of the day Orally Once a day; Duration: 90 days 05/23/2025 Glimepiride 4 MG Tablet 1 tablet with br eakfast or the first main meal of the day Orally Once a day; Duration: 90 days 05/23/2025 metFORMIN HCl ER 500 MG Tablet Extended Release 24 Hour 3 tablets w/ evening meal Orally Once a day; Duration: 90 days 05/23/2025 Next Appt Details Provider Name:Beth Stein, 07/14/2025 09:00:00 AM, [address] [place] [address], [address], [place], [address], [phone] History and Physical Notes * HPI (History of Present Illness) Category Sub-Category Detail Notes Category Not es General Subjective: - Patient reports feeling great overall despite some health issues. - Underwent knee surgery on April 28 with residual slow walking and past severe pain. - Reports dragging leg due to a tear in hip ligament. - Smoking cessation reported after COPD diagnosis and respiratory distress episode. - Concerns about weight gain, possibly linked to menopause; reports weight of 240 lbs. - Emotional stress due to recent bereavement. - Medications: Trelegy, Mounjaro 10 mg, Montelukast, Metformin (3 x 500 mg), Glimepiride (total 5 mg). - Allergies: onions, strawberries, bee stings (potential anaphylaxis). Objective: - Respiratory: Clear lung sounds upon auscultation. - Cardiac: Normal heart sounds. Assessment: - Post-knee surgery recovery - COPD - Menopausal symptoms - Recent bereavement-related emotional distress Plan: - Refill all current medications as per schedule. - Schedule and conduct full physical exam later in the year. - Obtain and review lab results with suspect artist supervisor's office before next physical. - Encourage increased mobility post-knee surgery recovery. - Continuation of smoking cessation efforts. - Additional emotional support if needed. Progress Notes * SUSAN FRY:1970 (55 yo F)Acc No.[id number]:05/23/2025 Progress Notes Patient: ANDREW GARCIA Provider: Anita Stein :1970 A ge:54 Y S ex:Female Date:05/23/2025 Address:[place] [address], [facility] Subjective: * Chief Complaints: * S ick * HPI: G eneral: Subjective: - Patient reports feeling great overall despite some health issues. - Underwent knee surgery on April 28 with residual slow walking and past severe pain. - Reports dragging leg due to a tear in hip ligament. - Smoking cessation reported after COPD diagnosis and respiratory distress episode. - Concerns about weight gain, possibly linked to menopause; reports weight of 240 lbs. - Emotional stress due to recent bereavement. - Medications: Trelegy, Mounjaro 10 mg, Montelukast, Metformin (3 x 500 mg), Glimepiride (total 5 mg). - Allergies: onions, strawberries, bee stings (potential anaphylaxis). Objective: - Respiratory: Clear lung sounds upon auscultation. - Cardiac: Normal heart sounds. Assessment: - Post-knee surgery recovery - COPD - Menopausal symptoms - Recent bereavement-related emotional distress Plan: - Refill all current medications as per schedule. - Schedule and conduct full physical exam later in the year. - Obtain and review lab results with suspect artist supervisor's office before next physical. - Encourage increased mobility post-knee surgery recovery. - Continuation of smoking cessation efforts. - Additional emotional support if needed. * Medications: T akingGlimepiride 4 MG Tablet 1 tablet with breakfast or the first main meal of the day Orally Once a day Glimepiride 1 MG Tablet 1 tablet with breakfast or the first main meal of the day Orally Once a day metFORMIN HCl ER 500 MG Tablet Extended Release 24 Hour 3 tablets w/ evening meal Orally Once a day Mounjaro 10 MG/0.5ML Solution Auto-injector inject 10mg Subcutaneous once/week Trelegy Ellipta 100-62.5-25 MCG/ACT Aerosol Powder Breath Activated 1 puff Inhalation Once a day Montelukast Sodium 10 MG Tablet 1 tablet Orally Once a day Taking Glimepiride 4 MG Tablet 1 tablet with breakfast or the first main meal of the day Orally Once a day Taking Glimepiride 1 MG Tablet 1 tablet with breakfast or the first main meal of the day Orally Once a day Taking metFORMIN HCl ER 500 MG Tablet Extended Release 24 Hour 3 tablets w/ evening meal Orally Once a day Taking Mounjaro 10 MG/0.5ML Solution Auto-injector inject 10mg Subcutaneous once/week Taking Trelegy Ellipta 100-62.5-25 MCG/ACT Aerosol Powder Breath Activated 1 puff Inhalation Once a day Taking Montelukast Sodium 10 MG Tablet 1 tablet Orally Once a day DiscontinuedMounjaro 7.5 MG/0.5ML Solution Auto-injector as directed Subcutaneous metFORMIN HCl ER 500 MG Tablet Extended [...] puff as needed Inhalation every 4 hrs Discontinued Mounjaro 7.5 MG/0.5ML Solution Auto-injector as directed Subcutaneous Discontinued metFORMIN HCl ER 500 MG Tablet Extended Release 24 Hour 1 tablet with evening meal Orally Once a day Discontinued Lexapro 5 MG Tablet 1 tablet Orally Once a day Discontinued Glimepiride 1 MG Tablet 1 tablet with breakfast or the first main meal of the day Orally Once a day Discontinued Fluticasone Propionate 50 MCG/ACT Suspension 1 spray in each nostril Nasally Twice a day Discontinued Dicyclomine HCl 20 MG Tablet 1 tablet Orally Three times a day Discontinued Albuterol Sulfate HFA 108 (90 Base) MCG/ACT Aerosol Solution 1 puff as needed Inhalation every 4 hrs * Allergies: H ymenoptera Venom -Bee, Wasp, Yellow Jacket Stings: anaphylaxis - Allergy - Criticality HighyesAllergies Verified. Plan: * Treatment: * Electronic signature of Reyna Emil on 06/21/2025 at 09:06 AM EDT Sign off status: Pending * Provider: Anita Stein Date: 0 05/23/2025 Generated for Printi ng/Vimal/Coraitting on: 0 06/21/2025 09:06 AM EDT
--- NOTE | 2025-06-21 08:10 | A.OFFVIS_ITS ---
Vital Signs 06/21/25 08:16 Height 5 ft 1 in Weight 235 lb BMI 44.4 Intake Visit Reasons: PO-Rt Knee 04/28/25 Intake Note: Sonam is a 55 year old female who presents today as a follow up for her Post Op- Right Knee 04/28/25. The patient reports mild to moderate discomfort in her right knee. She denies any fevers or chills. She continues with her home stretching program. She states that her discomfort is most noticeable when she is going up and down stairs. She would like to return to work. Allergies onion Allergy (Intermediate, Uncoded 05/11/25 08:19) Itching strawberry Allergy (Intermediate, Uncoded 05/11/25 08:19) Hives bee Adverse Reaction (Severe, Uncoded 05/11/25 08:19) Anaphylaxis Medication List - Last Reconciled 06/21/25 by Daniel Arredondo MD albuterol sulfate 90 mcg/actuation (ProAir HFA) 2 puffs inhalation Q6H PRN atorvastatin 10 mg PO DAILY esvxecyryel-nekrqmixq-weuqrcte 100-62.5-25 mcg (Trelegy Ellipta) 1 puff PO DAILY swwzubsirgd-qzfyuvqiq-tbfqhdtz 100-62.5-25 mcg (Trelegy Ellipta) 1 ea inhalation DAILY glimepiride 1 mg PO DAILY glimepiride 4 mg PO DAILY ibuprofen 600 mg PO TID PRN metformin 2 tabs PO DAILY oxycodone 5 mg PO Q6H PRN spironolactone 50 mg BID tirzepatide (Mounjaro) 5 mg subcut QWEEK PFSH Medical History Back pain IUD (intrauterine device) in place Acid reflux Atelectasis of right lung Diabetes mellitus Atelectasis Asthma COPD (chronic obstructive pulmonary disease) VTE (venous thromboembolism) (~2011) Pulmonary embolism DVT (deep venous thrombosis) (~2011) Surgical History History of bronchoscopy (~2019) Hx of section Hx of section Family History Father No problems noted. Mother No problems noted. Son No problems noted. Son No problems noted. Daughter No problems noted. Daughter No problems noted. Sister No problems noted. Social History Household Members: Family and Children Household Members Other:: son 26 yrs Housing: Apartment Are you a primary physician locums urgent care to a significant other at home: No Do you presently have visiting nurse or other home services: No Alcohol intake: current Alcohol intake frequency: does not drink Patient Tobacco Use Status: Former Tobacco user Tobacco use type: Cigarette Cigarette Packs Per Day: 0.5 Cigarettes Per Day: 4 Years Smoked: 30 e-Cigarette/Vaping Use: Never Used Second Hand Smoke Exposure: No Advance Directives Date on File: 04/28/21 service: No Current occupational status: employed 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 Pino continues to do fairly well after undergoing right knee arthroscopic surgery on 04/28/2025. I did give her a Medrol Dosepak to help her discomfort. She will continue with her hyell-ks-vjqpgq exercises. I did clear her to return to work as per her request. She will contact me prior to her follow-up appointment in 6-8 weeks should any questions or concerns arise. Feel for a to call me at any time should questions regarding her orthopedic management arise. Medications: New methylprednisolone (Medrol (Franki)) PO PER PKG DIR 21 ea 0RF Coding Level of Care Code Global (74394) Diagnoses Right knee pain M25.561
[2025-06-21 08:16] VITALS: BMI 44.4
--- OUTSIDE RECORDS SUMMARY | 2025-06-21 09:06 | XMS_ITS | Encounter Summary ---
Author Organization [facility] Address [address] [place] [address] Care Team Providers Care Director Of Casino Name Role Phone Yodit Akbar MD Primary Care Provider [phone] Encounter Details Date Type Department Care Team (Latest Contact Info) Description 10/31/2024 Lab Requisition [facility] - Main Lab [address] [place] [address] Kenny Becker PA [address] [facility] [address] [place] [address] Type 2 diabetes mellitus without complications (CMS/HCC V24, CMS/HCC V28) Social History Tobacco Use Types Packs/Day Years Used Date Smoking Tobacco: Never Assessed Comments Unknown Sex and Gender Information Value Date Recorded Sex Assigned at Not on file Legal Sex Female 3:14 PM EST Gender Identity Not on file Sexual Orientation Not on file documented as of this encounter Plan of Treatment Not on file documented as of this encounter Procedures Procedure Name Priority Date/Time Associated Diagnosis Comments HEMOGLOBIN A1C Routine 10/31/2024 12:00 AM EST Type 2 diabetes mellitus without complications (CMS/HCC) documented in this encounter Results * (ABNORMAL) Hemoglobin A1c (10/31/2024 12:00 AM EST) Hemoglobin A1C 11.7(H) <6.5 % LAB CHEMISTRY METHOD 10/31/2024 9:48 PM EST [facility] Mean Bld Glu Estim. 289 mg/dL LAB CHEMISTRY METHOD 10/31/2024 9:[address] [facility] Blood Venous blood specimen / Unknown 10/31/2024 10/31/2024 6:11 PM EST us Kenny URIBE LAB BLOOD ORDERABLES Final Res ult [facility] [address] [place] [address], documented in this encounter Visit Diagnoses Diagnosis Type 2 diabetes mellitus without complications (CMS/HCC V24, CMS/HCC V28) documented in this encounter Care Teams Director Of Casino Relationship Specialty Start Date End Date Yodit Akbar MD [address] [place] [id number] PCP - General Internal Medicine 05/31/25 documented as of this encounter
--- OUTSIDE RECORDS SUMMARY | 2025-06-21 09:06 | XMS_ITS | Clinical Summary ---
Author Organization [address] Address [address] [place] [address] Phone Care Team Providers Care Car Hopper Name Role Phone Yodit Akbar MD Primary Care Provider [phone] Encounters Date Type Department Care Team Description 05/31/2025 7:51 AM EDT - 05/31/2025 11:59 PM EDT Hospital [facility] [address] [address] Encounter for screening mammogram for breast cancer Discharge Disposition: Home or Self Care from Last 3 Months Surgical History Surgery Date Site/Laterality Comments STEREOTACTIC CORE BIOPSY Family History Medical History Relation Name Comments Breast cancer Mother Relation Name Status Comments Mother Social History Tobacco Use Types Packs/Day Years Used Date Smoking Tobacco: Never Assessed Comments No Sex and Gender Information Value Date Recorded Sex Assigned at Not on file Legal Sex Female 3:14 PM EST Gender Identity Not on file Sexual Orientation Not on file Obstetrics History Para Term AB IAB SAB Ectopic Multiple Livin g Live Births 4 Last Filed Vital Signs Vital Sign Reading Time Taken Comments Blood Pressure - - Pulse - - Temperature - - Respiratory Rate - - Oxygen Saturation - - Inhaled Oxygen Concentration - - Weight 109 kg (240 lb) 05/31/2025 7:58 AM EDT Height 154.9 cm (5' 1 ) 05/31/2025 7:58 AM EDT Body Mass Index 45.35 05/31/2025 7:58 AM EDT Plan of Treatment Health Maintenance Due Date Last Done Comments Diabetes: Annual GFR (Glomerular Filtration Rate) 1971 Diabetes: Annual Foot Exam 1981 Diabetes: Annual Retina Eye Exam 1981 Hepatitis B Vaccines (1 of 3 - 19+ 3-dose series) 1990 Pneumococcal Vaccine: 50+ Years (1 of 2 - PCV) 1990 Cervical Cancer Screening: Pap Smear 1992 Zoster Vaccines (1 of 2) 2021 Cholesterol Screening (Lipid Panel) 09/10/2022 Colorectal Cancer Screening: Colonoscopy 09/10/2022 HIV Screening 09/10/2022 Hepatitis C Screening 09/10/2022 Social Influencers of Health Screening 09/10/2022 Depression Screening 10/12/2024 Diabetes: Annual Urine Albumin-Creatinine Ratio (uACR) 05/31/2025 Diabetes: Blood Sugar Control Test (HGBA1C) 05/31/2025 10/31/2024, 09/22/2024 COVID-19 Vaccine ( - season) 2025 11/01/2021, 01/23/2021, 12/26/2020 Influenza Vaccine (#1) 2025 07/28/2017 Breast Cancer Screening 05/31/2027 05/31/20, 02/17/2024, 05/01/2022, Additional history exists DTaP,Tdap,and Td Vaccines (2 - Td or Tdap) 09/25/2031 09/25/2021 HIB Vaccines Aged Out No longer eligi ble based on patient's age to complete this topic HPV Vaccines Aged Out No longer eligi ble based on patient's age to complete this topic Hepatitis A Vaccines Aged Out No long er eligible based on patient's age to complete this topic IPV Vaccines Aged Out No longer eligi ble based on patient's age to complete this topic MMR Vaccines Aged Out No longer eligi ble based on patient's age to complete this topic Meningococcal ACWY Vaccine Aged Out N o longer eligible based on patient's age to complete this topic Meningococcal B Vaccine Aged Out No l onger eligible based on patient's age to complete this topic RSV Immunization Patients Under 20 months Aged Out No longer eligible based on patient's age to complete this topic Varicella Vaccines Aged Out No longer eligible based on patient's age to complete this topic Procedures Procedure Name Priority Date/Time Associated Diagnosis Comments MG MAMMO DIGITAL SCREENING W RANJIT BILAT Routine 05/31/2025 8:03 AM EDT Encounter for screening mammogram for breast cancer HEMOGLOBIN A1C Routine 10/31/2024 12:00 AM EST Type 2 diabetes mellitus without complications ([facility]) from Last 3 Months or Most Recently Relevant to Health Maintenance Results * MG Mammo Digital Screening w Ranjit bilat (05/31/2025 8:03 AM EDT) Anatomical Region Laterality Modality Breast Bilateral Mammography 05/31/2025 9:15 AM EDT Impressions 05/31/2025 9:26 AM EDT Benign. BI-RADS CATEGORY: 2 - BENIGN RECOMMENDATION: Screening bilateral mammogram is recommended in 1 year. Mammo Location: [facility], [address] [place] [address], [id number], . -------- FINAL REPORT -------- Dictated By: Kvng Tran Dictated Date: 05/31/2025 09:15 ET Assigned Physician: Kvng Tran Reviewed and Electronically Signed By: Kvng Tran Signed Date: 05/31/2025 09:26 ET Workstation ID: [id number] Transcribed By: Self Edit Transcribed Date: 05/31/2025 09:15 ET Narrative 05/31/2025 9:26 AM EDT CLINICAL: 54 years old, Female, routine annual exam. COMPARISON: 02/29/2024. TECHNIQUE: Bilateral MLO and CC views were obtained digitally with 3-D mammogram (digital breast tomosynthesis). Computer-aided detection was utilized in evaluation of this exam (CAD). FINDINGS: Postbiopsy marker clips in the upper left breast. There is no evidence of suspicious mass or architectural distortion. No worrisome calcifications are evident. There has been no significant change from prior exam(s). BREAST DENSITY: B - There are scattered areas of fibroglandular density. Procedure Note Kvng Tran MD - 05/31/2025 CLINICAL: 54 years old, Female, routine annual exam. COMPARISON: 02/29/2024. TECHNIQUE: Bilateral MLO and CC views were obtained digitally with 3-Dmammogram (digital breast tomosynthesis). Computer-aided detection wasutilized in evaluation of this exam (CAD). FINDINGS: Postbiopsy marker clips in the upper left breast. There is no evidence of suspicious mass or architectural distortion. Noworrisome calcifications are evident. There has been no significantchange from prior exam(s). BREAST DENSITY: B - There are scattered areas of fibroglandular density. IMPRESSION: Benign. BI-RADS CATEGORY: 2 - BENIGN RECOMMENDATION: Screening bilateral mammogram is recommended in 1 year. Mammo Location: [facility], [address] [place] [address], [id number], . -------- FINAL REPORT -------- Dictated By: Kvng Tran Dictated Date: 05/31/2025 09:15 ET Assigned Physician: Kvng Tran Reviewed and Electronically Signed By: Kvng Tran Signed Date: 05/31/2025 09:26 ET Workstation ID: [id number] Transcribed By: Self Edit Transcribed Date: 05/31/2025 09:15 ET us Self Referral Sppl IMG BI PROCEDURES Final Resul t * (ABNORMAL) Hemoglobin A1c (10/31/2024 12:00 AM EST) Hemoglobin A1C 11.7(H) <6.5 % LAB CHEMISTRY METHOD 10/31/2024 9:48 PM EST [facility] Mean Bld Glu Estim. 289 mg/dL LAB CHEMISTRY METHOD 10/31/2024 9:48 PM EST [facility] Blood Venous blood specimen / Unknown 10/31/2024 10/31/2024 6:11 PM EST Kenny URIBE LAB BLOOD ORDERABLES Final Res ult [facility] [address] [place] [address], from Last 3 Months or Most Recently Relevant to Health Maintenance Insurance [facility] MEDICAID ADVANTAGE Care Teams Car Hopper Relationship Specialty Start Date End Date Yodit Akbar MD [address] [place] [id number] PCP - General Internal Medicine 05/31/25
--- OUTSIDE RECORDS SUMMARY | 2025-06-21 09:07 | XMS_ITS | Continuity of Care Document ---
Author Organization [facility] [address] [facility] [address] [place] [address] Phone [phone] Care Team Providers Care Production Dispatcher Name Role Phone Paramjit Marr M.D. 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 [employer] Work Status Full-Time Employment Tobacco Use Start: Unknown End: Unknown Quit 2018 Smoking Status Reviewed: 05/12/25 Quit 2018 ETOH Use Never used alcohol Allergies and adverse reactions Description No Known Drug Allergies Medications Active Medications SIG Qnty Indications Order ing Provider Date Cajxdzrs83ka/0.5ML Solution Auto-Inject inject 10 mg subcutaneously once a week dx: e11.9 2ml E11.9 Yolanda Swenson CNP 05/12/2025 E66.01 Qliwfqbog86fx Tablets 1 by mouth every day 90tabs Yolanda Swenson CNP 05/12/2025 Onetouch Verio Flex Blood Glucose Monitoring Systemw/Device Kit 2 times daily 1units Yolanda Swenson CNP 05/12/2025 Freestyle LancetsMisc Use 3 Lancets A Day For Glucose Monitoring 300units Christine Perez M.D. 02/06/2025 Atorvastatin Gmqhddt23xu Tablets Take 1 Tablet By Mouth Every Day 90tabs Crhistine Perez M.D. 01/08/2024 Uodollxmftu3uv Tablets Take 1 Tablet By Mouth Every Day 90tabs Christine Perez M.D. 10/23/2023 Freestyle Jose 2/Sensor/Flash Glucose Monitoring Zxjjmu3Gnxzux Misc 1 sensor every 14 days dx: e11.9 3units E11Roland Perez M.D. 09/29/2023 Metformin CZX953po Tablets Take 3 Tablets By Mouth Once A Day With Meals 270tabs Yolanda Swenson CNP Montelukast Ijjrre73oh Tablets Take 1 Tablet By Mouth Every Day Paramjit Marr M.D. History Medications Mounjaro7.5mg/0.5ML Solution Auto-Inject inject 7.5 mg subcutaneously once a week dx: e11.9 2ml E11Roland Perez M.D. 02/03/2025 - 05/12/2025 E66.01 Iesdzotimhcyb4ax Tablets 1 tablet by mouth at 11 pm 1tabs Christine Perez M.D. 02/03/2025 - 05/12/2025 Wafgdyeh9yl/0.5ML Solution Auto-Inject inject 5 mg subcutaneously once a week dx: e11.9 2ml Mamta Perez M.D. 08/22/2024 - 02/03/2025 E66.01 Vital Signs Date Vital Result Comment 05/12/2025 8:08am BP Systolic 110 mmHg BP Diastolic 64 mmHg Heart Rate 94 /min Height 60 inches 5'0 Weight 240.25 lb BMI (Body Mass Index) 46.9 kg/m2 Results Test Acquired Date Facility Test Result H/L Range Note Glucose Fingerstick 05/12/2025 Inhouse Glucose Fingerstick 228 Hemoglobin A1c 05/12/2025 Inhouse Hemoglobin A1c 10.4% Comp. Metabolic Panel (14) 02/10/2025 [facility] Glucose [...] IU/L 0-40 Alt (SGPT) 16 IU/L 0-32 Lipid Panel 02/10/2025 [facility] Cholesterol, Total 110 mg/dL 100-199 Triglycerides 71 mg/dL 0-149 HDL Cholesterol 43 mg/dL >39 VLDL Cholestero l Fausto 15 mg/dL 5-40 LDL Chol Calc (Nih) 52 mg/dL 0-99 LDL Calc Comment: TNP Urinalysis, Complete 02/10/2025 [facility] Specific Charmco 1.017 1.005-1.0 30 pH 6.5 5.0-7.5 Urine-Color [...] 02/10/2025 [facility] Vitamin B12 992 pg/mL 232-1245 Hemoglobin A1c 02/03/2025 Inhouse Hemoglobin A1c 9.9% Glucose Fingerstick 02/03/2025 Inhouse Glucose Fingerstick 209 Hemoglobin A1c 08/22/2024 Inhouse Hemoglobin A1c 13.6% Glucose Fingerstick 08/22/2024 Inhouse Glucose Fingerstick 306 Hemoglobin A1c 01/08/2024 Inhouse Hemoglobin A1c 10.6% Glucose Fingerstick 01/08/2024 Inhouse Glucose Fingerstick 183 Comprehensive Metabolic Panl 12/07/2023 [facility] Glucose 205 mg/dL High [...] 112 ML/MIN/1. 73M2 5 Lipid Panel 12/07/2023 [facility] Cholesterol, Total 167 mg/dL (<200) Triglyceride 158 mg/dL High (<150) HDL Chol 45 mg/dL (>39) LDL Cholesterol , Calculated 90 mg/dL (0-130) Non HDL Cholesterol (Calc) 122 mg/dL (<160) Glucose Fingerstick 12/07/2023 Inhouse Glucose Fingerstick 231 Gad65 Autoantibodies 09/29/2023 [facility] Gad65 Autoantibodies <5.0 6 Comprehensive Metabolic Panl 09/29/2023 [facility] Glucose 269 mg/dL High [...] 73M2 7 Complete Abc With Diff 09/29/2023 [facility] WBC 10.0 K/MM3 (4.0-11.0 [...] K/MM3 (1.3-7.0) Lymph # 3.1 K/MM3 (0.8-3.1) Grand# 0.4 K/MM3 (0.4-0.9) Eo # 0.1 K/MM3 (0.0-0.4) Baso # 0.1 K/MM3 (0.0-0.1) Abs. Imm Gran 0.0 K/MM3 Neut 62.6 % (44-76) Lymph 30.7 % (15-43) Monocyte 4.4 % Low (4.5-10.5 ) Eo 1.4 % (0-6) Baso 0.5 % (0-2) Imm Gran 0.4 % Vitamin B12 09/29/2023 [facility] Vitamin B12 723 pg/mL (232-1245 ) Urinary Microalbumin 09/29/2023 [facility] Micro-Albumin 39.0 mg/L High (<20) [...] 5.0 Unit: U/[place] [address] 7 Creatinine based est imated glomerular filtration [...] Date Location Provider Dx Diagnosis Office Visit 05/12/2025 8:00a Main Office Yolanda Swenson CNP E11.9 Type 2 diabetes mellitus without complications E66.01 Morbid (severe) obes ity due to excess calories E78.5 Hyperlipidemia, unsp ecified Z68.42 Body mass index [BMI ] 45.0-49.9, adult Assessments Date Code Description Provider 05/12/2025 E11.9 Type 2 diabetes mellitus without complications Yolanda Swenson CNP 05/12/2025 E66.01 Morbid (severe) obesity due to excess calories Yolanda Swenson CNP 05/12/2025 E78.5 Hyperlipidemia, unspecified Yolanda Swenson CNP 05/12/2025 Z68.42 Body mass index [BMI] 45.0-4 9.9, adult Yolanda Swenson CNP Plan of Treatment Future Appointment(s):* 08/18/2025 8:00 am - Yolanda Swenson, MAGAZINE PUBLISHER at Main Office 01/08/2024 - RONY Mora* E11.9 Type 2 diabetes mellitus without complications * E78.5 Hyperlipidemia, unspecified * E66.01 Morbid (severe) obesity due to excess calories * Z68.42 Body mass index [BMI] 45.0-49.9, adult* New Medication:* Trulicity 4.5 mg/0.5ML Functional Status Description No Information Available Mental Status Description No Information Available Referrals Refer to Reason for Referral Status Appt Praful e [facility] Endocrinology & Diabetes DM2 WITHOUT COMPLICA TIONS Closed 02/17/2024 [address] [place], [place] [id number] [phone]
--- OUTSIDE RECORDS SUMMARY | 2025-06-21 09:07 | XMS_ITS | Patient Health Record ---
Author Organization [facility] Address [address] [facility] [address] [place] [address] Care Team Providers Care Industrial Cleaner Name Role Phone Kenny Becker Unavailable [phone] Migration, Provider Unavailable Unavailable Beth Stein Unavailable [phone] Allergies Allergen (clinical drug ingredient) Drug/Non Drug Allergy documented on EMR Reaction Allergy Type Onset Date Status Hymenoptera Venom -Bee, Wasp, Yellow Jacket Stings anaphylaxis Allergy Active Reason For Referral No Information Medications Medication SIG (Take, Route, Frequency, Duration) Notes Start Date End Date Status Glimepiride 1 MG Tablet 1 tablet with br eakfast or the first main meal of the day Orally Once a day; Duration: 90 days 05/23/2025 Active Glimepiride 4 MG Tablet 1 tablet with br eakfast or the first main meal of the day Orally Once a day; Duration: 90 days 05/23/2025 Active Montelukast Sodium 10 MG Tablet 1 tablet Orally Once a day; Duration: 90 days Active Trelegy Ellipta 100-62.5-25 MCG/ACT Aerosol Powder Breath Activated 1 puff Inhalation Once a day; Duration: 90 days Active Mounjaro 10 MG/0.5ML Solution Auto-injector inject 10mg Subcutaneous once/week; Duration: 90 days 05/23/2025 Active metFORMIN HCl ER 500 MG Tablet Extended Release 24 Hour 3 tablets w/ evening meal Orally Once a day; Duration: 90 days 05/23/2025 Active Encounters Encounter Location Date Provider Diagnosis [facility] [address] [address] 08/02/2024 Provider Migration [facility] [address] [address] 08/10/2024 Provider Migration [facility] [place] [address] [facility] [address] [place] [address] 09/19/2024 Provider Migration [facility] [place] [address] [facility] [address] [place] [phone] 09/22/2024 Provider Migration [facility] [place] [address] [facility] [address] [place] [phone] 10/31/2024 Provider Migration [facility] [place] [address] [facility] [address] [place] [phone] 12/20/2024 Provider Migration [facility] [place] [address] [facility] [address] [place] [phone] 05/23/2025 Beth Cravenriri Plan Of Treatment Next Appt Details Provider Name:Beth Stein, 07/14/2025 09:00:00 AM, [address] [facility], [address] [facility], [place], [address], [id number] Insurance Providers Payer Name Payer Address Payer Phone Subscriber Number Group Number Insured Name Patient Relationship to Insured Coverage Start Date Coverage End Date [facility] [address] [place] [address] [phone] [id number] ANDREW FRY Self - patient is the insured
--- OUTSIDE RECORDS SUMMARY | 2025-06-21 09:07 | XMS_ITS | Encounter Summary ---
Author Organization [facility] Address [address] [place] [address] Care Team Providers Care Emt/Dispatcher Name Role Phone Yodit Akbar MD Primary Care Provider [phone] Encounter Details Date Type Department Care Team (Latest Contact Info) Description 09/22/[address] [facility] - Main Lab [address] [facility] [phone] Paramjit Marr MD 299 [facility] [address] [place] [phone] Type 2 diabetes mellitus without complications (CMS/HCC [...] Date/Time Associated Diagnosis Comments HEMOGLOBIN A1C Routine 09/22/2024 12:00 AM EST Type 2 diabetes mellitus without complications (CMS/[facility]) documented in this encounter Results * (ABNORMAL) Hemoglobin A1c (09/22/2024 12:00 AM EST) Hemoglobin A1C 12.7(H) <6.5 % LAB CHEMISTRY METHOD 09/22/2024 10:35 PM EST [facility] Mean Bld Glu Estim. 318 mg/dL LAB CHEMISTRY METHOD 09/22/2024 10:35 PM EST [facility] Blood Venous blood specimen / Unknown 09/22/2024 09/22/2024 6:22 PM EST us Paramjit Marr MD LAB BLOOD ORDERABLES Final Res ult [facility] [address] [place] [address], documented in this encounter Visit Diagnoses Diagnosis Type 2 diabetes mellitus without complications (CMS/HCC V24, CMS/HCC V28) documented in this encounter Care Teams Emt/Dispatcher Relationship Specialty Start Date End Date Yodit Akbar MD [address] [place] [address] PCP - General Internal Medicine 05/31/25 documented as of this encounter
== END 2025-06-21 08:24 | disposition home or self-care (01) ==
LOC: HO.HOS 08:08
PROVIDERS: PCP Internal Medicine; Visit Provider Orthopaedic Surgery
DX: M25.561 Pain in right knee (principal)
CPT/HCPCS: 99024

== ENCOUNTER 2025-08-08 07:38 | Outpatient (AMB) | payer OTHER, SELFPAY ==
--- OUTSIDE RECORDS SUMMARY | 2024-08-10 04:30 | XMS_ITS ---
Author Organization [facility], [place] Address [address] [place] [address] Care Team Providers Care Planning Advisor Name Role Phone Migration, Provider Unavailable Unavailable REASON FOR VISIT Follow-up Appt Encounters Encounter Location Date Provider Diagnosis [facility], [address] [place] [id number] 08/10/2024 Provider Migration Plan Of Treatment Next Appt Details Provider Name:Beth Stein, 08/24/2025 03:45:00 PM, [address] [place] [address], [address], [place], [address], [phone] Progress Notes * JOEY FRYOB:1970 (55 yo F)Acc No.[id number]:08/10/2024 Progress Notes Patient: ANDREW GARCIA Provider: Sukhi Perez :1970 A ge:54 Y S ex:Female Date:08/10/2024 Address:[address] [id number] Subjective: * Chief Complaints: * F ollow-up Appt * Ocular Surgical History: Objective: Vision Examination: * Electronic signature of Prov ider Migration on 08/08/2025 at 07:41 AM EDT Sign off status: Pending * Provider: Sukhi valentin Migration Date: Generated for Estefany ng/Fag[employer]/eTransmitting on: 07:41 AM EDT
--- OUTSIDE RECORDS SUMMARY | 2024-09-19 07:30 | XMS_ITS ---
Author Organization [facility] [place] Address [address] [place] [address] Care Team Providers Care Hedge Fund Manager Name Role Phone Migration, Provider Unavailable Unavailable REASON FOR VISIT Pre operative visit Encounters Encounter Location Date Provider Diagnosis [facility], [address] [place] [id number] 09/19/2024 Provider Migration Plan Of Treatment Next Appt Details Provider Name:Beth Stein, 08/24/2025 03:45:00 PM, [address] [place] [address], [address], [place], [address], [phone] Progress Notes * JOEY FRYOB:1970 (55 yo F)Acc No.[id number]:09/19/2024 Progress Notes Patient: ANDREW GARCIA Provider: Sukhi Perez :1970 A ge:54 Y S ex:Female Date:09/19/2024 Address:[address], [id number] Subjective: * Chief Complaints: * P re operative visit * Ocular Surgical History: Objective: Vision Examination: * Electronic signature of Prov ider Migration on 08/08/2025 at 07:40 AM EDT Sign off status: Pending * Provider: Sukhi valentin Migration Date: 11/20/2023 Generated for Estefany salinas/Vimal/eTiselasmdonovan on: 07:40 AM EDT
--- OUTSIDE RECORDS SUMMARY | 2024-09-22 11:30 | XMS_ITS ---
Author Organization [facility] [place] Address [address] [place] [address] Care Team Providers Care Hearing Care Professional Name Role Phone Migration, Provider Unavailable Unavailable REASON FOR VISIT Pre operative visit Encounters Encounter Location Date Provider Diagnosis [facility], [address] [place] [id number] 09/22/2024 Provider Migration Plan Of Treatment Next Appt Details Provider Name:Beth Stein, 08/24/2025 03:45:00 PM, [address] [place] [address], [address], [place], [address], [phone] Progress Notes * JOEY FRYOB:1970 (55 yo F)Acc No.[id number]:09/22/2024 Progress Notes Patient: ANDREW GARCIA Provider: Sukhi Perez :1970 A ge:54 Y S ex:Female Date:09/22/2024 Address:[address], [id number] Subjective: * Chief Complaints: * P re operative visit * Ocular Surgical History: Objective: Vision Examination: * Electronic signature of Prov ider Migration on 08/08/2025 at 07:41 AM EDT Sign off status: Pending * Provider: Sukhi valentin Migration Date: 11/23/2023 Generated for Estefany salinas/Vimal/eTiselasmdonovan on: 07:41 AM EDT
--- OUTSIDE RECORDS SUMMARY | 2024-10-31 09:30 | XMS_ITS ---
Author Organization [facility] [place] Address [address] [place] [address] Care Team Providers Care Applications Analyst Name Role Phone Migration, Provider Unavailable Unavailable REASON FOR VISIT Blood Draw Encounters Encounter Location Date Provider Diagnosis [facility], [address] [place] [phone] 10/31/2024 Provider Migration Plan Of Treatment Next Appt Details Provider Name:Beth Stein, 08/24/2025 03:45:00 PM, [address] [facility], [address], [place], [address], [phone] Progress Notes * JOEY FRYOB:1970 (55 yo F)Acc No.[id number]:10/31/2024 Progress Notes Patient: Contreras LAYTONKAELN Provider: Sukhi Perez :1970 A ge:54 Y S ex:Female Date:10/31/2024 Address:[address], [id number] Subjective: * Chief Complaints: * B lood Draw * Ocular Surgical History: Objective: Vision Examination: * Electronic signature of Prov ider Migration on 08/08/2025 at 07:41 AM EDT Sign off status: Pending * Provider: Sukhi valentin Migration Date: 0 10/31/2024 Generated for Estefany salinas/Vimal/eTransmitting on: 1 07:41 AM EDT
--- OUTSIDE RECORDS SUMMARY | 2024-12-20 06:45 | XMS_ITS ---
Author Organization [facility] [place] Address [address] [place] [address] Care Team Providers Care Comparator Operator Name Role Phone Migration, Provider Unavailable Unavailable REASON FOR VISIT Nurse YVETTE visit Encounters Encounter Location Date Provider Diagnosis [facility], [address] [place] [phone] 12/20/2024 Provider Migration Plan Of Treatment Next Appt Details Provider Name:Beth Stein, 08/24/2025 03:45:00 PM, [address] [place] [address], [address] [facility], [place], [address], [phone] Progress Notes * JOEY FRYOB:1970 (55 yo F)Acc No.[id number]:12/20/2024 Progress Notes Patient: ANDREW GARCIA Provider: Sukhi Perez :1970 A ge:54 Y S ex:Female Date:12/20/2024 Address:[address] [id number] Subjective: * Chief Complaints: * N urse YVETTE visit * Ocular Surgical History: Objective: Vision Examination: * Electronic signature of Prov ider Migration on 08/08/2025 at 07:41 AM EDT Sign off status: Pending * Provider: Sukhi valentin Migration Date: 0 12/20/2024 Generated for Estefany salinas/Vimal/eTransmitting on: 1 07:41 AM EDT
--- OUTSIDE RECORDS SUMMARY | 2025-03-31 05:00 | XMS_ITS ---
Author Organization [facility], [place] Address [address] [place] [address] Care Team Providers Care Consulting It Architect Name Role Phone Kenny Becker Unavailable [phone] Allergies No Known Allergies REASON FOR VISIT Follow-up Appt Medications Medication SIG (Take, Route, Frequency, Duration) Notes Start Date End Date Status Mounjaro 7.5 MG/0.5ML Solution Auto-injector as directed Subcutaneous Active Montelukast Sodium 10 MG Tablet 1 tablet Orally Once a day A ctive Glimepiride 1 MG Tablet 1 tablet with br eakfast or the first main meal of the day Orally Once a day Active metFORMIN HCl ER 500 MG Tablet Extended Release 24 Hour 1 tablet with evening meal Orally Once a day Active Lexapro 5 MG Tablet 1 tablet Orally Once a day Active Albuterol Sulfate HFA 108 (90 Base) MCG/ACT Aerosol Solution 1 puff as needed Inhalation every 4 hrs Active Trelegy Ellipta 100-62.5-25 MCG/ACT Aerosol Powder Breath Activated 1 puff Inhalation Once a day Active Fluticasone Propionate 50 MCG/ACT Suspension 1 spray in each nostril Nasally Twice a day Active Dicyclomine HCl 20 MG Tablet 1 tablet Orally Three times a day Active Encounters Encounter Location Date Provider Diagnosis [facility], [place] [address] [place] [address] 03/31/2025 Kenny Becker Plan Of Treatment Next Appt Details Provider Name:Beth Stein, 08/24/2025 03:45:00 PM, [address], [address], [place], [address], [phone] Progress Notes * JOEY FRYOB:1970 (55 yo F)Acc No.[id number]:03/31/2025 Progress Notes Patient: ANDREW GARCIA Provider: Kacie URIBE :1970 A ge:54 Y S ex:Female Date:03/31/2025 Address:[place] [address] Subjective: * Chief Complaints: * F ollow-up Appt * Medications: T akingTrelegy Ellipta 100-62.5-25 MCG/ACT Aerosol Powder Breath Activated 1 puff Inhalation Once a day Mounjaro 7.5 MG/0.5ML Solution Auto-injector as directed Subcutaneous Montelukast Sodium 10 MG Tablet 1 tablet Orally Once a day metFORMIN HCl ER 500 MG Tablet Extended Release 24 Hour 1 tablet with evening meal Orally Once a day Lexapro 5 MG Tablet 1 tablet Orally Once a day Glimepiride 1 MG Tablet 1 tablet with breakfast or the first main meal of the day Orally Once a day Fluticasone Propionate 50 MCG/ACT Suspension 1 spray in each nostril Nasally Twice a day Dicyclomine HCl 20 MG Tablet 1 tablet Orally Three times a day Albuterol Sulfate HFA 108 (90 Base) MCG/ACT Aerosol Solution 1 puff as needed Inhalation every 4 hrs Taking Trelegy Ellipta 100-62.5-25 MCG/ACT Aerosol Powder Breath Activated 1 puff Inhalation Once a day Taking Mounjaro 7.5 MG/0.5ML Solution Auto-injector as directed Subcutaneous Taking Montelukast Sodium 10 MG Tablet 1 tablet Orally Once a day Taking metFORMIN HCl ER 500 MG Tablet Extended Release 24 Hour 1 tablet with evening meal Orally Once a day Taking Lexapro 5 MG Tablet 1 tablet Orally Once a day Taking Glimepiride 1 MG Tablet 1 tablet with breakfast or the first main meal of the day Orally Once a day Taking Fluticasone Propionate 50 MCG/ACT Suspension 1 spray in each nostril Nasally Twice a day Taking Dicyclomine HCl 20 MG Tablet 1 tablet Orally Three times a day Taking Albuterol Sulfate HFA 108 (90 Base) MCG/ACT Aerosol Solution 1 puff as needed Inhalation every 4 hrs * Allergies: N .K.D.A.yesAllergies Verified. * Electronic signature of Nikolai Becker PA-C on 08/08/2025 at 07:40 AM EDT Sign off status: Pending * Provider: Kacie URIBE Date: 0 03/31/2025 Generated for Estefany salinas/Vimal/Nina on: 1 07:40 AM EDT
--- OUTSIDE RECORDS SUMMARY | 2025-05-16 06:15 | XMS_ITS ---
Author Organization [facility], [place] Address [address] [place] [address] Care Team Providers Care Ticker Maintainer Name Role Phone Beth Stein Unavailable [phone] REASON FOR VISIT f/u Medications Medication SIG (Take, Route, Frequency, Duration) Notes Start Date End Date Status Lexapro 5 MG Tablet 1 tablet Orally Once a day Unknown Glimepiride 1 MG Tablet 1 tablet with br eakfast or the first main meal of the day Orally Once a day Unknown Fluticasone Propionate 50 MCG/ACT Suspension 1 spray in each nostril Nasally Twice a day Unknown Dicyclomine HCl 20 MG Tablet 1 tablet Orally Three times a day Unknown Albuterol Sulfate HFA 108 (90 Base) MCG/ACT Aerosol Solution 1 puff as needed Inhalation every 4 hrs Unknown metFORMIN HCl ER 500 MG Tablet Extended Release 24 Hour 1 tablet with evening meal Orally Once a day Unknown Trelegy Ellipta 100-62.5-25 MCG/ACT Aerosol Powder Breath Activated 1 puff Inhalation Once a day Unknown Mounjaro 7.5 MG/0.5ML Solution Auto-injector as directed Subcutaneous Unknown Montelukast Sodium 10 MG Tablet 1 tablet Orally Once a day U nknown Encounters Encounter Location Date Provider Diagnosis [facility] [address] [place] [address] 05/16/2025 Beth Stein Plan Of Treatment Next Appt Details Provider Name:Beth Sagriri, 08/24/2025 03:45:00 PM, [address], [address], [place], [address], [phone] Progress Notes * JOEY FRYOB:1970 (55 yo F)Acc No.[id number]:05/16/2025 Progress Notes Patient: ANDREW GARCIA Provider: Anita Stein :1970 A ge:54 Y S ex:Female Date:05/16/2025 Address:[place] [address] Subjective: * Chief Complaints: * F /u * Medications: U nknownTrelegy Ellipta 100-62.5-25 MCG/ACT Aerosol Powder Breath Activated [...] puff as needed Inhalation every 4 hrs Unknown Trelegy Ellipta 100-62.5-25 MCG/ACT Aerosol Powder Breath Activated 1 puff Inhalation Once a day Unknown Mounjaro 7.5 MG/0.5ML Solution Auto-injector as directed Subcutaneous Unknown Montelukast Sodium 10 MG Tablet 1 tablet Orally Once a day Unknown metFORMIN HCl ER 500 MG Tablet Extended Release 24 Hour 1 tablet with evening meal Orally Once a day Unknown Lexapro 5 MG Tablet 1 tablet Orally Once a day Unknown Glimepiride 1 MG Tablet 1 tablet with breakfast or the first main meal of the day Orally Once a day Unknown Fluticasone Propionate 50 MCG/ACT Suspension 1 spray in each nostril Nasally Twice a day Unknown Dicyclomine HCl 20 MG Tablet 1 tablet Orally Three times a day Unknown Albuterol Sulfate HFA 108 (90 Base) MCG/ACT Aerosol Solution 1 puff as needed Inhalation every 4 hrs * Electronic signature of Reyna Emil on 08/08/2025 at 07:41 AM EDT Sign off status: Pending * Provider: Anita Stein Date: 0 05/16/2025 Generated for Estefany salinas/Vimal/Nina on: 1 07:41 AM EDT
--- OUTSIDE RECORDS SUMMARY | 2025-07-24 11:15 | XMS_ITS ---
Author Organization [facility] [place] Address [address] [facility] [address] [place] [address] Care Team Providers Care Fur Cutting Machine Operator Name Role Phone Beth Stein Unavailable [phone] REASON FOR VISIT Physical, Patient indicates concerns on loose stools and weight gain. Asking for referral for GI. Medications Medication SIG (Take, Route, Frequency, Duration) Notes Start Date End Date Status Montelukast Sodium 10 MG Tablet 1 tablet Orally Once a day; Duration: 90 days Active Trelegy Ellipta 100-62.5-25 MCG/ACT Aerosol Powder Breath Activated 1 puff Inhalation Once a day; Duration: 90 days Active Glimepiride 1 MG Tablet 1 tablet with br eakfast or the first main meal of the day Orally Once a day; Duration: 90 days 05/23/2025 Active Glimepiride 4 MG Tablet 1 tablet with br eakfast or the first main meal of the day Orally Once a day; Duration: 90 days 05/23/2025 Active Omeprazole 20 MG Capsule Delayed Release 1 capsule 1/2 to 1 hour before morning meal Orally Once a day; Duration: 90 days 07/24/2025 Active Mounjaro 10 MG/0.5ML Solution Auto-injector inject 10mg Subcutaneous once/week; Duration: 90 days 05/23/2025 Active metFORMIN HCl ER 500 MG Tablet Extended Release 24 Hour 3 tablets w/ evening meal Orally Once a day; Duration: 90 days 05/23/2025 Active Atorvastatin Calcium 10 MG Tablet 1 tablet Orally Once a day; Duration: 90 days 07/24/2025 Active Problems Problem Type SNOMED Code ICD Code Onset Dates Problem Status W/U Status Risk Notes Problem Gastroesophageal reflux disease (512267034) GERD (gastroesophag eal reflux disease) (K21.9) Active confirmed Problem Hyperlipidemia (33460988) Hyperlipidemia , unspecified (E78.5) Active confirmed Vital Signs Blood pressure systolic 135 mm Hg 07/24/20 25 Blood pressure diastolic 85 mm Hg 025 Heart Rate 88 /min 07/24/2025 Respiratory Rate 19 /min 07/24/2025 Weight 246 lbs 07/24/2025 Oximetry 97 % 07/24/2025 Weight-kg 111.58 kg 07/24/2025 height- Encounters Encounter Location Date Provider Diagnosis [facility] [place] [address] [facility] [address] [place] [address] 07/24/2025 Beth Stein GERD (gastroesophageal reflux disease) K21.9 and Hyperlipidemia, unspecified E78.5 Assessments Encounter Date Diagnosis (ICD Code) Assessment Notes Treatment Notes Treatment Clinical Notes Section Notes 07/24/2025 GERD (gastroesophagea l reflux disease) (ICD-10 - K21.9) 07/24/2025 Hyperlipidemia, unspecified (ICD-10 - E78.5) Plan Of Treatment Medication Medication Name Sig Start Date Stop Date Notes Omeprazole 20 MG Capsule Del ayed Release 1 capsule 1/2 to 1 hour before morning meal Orally Once a day; Duration: 90 days 07/24/2025 Atorvastatin Calcium 10 MG Tablet 1 tablet Orally Once a day; Duration: 90 days 07/24/2025 Next Appt Details Provider Name:Beth Stein, 08/24/2025 03:45:00 PM, [address] [facility], [address], [place], [address], [phone] History and Physical Notes * HPI (History of Present Illness) Category Sub-Category Detail Notes Category Not es General Subjective: - Patient reports experiencing diarrhea, bloating, weight gain, and burning sensation from stomach to chest. - Patient on Mounjaro for 6 months with no previous problems, increased metformin dosage recently. - Reports diarrhea within 15-20 mins after eating, no solid bowel movements for a few months. - Describes weight gain in stomach area, experiencing rashes and itching under skin folds. - Previous endoscopy and colonoscopy were done 3 years ago; GI referral needed. - Reports no family history of stomach problems. - Mentioned daughter's opinion of possible dyspepsia. - Single, not currently sexually active; Mirena in place for about 8 years, plans to consult CONTRACTING ENGINEER. - Denies family history of stomach problems. - Previous use of omeprazole; effective. - Plans to work with daughter's suggestion on pursuing GI consultation. Objective: - Abdomen: Palpation involved, reported as hard. - Auscultation: Clear lung sounds, regular heart sounds. - Patient described as appearing bloated. - Strength testing of extremities: Normal. - Reports no pain upon facial palpation. Assessment: - Dyspepsia - Possible Gastric Issue Plan: - Prescribe omeprazole 20 mg daily with 3 refills. - Recommendation for GI consultation within 2-3 weeks. - Suggest abdominal x-ray to investigate bloating and diarrhea concerns. - Advise use of Pepto-Bismol after meals to help manage symptoms. - Follow-up appointment after GI consultation or if symptoms persist or worsen. Progress Notes * JOEY FRYOB:1970 (55 yo F)Acc No.[id number]:07/24/2025 Progress Notes Patient: ANDREW GARCIA Provider: Anita Stein :1970 A ge:55 Y S ex:Female Date:07/24/2025 Address:[address] [facility], [facility] Subjective: * Chief Complaints: * P hysicalPatient indicates concerns on loose stools and weight gain. Asking for referral for GI. * HPI: G eneral: Subjective: - Patient reports experiencing diarrhea, bloating, weight gain, and burning sensation from stomach to chest. - Patient on Mounjaro for 6 months with no previous problems, increased metformin dosage recently. - Reports diarrhea within 15-20 mins after eating, no solid bowel movements for a few months. - Describes weight gain in stomach area, experiencing rashes and itching under skin folds. - Previous endoscopy and colonoscopy were done 3 years ago; GI referral needed. - Reports no family history of stomach problems. - Mentioned daughter's opinion of possible dyspepsia. - Single, not currently sexually active; Mirena in place for about 8 years, plans to consult CONTRACTING ENGINEER. - Denies family history of stomach problems. - Previous use of omeprazole; effective. - Plans to work with daughter's suggestion on pursuing GI consultation. Objective: - Abdomen: Palpation involved, reported as hard. - Auscultation: Clear lung sounds, regular heart sounds. - Patient described as appearing bloated. - Strength testing of extremities: Normal. - Reports no pain upon facial palpation. Assessment: - Dyspepsia - Possible Gastric Issue Plan: - Prescribe omeprazole 20 mg daily with 3 refills. - Recommendation for GI consultation within 2-3 weeks. - Suggest abdominal x-ray to investigate bloating and diarrhea concerns. - Advise use of Pepto-Bismol after meals to help manage symptoms. - Follow-up appointment after GI consultation or if symptoms persist or worsen. * Surgical History: meniscus surgery * Ocular Surgical History: * Medications: T akingGlimepiride 4 MG Tablet [...] Tablet 1 tablet Orally Once a day Objective: * Vitals: B P:135/85mm Hg, HR:88/min, RR:19/min, Oxygen sat %:97%, Wt:246lbs, Wt-k.58 kg. height-. Vision Examination: Assessment: * Assessment: 1. G ERD (gastroesophageal reflux disease) - K21.9 2 . H yperlipidemia, unspecified - E78.5 Plan: * Treatment: 2. H yperlipidemia, unspecified Start Atorvastatin Calcium Tablet, 10 MG, 1 tablet, Orally, Once a day, 90 days, 90 Tablet, Refills 3. * Electronic signature of Reyna Stein on 08/08/2025 at 07:41 AM EDT Sign off status: Pending * Provider: Anita Stein Date: 1 Generated for Estefany salinas/Vimal/Nina on: 07:41 AM EDT
--- OUTSIDE RECORDS SUMMARY | 2025-07-31 12:30 | XMS_ITS ---
Author Organization [facility] [place] Address [address] [facility] [address] [place] [address] Care Team Providers Care Communication Center Operator Name Role Phone Beth Stein Sury [phone] REASON FOR VISIT Telehealth f/u x-ray Medications Medication SIG (Take, Route, Frequency, Duration) Notes Start Date End Date Status Montelukast Sodium 10 MG Tablet 1 tablet Orally Once a day; Duration: 90 days Active Trelegy Ellipta 100-62.5-25 MCG/ACT Aerosol Powder Breath Activated 1 puff Inhalation Once a day; Duration: 90 days Active Mounjaro 10 MG/0.5ML Solution Auto-injector inject 10mg Subcutaneous once/week; Duration: 90 days 05/23/2025 Active Atorvastatin Calcium 10 MG Tablet 1 tablet Orally Once a day; Duration: 90 days 07/24/2025 Active Omeprazole 20 MG Capsule Delayed Release 1 capsule 1/2 to 1 hour before morning meal Orally Once a day; Duration: 90 days 07/24/2025 Active metFORMIN HCl ER 500 MG Tablet Extended Release 24 Hour 3 tablets w/ evening meal Orally Once a day; Duration: 90 days 05/23/2025 Active Glimepiride 1 MG Tablet 1 tablet with br eakfast or the first main meal of the day Orally Once a day; Duration: 90 days 05/23/2025 Active Glimepiride 4 MG Tablet 1 tablet with br eakfast or the first main meal of the day Orally Once a day; Duration: 90 days 05/23/2025 Active Encounters Encounter Location Date Provider Diagnosis [facility], [place] [address] [facility] [address] [place] [address] 07/31/2025 Beth Stein Plan Of Treatment Next Appt Details Provider Name:Beth Stein, 08/24/2025 03:45:00 PM, [address] [facility], [address], [place], [address], [phone] Progress Notes * KAEL FRYCYNDIOB:1970 (55 yo F)Acc No.[id number]:07/31/2025 Progress Notes Patient: ANDREW GARCIA Provider: Anita Stein :1970 A ge:55 Y S ex:Female Date:07/31/2025 Address:[address] Subjective: * Chief Complaints: * T [facility] f/u x-ray * Medications: T akingGlimepiride 4 MG Tablet [...] Tablet 1 tablet Orally Once a day Omeprazole 20 MG Capsule Delayed Release 1 capsule 1/2 to 1 hour before morning meal Orally Once a day Atorvastatin Calcium 10 MG Tablet 1 tablet [...] 1 tablet Orally Once a day Taking Omeprazole 20 MG Capsule Delayed Release 1 capsule 1/2 to 1 hour before morning meal Orally Once a day Taking Atorvastatin Calcium 10 MG Tablet 1 tablet Orally Once a day * Electronic signature of Reyna Stein on 08/08/2025 at 07:42 AM EDT Sign off status: Pending * Provider: Anita Stein Date: Generated for Estefany salinas/Vimal/Nina on: 07:42 AM EDT
--- OUTSIDE RECORDS SUMMARY | 2025-08-08 07:41 | XMS_ITS | Encounter Summary ---
Author Organization [facility] Address [address] [place] [address] Care Team Providers Care It Generalist Name Role Phone Yodit Akbar MD Primary Care Provider [phone] Encounter Details Date Type Department Care Team (Latest Contact Info) Description 10/31/2024 Lab Requisition [facility] [address] [place] [address] Kenny Becker PA [address] [facility] [address] [place] [address] Type 2 diabetes mellitus without complications (CMS/HCC [...] CHEMISTRY METHOD 10/31/2024 9:48 PM EST [facility] Mean Bld Glu Estim. 289 mg/dL LAB CHEMISTRY METHOD 10/31/2024 9:48 PM EST [facility] Blood Venous blood specimen / Unknown 10/31/2024 10/31/2024 6:11 PM EST us Kenny URIBE LAB BLOOD ORDERABLES Final Res ult [facility] [address] [place] [address], documented in this encounter Visit Diagnoses Diagnosis Type 2 diabetes mellitus without complications (CMS/HCC V24, CMS/HCC V28) documented in this encounter Care Teams It Generalist Relationship Specialty Start Date End Date Yodit Akbar MD [address] [place] [id number] PCP - General Internal Medicine 05/31/25 documented as of this encounter
--- OUTSIDE RECORDS SUMMARY | 2025-08-08 07:41 | XMS_ITS | Continuity of Care Document ---
Author Organization [facility] [address] [address] [place] [address] Phone [phone] Care Team Providers Care Astronaut Mission Specialist Name Role Phone Paramjit Marr M.D. 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 Employment Tobacco Use Start: Unknown End: Unknown Quit 2018 Smoking Status Reviewed: 05/12/25 Quit 2018 ETOH Use Never used alcohol Allergies and adverse reactions Description No Known Drug Allergies Medications Active Medications SIG Qnty Indications Order ing Provider Date Hdfjkgzo50pk/0.5ML Solution Auto-Inject inject 10 mg subcutaneously once a week dx: e11.9 2ml E11.9 Yolanda Swenson CNP 05/12/2025 E66.01 Ixvhvbrax81ne Tablets 1 by mouth every day 90tabs Yolanda Swenson CNP 05/12/2025 Onetouch Verio Flex Blood Glucose Monitoring Systemw/Device Kit 2 times daily 1units Yolanda Swenson CNP 05/12/2025 Freestyle LancetsMisc Use 3 Lancets A Day For Glucose Monitoring 300units Christine Perez M.D. 02/06/2025 Atorvastatin Pxojxzm56aq Tablets Take 1 Tablet By Mouth Every Day 90tabs Christine Perez M.D. 01/08/2024 Xudjfgeezta7mz Tablets Take 1 Tablet By Mouth Every Day 90tabs Christine Perez M.D. 10/23/2023 Freestyle Jose 2/Sensor/Flash Glucose Monitoring Llvpyg3Ersibl Misc 1 sensor every 14 days dx: e11.9 3units E11Roland Perez M.D. 09/29/2023 Metformin TFA238jf Tablets Take 3 Tablets By Mouth Once A Day With Meals 270tabs Yolanda Swenson CNP Montelukast Xkljmm94se Tablets Take 1 Tablet By Mouth Every Day Paramjit Marr M.D. History Medications Mounjaro7.5mg/0.5ML Solution Auto-Inject inject 7.5 mg subcutaneously once a week dx: e11.9 2ml E11Roland Perez M.D. 02/03/2025 - 05/12/2025 E66.01 Drzoujejvmper8mn Tablets 1 tablet by mouth at 11 pm 1tabs Christine Perez M.D. 02/03/2025 - 05/12/2025 Pvkpkeow2mw/0.5ML Solution Auto-Inject inject 5 mg subcutaneously once [...] Comment: TNP Urinalysis, Complete 02/10/2025 [facility] Specific [place] 1.017 1.005-1.0 30 pH 6.5 5.0-7.5 Urine-Color [...] Glucose Fingerstick 183 Comprehensive Metabolic Panl 12/07/2023 [facility] Glucose 205 mg/dL High (70-99) [...] 112 ML/MIN/1. 73M2 5 Lipid Panel 12/07/2023 [facility] Cholesterol, Total 167 mg/dL (<200) Triglyceride 158 mg/dL High (<150) HDL Chol 45 mg/dL (>39) LDL Cholesterol , Calculated 90 mg/dL (0-130) Non HDL Cholesterol (Calc) 122 mg/dL (<160) Glucose Fingerstick 12/07/2023 [facility] Glucose Fingerstick 231 Gad65 Autoantibodies 09/29/2023 [facility] Gad65 Autoantibodies <5.0 6 Comprehensive Metabolic Panl 09/29/2023 [facility] Glucose 269 mg/dL High (70-99) [...] 73M2 7 Complete Abc With Diff 09/29/2023 [facility] WBC 10.0 K/MM3 (4.0-11.0 ) [...] K/MM3 (1.3-7.0) Lymph # 3.1 K/MM3 (0.8-3.1) [place]# 0.4 K/MM3 (0.4-0.9) Eo # 0.1 K/MM3 (0.0-0.4) Baso # 0.1 K/MM3 (0.0-0.1) Abs. Imm Gran 0.0 K/MM3 Neut 62.6 % (44-76) Lymph 30.7 % (15-43) Monocyte 4.4 % Low (4.5-10.5 ) Eo 1.4 % (0-6) Baso 0.5 % (0-2) Imm Gran 0.4 % Vitamin B12 09/29/2023 [facility] Vitamin B12 723 pg/mL (232-1245 ) Urinary Microalbumin 09/29/2023 [facility] Micro-Albumin 39.0 mg/L High (<20) [...] to 5.0 Unit: U/[place] [address] 7 Creatinine based est imated glomerular filtration [...] Appointment(s):* 08/18/2025 8:00 am - Yolanda Swenson, WORK MANAGER at Main Office 01/08/2024 - RONY Mora* E11.9 Type 2 diabetes mellitus without complications * E78.5 Hyperlipidemia, unspecified * E66.01 Morbid (severe) obesity due to excess calories * Z68.42 Body mass index [BMI] 45.0-49.9, adult* New Medication:* Trulicity 4.5 mg/0.5ML Functional Status Description No Information Available Mental Status Description No Information Available Referrals Refer to Reason for Referral Status Appt Praful e [facility] Endocrinology & Diabetes DM2 WITHOUT COMPLICA TIONS Closed 02/17/2024 [address] [place], [place] [id number] [phone]
--- OUTSIDE RECORDS SUMMARY | 2025-08-08 07:41 | XMS_ITS | Encounter Summary ---
Author Organization [facility] Address [address] [place] [address] Care Team Providers Care Measurement Supervisor Name Role Phone Yodit Akbar MD Primary Care Provider [phone] Encounter Details Date Type Department Care Team (Latest Contact Info) Description 09/22/2024 Lab Requisition [facility] [address] [facility] [place] [id number] Paramjit Marr MD [address] [facility] [address] [place] [phone] Type 2 diabetes mellitus without complications (CMS/HCC [...] LAB CHEMISTRY METHOD 09/22/2024 10:35 PM EST [facility] Mean Bld Glu Estim. 318 mg/dL LAB CHEMISTRY METHOD 09/22/2024 10:35 PM EST [facility] Blood Venous blood specimen / Unknown 09/22/2024 09/22/2024 6:22 PM EST us Paramjit Marr MD LAB BLOOD ORDERABLES Final Res ult [facility] [address] [place] [address], documented in this encounter Visit Diagnoses Diagnosis Type 2 diabetes mellitus without complications (CMS/HCC V24, CMS/HCC V28) documented in this encounter Care Teams Measurement Supervisor Relationship Specialty Start Date End Date Yodit Akbar MD [address] [place] [phone] PCP - General Internal Medicine 05/31/25 documented as of this encounter
--- OUTSIDE RECORDS SUMMARY | 2025-08-08 07:42 | XMS_ITS | Clinical Summary ---
Author Organization [address] Address [address] [place] [address] Phone Care Team Providers Care Desktop Engineer Name Role Phone Yodit Akbar MD Primary Care Provider [phone] Encounters Date Type Department Care Team Description 07/25/2025 7:25 AM EDT - 07/25/2025 11:59 PM EDT Hospital Encounter [facility] Xray [address] [place] [phone] Diarrhea, unspecified; Abdominal distension (gaseous) Discharge Disposition: Home or Self Care 05/31/2025 7:51 AM EDT - 05/31/2025 11:59 PM EDT Hospital Encounter [facility] [address] [address] Encounter for screening mammogram for breast cancer [...] Health Maintenance Due Date Last Done Comments Colorectal Cancer Screening: Colonoscopy 1971 Diabetes: Annual GFR (Glomerular Filtration Rate) 1971 Diabetes: Annual Foot Exam 1981 Diabetes: Annual Retina Eye Exam 1981 Hepatitis B Vaccines (1 of 3 - 19+ 3-dose series) 1990 Pneumococcal Vaccine: 50+ Years (1 of 2 - PCV) 1990 Cervical Cancer Screening: Pap Smear 1992 RSV Immunization Adult Patients (1 - Risk 50-74 years 1-dose series) 2021 Zoster Vaccines (1 of 2) 2021 Cholesterol Screening (Lipid Panel) 09/10/2022 HIV Screening 09/10/2022 Hepatitis C Screening 09/10/2022 Social Influencers of Health Screening 09/10/2022 Depression Screening 10/12/2024 Diabetes: Annual Urine Albumin-Creatinine Ratio (uACR) 05/31/2025 Diabetes: Blood Sugar Control Test (HGBA1C) 05/31/2025 10/31/2024, 09/22/2024 COVID-19 Vaccine ( season) 2025 11/01/2021, 01/23/2021, 12/26/2020 Influenza Vaccine [...] Procedure Name Priority Date/Time Associated Diagnosis Comments XR ABDOMEN 1 VIEW Routine 07/25/2025 7:3 5 AM EDT Diarrhea, unspecified Abdominal distension (gaseous) MG MAMMO DIGITAL SCREENING W RANJIT BILAT Routine 05/31/2025 8:03 AM EDT Encounter for screening mammogram for breast cancer HEMOGLOBIN A1C Routine 10/31/2024 12:00 AM EST Type 2 diabetes mellitus without complications (CMS/HCC) from Last 3 Months or Most Recently Relevant to Health Maintenance Results * XR Abdomen 1 View (07/25/2025 7:35 AM EDT) Anatomical Region Laterality Modality Body Radiographic Manisha ging 07/25/2025 7:38 AM EDT Impressions 07/25/2025 7:40 AM EDT No evidence of small bowel obstruction. Suspect some liver enlargement -------- FINAL REPORT -------- Dictated By: Blair Adams Dictated Date: 07/25/2025 07:38 ET Assigned Physician: Blair Adams Reviewed and Electronically Signed By: Blair Adams Signed Date: 07/25/2025 07:40 ET Workstation ID: [id number] Transcribed By: Self Edit Transcribed Date: 07/25/2025 07:38 ET Narrative 07/25/2025 7:40 AM EDT EXAMINATION: ABDOMEN CLINICAL INFORMATION: Diarrhea. Gaseous distention. COMPARISON: None. TECHNIQUE: Frontal view of the abdomen FINDINGS: No suspicious upper abdominal calcifications. The right lobe of the liver extends to the mid SI joint level. This suggests some enlargement. The right mid abdominal gutters appear sharply defined. There is no IUD present. There is a probable phlebolith in the deep left pelvis. No evidence of small bowel obstruction. No suspicious abnormality in the visualized lower chest Procedure Note Blair Adams MD - 07/25/2025 EXAMINATION: ABDOMEN CLINICAL INFORMATION: Diarrhea. Gaseous distention. COMPARISON: None. TECHNIQUE: Frontal view of the abdomen FINDINGS: No suspicious upper abdominal calcifications. The right lobe of the liverextends to the mid SI joint level. This suggests some enlargement. The right mid abdominal gutters appear sharply defined. There is no IUDpresent. There is a probable phlebolith in the deep left pelvis. No evidence of small bowel obstruction. No suspicious abnormality in the visualized lower chest IMPRESSION: No evidence of small bowel obstruction. Suspect some liver enlargement -------- FINAL REPORT -------- Dictated By: Blair Adams Dictated Date: 07/25/2025 07:38 ET Assigned Physician: Blair Adams Reviewed and Electronically Signed By: Blair Adams Signed Date: 07/25/2025 07:40 ET Workstation ID: [id number] Transcribed By: Self Edit Transcribed Date: 07/25/2025 07:38 ET Beth URIBE IMG XR PROCEDURES Final Res ult * MG Mammo Digital Screening w Ranjit bilat (05/31/2025 8:03 AM EDT) Anatomical Region Laterality Modality Breast Bilateral Mammography 05/31/2025 9:15 AM EDT Impressions 05/31/2025 9:26 AM EDT Benign. BI-RADS CATEGORY: 2 - BENIGN RECOMMENDATION: Screening bilateral mammogram is recommended in 1 year. Mammo Location: [facility], [address] [place] [address], [id number], . -------- FINAL REPORT -------- Dictated By: Kvng Tran Dictated Date: 05/31/2025 09:15 ET Assigned Physician: Kvng Tran Reviewed and Electronically Signed By: Kvng Tran Signed Date: 05/31/2025 09:26 ET Workstation ID: [id number] Transcribed By: Self Edit Transcribed Date: 05/31/2025 [...] year. Mammo Location: [facility], [address] [place] [address], [facility], . -------- FINAL REPORT -------- Dictated By: Kvng Tran Dictated Date: 05/31/2025 09:15 ET Assigned Physician: Kvng Tran Reviewed and Electronically Signed By: Kvng Tran Signed Date: 05/31/2025 09:26 ET Workstation ID: [id number] Transcribed By: Self Edit Transcribed Date: 05/31/2025 09:15 ET us Self Referral Sppl IMG BI PROCEDURES Final Resul t * (ABNORMAL) Hemoglobin A1c (10/31/2024 12:00 AM EST) Hemoglobin A1C 11.7(H) <6.5 % LAB CHEMISTRY METHOD 10/31/2024 9:48 PM EST [facility] Mean Bld Glu Estim. 289 mg/dL LAB CHEMISTRY METHOD 10/31/2024 9:48 PM EST [facility] Blood Venous blood specimen / Unknown 10/31/2024 10/31/2024 6:11 PM EST us Kenny URIBE LAB BLOOD ORDERABLES Final Res ult [facility] [address] [place] [address], from Last 3 Months or Most Recently Relevant to Health Maintenance Insurance [facility] MEDICAID ADVANTAGE [facility] Care Teams Desktop Engineer Relationship Specialty Start Date End Date Yodit Akbar MD [address] [place] [phone] PCP - General Internal Medicine 05/31/25
--- OUTSIDE RECORDS SUMMARY | 2025-08-08 07:42 | XMS_ITS | Patient Health Record ---
Author Organization [facility] [place] Address [address] [address] [place] [address] Care Team Providers Care Tie Cutter Name Role Phone NancyfishgailKenny Unavailable [phone] Migration, Provider Unavailable Unavailable Beth Stein Unavailable [phone] Allergies Allergen (clinical drug ingredient) Drug/Non Drug [...] Problem Status W/U Status Risk Notes Problem Hyperlipidemia (39624584) Hyperlipidemia , unspecified (E78.5) Active confirmed Problem Gastroesophageal reflux disease (627644827) GERD (gastroesophag eal reflux disease) (K21.9) Active confirmed Vital Signs Heart Rate 88 /min 07/24/2025 height- Respiratory Rate 19 /min 07/24/2025 height- Oximetry 97 % 07/24/2025 height- Blood pressure diastolic 85 mm Hg 07/24/2025 hei ght- Weight-kg 111.58 kg 07/24/2025 height- Blood pressure systolic 135 mm Hg 07/24/2025 heig ht- Weight 246 lbs 07/24/2025 height- Encounters Encounter Location Date Provider Diagnosis [facility], [address] [address] 08/10/2024 Provider Migration [facility], [address] [address] 09/19/2024 Provider Migration [facility], [address] [address] 09/22/2024 Provider Migration [facility], [address] [address] 10/31/2024 Provider Migration [facility], [address] [address] 12/20/2024 Provider Migration [facility], [address] [address] 07/24/2025 Beth Stein GERD (gastroesophageal reflux disease) K21.9 and Hyperlipidemia, unspecified E78.5 [facility], [address] [address] 07/31/2025 Beth Stein [facility], [address] [address] 05/23/2025 Beth Stein Assessments Encounter Date Diagnosis (ICD Code) Assessment Notes Treatment Notes Treatment Clinical Notes Section Notes 07/24/2025 GERD (gastroesophagea l reflux disease) (ICD-10 - K21.9) 07/24/2025 Hyperlipidemia, unspecified (ICD-10 - E78.5) Plan Of Treatment Next Appt Details Provider Name:Beth Stein, 08/24/2025 03:45:00 PM, [address], [address], [place], [address], [phone] Insurance Providers Payer Name Payer Address Payer Phone Subscriber Number Group Number Insured Name Patient Relationship to Insured Coverage Start Date Coverage End Date [facility] [address] [place] [phone] [id number] [id number] [id number] Self - patient is the insured Medical (General) History Surgical History Surgery Date(Month/Year) meniscus surgery
--- NOTE | 2025-08-08 07:46 | A.OFFVIS_ITS ---
Intake Visit Reasons: Bilateral knee pain Intake Note: Sonam is a 55 year old female who presents with complaints of bilateral knee pains. She describes her pains as sharp in nature. She has failed the last 3 months of conservative treatment which has included Tylenol, anti-inflammatory medicines, physical therapy exercises and a home exercise program. She has had cortisone injections in the past. The most recent cortisone injection gave her no relief. She has also had viscosupplementation injections which gave her good relief. She wishes to hold off on total knee replacement surgery for as long as possible. At this point her bilateral knee pains are interfering with her activities of daily living and her ability to sleep well through the night. Allergies onion Allergy (Intermediate, Uncoded 05/11/25 08:19) Itching strawberry Allergy (Intermediate, Uncoded 05/11/25 08:19) Hives bee Adverse Reaction (Severe, Uncoded 05/11/25 08:19) Anaphylaxis Medication List - Last Reconciled 08/08/25 by Daniel Arredondo MD albuterol sulfate 90 mcg/actuation (ProAir HFA) 2 puffs inhalation Q6H PRN atorvastatin 10 mg PO DAILY tvodmgrwjfp-fgwkdjxmr-ifypxhnm 100-62.5-25 mcg (Trelegy Ellipta) 1 puff PO DAILY wgiwuawbshq-inehmtuve-cyvhfkyk 100-62.5-25 mcg (Trelegy Ellipta) 1 ea inhalation DAILY glimepiride 1 mg PO DAILY glimepiride 4 mg PO DAILY ibuprofen 600 mg PO TID PRN metformin 2 tabs PO DAILY methylprednisolone (Medrol (Franki)) PO PER PKG DIR oxycodone 5 mg PO Q6H PRN spironolactone 50 mg BID tirzepatide (Mounjaro) 5 mg subcut QWEEK PFSH Medical History Back pain IUD (intrauterine device) in place Acid reflux Atelectasis of right lung Diabetes mellitus Atelectasis Asthma COPD (chronic obstructive pulmonary disease) VTE (venous thromboembolism) (~2011) Pulmonary embolism DVT (deep venous thrombosis) (~2011) Surgical History History of bronchoscopy (~2019) Hx of section Hx of section Family History Father No problems noted. Mother No problems noted. Son No problems noted. Son No problems noted. Daughter No problems noted. Daughter No problems noted. Sister No problems noted. Social History Household Members: Family and Children Household Members Other:: son 26 yrs Housing: Apartment Are you a primary day care center director to a significant other at home: No Do you presently have visiting nurse or other home services: No Alcohol intake: current Alcohol intake frequency: does not drink Patient Tobacco Use Status: Former Tobacco user Tobacco use type: Cigarette Cigarette Packs Per Day: 0.5 Cigarettes Per Day: 4 Years Smoked: 30 e-Cigarette/Vaping Use: Never Used Second Hand Smoke Exposure: No Advance Directives Date on File: 04/28/21 service: No Current occupational status: employed 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 Physical Exam Const Other: Well-nourished well-developed very friendly female awake alert and oriented x3 in no acute distress Extrem Other: Bilateral lower extremity examination shows good capillary refill, no skin lesions noted, normal sensation light touch Bilateral knee examination shows minimal effusions, palpable crepitus with range of motion, pain with range of motion, no instability Results Reviewed Results Reviewed: X-rays of the patient's bilateral knees taken previously show joint space narrowing, subchondral sclerosis, no acute bony abnormalities Assessment & Plan Assessment & Plan (1) Pain in both knees: Code(s): M25.561 - Pain in right knee; M25.562 - Pain in left knee (2) Osteoarthritis of left knee: Code(s): M17.12 - Unilateral primary osteoarthritis, left knee Category: Medical (3) Osteoarthritis of right knee: Code(s): M17.11 - Unilateral primary osteoarthritis, right knee Category: Medical Plan Ms. Pino presents with bilateral knee pains due to osteoarthritis. I had a lengthy discussion with the patient regarding the treatment options. She wishes to hold off on further surgery for as long as possible. I agree with this plan. I will see if the patient's insurance company will cover a viscosupplementation injection, such as Durolane, for both of her knees. I will see her back once the injections are approved. Feel free to call me at any time should questions regarding her orthopedic management arise. I spent 21 minutes in reviewing the patient's records and imaging studies, seeing the patient and documenting in the medical record. Coding Level of Care Code Est Pt Level 3 (84512) Complex EM visit Add On G2211 Diagnoses Pain in both knees M25.561; M25.562 Osteoarthritis of left knee M17.12 Osteoarthritis of right knee M17.11
== END 2025-08-08 08:03 | disposition home or self-care (01) ==
PROVIDERS: PCP Internal Medicine; Visit Provider Orthopaedic Surgery
DX: M17.0 Bilateral primary osteoarthritis of knee (principal)
CPT/HCPCS: 99213; G2211